=== PATIENT | male | born 1950 | race Caucasian/White ===

== ENCOUNTER 2018-04-23 19:46 | Inpatient (IN) | payer OTHER, MEDICARE ==
[2018-04-23] MEDS ORDERED: IPRATROPIUM/ALBUTEROL 0.5-2.5 MG/3 ML AMPUL NEB ONE (20:23)
[2018-04-23] MEDS ORDERED: METHYLPREDNISOLONE INJ 125 MG/2 ML SDV IV ONE (20:23)
--- NOTE | 2018-04-23 20:26 | ER Document Report ---
ED Medical Screen (RME) - General Chief Complaint: Breathing Difficulty Stated Complaint: DIFFICULTY BREATHING Time Seen by Provider: 04/23/18 20:20 Notes: Patient with difficulty breathing that has been going on for several weeks, but got worse in the past couple of days. He has a history of COPD and still smokes , although he says he stopped 2 days ago. Has had a cough productive of clear phlegm. Denies any chest pains. Has not had any fever. - Related Data Allergies/Adverse Reactions: No Known Drug Allergies Allergy (Verified 01/24/13 21:12) Past Medical History - Social History Frequency of alcohol use: 4-5 beers/day - Past Medical History Cardiac Medical History: Reports: Hx Hypertension Pulmonary Medical History: Reports: Hx COPD Renal/ Medical History: Denies: Hx Peritoneal Dialysis GI Medical History: Reports: Hx Gastroesophageal Reflux Disease Musculoskeltal Medical History: Reports Hx Arthritis Past Surgical History: Reports: Hx Orthopedic Surgery - R ankle - Immunizations Hx Diphtheria, Pertussis, Tetanus Vaccination: Yes Physical Exam - Vital signs Vitals: Temp Pulse Resp BP Pulse Ox 99.2 F 99 24 H 156/79 H 92 04/23/18 20:02 04/23/18 20:02 04/23/18 20:02 04/23/18 20:02 04/23/18 20:02 Course - Vital Signs Vital signs: Temp Pulse Resp BP Pulse Ox 99.2 F 99 24 H 156/79 H 92 04/23/18 20:02 04/23/18 20:02 04/23/18 20:02 04/23/18 20:02 04/23/18 20:02
[2018-04-23] MEDS ORDERED: NORMAL SALINE 1000 ML 1,000 ML IV ONE (20:35)
[2018-04-23 20:45] LABS: ABSOLUTE BASOPHILS # (AUTO) 0.1 10^3/uL (0.0-0.2); ABSOLUTE EOSINOPHILS # (AUTO) 1.4 10^3/uL (0.0-0.6); ABSOLUTE LYMPHOCYTES (AUTO) 0.8 10^3/uL (0.5-4.7); ABSOLUTE MONOCYTES (AUTO) 1.4 10^3/uL (0.1-1.4); ABSOLUTE NEUT (AUTO) 7.4 10^3/uL (1.7-8.2); BASOPHILS % (AUTO) 0.5 % (0-2); EOSINOPHILS % (AUTO) 12.4 % (0-6); HEMATOCRIT 39.9 % (37.9-51.0); MEAN CORPUSCULAR HEMOGLOBIN 35.1 pg (27.0-33.4); MEAN CORPUSCULAR HGB CONC 35.1 g/dL (32.0-36.0); MEAN CORPUSCULAR VOLUME 100 fl (80-97); MONOCYTES % (AUTO) 13.1 % (3-13); PLATELET COUNT 466 10^3/uL (150-450); RED BLOOD COUNT 3.99 10^6/uL (4.35-5.55); RED CELL DISTRIBUTION WIDTH 12.4 % (11.5-14.0); TOTAL CELLS COUNTED % (AUTO) 100 %
[2018-04-23] MEDS ORDERED: MAGNESIUM SULFATE/D5W 1 GM/100 ML RTUPB IV ONE (21:08)
[2018-04-23] MEDS ORDERED: ALBUTEROL SULFATE 0.083% NEB 2.5 MG/3 ML AMPUL NEB ONE (21:08)
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
[2018-04-23 21:14] LABS: ALANINE AMINOTRANSFERASE 22 U/L (21-72); ALBUMIN 3.7 g/dL (3.5-5.0); ALKALINE PHOSPHATASE 116 U/L (38-126); ANION GAP 8 (5-19); ASPARTATE AMINO TRANSFERASE 27 U/L (17-59); BILIRUBIN,DIRECT 0.5 mg/dL (0.0-0.4); BILIRUBIN,TOTAL 0.6 mg/dL (0.2-1.3); BLOOD UREA NITROGEN 8 mg/dL (7-20); CALCIUM 9.4 mg/dL (8.4-10.2); CARBON DIOXIDE 28 mmol/L (22-30); CHLORIDE 94 mmol/L (98-107); GLUCOSE 108 mg/dL (75-110); POTASSIUM 4.8 mmol/L (3.6-5.0); TOTAL PROTEIN 6.9 g/dL (6.3-8.2)
--- NOTE | 2018-04-23 21:16 | RADIOLOGY REPORT (SQ) ---
EXAM DESCRIPTION: CHEST SINGLE VIEW COMPLETED DATE/TIME: 04/23/2018 8:55 pm REASON FOR STUDY: COPD, wheezing, S OB COMPARISON: CT chest 01/24/2013 EXAM PARAMETERS: NUMBER OF VIEWS: One view. TECHNIQUE: Single frontal radiographic view of the chest acquired. RADIATION DOSE: NA LIMITATIONS: None. FINDINGS: LUNGS AND PLEURA: Mild biapical pleural-parenchymal scarring. No acute infiltrates. No p leural effusion. No pneumothorax. MEDIASTINUM AND HILAR STRUCTURES: No masses. Contour normal. HEART AND VASCULAR STRUCTURES: Heart normal in size. Normal vasculature. BONES: No acute findings. HARDWARE: None in the chest. OTHER: No other significant finding. IMPRESSION: NO ACUTE RADIOGRAPHIC FINDING IN THE CHEST. TECHNICAL DOCUMENTATION: JOB ID: [id number] [employer]- All Rights Reserved Reading location - IP/workstation name: [email or web address]
[2018-04-24] MEDS ORDERED: ACETAMINOPHEN 325 MG TABLET PO PRN (01:03)
[2018-04-24] MEDS ORDERED: MAG HYDROX/AL HYDROX/SIMETH SUSP 30 ML UDCUP PO PRN (01:03)
[2018-04-24] MEDS ORDERED: PROMETHAZINE HCL 25 MG TABLET PO PRN (01:03)
[2018-04-24] MEDS ORDERED: IPRATROPIUM/ALBUTEROL 0.5-2.5 MG/3 ML AMPUL NEB PRN ×2 (01:03→18:59)
[2018-04-24] MEDS ORDERED: PROMETHAZINE HCL INJ 25 MG/1 ML VIAL IV PRN (01:03)
[2018-04-24] MEDS ORDERED: HYDROCODONE/ACETAMINOPHEN 7.5-325 MG TABLET PO PRN (01:32)
[2018-04-24] MEDS ORDERED: METOCLOPRAMIDE HCL 10 MG TABLET PO PRN (01:32)
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
[2018-04-24] MEDS ORDERED: AZITHROMYCIN INJ 500 MG VIAL IV ONE (01:40)
[2018-04-24] MEDS: NORMAL SALINE 1000 ML 1,000 ML IV PRN ×2 (03:21→17:46)
[2018-04-24 04:26] LABS: APPEARANCE,URINE CLEAR; BILIRUBIN,URINE NEGATIVE (NEGATIVE); COLOR,URINE STRAW; GLUCOSE, URINE NEGATIVE (NEGATIVE); KETONES,URINE TRACE mg/dL (NEGATIVE); LEUKOCYTE ESTERASE,URINE NEGATIVE (NEGATIVE); NITRITE,URINE NEGATIVE (NEGATIVE); PROTEIN,URINE NEGATIVE (NEGATIVE); URINE SPECIFIC GRAVITY 1.005; UROBILINOGEN,URINE NEGATIVE mg/dL (<2.0)
[2018-04-24 06:39] LABS: HEMATOCRIT 38.6 % (37.9-51.0); HEMOGLOBIN 13.4 g/dL (13.5-17.0); MEAN CORPUSCULAR HEMOGLOBIN 35.3 pg (27.0-33.4); MEAN CORPUSCULAR HGB CONC 34.8 g/dL (32.0-36.0); MEAN CORPUSCULAR VOLUME 102 fl (80-97); PLATELET COUNT 393 10^3/uL (150-450); RED CELL DISTRIBUTION WIDTH 12.6 % (11.5-14.0); WHITE BLOOD COUNT 7.2 10^3/uL (4.0-10.5)
[2018-04-24 06:48] LABS: ARTERIAL BLOOD BASE EXCESS -1.9 mmol/L; ARTERIAL BLOOD H2CO3 1.13 mmol/L (1.05-1.35); ARTERIAL BLOOD HCO3 22.5 mmol/L (20-24); ARTERIAL BLOOD PCO2 37.5 mmHg (35-45); ARTERIAL BLOOD PO2 91.2 mmHg (80-100); ARTERIAL BLOOD TOTAL CO2 23.7 mmol/L (23-27)
[2018-04-24 06:51] LABS: ARTERIAL BLOOD FIO2 30%
[2018-04-24 06:52] LABS: ANION GAP 12 (5-19); BLOOD UREA NITROGEN 7 mg/dL (7-20); CALCIUM 8.9 mg/dL (8.4-10.2); CARBON DIOXIDE 23 mmol/L (22-30); CHLORIDE 99 mmol/L (98-107); GLUCOSE 154 mg/dL (75-110); PHOSPHORUS 4.1 mg/dL (2.5-4.5); POTASSIUM 5.4 mmol/L (3.6-5.0); SODIUM 134.4 mmol/L (137-145)
[2018-04-24] MEDS: METHYLPREDNISOLONE INJ 125 MG/2 ML SDV IV SCH ×3 (07:01→21:31)
[2018-04-24 07:06] LABS: ABSOLUTE LYMPHOCYTES# (MANUAL) 0.1 10^3/uL (0.5-4.7); ABSOLUTE MONOCYTES # (MANUAL) 0.1 10^3/uL (0.1-1.4); ABSOLUTE NEUTROPHILS# (MANUAL) 7.1 10^3/uL (1.7-8.2); BASOPHILS % (MANUAL) 0 % (0-2); EOSINOPHILS % (MANUAL) 0 % (0-6); LYMPHOCYTES % (MANUAL) 1 % (13-45); MONOCYTES % (MANUAL) 1 % (3-13); SEGMENTED NEUTROPHILS % (MAN) 98 % (42-78); TOTAL CELLS COUNTED 100
[2018-04-24 07:07] LABS: PLATELET COMMENT ADEQUATE; RBC MORPHOLOGY COMMENT NORMO-CYTIC/CHROMIC
[2018-04-24] MEDS ORDERED: AZITHROMYCIN 500 MG in DEXTROSE 5%-WATER 250 ML IV ONE (08:00)
--- NOTE | 2018-04-24 08:47 | EKG REPORT ---
SEVERITY:- NORMAL ECG - SINUS RHYTHM : Confirmed by: Winter Fuentes 24-Apr-2018 08:46:43
[2018-04-24] MEDS: ASPIRIN 81 MG TABLET, CHEWABLE PO SCH (10:38)
[2018-04-24] MEDS: LISINOPRIL 10 MG TABLET PO SCH (10:38)
[2018-04-24] MEDS: LORAZEPAM 0.5 MG TABLET PO SCH ×2 (10:38→17:46)
[2018-04-24] MEDS: ENOXAPARIN SODIUM INJ 40 MG/0.4 ML DISP.SYRIN SUBCUT SCH (10:38)
[2018-04-24] MEDS: TIOTROPIUM BROMIDE DPI 5 CAP/KIT (18 MCG/CAP) IH SCH (10:41)
[2018-04-24] MEDS: NICOTINE 21 MG/24 HR PATCH.TD24 TD SCH (13:15)
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
[2018-04-24] MEDS: IPRATROPIUM/ALBUTEROL 0.5-2.5 MG/3 ML AMPUL NEB SCH (20:09)
[2018-04-24] MEDS ORDERED: LEVOFLOXACIN 750 MG TABLET PO SCH (20:45)
[2018-04-24] MEDS: FAMOTIDINE 20 MG TABLET PO SCH (21:31)
[2018-04-25] MEDS: METHYLPREDNISOLONE INJ 125 MG/2 ML SDV IV SCH ×2 (06:16→13:44)
[2018-04-25 06:39] LABS: HEMATOCRIT 35.7 % (37.9-51.0); HEMOGLOBIN 12.5 g/dL (13.5-17.0); MEAN CORPUSCULAR HEMOGLOBIN 34.8 pg (27.0-33.4); MEAN CORPUSCULAR HGB CONC 35.1 g/dL (32.0-36.0); MEAN CORPUSCULAR VOLUME 99 fl (80-97); PLATELET COUNT 442 10^3/uL (150-450); RED CELL DISTRIBUTION WIDTH 12.4 % (11.5-14.0)
[2018-04-25 06:56] LABS: ANION GAP 7 (5-19); BLOOD UREA NITROGEN 12 mg/dL (7-20); CALCIUM 8.7 mg/dL (8.4-10.2); CARBON DIOXIDE 27 mmol/L (22-30); CHLORIDE 98 mmol/L (98-107); GLUCOSE 153 mg/dL (75-110); PHOSPHORUS 3.7 mg/dL (2.5-4.5); POTASSIUM 4.6 mmol/L (3.6-5.0); SODIUM 131.7 mmol/L (137-145)
[2018-04-25 07:43] LABS: ABSOLUTE LYMPHOCYTES# (MANUAL) 0.3 10^3/uL (0.5-4.7); ABSOLUTE MONOCYTES # (MANUAL) 0.4 10^3/uL (0.1-1.4); ABSOLUTE NEUTROPHILS# (MANUAL) 8.4 10^3/uL (1.7-8.2); BASOPHILS % (MANUAL) 0 % (0-2); EOSINOPHILS % (MANUAL) 0 % (0-6); LYMPHOCYTES % (MANUAL) 3 % (13-45); MONOCYTES % (MANUAL) 4 % (3-13); SEGMENTED NEUTROPHILS % (MAN) 93 % (42-78); TOTAL CELLS COUNTED 100
[2018-04-25 07:44] LABS: PLATELET COMMENT ADEQUATE; RBC MORPHOLOGY COMMENT NORMO-CYTIC/CHROMIC
[2018-04-25] MEDS: IPRATROPIUM/ALBUTEROL 0.5-2.5 MG/3 ML AMPUL NEB SCH ×2 (08:03→12:00)
[2018-04-25 08:22] VITALS: BP 149/77
[2018-04-25] MEDS: ENOXAPARIN SODIUM INJ 40 MG/0.4 ML DISP.SYRIN SUBCUT SCH (09:32)
[2018-04-25] MEDS: ASPIRIN 81 MG TABLET, CHEWABLE PO SCH (09:33)
[2018-04-25] MEDS: LORAZEPAM 0.5 MG TABLET PO SCH (09:33)
[2018-04-25] MEDS: FAMOTIDINE 20 MG TABLET PO SCH (09:33)
[2018-04-25] MEDS: LISINOPRIL 10 MG TABLET PO SCH (09:34)
[2018-04-25] MEDS: TIOTROPIUM BROMIDE DPI 5 CAP/KIT (18 MCG/CAP) IH SCH (09:44)
[2018-04-25 09:56] LABS: ARTERIAL BLOOD BASE EXCESS 0.5 mmol/L; ARTERIAL BLOOD H2CO3 1.06 mmol/L (1.05-1.35); ARTERIAL BLOOD O2 SATURATION 95.3 % (94-98); ARTERIAL BLOOD PCO2 35.3 mmHg (35-45); ARTERIAL BLOOD PH 7.45 (7.35-7.45); ARTERIAL BLOOD PO2 72.1 mmHg (80-100); ARTERIAL BLOOD TOTAL CO2 25.1 mmol/L (23-27)
[2018-04-25 10:00] LABS: ARTERIAL BLOOD FIO2 ROOM AIR
[2018-04-25] MEDS: NICOTINE 21 MG/24 HR PATCH.TD24 TD SCH (13:45)
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
== END 2018-04-25 16:16 | disposition home or self-care (01) | DRG 192 ==
LOC: ER 19:46 → EH 04-24 00:19 → 3S 04-24 02:25
PROVIDERS: ADMIT Internal Medicine; ATTEND Internal Medicine
DX: J44.1 Chronic obstructive pulmonary disease with (acute) exacerbation (principal); I10 Essential (primary) hypertension; K21.9 Gastro-esophageal reflux disease without esophagitis; F17.210 Nicotine dependence, cigarettes, uncomplicated; Z79.82 Long term (current) use of aspirin; Z79.51 Long term (current) use of inhaled steroids; Z79.52 Long term (current) use of systemic steroids; Z79.899 Other long term (current) drug therapy
CPT/HCPCS: 36415; 36600; 71045; 80048; 80053; 81001; 82803; 83880; 84100; 84484; 85025; 87040; 87070; 87077; 87205; 93005; 93010; 94640; 94660; 94799; 96361; 96365; 96366; 96375; 99285; J0456; J1650; J2930; J3475; J3490; J7060; J7620

== ENCOUNTER 2018-05-07 20:28 | Inpatient (IN) | payer OTHER, MEDICARE ==
[2018-05-07] MEDS ORDERED: PREDNISONE 20 MG TABLET PO ONE (20:33)
[2018-05-07] MEDS ORDERED: IPRATROPIUM/ALBUTEROL 0.5-2.5 MG/3 ML AMPUL NEB ONE ×3 (20:33→21:59)
--- NOTE | 2018-05-07 20:36 | ER Document Report ---
ED Medical Screen (RME) - General Stated Complaint: SHORTNESS OF BREATH Mode of Arrival: Ambulatory Information source: Patient, [facility] Records Notes: 67-year-old male with COPD presents with complaint of shortness of breath that started 1 day prior to arrival. Patient admits to associated chest congestion. He does not currently smoke. I have greeted and performed a rapid initial assessment of this patient. A comprehensive ED assessment and evaluation of the patient, analysis of test results and completion of medical decision making process we will be contacted by additional ED providers. General; mild distress Respiratory; accessory muscle use, diffuse wheezing Neuro; alert, awake TRAVEL OUTSIDE OF THE [place] IN LAST 30 DAYS: No - HPI Onset: Yesterday Onset/Duration: Gradual Associated Symptoms: Cough (productive), Shortness of breath Exacerbated by: Denies Relieved by: Denies Similar symptoms previously: Yes Recently seen / treated by doctor: No - Related Data Smoking: Quit greater than 1 year Frequency of alcohol use: None Drug Abuse: None Allergies/Adverse Reactions: No Known Drug Allergies Allergy (Verified 01/24/13 21:12) Past Medical History - Past Medical History Cardiac Medical History: Reports: Hx Hypertension Pulmonary Medical History: Reports: Hx COPD Renal/ Medical History: Denies: Hx Peritoneal Dialysis GI Medical History: Reports: Hx Gastroesophageal Reflux Disease Musculoskeltal Medical History: Reports Hx Arthritis Past Surgical History: Reports: Hx Orthopedic Surgery - R ankle - Immunizations Hx Diphtheria, Pertussis, Tetanus Vaccination: Yes
[2018-05-07] MEDS: ALBUTEROL SULFATE 0.083% NEB 2.5 MG/3 ML AMPUL NEB SCH ×2 (20:38→20:41)
[2018-05-07 21:05] LABS: ABSOLUTE BASOPHILS # (AUTO) 0.1 10^3/uL (0.0-0.2); ABSOLUTE EOSINOPHILS # (AUTO) 1.1 10^3/uL (0.0-0.6); ABSOLUTE LYMPHOCYTES (AUTO) 0.8 10^3/uL (0.5-4.7); ABSOLUTE MONOCYTES (AUTO) 1.5 10^3/uL (0.1-1.4); ABSOLUTE NEUT (AUTO) 9.8 10^3/uL (1.7-8.2); BASOPHILS % (AUTO) 0.7 % (0-2); EOSINOPHILS % (AUTO) 8.3 % (0-6); HEMATOCRIT 40.1 % (37.9-51.0); HEMOGLOBIN 14.1 g/dL (13.5-17.0); LYMPHOCYTES % (AUTO) 6.1 % (13-45); MEAN CORPUSCULAR HEMOGLOBIN 34.6 pg (27.0-33.4); MEAN CORPUSCULAR HGB CONC 35.2 g/dL (32.0-36.0); MEAN CORPUSCULAR VOLUME 98 fl (80-97); MONOCYTES % (AUTO) 11.3 % (3-13); PLATELET COUNT 323 10^3/uL (150-450); RED BLOOD COUNT 4.08 10^6/uL (4.35-5.55); RED CELL DISTRIBUTION WIDTH 12.7 % (11.5-14.0); SEGMENTED NEUTROPHILS % (AUTO) 73.6 % (42-78); TOTAL CELLS COUNTED % (AUTO) 100 %; WHITE BLOOD COUNT 13.3 10^3/uL (4.0-10.5)
[2018-05-07 21:19] LABS: VENOUS BLOOD BASE EXCESS 0.2 mmol/L; VENOUS BLOOD HCO3 26.3 mmol/L (20-32); VENOUS BLOOD PCO2 47.7 mmHg (35-63); VENOUS BLOOD PH 7.36 (7.30-7.42)
[2018-05-07 21:35] LABS: ALANINE AMINOTRANSFERASE 25 U/L (21-72); ALBUMIN 3.9 g/dL (3.5-5.0); ALKALINE PHOSPHATASE 84 U/L (38-126); ANION GAP 11 (5-19); ASPARTATE AMINO TRANSFERASE 34 U/L (17-59); BILIRUBIN,DIRECT 0.5 mg/dL (0.0-0.4); BILIRUBIN,TOTAL 0.6 mg/dL (0.2-1.3); BLOOD UREA NITROGEN 6 mg/dL (7-20); CALCIUM 9.1 mg/dL (8.4-10.2); CARBON DIOXIDE 27 mmol/L (22-30); CHLORIDE 90 mmol/L (98-107); GLUCOSE 100 mg/dL (75-110); POTASSIUM 4.6 mmol/L (3.6-5.0); SODIUM 128.2 mmol/L (137-145); TOTAL PROTEIN 6.9 g/dL (6.3-8.2)
[2018-05-07 21:46] LABS: NT PRO BNP 238 pg/mL (5-900); TROPONIN I < 0.012 ng/mL
[2018-05-07] MEDS ORDERED: ALBUTEROL SULFATE 0.083% NEB 2.5 MG/3 ML AMPUL NEB ONE (21:59)
--- NOTE | 2018-05-07 22:04 | RADIOLOGY REPORT (SQ) ---
Portable chest Compared to 04/23/2018. HISTORY: Shortness of breath. FINDINGS: The heart is not enlarged. Aorta is within normal limits. No consolidation or pleural effusion. No pulmonary edema or pneumothorax. IMPRESSION: No acute disease.
[2018-05-07] MEDS: MAGNESIUM SULFATE/D5W 1 GM/100 ML RTUPB IV SCH ×2 (22:13→22:43)
--- NOTE | 2018-05-07 22:40 | ER Document Report ---
ED General - General Chief Complaint: Shortness Of Breath Stated Complaint: SHORTNESS OF BREATH Time Seen by Provider: 05/07/18 20:36 Mode of Arrival: Ambulatory Notes: Patient is a 67-year-old male with a past medical history of COPD, does not typically use oxygen at baseline who presents with 2 days of progressively worsening shortness of breath and cough. The patient states this feels similar to when he required hospitalization at the end of last month. He states that his symptoms started shortly after running out of oral prednisone. He has not seen his primary care doctor regarding today's concerns. He denies sputum production, fever or constitutional symptoms. Nothing improves or worsens his symptoms. He is not currently smoking. TRAVEL OUTSIDE OF THE [place] IN LAST 30 DAYS: No - Related Data Allergies/Adverse Reactions: No Known Drug Allergies Allergy (Verified 01/24/13 21:12) Past Medical History - General Information source: Patient, [facility] Records - Social History Smoking Status: Former Smoker Chew tobacco use (# tins/day): No Frequency of alcohol use: Occasional Drug Abuse: None Lives with: Spouse/Significant other Family History: Reviewed & Not Pertinent Patient has suicidal ideation: No Patient has homicidal ideation: No - Past Medical History Cardiac Medical History: Reports: Hx Hypertension Pulmonary Medical History: Reports: Hx COPD Renal/ Medical History: Denies: Hx Peritoneal Dialysis GI Medical History: Reports: Hx Gastroesophageal Reflux Disease Musculoskeletal Medical History: Reports Hx Arthritis Past Surgical History: Reports: Hx Orthopedic Surgery - R ankle - Immunizations Hx Diphtheria, Pertussis, Tetanus Vaccination: Yes Hx Pneumococcal Vaccination: 01/26/13 Review of Systems - Review of Systems Notes: Constitutional: Negative for fever. HENT: Negative for sore throat. Eyes: Negative for visual changes. Cardiovascular: Negative for chest pain. Respiratory: Positive for shortness of breath. Gastrointestinal: Negative for abdominal pain, vomiting or diarrhea. Genitourinary: Negative for dysuria. Musculoskeletal: Negative for back pain. Skin: Negative for rash. Neurological: Negative for headaches, weakness or numbness. 10 point ROS negative except as marked above and in HPI. Physical Exam - Vital signs Vitals: Temp Pulse Resp BP Pulse Ox 97.7 F 110 H 25 H 130/71 H 94 05/07/18 20:35 05/07/18 20:35 05/07/18 20:35 05/07/18 20:35 05/07/18 20:35 Interpretation: Tachycardic, Tachypneic Notes: PHYSICAL EXAMINATION: GENERAL: Appears moderately unwell but in no acute distress HEAD: Atraumatic, normocephalic. EYES: Pupils equal round and reactive to light, extraocular movements intact, sclera anicteric, conjunctiva are normal. ENT: nares patent, oropharynx clear without exudates. Moderately dry mucous membranes. NECK: Normal range of motion, supple without lymphadenopathy LUNGS: Mild tachypnea, diffuse wheezing and diminished air movement in all lung huggins HEART: Regular tachycardia without murmurs ABDOMEN: Soft, nontender, normoactive bowel sounds. No guarding, no rebound. No masses appreciated. EXTREMITIES: Normal range of motion, no pitting or edema. No cyanosis. NEUROLOGICAL: No focal neurological deficits. Moves all extremities spontaneously and on command. PSYCH: Normal mood, normal affect. SKIN: Warm, Dry, normal turgor, no rashes or lesions noted. Course - Re-evaluation Re-evalutation: 05/07/18 22:40 Patient presents in mild respiratory distress, tachypnea, tight, diffuse wheezing in all lung huggins. Chest x-ray without any acute infiltrate. Labs overall unremarkable. Despite giving 3 back to back to nebulizer, continuous albuterol nebulizers, IV magnesium, oral prednisone the patient did not have substantial improvement in his symptoms. Patient on multiple reassessments was at no point in anything beyond mild respiratory distress, I do not believe he needs BiPAP at this point. However I do believe he will require hospitalization given his failure to improve with initial interventions. I discussed with Dr. Heard the hospitalist on-call who has accepted the patient for admission. - Vital Signs Vital signs: Temp Pulse Resp BP Pulse Ox 98.4 F 110 H 24 H 145/74 H 97 05/07/18 23:09 05/07/18 20:35 05/07/18 23:01 05/07/18 23:01 05/07/18 23:11 - Laboratory Result Diagrams: 05/07/18 20:54 05/07/18 20:54 Laboratory results interpreted by me: 05/07/18 05/07/18 20:54 20:54 WBC 13.3 H RBC 4.08 L MCV 98 H MCH 34.6 H Lymphocytes % 6.1 L Eosinophils % 8.3 H Absolute Neutrophils 9.8 H Absolute Monocytes 1.5 H Absolute Eosinophils 1.1 H Sodium 128.2 L Chloride 90 L BUN 6 L Direct Bilirubin 0.5 H - Diagnostic Test Radiology reviewed: Image reviewed, Reports reviewed Radiology results interpreted by me: 05/08/18 00:19 Chest x-ray: No acute infiltrate or pneumothorax Discharge - Discharge Clinical Impression: COPD with acute exacerbation, Shortness of breath Condition: Fair Disposition: ADMITTED INPATIENT Admitting Provider: Hospitalist Unit Admitted: Telemetry
[2018-05-07] MEDS ORDERED: ACETAMINOPHEN 325 MG TABLET PO PRN (23:32)
[2018-05-07] MEDS ORDERED: PROMETHAZINE HCL INJ 25 MG/1 ML VIAL IV PRN (23:32)
[2018-05-07] MEDS ORDERED: PROMETHAZINE HCL 25 MG TABLET PO PRN (23:32)
[2018-05-07] MEDS ORDERED: MAG HYDROX/AL HYDROX/SIMETH SUSP 30 ML UDCUP PO PRN (23:32)
[2018-05-07] MEDS ORDERED: TEMAZEPAM 7.5 MG CAPSULE PO PRN (23:32)
--- NOTE | 2018-05-07 23:33 | EKG REPORT ---
SEVERITY:- BORDERLINE ECG - SINUS TACHYCARDIA BORDERLINE IVCD WITH LAD : Confirmed by: Winter Fuentes 07-May-2018 23:32:08
[2018-05-07] MEDS ORDERED: AZITHROMYCIN INJ 500 MG VIAL IV PRN (23:44)
[2018-05-08] MEDS ORDERED: AZITHROMYCIN 500 MG in DEXTROSE 5%-WATER 250 ML IV ONE ×2
[2018-05-08] MEDS: NORMAL SALINE 1000 ML 1,000 ML IV PRN ×2 (00:12→17:18)
[2018-05-08] MEDS ORDERED: AZITHROMYCIN INJ 500 MG VIAL IV ONE (00:54)
--- NOTE | 2018-05-08 02:25 | PDOC H&P ---
History of Present Illness Admission Date/PCP: 05/07/18 22:48 Ravinder Mendoza Patient complains of: Shortness of breath History of Present Illness: JOSE LUIS JIM is a 67 year old male who comes to the emergency department complaining of shortness of breath. Patient has been discharged from our facility on 04/25 for COPD exacerbation, tells me that he was good and until 3 days ago that his symptoms returned with progressive shortness of breath, cough , denies phlegm, wheezing, fever, chills, nausea, vomiting, chest pain. Patient is a smoker but her last seizure was 2 days ago as gives him severe shortness of breath. Symptoms are similar to his last hospitalization and states that symptoms started after he ran out of prednisone. In the emergency department saturating 94% on room air. In the ED noted on mild respiratory distress, tachypneic, diffuse wheezing in both lungs with chest tightness. Given IV magnesium, nebulizer treatments, p.o. prednisone with no substantial improvement, felt patient needs to be hospitalized. Past Medical History Cardiac Medical History: Reports: Hypertension Pulmonary Medical History: Reports: Chronic Obstructive Pulmonary Disease (COPD) GI Medical History: Reports: Gastroesophageal Reflux Disease Musculoskeltal Medical History: Reports: Arthritis Past Surgical History Past Surgical History: Reports: Orthopedic Surgery - R ankle Social History Lives with: Spouse/Significant other Smoking Status: Former Smoker Frequency of Alcohol Use: Heavy Hx Recreational Drug Use: No Hx Prescription Drug Abuse: No - Advance Directive Resuscitation Status: Full Code Family History Family History: Reviewed & Not Pertinent Parental Family History Reviewed: No Children Family History Reviewed: NA Sibling(s) Family History Reviewed.: NA Medication/Allergy Home Medications: Albuterol Sulfate [Proair HFA Inhalation Aerosol 8.5 gm MDI] 2 puff IH Q6HP PRN 04/24/18 Budesonide/Formoterol Fumarate [Symbicort HFA 160-4.5 mcg Inhaler 6 gm] 2 puff IH BID 04/24/18 Cholecalciferol (Vitamin D3) [Vitamin D3] 1,000 unit PO DAILY 04/24/18 Guaifenesin 400 mg PO TID 04/24/18 Lisinopril [Prinivil 10 mg Tablet] 10 mg PO DAILY 04/24/18 Loratadine [Claritin 10 mg Tablet] 10 mg PO DAILY 04/24/18 Multivitamin [Multiple Vitamins] 1 tab PO DAILY 04/24/18 Rabeprazole Sodium [Aciphex] 20 mg PO QAM 04/24/18 Aspirin [Aspirin 81 mg Chewable Tablet] 81 mg PO DAILY tab.chew 04/25/18 Levofloxacin [Levaquin 750 mg Tablet] 750 mg PO QHS #5 tablet 04/25/18 Prednisone 20 mg PO BID #10 tablet 04/25/18 Tiotropium [place] [Spiriva Handihaler 5 Cap/Kit (18 Mcg/Cap)] 1 cap IH DAILY # 5 kit 04/25/18 Allergies/Adverse Reactions: No Known Drug Allergies Allergy (Verified 01/24/13 21:12) Review of Systems Review of Systems: As outlined in the HPI, others negative Physical Exam Vital Signs: Temp Pulse Resp BP Pulse Ox 98.3 F 122 H 20 133/67 H 98 05/08/18 00:22 05/08/18 00:22 05/08/18 00:22 05/08/18 00:22 05/08/18 00:22 Intake & Output 05/06/18 05/07/18 05/08/18 06:59 06:59 06:59 Intake Total 100 Balance 100 Weight 72.4 kg Additional comments: General appearance: Disheveled, alert and cooperative, and appears to be in no acute distress Head: Normocephalic Eyes: PEERL, EOMI, vision is grossly intact. Ears: External auditory canal and tympanic membranes clear, hearing grossly intact. Nose: No nasal discharge. Throat: Oral cavity and pharynx normal. No inflammation, swelling, exudate or lesions. Neck: Neck supple, nontender without lymphadenopathy, masses or thyromegaly. Cardiac: Normal S1 and S2. No S3, S4 or murmurs. Rhythm is regular. There is no peripheral edema, cyanosis or pallor. Extremities are warm and well perfused. Capillary refill is less than 2 seconds. No carotid bruits. Lungs: Moderate to severe bilateral decreased breath sounds with moderate bilateral expiratory wheezing, diffuse rhonchi, diffuse crackles. Not using accessory muscles. Abdomen: Positive bowel sounds. Soft. Nondistended, nontender. No guarding or rebound. No masses. No hepatosplenomegaly Extremities: No significant deformity or joint abnormality. No edema. Peripheral pulses intact. No varicosities. Neurological: Cranial nerves II through XII grossly intact. Strength and sensation symmetric and intact throughout. Reflexes 2+ throughout. Skin: Skin normal color, texture and turgor with no lesions or eruptions, warm and dry. Psychiatric: The mental examination revealed the patient was oriented to person , place, and time. The patient was able to demonstrate good judgment on recent , without hallucinations, abnormal affect or abnormal behaviors. Results Laboratory Results: 05/07/18 05/07/18 05/07/18 20:54 20:54 20:54 WBC 13.3 H RBC 4.08 L Hgb 14.1 Hct 40.1 MCV 98 H MCH 34.6 H MCHC 35.2 RDW 12.7 Plt Count 323 Seg Neutrophils % 73.6 Lymphocytes % 6.1 L Eosinophils % 8.3 H Basophils % 0.7 Absolute Neutrophils 9.8 H Absolute Lymphocytes 0.8 Absolute Monocytes 1.5 H Absolute Eosinophils 1.1 H Absolute Basophils 0.1 VBG pH VBG pCO2 VBG HCO3 VBG Base Excess Sodium 128.2 L Potassium 4.6 Chloride 90 L Carbon Dioxide 27 Anion Gap 11 BUN 6 L Creatinine 0.69 Est GFR ( Amer) > 60 Est GFR (Non-Af Amer) > 60 Glucose 100 Calcium 9.1 Total Bilirubin 0.6 Direct Bilirubin 0.5 H Neonat Total Bilirubin Not Reportable Neonat Direct Bilirubin Not Reportable AST 34 ALT 25 Troponin I < 0.012 NT-Pro-B Natriuret Pep 238 Total Protein 6.9 Albumin 3.9 05/07/18 20:54 WBC RBC Hgb Hct MCV MCH MCHC RDW Plt Count Seg Neutrophils % Lymphocytes % Eosinophils % Basophils % Absolute Neutrophils Absolute Lymphocytes Absolute Monocytes Absolute Eosinophils Absolute Basophils VBG pH 7.36 VBG pCO2 47.7 VBG HCO3 26.3 VBG Base Excess 0.2 Sodium Potassium Chloride Carbon Dioxide Anion Gap BUN Creatinine Est GFR ( Amer) Est GFR (Non-Af Amer) Glucose Calcium Total Bilirubin Direct Bilirubin Neonat Total Bilirubin Neonat Direct Bilirubin AST ALT Troponin I NT-Pro-B Natriuret Pep Total Protein Albumin Impressions: Chest X-Ray 05/07/18 20:33 IMPRESSION: No acute disease. Assessment & Plan - Diagnosis (1) COPD with acute exacerbation Is this a current diagnosis for this admission?: Yes Plan: Patient comes with progressive shortness of breath for 2 days, unfortunately he was a still smoker umtil 3 days ago. In the ED initially tachycardic up to 110 with a respiratory rate of 24x'. Will start IV azithromycin. Do not feel patient needs to be on BiPAP. Incentive spirometry. Chest x-ray negative for acute infiltrates. Upon my evaluation patient was tachycardic up to 120x' likely secondary to frequent nebulizer treatments containing albuterol. We will keep the patient on telemetry monitoring and reassess. (2) Hypertension Qualifiers: Hypertension type: essential hypertension Qualified Code(s): I10 - Essential (primary) hypertension Is this a current diagnosis for this admission?: Yes Plan: Resume home antihypertensive medications. (3) Tobacco dependence Is this a current diagnosis for this admission?: Yes Plan: Last cigarette 3 days ago. Declined to have nicotine patch. (4) Hyponatremia Is this a current diagnosis for this admission?: Yes Plan: Apparently patient has mild chronic hyponatremia, this admission sodium is 128, will give some normal saline IV infusion and reassess sodium value in the morning. - Time Time Spent: 30 to 50 Minutes - Inpatient Certification Based on my medical assessment, after consideration of the patient's comorbidities, presenting symptoms, or acuity I expect that the services needed warrant INPATIENT care.: Yes I certify that my determination is in accordance with my understanding of Medicare's requirements for reasonable and necessary INPATIENT services [42 CFR 412.3e].: Yes Medical Necessity: Risk of Complication if Not Cared For in Hospital
[2018-05-08] MEDS: METHYLPREDNISOLONE INJ 125 MG/2 ML SDV IV SCH ×3 (05:17→21:29)
[2018-05-08 06:05] LABS: HEMATOCRIT 37.9 % (37.9-51.0); HEMOGLOBIN 13.4 g/dL (13.5-17.0); MEAN CORPUSCULAR HGB CONC 35.4 g/dL (32.0-36.0); MEAN CORPUSCULAR VOLUME 99 fl (80-97); PLATELET COUNT 308 10^3/uL (150-450); RED BLOOD COUNT 3.83 10^6/uL (4.35-5.55); RED CELL DISTRIBUTION WIDTH 12.8 % (11.5-14.0); WHITE BLOOD COUNT 7.6 10^3/uL (4.0-10.5)
[2018-05-08 06:46] LABS: ANION GAP 13 (5-19); BLOOD UREA NITROGEN 7 mg/dL (7-20); CALCIUM 8.8 mg/dL (8.4-10.2); CARBON DIOXIDE 25 mmol/L (22-30); CHLORIDE 91 mmol/L (98-107); GLUCOSE 201 mg/dL (75-110); SODIUM 128.8 mmol/L (137-145)
[2018-05-08 06:59] LABS: ABSOLUTE LYMPHOCYTES# (MANUAL) 0.2 10^3/uL (0.5-4.7); ABSOLUTE MONOCYTES # (MANUAL) 0.1 10^3/uL (0.1-1.4); ABSOLUTE NEUTROPHILS# (MANUAL) 7.2 10^3/uL (1.7-8.2); BASOPHILS % (MANUAL) 1 % (0-2); EOSINOPHILS % (MANUAL) 0 % (0-6); LYMPHOCYTES % (MANUAL) 3 % (13-45); MONOCYTES % (MANUAL) 1 % (3-13); SEGMENTED NEUTROPHILS % (MAN) 95 % (42-78); TOTAL CELLS COUNTED 100
[2018-05-08 07:02] LABS: PLATELET COMMENT ADEQUATE; RBC MORPHOLOGY COMMENT NORMO-CYTIC/CHROMIC; TOXIC GRANULATION 1+
[2018-05-08] MEDS: IPRATROPIUM/ALBUTEROL 0.5-2.5 MG/3 ML AMPUL NEB PRN (08:37)
[2018-05-08] MEDS: GUAIFENESIN SYRP 200 MG/10 ML UDC PO SCH ×3 (09:55→17:18)
[2018-05-08] MEDS: BUDESONIDE/FORMOTEROL 160-4.5 MCG 60 PUFF/6 GM MDI IH SCH ×2 (09:56→17:15)
[2018-05-08] MEDS: TIOTROPIUM BROMIDE DPI 5 CAP/KIT (18 MCG/CAP) IH SCH (09:57)
[2018-05-08] MEDS: LORATADINE 10 MG TABLET PO SCH (09:58)
[2018-05-08] MEDS: ASPIRIN 81 MG TABLET, CHEWABLE PO SCH (09:58)
[2018-05-08] MEDS: MULTIVITAMIN TABLET PO SCH (09:58)
[2018-05-08] MEDS: LANSOPRAZOLE 30 MG TAB.RAP.DR PO SCH (09:58)
[2018-05-08] MEDS: LISINOPRIL 10 MG TABLET PO SCH (09:58)
[2018-05-08] MEDS: ENOXAPARIN SODIUM INJ 40 MG/0.4 ML DISP.SYRIN SUBCUT SCH (09:59)
[2018-05-08] MEDS: CHOLECALCIFEROL (D3) 1,000 UNIT TABLET PO SCH (09:59)
[2018-05-08] MEDS ORDERED: AZITHROMYCIN 500 MG in DEXTROSE 5%-WATER 250 ML IV SCH (22:00)
[2018-05-09] MEDS: IPRATROPIUM/ALBUTEROL 0.5-2.5 MG/3 ML AMPUL NEB PRN ×2 (01:07→08:33)
[2018-05-09] MEDS: METHYLPREDNISOLONE INJ 125 MG/2 ML SDV IV SCH (05:34)
[2018-05-09] MEDS: NORMAL SALINE 1000 ML 1,000 ML IV PRN (06:53)
[2018-05-09] MEDS: GUAIFENESIN SYRP 200 MG/10 ML UDC PO SCH (10:06)
[2018-05-09] MEDS: LISINOPRIL 10 MG TABLET PO SCH (10:06)
[2018-05-09] MEDS: LORATADINE 10 MG TABLET PO SCH (10:07)
[2018-05-09] MEDS: CHOLECALCIFEROL (D3) 1,000 UNIT TABLET PO SCH (10:07)
[2018-05-09] MEDS: ASPIRIN 81 MG TABLET, CHEWABLE PO SCH (10:07)
[2018-05-09] MEDS: LANSOPRAZOLE 30 MG TAB.RAP.DR PO SCH (10:07)
[2018-05-09] MEDS: MULTIVITAMIN TABLET PO SCH (10:07)
[2018-05-09] MEDS: TIOTROPIUM BROMIDE DPI 5 CAP/KIT (18 MCG/CAP) IH SCH (10:08)
[2018-05-09] MEDS: BUDESONIDE/FORMOTEROL 160-4.5 MCG 60 PUFF/6 GM MDI IH SCH (10:23)
[2018-05-09] MEDS: ENOXAPARIN SODIUM INJ 40 MG/0.4 ML DISP.SYRIN SUBCUT SCH (10:25)
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
[2018-05-09 12:59] VITALS: BP 140/67
[2018-05-09] MEDS ORDERED: AZITHROMYCIN 250 MG TABLET PO SCH (22:00)
== END 2018-05-09 13:42 | disposition home or self-care (01) | DRG 191 ==
LOC: ER 20:28 → EH 22:48 → 4S 23:44
PROVIDERS: ADMIT Internal Medicine; ATTEND Internal Medicine
DX: J44.1 Chronic obstructive pulmonary disease with (acute) exacerbation (principal); E87.1 Hypo-osmolality and hyponatremia; I10 Essential (primary) hypertension; K21.9 Gastro-esophageal reflux disease without esophagitis; M19.90 Unspecified osteoarthritis, unspecified site; F17.210 Nicotine dependence, cigarettes, uncomplicated; Z79.2 Long term (current) use of antibiotics; Z79.82 Long term (current) use of aspirin; Z79.51 Long term (current) use of inhaled steroids; Z79.899 Other long term (current) drug therapy
CPT/HCPCS: 36415; 71045; 80048; 80053; 82803; 83880; 84484; 85025; 87040; 87070; 87205; 93005; 93010; 94640; 94799; 96365; 99285; J0456; J1650; J2930; J3475; J3490; J7030; J7060; J7512; J7620

== ENCOUNTER 2018-10-13 13:11 | Inpatient (IN) | payer OTHER, MEDICARE ==
[2018-10-13 13:58] LABS: ABSOLUTE BASOPHILS # (AUTO) 0.1 10^3/uL (0.0-0.2); ABSOLUTE EOSINOPHILS # (AUTO) 0.4 10^3/uL (0.0-0.6); ABSOLUTE LYMPHOCYTES (AUTO) 0.7 10^3/uL (0.5-4.7); ABSOLUTE MONOCYTES (AUTO) 1.7 10^3/uL (0.1-1.4); ABSOLUTE NEUT (AUTO) 7.8 10^3/uL (1.7-8.2); BASOPHILS % (AUTO) 0.7 % (0-2); EOSINOPHILS % (AUTO) 3.8 % (0-6); HEMATOCRIT 38.8 % (37.9-51.0); HEMOGLOBIN 13.7 g/dL (13.5-17.0); LYMPHOCYTES % (AUTO) 6.6 % (13-45); MEAN CORPUSCULAR HEMOGLOBIN 34.6 pg (27.0-33.4); MEAN CORPUSCULAR HGB CONC 35.4 g/dL (32.0-36.0); MEAN CORPUSCULAR VOLUME 98 fl (80-97); MONOCYTES % (AUTO) 15.7 % (3-13); PLATELET COUNT 374 10^3/uL (150-450); RED BLOOD COUNT 3.97 10^6/uL (4.35-5.55); RED CELL DISTRIBUTION WIDTH 12.6 % (11.5-14.0); SEGMENTED NEUTROPHILS % (AUTO) 73.2 % (42-78); TOTAL CELLS COUNTED % (AUTO) 100 %; WHITE BLOOD COUNT 10.6 10^3/uL (4.0-10.5)
[2018-10-13 14:04] LABS: ALANINE AMINOTRANSFERASE 36 U/L (21-72); ALBUMIN 3.7 g/dL (3.5-5.0); ALKALINE PHOSPHATASE 134 U/L (38-126); ANION GAP 10 (5-19); ASPARTATE AMINO TRANSFERASE 39 U/L (17-59); BILIRUBIN,DIRECT 0.3 mg/dL (0.0-0.4); BILIRUBIN,TOTAL 0.7 mg/dL (0.2-1.3); BLOOD UREA NITROGEN 9 mg/dL (7-20); CARBON DIOXIDE 28 mmol/L (22-30); CHLORIDE 89 mmol/L (98-107); GLUCOSE 128 mg/dL (75-110); POTASSIUM 4.5 mmol/L (3.6-5.0); SODIUM 127.2 mmol/L (137-145); TOTAL PROTEIN 6.2 g/dL (6.3-8.2)
--- NOTE | 2018-10-13 14:05 | RADIOLOGY REPORT (SQ) ---
EXAM DESCRIPTION: CT HEAD WITHOUT COMPLETED DATE/TIME: 10/13/2018 1:49 pm REASON FOR STUDY: syncope COMPARISON: None. TECHNIQUE: Axial images acquired through the brain without intravenous contrast. Images reviewed wi th bone, brain and subdural windows. Additional sagittal and coronal reconstructions were generated. Images stored on PACS. All CT scanners at this facility use dose modulation, iterative reconstruction, and/or weight based d osing when appropriate to reduce radiation dose to as low as reasonably achievable (ALARA). [facility]: Dose Right [facility]: CareDose [facility]: Dose Right [facility]: Teradose 4D [facility]: MAR Systems RADIATION DOSE: CT Rad equipment meets quality standard of care and radiation dose reduction techniq ues were employed. CTDIvol: 53.2 mGy. DLP: 1044 mGy-cm. LIMITATIONS: None. FINDINGS: VENTRICLES: Mildly prominent commensurate with the sulci. The cisterns are patent. CEREBRUM: No masses. No hemorrhage. No midline shift. No evidence for acute infarction. Normal gra y/white matter differentiation. No areas of low density in the white matter. CEREBELLUM: No masses. No hemorrhage. No alteration of density. No evidence for acute infarction. EXTRAAXIAL SPACES: Mild age related involutional change. No fluid collections. No masses. ORBITS AND GLOBE: No intra- or extraconal masses. Normal contour of globe without masses. CALVARIUM: No fracture. PARANASAL SINUSES: Small mucosal retention cysts or polyps in the bilateral maxillary sinuses. SOFT TISSUES: No mass or hematoma. OTHER: No other significant finding. IMPRESSION: 1. No acute intracranial abnormality. 2. Small mucous retention cysts or polyps in the bilateral maxillary sinuses. EVIDENCE OF ACUTE STROKE: NO. COMMENT: Quality ID # [id number]: Final reports with documentation of one or more dose reduction techniques (e.g., Automated exposure control, adjustment of the mA and/or kV according to patient size, use of iterative reconstruction technique) TECHNICAL DOCUMENTATION: JOB ID: [id number] [employer]- All Rights Reserved Reading location - IP/workstation name: [email or web address]
--- NOTE | 2018-10-13 14:08 | ER Document Report ---
ED Respiratory Problem - General Chief Complaint: Breathing Difficulty Stated Complaint: DIFFICULTY BREATHING Time Seen by Provider: 10/13/18 13:31 Mode of Arrival: Medic Information source: Patient Notes: Pt is a 68 year old male with a history of syncopal episodes in the past and multiple falls who had another syncopal episode last night and fell off a chair onto the floor on his left shoulder. Pt has no recollection of this event. He states he's been given a logistics lead but hasn't followed up yet, his pcp is [facility]. Pt has COPD and is complaining of wheezing and shortness of breath but no more than usual per pt. He was given a breathing treatment on the ambulance and feels better. His states she's unsure if he hit his head or not. He came to in just a few seconds per . He denies chest pain, admits to left shoulder pain, bruising and left side pain. He is not on blood thinners. TRAVEL OUTSIDE OF THE [place] IN LAST 30 DAYS: No - Related Data Allergies/Adverse Reactions: budesonide [From Symbicort] Adverse Reaction (Severe, Verified 05/09/18 10:24) formoterol [From Symbicort] Adverse Reaction (Severe, Verified 05/09/18 10:24) Past Medical History - General Information source: Patient, Relative - Social History Smoking Status: Current Every Day Smoker Family History: Reviewed & Not Pertinent - Past Medical History Cardiac Medical History: Reports: Hx Hypertension Pulmonary Medical History: Reports: Hx COPD Renal/ Medical History: Denies: Hx Peritoneal Dialysis GI Medical History: Reports: Hx Gastroesophageal Reflux Disease Musculoskeletal Medical History: Reports Hx Arthritis Past Surgical History: Reports: Hx Orthopedic Surgery - R ankle - Immunizations Hx Diphtheria, Pertussis, Tetanus Vaccination: Yes Hx Pneumococcal Vaccination: 01/26/13 Review of Systems - Review of Systems Constitutional: No symptoms reported EENT: No symptoms reported Cardiovascular: No symptoms reported Respiratory: See HPI Gastrointestinal: No symptoms reported Genitourinary: No symptoms reported Male Genitourinary: No symptoms reported Musculoskeletal: See HPI Skin: No symptoms reported Hematologic/Lymphatic: No symptoms reported Neurological/Psychological: No symptoms reported Physical Exam - Vital signs Vitals: Resp Pulse Ox 17 93 10/13/18 13:25 10/13/18 13:25 - Notes Notes: PHYSICAL EXAMINATION: GENERAL: uncomfortable-appearing and in no acute distress. HEAD: Atraumatic, normocephalic. EYES: Pupils equal round and reactive to light, extraocular movements intact, sclera anicteric, conjunctiva are normal. NECK: Normal range of motion, supple without lymphadenopathy LUNGS: left lateral cp over ribs, mild wheezing, no rales or rhonchi. HEART: Regular rate and rhythm without murmurs ABDOMEN: Soft, no tenderness. No guarding, no rebound BACK: no vertebral tenderness, normal ROM GI/: no CVA tenderness EXTREMITIES: moderate ecchymoses to left anterior shoulder into chest, tender to palpation, no deformity noted, limited ROM of the shoulder due to pain, no pitting edema. No cyanosis. NEUROLOGICAL: Cranial nerves grossly intact. Normal sensory/motor exams. PSYCH: Normal mood, normal affect. SKIN: Warm, Dry, normal turgor, see extremities above Course - Re-evaluation Re-evalutation: 10/13/18 19:10 pt has multiple rib fractures, some displaced to total 5 rib fractures, mostly acute in appearance with one healing and a fractured coracoid process. Pt placed in sling, CT chest and chest x ray report no pneumothorax, CT head with no acute pathology, pt admitted to Dr. Mcnamara at this time due to increased morbity with multiple rib fractures. - Vital Signs Vital signs: Temp Pulse Resp BP Pulse Ox 98.0 F 106 H 19 164/87 H 95 10/13/18 21:30 10/13/18 21:30 10/13/18 21:30 10/13/18 21:30 10/13/18 21:30 - Laboratory Result Diagrams: 10/13/18 12:36 10/13/18 12:36 Laboratory results interpreted by me: 10/13/18 10/13/18 10/13/18 12:36 12:36 15:03 WBC 10.6 H RBC 3.97 L MCV 98 H MCH 34.6 H Lymphocytes % 6.6 L Monocytes % 15.7 H Absolute Monocytes 1.7 H Sodium 127.2 L Chloride 89 L Glucose 128 H Alkaline Phosphatase 134 H Total Protein 6.2 L Urine Ascorbic Acid 20 H Discharge - Discharge Clinical Impression: Multiple rib fractures involving first rib Closed coracoid process fracture Qualifiers: Encounter type: initial encounter Fracture alignment: displaced Laterality: left Qualified Code(s): S42.132A - Displaced fracture of coracoid process, left shoulder, initial encounter for closed fracture Condition: Stable Disposition: ADMITTED INPATIENT Admitting Provider: Hospitalist - [facility] Unit Admitted: Medical Floor
--- NOTE | 2018-10-13 14:17 | RADIOLOGY REPORT (SQ) ---
EXAM DESCRIPTION: CHEST SINGLE VIEW COMPLETED DATE/TIME: 10/13/2018 2:09 pm REASON FOR STUDY: sob, syncope COMPARISON: 04/23/2018 EXAM PARAMETERS: NUMBER OF VIEWS: One view. TECHNIQUE: Single frontal radiographic view of the chest acquired. RADIATION DOSE: NA LIMITATIONS: None. FINDINGS: LUNGS AND PLEURA: No opacities, masses or pneumothorax. No pleural effusion. MEDIASTINUM AND HILAR STRUCTURES: No masses. Contour normal. HEART AND VASCULAR STRUCTURES: Heart normal in size. Normal vasculature. BONES: No acute findings. HARDWARE: None in the chest. OTHER: No other significant finding. IMPRESSION: NO ACUTE RADIOGRAPHIC FINDING IN THE CHEST. TECHNICAL DOCUMENTATION: JOB ID: [id number] [employer]- All Rights Reserved Reading location - IP/workstation name: [email or web address]
--- NOTE | 2018-10-13 15:15 | RADIOLOGY REPORT (SQ) ---
EXAM DESCRIPTION: SHOULDER LEFT 2 OR MORE VIEWS COMPLETED DATE/TIME: 10/13/2018 2:49 pm REASON FOR STUDY: fall, bruising, pain COMPARISON: None. NUMBER OF VIEWS: Three views. TECHNIQUE: Internal rotation, external rotation, and Y view images acquired of the left shoulder. LIMITATIONS: None. FINDINGS: MINERALIZATION: Normal. BONES: No acute fracture or dislocation of the left shoulder. No worrisome bone lesions. JOINTS: No dislocation. VISUALIZED LUNGS AND RIBS: No pneumothorax. Multiple displaced fractures of the left ribs. Small le ft pleural effusion. SOFT TISSUES: No radiopaque foreign body. OTHER: No other significant finding. IMPRESSION: 1. No fracture or dislocation of the left shoulder. 2. Multiple displaced fractures of the included left ribs. Consider CT to further evaluate. TECHNICAL DOCUMENTATION: JOB ID: [id number] [employer]- All Rights Reserved Reading location - IP/workstation name: [email or web address]
[2018-10-13 15:19] LABS: APPEARANCE,URINE CLEAR; BILIRUBIN,URINE NEGATIVE (NEGATIVE); COLOR,URINE YELLOW; GLUCOSE, URINE NEGATIVE (NEGATIVE); KETONES,URINE NEGATIVE (NEGATIVE); LEUKOCYTE ESTERASE,URINE NEGATIVE (NEGATIVE); NITRITE,URINE NEGATIVE (NEGATIVE); PROTEIN,URINE NEGATIVE (NEGATIVE); URINE SPECIFIC GRAVITY 1.017; UROBILINOGEN,URINE NEGATIVE mg/dL (<2.0)
[2018-10-13] MEDS ORDERED: HYDROCODONE/ACETAMINOPHEN 5-325 MG TABLET PO ONE (15:39)
[2018-10-13] MEDS ORDERED: CYCLOBENZAPRINE HCL 10 MG TABLET PO ONE (15:39)
[2018-10-13] MEDS ORDERED: NORMAL SALINE 1000 ML 1,000 ML IV ONE (16:28)
--- NOTE | 2018-10-13 17:24 | RADIOLOGY REPORT (SQ) ---
EXAM DESCRIPTION: CT CHEST WITHOUT COMPLETED DATE/TIME: 10/13/2018 4:49 pm REASON FOR STUDY: fall, rib fx on x ray shoulder COMPARISON: None. TECHNIQUE: CT scan performed of the chest without intravenous contrast. Images reviewed with lung, soft tissue and bone windows. Reconstructed coronal and sagittal MPR images reviewed. All images st ored on PACS. All CT scanners at this facility use dose modulation, iterative reconstruction, and/or weight based d osing when appropriate to reduce radiation dose to as low as reasonably achievable (ALARA). [facility]: Dose Right [facility]: CareDose [facility]: Dose Right [facility]: Teradose 4D [facility]: [employer] RADIATION DOSE: CT Rad equipment meets quality standard of care and radiation dose reduction techniq ues were employed. CTDIvol: 16.6 mGy. DLP: 728 mGy-cm. mGy. LIMITATIONS: No technical limitations. FINDINGS: LUNGS AND PLEURA: Biapical pleural/parenchymal scarring and bilateral dependent atelectasi s. No masses, infiltrates, or pneumothorax. No pleural effusions or pleural calcifications. HILAR AND MEDIASTINAL STRUCTURES: No identified masses or abnormal nodes. No obvious aneurysm. HEART AND VASCULAR STRUCTURES: No aneurysm. No pericardial effusion. UPPER ABDOMEN: No significant findings. Limited exam. THYROID AND OTHER SOFT TISSUES: The right thyroid lobe expanded by a heterogeneous mass demonstrating coarse calcifications; this lesion is retrospectively present on CT imaging performed in 2013. BONES: There is a nondisplaced acute fracture of the left 1st rib. There is a healed fracture deform ity of the left 2nd rib there are acute displaced fractures of left ribs 3, 4, 6, and 7 with healing versus chronic fractures of left ribs 5 and 8. Chronic fractures are seen of right ribs 6 and 7. An acute, nondisplaced fracture is seen of the left coracoid process. HARDWARE: None in the chest. OTHER: No other significant findings. IMPRESSION: Multiple acute, subacute, and chronic fractures of the ribs bilaterally, specifically no ting acute, displaced fractures of left ribs 1, 3, 4, 6, and 7. Additionally, there is a nondisplace d fracture of the left coracoid process. TECHNICAL DOCUMENTATION: JOB ID: [id number] Quality ID # [id number]: Final reports with documentation of one or more dose reduction techniques (e.g., Au tomated exposure control, adjustment of the mA and/or kV according to patient size, use of iterative reconstruction technique) 2010 [employer]- All Rights Reserved Reading location - IP/workstation name: [email or web address]
[2018-10-13] MEDS ORDERED: ALBUTEROL SULFATE HFA (90 MCG/PUFF) 200 PUFF/8.5 GM MDI IH PRN (17:57)
[2018-10-13] MEDS ORDERED: ACETAMINOPHEN 325 MG TABLET PO PRN (17:57)
[2018-10-13] MEDS ORDERED: ACETAMINOPHEN 650 MG SUPP.RECT PR PRN (17:58)
[2018-10-13] MEDS ORDERED: ONDANSETRON HCL INJ/PF 4 MG/2 ML SDV IV PRN (17:58)
[2018-10-13] MEDS ORDERED: PREDNISONE 20 MG TABLET PO SCH (18:00)
--- NOTE | 2018-10-13 18:20 | PDOC H&P ---
History of Present Illness Admission Date/PCP: 10/13/18 17:57 Patient complains of: Patient came in with history of falls and left-sided chest pain. History of Present Illness: JOSE LUIS JIM is a 68 year old male with history of COPD hypertension, gastric further reflux disease, BPH came to the emergency room after history of fall. According to the patient and his he was at breakfast bar at home eating tangerine all of a sudden he fell and passed out. According to his this is happened 3 times. Of several months. pt is unable to remember exactly what happened. Denies any other complaints like shortness of breath cough fever rashes nausea vomiting or diarrhea. No headaches or dizzy spells. In the emergency room CT head was done which was negative CT chest was done shows left- sided rib fractures without any pneumothorax. Medical consult was called for pain management. Past Medical History Cardiac Medical History: Reports: Hypertension Pulmonary Medical History: Reports: Chronic Obstructive Pulmonary Disease (COPD) GI Medical History: Reports: Gastroesophageal Reflux Disease Musculoskeltal Medical History: Reports: Arthritis Past Surgical History Past Surgical History: Reports: Orthopedic Surgery - R ankle, Tonsillectomy, Other - Abdominal hernia repair Social History Smoking Status: Current Every Day Smoker Frequency of Alcohol Use: Heavy Hx Recreational Drug Use: No Drugs: None Hx Prescription Drug Abuse: No - Advance Directive Resuscitation Status: Full Code Family History Family History: Reviewed & Not Pertinent Parental Family History Reviewed: Yes - Father and mother with heart attack Children Family History Reviewed: Yes Sibling(s) Family History Reviewed.: Yes Medication/Allergy Home Medications: Albuterol Sulfate [Proair HFA Inhalation Aerosol 8.5 gm MDI] 1 puff IH Q4HP PRN 05/08/18 Cholecalciferol (Vitamin D3) [Vitamin D3 1000 Unit Tablet] 1,000 unit PO DAILY 05/08/18 Lisinopril [Prinivil 10 mg Tablet] 10 mg PO DAILY 05/08/18 Loratadine [Claritin] 10 mg PO DAILY 05/08/18 Multivitamin [Multiple Vitamins] 1 each PO DAILY 05/08/18 Rabeprazole Sodium [Aciphex] 20 mg PO QAM 05/08/18 Tiotropium [place] [Spiriva Handihaler 5 Cap/Kit (18 Mcg/Cap)] 1 cap IH DAILY 05/08/18 Acetaminophen [Tylenol 325 mg Tablet] 650 mg PO Q4HP PRN tablet 05/09/18 Aspirin [Aspirin 81 mg Chewable Tablet] 81 mg PO DAILY tab.chew 05/09/18 Prednisone 20 mg PO BID #10 tablet 05/09/18 Allergies/Adverse Reactions: budesonide [From Symbicort] Adverse Reaction (Severe, Verified 05/09/18 10:24) formoterol [From Symbicort] Adverse Reaction (Severe, Verified 05/09/18 10:24) Review of Systems Constitutional: ABSENT: fever(s), headache(s), night sweats, weakness Eyes: ABSENT: visual disturbances Ears: ABSENT: hearing changes Cardiovascular: ABSENT: chest pain, dyspnea on exertion, edema, orthropnea, palpitations Respiratory: PRESENT: dyspnea Gastrointestinal: ABSENT: abdominal pain, constipation, diarrhea, hematemesis, hematochezia, nausea, vomiting Genitourinary: ABSENT: dysuria, hematuria Musculoskeletal: ABSENT: joint swelling Integumentary: ABSENT: rash, wounds Neurological: ABSENT: abnormal gait, abnormal speech, confusion, dizziness, focal weakness, syncope Psychiatric: ABSENT: anxiety, depression, homidical ideation, suicidal ideation Endocrine: ABSENT: cold intolerance, heat intolerance, polydipsia, polyuria Hematologic/Lymphatic: ABSENT: easy bleeding, easy bruising Physical Exam Vital Signs: Temp Pulse Resp BP Pulse Ox 25 H 168/92 H 95 10/13/18 16:01 10/13/18 16:01 10/13/18 16:01 General appearance: PRESENT: mild distress Head exam: PRESENT: atraumatic Eye exam: PRESENT: PERRLA Mouth exam: PRESENT: dry mucosa Neck exam: ABSENT: carotid bruit, JVD, lymphadenopathy, thyromegaly Respiratory exam: PRESENT: decreased breath sounds, tachypnea, other - Bruises present on the left side of the chest. Pulses: PRESENT: normal dorsalis pedis pul GI/Abdominal exam: PRESENT: normal bowel sounds, soft. ABSENT: distended, guarding, mass, organolmegaly, rebound, tenderness Neurological exam: PRESENT: alert, awake, oriented to person, oriented to place, oriented to time, oriented to situation, CN II-XII grossly intact. ABSENT: mo tor sensory deficit Psychiatric exam: PRESENT: appropriate affect, normal mood. ABSENT: homicidal ideation, suicidal ideation Results Laboratory Results: 10/13/18 12:36 10/13/18 12:36 10/13/18 10/13/18 10/13/18 12:36 12:36 14:39 WBC 10.6 H RBC 3.97 L Hgb 13.7 Hct 38.8 MCV 98 H MCH 34.6 H MCHC 35.4 RDW 12.6 Plt Count 374 Seg Neutrophils % 73.2 Lymphocytes % 6.6 L Monocytes % 15.7 H Eosinophils % 3.8 Basophils % 0.7 Absolute Neutrophils 7.8 Absolute Lymphocytes 0.7 Absolute Monocytes 1.7 H Absolute Eosinophils 0.4 Absolute Basophils 0.1 Sodium 127.2 L Potassium 4.5 Chloride 89 L Carbon Dioxide 28 Anion Gap 10 BUN 9 Creatinine 0.72 Est GFR ( Amer) > 60 Est GFR (Non-Af Amer) > 60 Glucose 128 H Lactic Acid 2.0 Calcium 9.0 Total Bilirubin 0.7 AST 39 ALT 36 Alkaline Phosphatase 134 H Total Protein 6.2 L Albumin 3.7 Urine Color Urine Appearance Urine pH Ur Specific [place] Urine Protein Urine Glucose (UA) Urine Ketones Urine Blood Urine Nitrite Ur Leukocyte Esterase Urine WBC (Auto) Urine RBC (Auto) 10/13/18 15:03 WBC RBC Hgb Hct MCV MCH MCHC RDW Plt Count Seg Neutrophils % Lymphocytes % Monocytes % Eosinophils % Basophils % Absolute Neutrophils Absolute Lymphocytes Absolute Monocytes Absolute Eosinophils Absolute Basophils Sodium Potassium Chloride Carbon Dioxide Anion Gap BUN Creatinine Est GFR ( Amer) Est GFR (Non-Af Amer) Glucose Lactic Acid Calcium Total Bilirubin AST ALT Alkaline Phosphatase Total Protein Albumin Urine Color YELLOW Urine Appearance CLEAR Urine pH 6.0 Ur Specific [place] 1.017 Urine Protein NEGATIVE Urine Glucose (UA) NEGATIVE Urine Ketones NEGATIVE Urine Blood NEGATIVE Urine Nitrite NEGATIVE Ur Leukocyte Esterase NEGATIVE Urine WBC (Auto) 1 Urine RBC (Auto) 1 10/13/18 12:36 Troponin I < 0.012 Impressions: Chest X-Ray 10/13/18 13:32 IMPRESSION: NO ACUTE RADIOGRAPHIC FINDING IN THE CHEST. Head CT 10/13/18 13:33 IMPRESSION: 1. No acute intracranial abnormality. 2. Small mucous retention cysts or polyps in the bilateral maxillary sinuses. EVIDENCE OF ACUTE STROKE: NO. Shoulder X-Ray 10/13/18 14:07 IMPRESSION: 1. No fracture or dislocation of the left shoulder. 2. Multiple displaced fractures of the included left ribs. Consider CT to further evaluate. Chest CT 10/13/18 15:30 IMPRESSION: Multiple acute, subacute, and chronic fractures of the ribs bilaterally, specifically noting acute, displaced fractures of left ribs 1, 3, 4, 6, and 7. Additionally, there is a nondisplaced fracture of the left coracoid process. Assessment & Plan - Diagnosis (1) Multiple rib fractures involving first rib Is this a current diagnosis for this admission?: Yes Plan: 10/13/2018 patient was admitted with history of fall fractures of the multiple ribs on the left side of the chest plan to put him in telemetry to start him on hydrocodone and IV morphine as needed for pain management DVT prophylaxis GI prophylaxis was requested. Physical therapy consult was requested web content & social media manager consult was requested aspiration fall seizure precautions are requested. (2) COPD with acute exacerbation Is this a current diagnosis for this admission?: Yes Plan: 10/13/2018-patient has history of COPD not on home oxygen he pulse ox in the emergency room was 89% requiring 2 L of oxygen via nasal cannula COPD exacerbation most likely secondary to fall with fractured ribs. (3) Hypertension Qualifiers: Hypertension type: essential hypertension Qualified Code(s): I10 - Essjohn tial (primary) hypertension Is this a current diagnosis for this admission?: No Plan: 10/13/2018-patient latest blood pressure is 168/92 on lisinopril at home plan is to resume home medications. (4) Tobacco dependence Is this a current diagnosis for this admission?: No Plan: 10/13/2018-patient has chronic history of smoking smoking for more than 40 years smokes close to 1 pack/day started him on nicotine patch 21 mg daily. (5) Alcohol abuse Is this a current diagnosis for this admission?: No Plan: 10/13/2018-patient is given the history of alcohol use almost on daily basis for the last several years. He drinks at least 4 beers per day. To watch for the DTs. I am going to put him on Ativan 1 mg IV every 6 as needed for agitation. - Time Time Spent: 50 to 70 Minutes Smoking Cessation Education: over 10 minutes Medications reviewed and adjusted accordingly: Yes Anticipated discharge: Home
[2018-10-13] MEDS ORDERED: LORAZEPAM INJ 2 MG/1 ML VIAL IV PRN (18:21)
[2018-10-13 20:22] LABS: CREATINE KINASE MB 2.63 ng/mL (<4.55)
[2018-10-13 20:30] LABS: TROPONIN I < 0.012 ng/mL
[2018-10-13] MEDS: MORPHINE SULFATE 10 MG/ML INJ IV PRN (21:58)
[2018-10-13] MEDS: FAMOTIDINE 20 MG TABLET PO SCH (21:59)
[2018-10-13] MEDS: OXYCODONE-ACETAMINOPHEN 5-325 MG TABLET PO PRN (22:44)
[2018-10-13] MEDS ORDERED: NICOTINE 21 MG/24 HR PATCH.TD24 TD ONE (22:45)
[2018-10-13 23:59] LABS: URINE AMPHETAMINES SCREEN NEGATIVE; URINE BARBITURATES SCREEN NEGATIVE; URINE BENZODIAZEPINES SCREEN NEGATIVE; URINE COCAINE SCREEN NEGATIVE; URINE MARIJUANA (THC) SCREEN NEGATIVE; URINE METHADONE SCREEN NEGATIVE; URINE PHENCYCLIDINE SCREEN NEGATIVE
[2018-10-14] MEDS: OXYCODONE-ACETAMINOPHEN 5-325 MG TABLET PO PRN ×3 (03:34→20:29)
[2018-10-14 03:49] LABS: CREATINE KINASE MB 2.47 ng/mL (<4.55)
[2018-10-14 03:50] LABS: TROPONIN I < 0.012 ng/mL
[2018-10-14] MEDS ORDERED: ALBUTEROL SULFATE HFA (90 MCG/PUFF) 200 PUFF/8.5 GM MDI IH ONE (04:23)
[2018-10-14] MEDS: ALBUTEROL SULFATE HFA (90 MCG/PUFF) 200 PUFF/8.5 GM MDI IH PRN ×2 (04:35→21:09)
--- NOTE | 2018-10-14 07:40 | EKG REPORT ---
SEVERITY:- ABNORMAL ECG - SINUS TACHYCARDIA EARLY PRECORDIAL TRANSITION, CONSIDER [employer] [place] : Confirmed by: Dani Gomes MD 14-Oct-2018 07:40:01
[2018-10-14 08:13] LABS: HEMATOCRIT 34.8 % (37.9-51.0); HEMOGLOBIN 12.4 g/dL (13.5-17.0); MEAN CORPUSCULAR HEMOGLOBIN 34.7 pg (27.0-33.4); MEAN CORPUSCULAR HGB CONC 35.6 g/dL (32.0-36.0); MEAN CORPUSCULAR VOLUME 97 fl (80-97); PLATELET COUNT 352 10^3/uL (150-450); RED BLOOD COUNT 3.58 10^6/uL (4.35-5.55); RED CELL DISTRIBUTION WIDTH 12.6 % (11.5-14.0); WHITE BLOOD COUNT 12.6 10^3/uL (4.0-10.5)
[2018-10-14 08:27] LABS: ALANINE AMINOTRANSFERASE 27 U/L (21-72); ALKALINE PHOSPHATASE 114 U/L (38-126); ANION GAP 7 (5-19); ASPARTATE AMINO TRANSFERASE 26 U/L (17-59); BILIRUBIN,DIRECT 0.2 mg/dL (0.0-0.4); BILIRUBIN,TOTAL 0.4 mg/dL (0.2-1.3); BLOOD UREA NITROGEN 11 mg/dL (7-20); CALCIUM 8.7 mg/dL (8.4-10.2); CARBON DIOXIDE 28 mmol/L (22-30); CHLORIDE 94 mmol/L (98-107); CREATINE KINASE 98 U/L (55-170); GLUCOSE 152 mg/dL (75-110); POTASSIUM 4.5 mmol/L (3.6-5.0); SODIUM 128.6 mmol/L (137-145); TOTAL PROTEIN 5.6 g/dL (6.3-8.2)
[2018-10-14 08:36] LABS: CREATINE KINASE MB 2.84 ng/mL (<4.55)
[2018-10-14 08:47] LABS: NT PRO BNP 1220 pg/mL (5-900)
[2018-10-14 08:48] LABS: ABSOLUTE LYMPHOCYTES# (MANUAL) 0.3 10^3/uL (0.5-4.7); ABSOLUTE MONOCYTES # (MANUAL) 1.1 10^3/uL (0.1-1.4); ABSOLUTE NEUTROPHILS# (MANUAL) 11.2 10^3/uL (1.7-8.2); BASOPHILS % (MANUAL) 0 % (0-2); EOSINOPHILS % (MANUAL) 0 % (0-6); LYMPHOCYTES % (MANUAL) 2 % (13-45); MONOCYTES % (MANUAL) 9 % (3-13); SEGMENTED NEUTROPHILS % (MAN) 89 % (42-78); TOTAL CELLS COUNTED 100; TROPONIN I < 0.012 ng/mL
[2018-10-14 08:49] LABS: PLATELET COMMENT ADEQUATE
[2018-10-14] MEDS: LORATADINE 10 MG TABLET PO SCH (09:11)
[2018-10-14] MEDS: ENOXAPARIN SODIUM INJ 40 MG/0.4 ML DISP.SYRIN SUBCUT SCH (09:12)
[2018-10-14] MEDS: NICOTINE 21 MG/24 HR PATCH.TD24 TD SCH (09:12)
[2018-10-14] MEDS: FAMOTIDINE 20 MG TABLET PO SCH ×2 (09:12→21:09)
[2018-10-14] MEDS: CHOLECALCIFEROL (D3) 1,000 UNIT TABLET PO SCH (09:13)
[2018-10-14] MEDS: MULTIVITAMIN TABLET PO SCH (09:13)
[2018-10-14] MEDS ORDERED: (PENDING PHARMACY ID) (Loratadine [Claritin] 10 MG) PO SCH (10:00)
[2018-10-14] MEDS ORDERED: ASPIRIN 81 MG TABLET, CHEWABLE PO SCH (10:00)
[2018-10-14] MEDS ORDERED: LISINOPRIL 10 MG TABLET PO SCH (10:00)
--- NOTE | 2018-10-14 13:48 | PDOC PROGRESS REPORT ---
Subjective Progress Note for:: 10/14/18 Subjective:: This is a 68 yr old male with a PMH of COPD, HTN, GERD and BPH who presented with fall and was found to have rib fractures and was in intractable pain. Trauma work up was only remarkable for multiple rib fractures. He was also admitted for COPD exacerbation. No acute event overnight. On further questioning today, it appears patient had a syncope resulting to fall. He says this has happened before where he would just pass out even while sitting down. He does admit to drinking 3 cans of beer at night but says that he would pass out in during both day and night times. He denies dimming of vision, dizziness, palpitations or chest pain prior to these episodes. His chest remain bruised but pain has improved. No issues on tele monitoring overnight. Reason For Visit: INTRACTABLE PAIN Physical Exam Vital Signs: Temp Pulse Resp BP Pulse Ox 98.5 F 101 H 20 149/72 H 96 10/14/18 12:00 10/14/18 12:00 10/14/18 12:00 10/14/18 12:00 10/14/18 12:00 Intake & Output 10/13/18 10/14/18 10/15/18 06:59 06:59 06:59 Intake Total 1090 Output Total 700 Balance 390 Weight 194 lb 0.108 oz General appearance: PRESENT: no acute distress, well-developed, well-nourished Head exam: PRESENT: atraumatic, normocephalic Eye exam: PRESENT: conjunctiva pink, EOMI, PERRLA. ABSENT: scleral icterus Ear exam: PRESENT: normal external ear exam Mouth exam: PRESENT: moist, tongue midline Neck exam: ABSENT: carotid bruit, JVD, lymphadenopathy, thyromegaly Respiratory exam: PRESENT: clear to auscultation latisha. ABSENT: rales, rhonchi, wheezes Cardiovascular exam: PRESENT: RRR. ABSENT: diastolic murmur, rubs, systolic murmur Pulses: PRESENT: normal dorsalis pedis pul GI/Abdominal exam: PRESENT: normal bowel sounds, soft. ABSENT: distended, guarding, mass, organolmegaly, rebound, tenderness Rectal exam: PRESENT: deferred Extremities exam: PRESENT: full ROM. ABSENT: calf tenderness, clubbing, pedal edema Neurological exam: PRESENT: alert, awake, oriented to person, oriented to place, oriented to time, oriented to situation, CN II-XII grossly intact. ABSENT: motor sensory deficit Skin exam: PRESENT: other - ecchymoses on the chest Results Laboratory Results: 10/14/18 07:49 10/14/18 07:49 10/13/18 10/13/18 10/13/18 12:36 12:36 14:39 WBC 10.6 H RBC 3.97 L Hgb 13.7 Hct 38.8 MCV 98 H MCH 34.6 H MCHC 35.4 RDW 12.6 Plt Count 374 Seg Neutrophils % 73.2 Lymphocytes % 6.6 L Monocytes % 15.7 H Eosinophils % 3.8 Basophils % 0.7 Absolute Neutrophils 7.8 Absolute Lymphocytes 0.7 Absolute Monocytes 1.7 H Absolute Eosinophils 0.4 Absolute Basophils 0.1 Sodium 127.2 L Potassium 4.5 Chloride 89 L Carbon Dioxide 28 Anion Gap 10 BUN 9 Creatinine 0.72 Est GFR ( Amer) > 60 Est GFR (Non-Af Amer) > 60 Glucose 128 H Lactic Acid 2.0 Calcium 9.0 Magnesium Total Bilirubin 0.7 AST 39 ALT 36 Alkaline Phosphatase 134 H Total Protein 6.2 L Albumin 3.7 TSH Urine Color Urine Appearance Urine pH Ur Specific [place] Urine Protein Urine Glucose (UA) Urine Ketones Urine Blood Urine Nitrite Ur Leukocyte Esterase Urine WBC (Auto) Urine RBC (Auto) 10/13/18 10/14/18 10/14/18 15:03 07:49 07:49 WBC 12.6 H RBC 3.58 L Hgb 12.4 L Hct 34.8 L MCV 97 MCH 34.7 H MCHC 35.6 RDW 12.6 Plt Count 352 Seg Neutrophils % Not Reportable Lymphocytes % Not Reportable Monocytes % Not Reportable Eosinophils % Not Reportable Basophils % Not Reportable Absolute Neutrophils Not Reportable Absolute Lymphocytes Not Reportable Absolute Monocytes Not Reportable Absolute Eosinophils Not Reportable Absolute Basophils Not Reportable Sodium 128.6 L Potassium 4.5 Chloride 94 L Carbon Dioxide 28 Anion Gap 7 BUN 11 Creatinine 0.69 Est GFR ( Amer) > 60 Est GFR (Non-Af Amer) > 60 Glucose 152 H Lactic Acid Calcium 8.7 Magnesium 2.1 Total Bilirubin 0.4 AST 26 ALT 27 Alkaline Phosphatase 114 Total Protein 5.6 L Albumin 3.0 L TSH Urine Color YELLOW Urine Appearance CLEAR Urine pH 6.0 Ur Specific [place] 1.017 Urine Protein NEGATIVE Urine Glucose (UA) NEGATIVE Urine Ketones NEGATIVE Urine Blood NEGATIVE Urine Nitrite NEGATIVE Ur Leukocyte Esterase NEGATIVE Urine WBC (Auto) 1 Urine RBC (Auto) 1 10/14/18 08:22 WBC RBC Hgb Hct MCV MCH MCHC RDW Plt Count Seg Neutrophils % Lymphocytes % Monocytes % Eosinophils % Basophils % Absolute Neutrophils Absolute Lymphocytes Absolute Monocytes Absolute Eosinophils Absolute Basophils Sodium Potassium Chloride Carbon Dioxide Anion Gap BUN Creatinine Est GFR ( Amer) Est GFR (Non-Af Amer) Glucose Lactic Acid Calcium Magnesium Total Bilirubin AST ALT Alkaline Phosphatase Total Protein Albumin TSH 2.26 Urine Color Urine Appearance Urine pH Ur Specific [place] Urine Protein Urine Glucose (UA) Urine Ketones Urine Blood Urine Nitrite Ur Leukocyte Esterase Urine WBC (Auto) Urine RBC (Auto) 10/13/18 10/13/18 10/13/18 12:36 19:15 19:15 Creatine Kinase 126 CK-MB (CK-2) 2.63 Troponin I < 0.012 < 0.012 NT-Pro-B Natriuret Pep 10/14/18 10/14/18 10/14/18 01:23 01:23 07:49 Creatine Kinase 108 98 CK-MB (CK-2) 2.47 Troponin I < 0.012 NT-Pro-B Natriuret Pep 10/14/18 07:49 Creatine Kinase CK-MB (CK-2) 2.84 Troponin I < 0.012 NT-Pro-B Natriuret Pep 1220 H Impressions: Chest X-Ray 10/13/18 13:32 IMPRESSION: NO ACUTE RADIOGRAPHIC FINDING IN THE CHEST. Head CT 10/13/18 13:33 IMPRESSION: 1. No acute intracranial abnormality. 2. Small mucous retention cysts or polyps in the bilateral maxillary sinuses. EVIDENCE OF ACUTE STROKE: NO. Shoulder X-Ray 10/13/18 14:07 IMPRESSION: 1. No fracture or dislocation of the left shoulder. 2. Multiple displaced fractures of the included left ribs. Consider CT to further evaluate. Chest CT 10/13/18 15:30 IMPRESSION: Multiple acute, subacute, and chronic fractures of the ribs bilat erally, specifically noting acute, displaced fractures of left ribs 1, 3, 4, 6, and 7. Additionally, there is a nondisplaced fracture of the left coracoid process. Assessment & Plan - Diagnosis (1) Intractable pain Is this a current diagnosis for this admission?: Yes Plan: Secondary to rib fractures from fall. Continue [place] prn. Will add a lidocaine patch. (2) Syncope Is this a current diagnosis for this admission?: Yes Plan: Will check orthostatic vital signs. Last carotid doppler in 2012 had some mild stenosis, will reassess carotids. He does have elevated BNP on labs done on admission, will order an echo. (3) COPD with acute exacerbation Is this a current diagnosis for this admission?: Yes Plan: He was in mild COPD exacerbation on admission. Continue steroids and breathing treatments. (4) Hyponatremia Is this a current diagnosis for this admission?: Yes Plan: His hyponatremia could be contributing to his falls. Appears he has prior low sodium in previous BMP. Sodium this time is low in the 128. Possible ?beer potomania. Will check serum and urine osm and urine Na. (5) Hypertension Qualifiers: Hypertension type: essential hypertension Qualified Code(s): I10 - Essential (primary) hypertension Is this a current diagnosis for this admission?: Yes Plan: Continue lisinopril. - Time Time Spent with patient: 25-34 minutes
[2018-10-14] MEDS: TIOTROPIUM BROMIDE DPI 5 CAP/KIT (18 MCG/CAP) IH SCH (15:10)
[2018-10-14] MEDS: LIDOCAINE 5% (700 MG) TRANSDERMAL ADH..PATCH TP SCH (15:10)
--- NOTE | 2018-10-14 15:29 | RADIOLOGY REPORT (SQ) ---
EXAM DESCRIPTION: CAROTID DOPPLER COMPLETED DATE/TIME: 10/14/2018 3:12 pm REASON FOR STUDY: recurrent syncope COMPARISON: 01/11/2013 TECHNIQUE: Grayscale ultrasound, Doppler velocity and spectra, and color Doppler images acquired of the extra-cranial carotid and vertebral arteries. Images stored on PACS. LIMITATIONS: Patient scanned and upright positioning due to comorbid injuries. FINDINGS: RIGHT CAROTID CCA Velocities: Within normal limits. ICA Velocities Peak systolic 59.6 cm/s. End diastolic 16 cm/s. Proximal ICA/CCA peak systolic ratio 0.82. Spectra normal. Soft plaque without significant stenosis. LEFT CAROTID CCA Velocities: Within normal limits. ICA Velocities Peak systolic 69.2 cm/s. End diastolic 20.1 cm/s. Proximal ICA/CCA peak systolic ratio 0.93. Spectra normal. Soft plaque without significant stenosis. VERTEBRAL ARTERIES: Antegrade flow. Normal waveforms. SUBCLAVIAN ARTERIES: No finding. OTHER: No other significant finding. IMPRESSION: NO HEMODYNAMICALLY SIGNIFICANT STENOSIS. COMMENT: Quality ID #[id number]: Velocity criteria are extrapolated from the diameter data as defined by t he Society of Radiologists in Ultrasound Consensus Conference. Radiology 2003: 229; 340-346. TECHNICAL DOCUMENTATION: JOB ID: [id number] [employer]- All Rights Reserved Reading location - IP/workstation name: [email or web address]
[2018-10-14] MEDS: ALBUTEROL SULFATE 0.083% NEB 2.5 MG/3 ML AMPUL NEB PRN ×2 (17:17→23:28)
--- NOTE | 2018-10-14 17:17 | XCELERA REPORT ---
[address] [address] Transthoracic Echocardiogram Report Name: JOSE LUIS JIM Age: 68 yrs Gender: Male : 1950 Patient Status: Inpatient Patient Location: [address] [place], [place] [address] Study Date: 10/14/2018 02:24 PM Height: 70 in Weight: 194 lb BSA: 2.1 m2 Reason For Study: recurrent syncope, elevated BNP Ordering Physician: CECILIO BALL Performed By: Mal Rosario Interpretation Summary Poor quality study with very limited cardiac evaluaation possible. lack of contrast opacification limits evaluation of chambers, wall motion, EF and to rule out intracardiac thrombus/ mass. LV not well visualizzed but LVEF visually appears likely around 55-60%. More accurate estimation will require better quality images/ MUGA scan. RV not well visualized but RV systolic function appears normal. The transmitral spectral Doppler flow pattern is abnormal for age Aortic valve not well visualized but leaflets appear focally calcified and doppler data provided not sugegstive of any significant stenosis. RVSP could not be calculated. The aortic root is normal size. MMode/2D Measurements & Calculations RVDd: 2.2 cm LVIDd: 4.1 cm FS: 58.7 % Ao root diam: 3.8 cm IVSd: 0.94 cm LVIDs: 1.7 cm EDV(Teich): 75.5 ml LVPWd: 1.2 cm ESV(Teich): 8.5 ml Ao root area: 11.1 cm2 LA dimension: 3.5 cm EF(Teich): 88.8 % LVOT diam: 1.6 cm LVOT area: 2.1 cm2 Doppler Measurements & Calculations MV E max miguelangel: MV P1/2t max miguelangel: Ao V2 max: LV V1 max P.2 cm/sec 102.5 cm/sec 99.5 cm/sec 3.0 mmHg MV A max miguelangel: MV P1/2t: 49.8 msec Ao max PG: LV V1 max: 71.6 cm/sec MVA(P1/2t): 4.4 cm2 4.0 mmHg 85.6 cm/sec MV E/A: 1.4 MV dec slope: GAURI(V,D): 1.8 cm2 602.3 cm/sec2 MV dec time: 0.23 sec PA V2 max: MV P1/2t-pr_phl: 99.1 cm/sec 49.8 msec PA max P.9 mmHg Left Ventricle The left ventricle is not well visualized. The transmitral spectral Doppler flow pattern is abnormal for age. Right Ventricle The right ventricle is not well visualized secondary to technical limitations. The right ventricular systolic function is normal. Atria Right atrium not well visualized secondary to technical limitations. The left atrium is not well visualized secondary to technical limitations. Mitral Valve The mitral valve is not well visualized. Aortic Valve The aortic valve is not well visualized secondary to technical limitations. AV leaflets focally calcified. There is a peak gradient of 4 mm of Hg. AV Vmax 105 cm/sec. Tricuspid Valve The tricuspid valve is not well visualized secondary to technical limitations. RVSP could not be calculated. Pulmonic Valve The pulmonic valve is not well visualized. Great Vessels The aortic root is normal size. The inferior vena cava was not well visualized. Effusions Pericardium not well visualized to rule out pericardial effusion. : CECILIO BALL > Abhay Ledesma
[2018-10-14 18:08] LABS: URINE SODIUM 22 mmol/L (30-90)
[2018-10-14 18:10] LABS: OSMOLALITY,URINE 589 mOsm/kg (300-900)
[2018-10-15] MEDS: OXYCODONE-ACETAMINOPHEN 5-325 MG TABLET PO PRN ×4 (04:06→22:30)
[2018-10-15] MEDS: MORPHINE SULFATE 10 MG/ML INJ IV PRN (06:33)
[2018-10-15] MEDS: ALBUTEROL SULFATE 0.083% NEB 2.5 MG/3 ML AMPUL NEB PRN ×2 (07:53→20:39)
[2018-10-15] MEDS: LIDOCAINE 5% (700 MG) TRANSDERMAL ADH..PATCH TP SCH (09:26)
[2018-10-15] MEDS: LORATADINE 10 MG TABLET PO SCH (09:26)
[2018-10-15] MEDS: ASPIRIN 81 MG TABLET, ENT COATED PO SCH (09:26)
[2018-10-15] MEDS: FUROSEMIDE 20 MG TABLET PO SCH (09:26)
[2018-10-15] MEDS: MULTIVITAMIN TABLET PO SCH (09:27)
[2018-10-15] MEDS: NICOTINE 21 MG/24 HR PATCH.TD24 TD SCH (09:27)
[2018-10-15] MEDS: TIOTROPIUM BROMIDE DPI 5 CAP/KIT (18 MCG/CAP) IH SCH (09:27)
[2018-10-15] MEDS: CHOLECALCIFEROL (D3) 1,000 UNIT TABLET PO SCH (09:27)
[2018-10-15] MEDS: FAMOTIDINE 20 MG TABLET PO SCH ×2 (09:27→21:00)
[2018-10-15] MEDS: LISINOPRIL 10 MG TABLET PO SCH (09:27)
[2018-10-15] MEDS: ENOXAPARIN SODIUM INJ 40 MG/0.4 ML DISP.SYRIN SUBCUT SCH (09:27)
[2018-10-15] MEDS: ALBUTEROL SULFATE HFA (90 MCG/PUFF) 200 PUFF/8.5 GM MDI IH PRN (09:29)
[2018-10-15] MEDS ORDERED: (PENDING PHARMACY ID) (Lisinopril [Prinivil] 10 MG) PO SCH (10:00)
[2018-10-15 11:51] LABS: ABSOLUTE BASOPHILS # (AUTO) 0.1 10^3/uL (0.0-0.2); ABSOLUTE EOSINOPHILS # (AUTO) 0.1 10^3/uL (0.0-0.6); ABSOLUTE LYMPHOCYTES (AUTO) 0.7 10^3/uL (0.5-4.7); ABSOLUTE MONOCYTES (AUTO) 1.4 10^3/uL (0.1-1.4); ABSOLUTE NEUT (AUTO) 9.3 10^3/uL (1.7-8.2); BASOPHILS % (AUTO) 0.6 % (0-2); HEMATOCRIT 37.2 % (37.9-51.0); HEMOGLOBIN 12.9 g/dL (13.5-17.0); MEAN CORPUSCULAR HEMOGLOBIN 34.1 pg (27.0-33.4); MEAN CORPUSCULAR HGB CONC 34.6 g/dL (32.0-36.0); MEAN CORPUSCULAR VOLUME 99 fl (80-97); MONOCYTES % (AUTO) 11.9 % (3-13); PLATELET COUNT 374 10^3/uL (150-450); RED BLOOD COUNT 3.78 10^6/uL (4.35-5.55); RED CELL DISTRIBUTION WIDTH 12.8 % (11.5-14.0); SEGMENTED NEUTROPHILS % (AUTO) 80.5 % (42-78); TOTAL CELLS COUNTED % (AUTO) 100 %; WHITE BLOOD COUNT 11.5 10^3/uL (4.0-10.5)
[2018-10-15 12:10] LABS: ANION GAP 7 (5-19); BLOOD UREA NITROGEN 14 mg/dL (7-20); CALCIUM 9.1 mg/dL (8.4-10.2); CARBON DIOXIDE 32 mmol/L (22-30); CHLORIDE 89 mmol/L (98-107); GLUCOSE 96 mg/dL (75-110); POTASSIUM 4.1 mmol/L (3.6-5.0); SODIUM 127.6 mmol/L (137-145)
[2018-10-15] MEDS ORDERED: LORAZEPAM INJ 2 MG/1 ML VIAL IV PRN (12:36)
[2018-10-15] MEDS ORDERED: TIZANIDINE HCL 4 MG TABLET PO ONE (13:30)
--- NOTE | 2018-10-15 13:54 | PDOC PROGRESS REPORT ---
Subjective Progress Note for:: 10/15/18 Subjective:: This is a 68 yr old male with a PMH of COPD, HTN, GERD and BPH who presented with fall and was found to have rib fractures and was in intractable pain. Trauma work up was only remarkable for multiple rib fractures. He was also admitted for COPD exacerbation. On further questioning today, it appears patient had a syncope resulting to fall. He says this has happened before where he would just pass out even while sitting down. He does admit to drinking 3 cans of beer at night but says that he would pass out in during both day and night times. He denies dimming of vision, dizziness, palpitations or chest pain prior to these episodes. His chest remain bruised but pain has improved. No issues on tele monitoring overnight. 10/15: No acute event overnight. He says his breathing has significantly improved. Sodium trended down to 127 today. He appears to be more on the hypervolemic side with some pedal edema and slightly distended abdomen. He continues to complain of significant back pain and tenderness. Reason For Visit: INTRACTABLE PAIN Physical Exam Vital Signs: Temp Pulse Resp BP Pulse Ox 98.0 F 119 H 18 121/72 91 L 10/15/18 11:10 10/15/18 11:10 10/15/18 11:10 10/15/18 11:10 10/15/18 11:10 Intake & Output 10/14/18 10/15/18 10/16/18 06:59 06:59 06:59 Intake Total 1090 1197 Output Total 700 750 Balance 390 447 Weight 194 lb 0.108 oz 188 lb 4.396 oz General appearance: PRESENT: no acute distress, well-developed, well-nourished Head exam: PRESENT: atraumatic, normocephalic Eye exam: PRESENT: conjunctiva pink, EOMI, PERRLA. ABSENT: scleral icterus Ear exam: PRESENT: normal external ear exam Mouth exam: PRESENT: moist, tongue midline Neck exam: ABSENT: carotid bruit, JVD, lymphadenopathy, thyromegaly Respiratory exam: PRESENT: clear to auscultation latisha, wheezes - minimal wheezes. ABSENT: rales, rhonchi Cardiovascular exam: PRESENT: RRR. ABSENT: diastolic murmur, rubs, systolic murmur Pulses: PRESENT: normal dorsalis pedis pul GI/Abdominal exam: PRESENT: normal bowel sounds, soft. ABSENT: distended, guarding, mass, organolmegaly, rebound, tenderness Rectal exam: PRESENT: deferred Neurological exam: PRESENT: alert, awake, oriented to person, oriented to place, oriented to time, oriented to situation, CN II-XII grossly intact. ABSENT: motor sensory deficit Skin exam: PRESENT: other - ecchymoses on the left chest area Results Laboratory Results: 10/15/18 11:20 10/15/18 11:20 10/14/18 10/14/18 10/15/18 08:22 17:35 11:20 WBC RBC Hgb Hct MCV MCH MCHC RDW Plt Count Seg Neutrophils % Lymphocytes % Monocytes % Eosinophils % Basophils % Absolute Neutrophils Absolute Lymphocytes Absolute Monocytes Absolute Eosinophils Absolute Basophils Sodium 127.6 L Potassium 4.1 Chloride 89 L Carbon Dioxide 32 H Anion Gap 7 BUN 14 Creatinine 0.92 Est GFR ( Amer) > 60 Est GFR (Non-Af Amer) > 60 Glucose 96 Serum Osmolality 271 L Calcium 9.1 Urine Osmolality 589 10/15/18 11:20 WBC 11.5 H RBC 3.78 L Hgb 12.9 L Hct 37.2 L MCV 99 H MCH 34.1 H MCHC 34.6 RDW 12.8 Plt Count 374 Seg Neutrophils % 80.5 H Lymphocytes % 6.0 L Monocytes % 11.9 Eosinophils % 1.0 Basophils % 0.6 Absolute Neutrophils 9.3 H Absolute Lymphocytes 0.7 Absolute Monocytes 1.4 Absolute Eosinophils 0.1 Absolute Basophils 0.1 Sodium Potassium Chloride Carbon Dioxide Anion Gap BUN Creatinine Est GFR ( Amer) Est GFR (Non-Af Amer) Glucose Serum Osmolality Calcium Urine Osmolality 10/13/18 10/13/18 10/13/18 12:36 19:15 19:15 Creatine Kinase 126 CK-MB (CK-2) 2.63 Troponin I < 0.012 < 0.012 NT-Pro-B Natriuret Pep 10/14/18 10/14/18 10/14/18 01:23 01:23 07:49 Creatine Kinase 108 98 CK-MB (CK-2) 2.47 Troponin I < 0.012 NT-Pro-B Natriuret Pep 10/14/18 07:49 Creatine Kinase CK-MB (CK-2) 2.84 Troponin I < 0.012 NT-Pro-B Natriuret Pep 1220 H Impressions: Chest X-Ray 10/13/18 13:32 IMPRESSION: NO ACUTE RADIOGRAPHIC FINDING IN THE CHEST. Head CT 10/13/18 13:33 IMPRESSION: 1. No acute intracranial abnormality. 2. Small mucous retention cysts or polyps in the bilateral maxillary sinuses. EVIDENCE OF ACUTE STROKE: NO. Shoulder X-Ray 10/13/18 14:07 IMPRESSION: 1. No fracture or dislocation of the left shoulder. 2. Multiple displaced fractures of the included left ribs. Consider CT to further evaluate. Chest CT 10/13/18 15:30 IMPRESSION: Multiple acute, subacute, and chronic fractures of the ribs bilaterally, specifically noting acute, displaced fractures of left ribs 1, 3, 4, 6, and 7. Additionally, there is a nondisplaced fracture of the left coracoid process. Carotid Doppler Study 10/14/18 13:36 IMPRESSION: NO HEMODYNAMICALLY SIGNIFICANT STENOSIS. Assessment & Plan - Diagnosis (1) Hyponatremia Is this a current diagnosis for this admission?: Yes Plan: His hyponatremia could be contributing to his falls. Appears he has prior low sodium in previous BMP. Sodium this time is low in the 128. Possible ?beer potomania. Will check serum and urine osm and urine Na. 10/15: He has hypotonic hyponatremia. He appears to be more on the hypervolemic side. Urine sodium 22, urine osm 522. Possible SIADH vs fluid retention from possible chronic liver disease. Will restrict fluids today and continue to monitor sodium. (2) Intractable pain Is this a current diagnosis for this admission?: Yes Plan: Secondary to rib fractures from fall. Continue [place] prn. Will add a lidocaine patch. 10/15: Add tizanidine for back spasms. (3) Syncope Is this a current diagnosis for this admission?: Yes Plan: Will check orthostatic vital signs. Last carotid doppler in 2012 had some mild stenosis, will reassess carotids. He does have elevated BNP on labs done on admission, will order an echo. 10/15: No significant stenosis on carotid doppler. Limited echo study but normal EF with no gross abnormalities. Orthostatic vital signs are negative for orthostasis. (4) COPD with acute exacerbation Is this a current diagnosis for this admission?: Yes Plan: He was in mild COPD exacerbation on admission. Continue steroids and breathing treatments. 10/15: Improving. (5) Hypertension Qualifiers: Hypertension type: essential hypertension Qualified Code(s): I10 - Essential (primary) hypertension Is this a current diagnosis for this admission?: Yes Plan: Blood pressures at goal. Continue lisinopril. - Time Time Spent with patient: 25-34 minutes
--- NOTE | 2018-10-15 14:58 | RADIOLOGY REPORT (SQ) ---
EXAM DESCRIPTION: U/S ABDOMEN COMPLETE W/O DOP COMPLETED DATE/TIME: 10/15/2018 2:35 pm REASON FOR STUDY: eval for ascites, cirrhois?, elev alk phos COMPARISON: None. TECHNIQUE: Dynamic and static grayscale images acquired of the abdomen and recorded on PACS. Additio nal selected color Doppler and spectral images recorded. Note: Study does not meet criteria for complete doppler/duplex scan LIMITATIONS: None. FINDINGS: PANCREAS: Obscured by overlying bowel gas. LIVER: No masses. Nodular hepatic contour. Increased echogenicity. LIVER VASCULATURE: Normal directional flow of the main portal vein and hepatic veins. GALLBLADDER: No stones. Normal wall thickness. No pericholecystic fluid. ULTRASOUND-DETECTED STRICKLAND'S SIGN: Negative. INTRAHEPATIC DUCTS AND COMMON DUCT: CBD and intrahepatic ducts normal caliber. No filling defects. INFERIOR VENA CAVA: Normal flow. AORTA: Obscured by overlying bowel gas. RIGHT KIDNEY: Normal size. Normal echogenicity. No solid or suspicious masses. No hydronephros is. No calcifications. LEFT KIDNEY: Normal size. Normal echogenicity. No solid or suspicious masses. No hydronephrosi s. No calcifications. SPLEEN: Normal size. Maximum span 12.2 cm. No solid masses. PERITONEAL AND PLEURAL SPACES: No ascites or effusions. OTHER: No other significant finding. IMPRESSION: 1. Hepatic steatosis and nodular hepatic contour without overt stigmata of cirrhosis. Consider additional imaging including CT or MRI and tissue sampling to evaluate for parenchymal liver disease. 2. No evidence of ascites. TECHNICAL DOCUMENTATION: JOB ID: [id number] [employer]- All Rights Reserved Reading location - IP/workstation name: [email or web address]
[2018-10-15] MEDS: PREDNISONE 20 MG TABLET PO SCH (18:22)
[2018-10-16] MEDS: OXYCODONE-ACETAMINOPHEN 5-325 MG TABLET PO PRN (05:11)
[2018-10-16] MEDS: ALBUTEROL SULFATE 0.083% NEB 2.5 MG/3 ML AMPUL NEB PRN (05:19)
[2018-10-16] MEDS: FUROSEMIDE 20 MG TABLET PO SCH (09:03)
[2018-10-16] MEDS: TIOTROPIUM BROMIDE DPI 5 CAP/KIT (18 MCG/CAP) IH SCH (09:03)
[2018-10-16] MEDS: ASPIRIN 81 MG TABLET, ENT COATED PO SCH (09:04)
[2018-10-16] MEDS: LORATADINE 10 MG TABLET PO SCH (09:04)
[2018-10-16] MEDS: LIDOCAINE 5% (700 MG) TRANSDERMAL ADH..PATCH TP SCH (09:04)
[2018-10-16] MEDS: ENOXAPARIN SODIUM INJ 40 MG/0.4 ML DISP.SYRIN SUBCUT SCH (09:04)
[2018-10-16] MEDS: MULTIVITAMIN TABLET PO SCH (09:04)
[2018-10-16] MEDS: NICOTINE 21 MG/24 HR PATCH.TD24 TD SCH (09:04)
[2018-10-16] MEDS: LISINOPRIL 10 MG TABLET PO SCH (09:04)
[2018-10-16] MEDS: PREDNISONE 20 MG TABLET PO SCH (09:04)
[2018-10-16] MEDS: FAMOTIDINE 20 MG TABLET PO SCH (09:04)
[2018-10-16] MEDS: CHOLECALCIFEROL (D3) 1,000 UNIT TABLET PO SCH (09:05)
[2018-10-16 10:18] LABS: ANION GAP 10 (5-19); BLOOD UREA NITROGEN 15 mg/dL (7-20); CALCIUM 9.1 mg/dL (8.4-10.2); CARBON DIOXIDE 29 mmol/L (22-30); CHLORIDE 90 mmol/L (98-107); GLUCOSE 95 mg/dL (75-110); POTASSIUM 4.5 mmol/L (3.6-5.0); SODIUM 128.5 mmol/L (137-145)
[2018-10-16 11:34] VITALS: BP 149/76
--- NOTE | 2018-10-18 10:13 | PDOC DISCHARGE SUMMARY ---
General - Admit/Disc Date/PCP Admission Date/Primary Care Provider: 10/13/18 17:57 Discharge Date: 10/16/18 - Discharge Diagnosis (1) Hyponatremia Is this a current diagnosis for this admission?: Yes (2) Intractable pain Is this a current diagnosis for this admission?: Yes (3) Syncope Is this a current diagnosis for this admission?: Yes (4) COPD with acute exacerbation Is this a current diagnosis for this admission?: Yes (5) Hypertension Is this a current diagnosis for this admission?: Yes - Additional Information Resuscitation Status: Full Code Discharge Diet: Cardiac Discharge Activity: Activity As Tolerated Prescriptions: Albuterol Sulfate [Proair HFA Inhalation Aerosol 8.5 gm MDI] 2 puff IH QIDP PRN #1 hfa.aer.ad PRN Reason: Aspirin [Ecotrin] 81 mg PO DAILY #30 tablet. Fluticasone/Salmeterol [Advair 250-50 Diskus 14 Dose/Diskus] 1 inh IH Q12H #1 inhaler Furosemide [Lasix 20 mg Tablet] 20 mg PO QAM #30 tablet Lidocaine [Lidoderm 5% (700 mg) Transdermal Patch] 1 patch TP DAILY #6 adh..patch Lisinopril [Prinivil] 10 mg PO DAILY #30 tablet Prednisone [Deltasone 20 mg Tablet] 20 mg PO BID 5 Days #10 tablet Tiotropium Elton [Spiriva Handihaler 5 Cap/Kit (18 Mcg/Cap)] 1 cap IH DAILY #30 kit Tizanidine HCl [Zanaflex] 4 mg PO Q12HP PRN #12 capsule PRN Reason: Home Medications: Albuterol Sulfate [Proair HFA Inhalation Aerosol 8.5 gm MDI] 2 puff IH QIDP PRN 10/13/18 Cholecalciferol (Vitamin D3) [Vitamin D3 1000 Unit Tablet] 1,000 unit PO DAILY 10/13/18 Guaifenesin 400 mg PO TID 10/13/18 Loratadine [Claritin 10 mg Tablet] 10 mg PO DAILY 10/13/18 Multivitamin [Tab-A-Torie (Multiple Vitamin) Tablet] 1 tab PO DAILY 10/13/18 Rabeprazole Sodium [Aciphex] 20 mg PO Q6AM 10/13/18 Tamsulosin HCl [Flomax 0.4 mg Cap.sr] 0.4 mg PO QAM 10/13/18 Acetaminophen [Tylenol 325 mg Tablet] 650 mg PO Q4HP PRN tablet 10/16/18 Albuterol Sulfate [Proair HFA Inhalation Aerosol 8.5 gm MDI] 2 puff IH QIDP PRN #1 hfa.aer.ad 10/16/18 Aspirin [Ecotrin] 81 mg PO DAILY #30 tablet. 10/16/18 Cholecalciferol (Vitamin D3) [Vitamin D3 1000 Unit Tablet] 1,000 unit PO DAILY tablet 10/16/18 Fluticasone/Salmeterol [Advair 250-50 Diskus 14 Dose/Diskus] 1 inh IH Q12H #1 inhaler 10/16/18 Furosemide [Lasix 20 mg Tablet] 20 mg PO QAM #30 tablet 10/16/18 Lidocaine [Lidoderm 5% (700 mg) Transdermal Patch] 1 patch TP DAILY #6 adh..patch 10/16/18 Lisinopril [Prinivil] 10 mg PO DAILY #30 tablet 10/16/18 Prednisone [Deltasone 20 mg Tablet] 20 mg PO BID 5 Days #10 tablet 10/16/18 Tiotropium Elton [Spiriva Handihaler 5 Cap/Kit (18 Mcg/Cap)] 1 cap IH DAILY #30 kit 10/16/18 Tizanidine HCl [Zanaflex] 4 mg PO Q12HP PRN #12 capsule 10/16/18 History of Present Illness History of Present Illness: Admitting hospitalist's H&P: JOSE LUIS JIM is a 68 year old male with history of COPD hypertension, gastric further reflux disease, BPH came to the emergency room after history of fall. According to the patient and his he was at breakfast bar at home eating tangerine all of a sudden he fell and passed out. According to his this is happened 3 times. Of several months. pt is unable to remember exactly what h appened. Denies any other complaints like shortness of breath cough fever rashes nausea vomiting or diarrhea. No headaches or dizzy spells. In the emergency room CT head was done which was negative CT chest was done shows left- sided rib fractures without any pneumothorax. Medical consult was called for pain management. Hospital Course Hospital Course: This is a 68 yr old male with a PMH of COPD, HTN, GERD and BPH who presented with fall and was found to have rib fractures and was in intractable pain. Trauma work up was only remarkable for multiple rib fractures. He was also admitted for COPD exacerbation. On further questioning, it appears patient had a syncope resulting to fall. He says this has happened before where he would just pass out even while sitting down. He does admit to drinking 3-4 cans of beer at night but says that he would pass out in during both day and night times. He denies dimming of vision, dizziness, palpitations or chest pain prior to these episodes. His chest remain bruised but pain has improved. No issues on tele monitoring overnight. 10/15: No acute event overnight. He says his breathing has significantly impr jagdish. Sodium trended down to 127 today. He appears to be more on the hypervolemic side with some pedal edema and slightly distended abdomen. He continues to complain of significant back pain and tenderness. Syncope was unremarkable including carotid dopplers and echo. He has hypotonic hyponatremia. He appears to be more on the hypervolemic side. Urine sodium 22, urine osm 522. His hyponatremia work up was equivocal and could be multifactorial from possible beer potomania and questionable early cirrhosis and possible SIADH. Fluid restriction was initiated but he was only resctricted for less than 12 hrs as patient insisted on leaving as he has "other important appointments and things to attend to". He was recommended instead to follow up closely with PCP with a repeat BMP and possible outpatient nephrology referral. He was also recommended against alcohol cessation. He was sent home on 5 more days of prednisone for his COPD and was prescribed appropriate home inhalers. Physical Exam Vital Signs: Temp Pulse Resp BP Pulse Ox 98.1 F 102 H 22 H 149/76 H 98 10/16/18 11:51 10/16/18 11:51 10/16/18 11:51 10/16/18 11:51 10/16/18 11:51 General appearance: PRESENT: no acute distress, well-developed, well-nourished Head exam: PRESENT: atraumatic, normocephalic Eye exam: PRESENT: conjunctiva pink, EOMI, PERRLA. ABSENT: scleral icterus Ear exam: PRESENT: normal external ear exam Mouth exam: PRESENT: moist, tongue midline Neck exam: ABSENT: carotid bruit, JVD, lymphadenopathy, thyromegaly Respiratory exam: PRESENT: clear to auscultation latisha. ABSENT: rales, rhonchi, wheezes Cardiovascular exam: PRESENT: RRR. ABSENT: diastolic murmur, rubs, systolic murmur Pulses: PRESENT: normal dorsalis pedis pul GI/Abdominal exam: PRESENT: normal bowel sounds, soft. ABSENT: distended, guarding, mass, organolmegaly, rebound, tenderness Rectal exam: PRESENT: deferred Neurological exam: PRESENT: alert, awake, oriented to person, oriented to place, oriented to time, oriented to situation, CN II-XII grossly intact. ABSENT: motor sensory deficit Skin exam: PRESENT: other - resolving ecchymoses on the left chest area Results Laboratory Results: 10/15/18 11:20 10/16/18 09:10 10/13/18 10/13/18 10/13/18 12:36 19:15 19:15 Creatine Kinase 126 CK-MB (CK-2) 2.63 Troponin I < 0.012 < 0.012 NT-Pro-B Natriuret Pep 10/14/18 10/14/18 10/14/18 01:23 01:23 07:49 Creatine Kinase 108 98 CK-MB (CK-2) 2.47 Troponin I < 0.012 NT-Pro-B Natriuret Pep 10/14/18 07:49 Creatine Kinase CK-MB (CK-2) 2.84 Troponin I < 0.012 NT-Pro-B Natriuret Pep 1220 H Impressions: Chest X-Ray 10/13/18 13:32 IMPRESSION: NO ACUTE RADIOGRAPHIC FINDING IN THE CHEST. Head CT 10/13/18 13:33 IMPRESSION: 1. No acute intracranial abnormality. 2. Small mucous retention cysts or polyps in the bilateral maxillary sinuses. EVIDENCE OF ACUTE STROKE: NO. Shoulder X-Ray 10/13/18 14:07 IMPRESSION: 1. No fracture or dislocation of the left shoulder. 2. Multiple displaced fractures of the included left ribs. Consider CT to further evaluate. Chest CT 10/13/18 15:30 IMPRESSION: Multiple acute, subacute, and chronic fractures of the ribs bilaterally, specifically noting acute, displaced fractures of left ribs 1, 3, 4, 6, and 7. Additionally, there is a nondisplaced fracture of the left coracoid process. Carotid Doppler Study 10/14/18 13:36 IMPRESSION: NO HEMODYNAMICALLY SIGNIFICANT STENOSIS. Abdomen Ultrasound 10/15/18 12:34 IMPRESSION: 1. Hepatic steatosis and nodular hepatic contour without overt stigmata of cirrhosis. Consider additional imaging including CT or MRI and tissue sampling to evaluate for parenchymal liver disease. 2. No evidence of ascites. Qualifiers - * PATIENT BEING DISCHARGED WITH ANY OF THE FOLLOWING DIAGNOSIS: No
== END 2018-10-16 13:10 | disposition home or self-care (01) | DRG 184 ==
LOC: ER 13:11 → EH 17:57 → 4W 21:10
PROVIDERS: ADMIT Internal Medicine; ATTEND Internal Medicine
DX: S22.43XA Multiple fractures of ribs, bilateral, initial encounter for closed fracture (principal); E87.1 Hypo-osmolality and hyponatremia; J44.1 Chronic obstructive pulmonary disease with (acute) exacerbation; S42.132A Displaced fracture of coracoid process, left shoulder, initial encounter for closed fracture; I10 Essential (primary) hypertension; K21.9 Gastro-esophageal reflux disease without esophagitis; N40.0 Benign prostatic hyperplasia without lower urinary tract symptoms; W07.XXXA Fall from chair, initial encounter; Y92.010 Kitchen of single-family (private) house as the place of occurrence of the external cause; F17.210 Nicotine dependence, cigarettes, uncomplicated; F10.10 Alcohol abuse, uncomplicated; M19.90 Unspecified osteoarthritis, unspecified site; R55 Syncope and collapse; Z79.899 Other long term (current) drug therapy; Z79.82 Long term (current) use of aspirin; Z79.1 Long term (current) use of non-steroidal anti-inflammatories (NSAID); Z88.8 Allergy status to other drugs, medicaments and biological substances; Z82.49 Family history of ischemic heart disease and other diseases of the circulatory system
CPT/HCPCS: 36415; 70450; 71045; 71250; 76700; 80048; 80053; 80307; 81001; 82550; 82553; 83036; 83605; 83735; 83880; 83930; 83935; 84295; 84300; 84443; 84484; 85025; 87040; 93005; 93010; 93306; 93880; 99285; J1650; J2270; J3490; J7030; J7512

== ENCOUNTER 2018-10-18 12:02 | Inpatient (IN) | payer OTHER, MEDICARE ==
--- NOTE | 2018-10-18 12:31 | ER Document Report ---
ED Medical Screen (RME) - General Chief Complaint: Shortness Of Breath Stated Complaint: SHORTNESS OF BREATH Time Seen by Provider: 10/18/18 12:18 Notes: 68-year-old alcoholic with COPD was admitted on 10/13/2018 for intractable pain related to rib fractures after a syncopal episode. He did leave on 10/16/2018 before the hospitalist wanted him to because he had things he needed to do. [facility] from the IV site on his left dorsal hand. They did note that he has some rales. He gets dyspneic on exertion. And he has gained 9 pounds since Tuesday. I have greeted and performed a rapid initial assessment of this patient. A comprehensive ED assessment and evaluation of the patient, analysis of test results and completion of the medical decision making process will be conducted by additional ED providers. TRAVEL OUTSIDE OF THE [place] IN LAST 30 DAYS: No - Related Data Allergies/Adverse Reactions: budesonide [From Symbicort] Adverse Reaction (Severe, Verified 05/09/18 10:24) formoterol [From Symbicort] Adverse Reaction (Severe, Verified 05/09/18 10:24) Past Medical History - Past Medical History Cardiac Medical History: Reports: Hx Hypertension Pulmonary Medical History: Reports: Hx COPD Renal/ Medical History: Denies: Hx Peritoneal Dialysis GI Medical History: Reports: Hx Gastroesophageal Reflux Disease Musculoskeltal Medical History: Reports Hx Arthritis Past Surgical History: Reports: Hx Orthopedic Surgery - R ankle, Hx Tonsillectomy, Other - Abdominal hernia repair - Immunizations Hx Diphtheria, Pertussis, Tetanus Vaccination: Yes Physical Exam - Vital signs Vitals: Temp Pulse Resp BP Pulse Ox 98.0 F 110 H 24 H 165/78 H 98 10/18/18 12:07 10/18/18 12:07 10/18/18 12:07 10/18/18 12:07 10/18/18 12:07 Course - Vital Signs Vital signs: Temp Pulse Resp BP Pulse Ox 98.0 F 110 H 24 H 165/78 H 98 10/18/18 12:07 10/18/18 12:07 10/18/18 12:07 10/18/18 12:07 10/18/18 12:07
[2018-10-18 13:31] LABS: APPEARANCE,URINE CLEAR; BILIRUBIN,URINE NEGATIVE (NEGATIVE); COLOR,URINE YELLOW; GLUCOSE, URINE NEGATIVE (NEGATIVE); KETONES,URINE NEGATIVE (NEGATIVE); LEUKOCYTE ESTERASE,URINE NEGATIVE (NEGATIVE); NITRITE,URINE NEGATIVE (NEGATIVE); PROTEIN,URINE NEGATIVE (NEGATIVE); URINE SPECIFIC GRAVITY 1.006; UROBILINOGEN,URINE NEGATIVE mg/dL (<2.0)
[2018-10-18 13:34] LABS: HEMATOCRIT 36.9 % (37.9-51.0); HEMOGLOBIN 12.9 g/dL (13.5-17.0); MEAN CORPUSCULAR HGB CONC 34.9 g/dL (32.0-36.0); MEAN CORPUSCULAR VOLUME 98 fl (80-97); RED BLOOD COUNT 3.78 10^6/uL (4.35-5.55); RED CELL DISTRIBUTION WIDTH 12.8 % (11.5-14.0); WHITE BLOOD COUNT 14.2 10^3/uL (4.0-10.5)
[2018-10-18 13:48] LABS: ALANINE AMINOTRANSFERASE 39 U/L (21-72); ALBUMIN 3.5 g/dL (3.5-5.0); ALKALINE PHOSPHATASE 97 U/L (38-126); ANION GAP 8 (5-19); ASPARTATE AMINO TRANSFERASE 41 U/L (17-59); BILIRUBIN,DIRECT 0.3 mg/dL (0.0-0.4); BILIRUBIN,TOTAL 0.5 mg/dL (0.2-1.3); BLOOD UREA NITROGEN 8 mg/dL (7-20); CARBON DIOXIDE 31 mmol/L (22-30); CHLORIDE 91 mmol/L (98-107); CREATINE KINASE 131 U/L (55-170); GLUCOSE 95 mg/dL (75-110); POTASSIUM 4.4 mmol/L (3.6-5.0); SODIUM 130.1 mmol/L (137-145); TOTAL PROTEIN 5.9 g/dL (6.3-8.2)
[2018-10-18 13:51] LABS: ABSOLUTE LYMPHOCYTES# (MANUAL) 0.6 10^3/uL (0.5-4.7); ABSOLUTE MONOCYTES # (MANUAL) 0.6 10^3/uL (0.1-1.4); ABSOLUTE NEUTROPHILS# (MANUAL) 13.1 10^3/uL (1.7-8.2); BASOPHILS % (MANUAL) 0 % (0-2); EOSINOPHILS % (MANUAL) 0 % (0-6); LYMPHOCYTES % (MANUAL) 3 % (13-45); MONOCYTES % (MANUAL) 4 % (3-13); SEGMENTED NEUTROPHILS % (MAN) 92 % (42-78); TOTAL CELLS COUNTED 100
[2018-10-18 13:52] LABS: PLATELET CLUMPS PRESENT; PLATELET COMMENT ADEQUATE; PLATELET COUNT 433 10^3/uL (150-450); POLYCHROMASIA SLIGHT
--- NOTE | 2018-10-18 13:59 | RADIOLOGY REPORT (SQ) ---
EXAM DESCRIPTION: CHEST 2 VIEWS COMPLETED DATE/TIME: 10/18/2018 1:52 pm REASON FOR STUDY: Fluid retention, dyspnea on exertion COMPARISON: 10/13/2018. TECHNIQUE: Frontal and lateral radiographic views of the chest acquired. NUMBER OF VIEWS: Two view. LIMITATIONS: None. FINDINGS: LUNGS AND PLEURA: Subsegmental volume loss and consolidation in the lingula, new. Other l ruben changes look relatively chronic including apical pleural thickening. No significant pleural effu mena. No pneumothorax. MEDIASTINUM AND HILAR STRUCTURES: Stable contours. HEART AND VASCULAR STRUCTURES: Heart normal size. No evidence for failure. BONES: Osteopenia. Multiple rib fractures, particularly on the left in the posterior ribs. HARDWARE: None in the chest. OTHER: No other significant finding. IMPRESSION: 1. Lingular volume loss/consolidation. Suspicious for pneumonia. 2. Known rib fractures. TECHNICAL DOCUMENTATION: JOB ID: [id number] [employer]- All Rights Reserved Reading location - IP/workstation name: [email or web address]
[2018-10-18 14:03] LABS: CREATINE KINASE MB 5.53 ng/mL (<4.55); NT PRO BNP 440 pg/mL (5-900)
[2018-10-18 14:04] LABS: TROPONIN I < 0.012 ng/mL
[2018-10-18] MEDS ORDERED: CEFEPIME 2 GM/D5W RTU 2 GM/50 ML RTUPB IV ONE ×2 (15:21→18:00)
[2018-10-18] MEDS ORDERED: VANCOMYCIN HCL INJ 1000 MG VIAL IV ONE (15:22)
[2018-10-18 16:06] LABS: APPEARANCE,URINE CLEAR; BILIRUBIN,URINE NEGATIVE (NEGATIVE); COLOR,URINE YELLOW; GLUCOSE, URINE NEGATIVE (NEGATIVE); KETONES,URINE NEGATIVE (NEGATIVE); LEUKOCYTE ESTERASE,URINE NEGATIVE (NEGATIVE); NITRITE,URINE NEGATIVE (NEGATIVE); PROTEIN,URINE NEGATIVE (NEGATIVE); URINE SPECIFIC GRAVITY 1.006
[2018-10-18] MEDS ORDERED: PHARMACY COMMUNICATION ORDER MC NR (16:45)
[2018-10-18] MEDS ORDERED: VANCOMYCIN HCL 0 MG in DEXTROSE 5%-WATER 250 ML IV NR (16:45)
[2018-10-18] MEDS ORDERED: ACETAMINOPHEN 325 MG TABLET PO PRN (16:45)
[2018-10-18] MEDS ORDERED: LEVALBUTEROL HCL NEB 0.63 MG/3 ML AMPUL NEB PRN (16:45)
[2018-10-18] MEDS ORDERED: GUAIFENESIN/D-METHORPHAN (200-20 MG) SYRUP 10 ML PO PRN (16:45)
[2018-10-18] MEDS ORDERED: ALBUTEROL SULFATE 0.083% NEB 2.5 MG/3 ML AMPUL NEB ONE (16:46)
--- NOTE | 2018-10-18 16:47 | ER Document Report ---
Entered by SANDRA TODD SCRIBE 10/18/18 0702 Acting as scribe for:ADAM ROOT DO ED General - General Chief Complaint: Shortness Of Breath Stated Complaint: SHORTNESS OF BREATH Time Seen by Provider: 10/18/18 12:18 Primary Care Provider: ESTEFANY OREILLY MD [Primary Care Provider] - Follow up as needed Mode of Arrival: Ambulatory Information source: Patient Notes: Patient is a 68 year old male with COPD presents to the emergency department complaining of shortness of breath. Patient states [facility] due to bloody discharge leaking from his IV site on his left dorsal hand. While at the [facility] they noted some rales and sent the patient to the emergency department. Patient states he has had an increase in a productive cough with some white sputum and also complains of dypnea on exertion. He denies any recent antibiotic use. Of significance, patient was recently admitted on 10/13/18 for intractable pain related to rib fractures secondary a syncopal episode and discharged on 10/16/18. TRAVEL OUTSIDE OF THE [place] IN LAST 30 DAYS: No - Related Data Allergies/Adverse Reactions: budesonide [From Symbicort] Adverse Reaction (Severe, Verified 05/09/18 10:24) formoterol [From Symbicort] Adverse Reaction (Severe, Verified 05/09/18 10:24) Past Medical History - General Information source: Patient - Social History Smoking Status: Current Every Day Smoker Chew tobacco use (# tins/day): No Frequency of alcohol use: Heavy Drug Abuse: None Family History: Reviewed & Not Pertinent Patient has suicidal ideation: No Patient has homicidal ideation: No - Past Medical History Cardiac Medical History: Reports: Hx Hypertension Pulmonary Medical History: Reports: Hx COPD GI Medical History: Reports: Hx Gastroesophageal Reflux Disease Musculoskeletal Medical History: Reports Hx Arthritis Past Surgical History: Reports: Hx Abdominal Surgery - hernia repair, Hx Orthopedic Surgery - R ankle, Hx Tonsillectomy, Other - Abdominal hernia repair - Immunizations Hx Diphtheria, Pertussis, Tetanus Vaccination: Yes Hx Pneumococcal Vaccination: 01/26/13 Review of Systems - Review of Systems Constitutional: No symptoms reported EENT: No symptoms reported Cardiovascular: No symptoms reported Respiratory: See HPI Gastrointestinal: No symptoms reported Genitourinary: No symptoms reported Male Genitourinary: No symptoms reported Musculoskeletal: No symptoms reported Skin: No symptoms reported Hematologic/Lymphatic: No symptoms reported Neurological/Psychological: No symptoms reported -: Yes All other systems reviewed and negative Physical Exam - Vital signs Vitals: Temp Pulse Resp BP Pulse Ox 98.0 F 110 H 24 H 165/78 H 98 10/18/18 12:07 10/18/18 12:07 10/18/18 12:07 10/18/18 12:07 10/18/18 12:07 - Notes Notes: GENERAL: Alert, interacts well. Mild respiratory distress. HEAD: Normocephalic, atraumatic. EYES: Pupils equal, round, and reactive to light. Extraocular movements intact. ENT: Oral mucosa moist, tongue midline. NECK: Full range of motion. Supple. Trachea midline. LUNGS: Hypoxic, tachypneic. Rales in left bases, wheezing in apices. Mild respiratory distress. HEART: Tachycardic. No murmurs, gallops, or rubs. ABDOMEN: Soft, non-tender. Non-distended. Bowel sounds present in all 4 qu adrants. No guarding, rigidity, or rebound. EXTREMITIES: Moves all 4 extremities spontaneously. Banadage to LUE, no erythema or fluctuance. weeping from R hand, no erythema. NEUROLOGICAL: Alert and oriented x3. Normal speech. PSYCH: Normal affect, normal mood. SKIN: Warm, dry, normal turgor. No rashes or lesions noted. Course - Re-evaluation Re-evalutation: 10/18/18 15:20 Dr. Tolliver accepts patient for admission. 10/18/18 16:44 Patient is a 68-year-old male who comes in with difficulty breathing and product geovanny cough. Patient went was admitted to the hospital recently but wanted to leave because he had something to take care of. He is not on oxygen at home and is requiring oxygen today. He is also tachycardic. Patient had rib fractures recently and appears to have developed pneumonia. Discussed with the hospitalist service and will be admitted for further evaluation. Of note, lactic is 0.9. Patient is agreeable to this plan and stable at the time of admission. Have attempted to order albuterol nebulizer treatment for patient but he is apparently allergic to formoterol. he is on it at home, so I believe he can tolerate it. - Vital Signs Vital signs: Temp Pulse Resp BP Pulse Ox 98.2 F 110 H 20 158/81 H 94 10/18/18 15:46 10/18/18 12:07 10/18/18 16:01 10/18/18 16:01 10/18/18 16:01 - Laboratory Result Diagrams: 10/18/18 12:54 10/18/18 12:54 Laboratory results interpreted by me: 10/18/18 10/18/18 10/18/18 12:54 12:54 12:54 WBC 14.2 H RBC 3.78 L Hgb 12.9 L Hct 36.9 L MCV 98 H MCH 34.0 H Seg Neuts % (Manual) 92 H Lymphocytes % (Manual) 3 L Abs Neuts (Manual) 13.1 H Sodium 130.1 L Chloride 91 L Carbon Dioxide 31 H CK-MB (CK-2) 5.53 H Total Protein 5.9 L Urine Urobilinogen 10/18/18 15:45 WBC RBC Hgb Hct MCV MCH Seg Neuts % (Manual) Lymphocytes % (Manual) Abs Neuts (Manual) Sodium Chloride Carbon Dioxide CK-MB (CK-2) Total Protein Urine Urobilinogen 4.0 H - Diagnostic Test Radiology reviewed: Reports reviewed - EKG Interpretation by Me EKG shows normal: Sinus rhythm Rate: Tachycardia Discharge - Discharge Clinical Impression: COPD with acute exacerbation, Respiratory distress Pneumonia Qualifiers: Pneumonia type: due to unspecified organism Laterality: left Lung location: lower lobe of lung Qualified Code(s): J18.1 - Lobar pneumonia, unspecified organism Condition: Stable Disposition: ADMITTED INPATIENT Admitting Provider: Hospitalist - [facility] Admitted: Telemetry - Tello Referrals: ESTEFANY OREILLY MD [Primary Care Provider] - Follow up as needed I personally performed the services described in the documentation, reviewed and edited the documentation which was dictated to the scribe in my presence, and it accurately records my words and actions.
[2018-10-18] MEDS ORDERED: HYDROCODONE/ACETAMINOPHEN 5-325 MG TABLET PO PRN (17:05)
--- NOTE | 2018-10-18 17:44 | PDOC H&P ---
History of Present Illness Admission Date/PCP: 10/18/18 16:49 ESTEFANY OREILLY MD Patient complains of: Increased shortness of breath with productive cough History of Present Illness: JOSE LUIS JIM is a 68 year old male who was just discharged from the hospital on October 16. At that time he had been hospitalized for a fall from a barstool with fractured left ribs and left shoulder. There is long history of COPD and continues to smoke 1 1/2 packs of cigarettes a day. He did try a nebulizer treatment this morning but it was ineffective. Because of a "allergy" to Symbicort he is not on a dual medication inhaler. He presented to the [facility] clinic because his IV site on the left hand was leaking fluid. Based on his presentation in the clinic physician told him to go straight to the emergency department. Upon evaluation he was noted to be tachycardic and hypertensive but oxygen saturation was greater than 90% on room air. He was referred to the hospitalist service for admission. As he was just hospitalized, and he does have an elevated white blood cell count with positive chest x-ray he will be treated for a hospital-acquired pneumonia. Past Medical History Cardiac Medical History: Reports: Hypertension Pulmonary Medical History: Reports: Chronic Obstructive Pulmonary Disease (COPD) EENT Medical History: Reports: Nose - Allergic rhinitis Neurological Medical History: Reports: None Endocrine Medical History: Reports: None Renal/ Medical History: Reports: None Malignancy Medical History: Reports: None GI Medical History: Reports: Gastroesophageal Reflux Disease Musculoskeltal Medical History: Reports: Arthritis Musculoskeletal History Note: Recent fractures left ribs and left shoulder Skin Medical History: Denies: Eczema, Psoriasis Psychiatric Medical History: Reports: Alcohol Dependency, Tobacco Dependency Traumatic Medical History: Reports: None Hematology: Denies: Anemia, Sickle Cell Disease Infectious Medical History: Reports: None Past Surgical History Past Surgical History: Reports: Orthopedic Surgery - R ankle, Tonsillectomy, Other - Abdominal hernia repair Social History Information Source: Patient - And spouse Lives with: Family Smoking Status: Current Every Day Smoker Cigarettes Packs Per Day: 1.5 Frequency of Alcohol Use: Heavy Amount of Alcoholic Beverages Per Day: Reports 3-4 beers daily. Hx Recreational Drug Use: No Drugs: None Hx Prescription Drug Abuse: No Family History Family History: CAD, Malignancy Parental Family History Reviewed: Yes Children Family History Reviewed: Yes Sibling(s) Family History Reviewed.: Yes Medication/Allergy Home Medications: Albuterol Sulfate [Proair Hfa Inhalation Aerosol 8.5 gm Mdi] 2 puff IH QIDP PRN 10/18/18 Albuterol Sulfate [Ventolin 0.083% Neb 2.5 mg/3 ml Ampul] 1 vial NEB QIDP PRN 10/18/18 Aspirin [Ecotrin 81 mg EC Tablet] 81 mg PO DAILY 10/18/18 Cholecalciferol (Vitamin D3) [Vitamin D3 1000 Unit Tablet] 1,000 unit PO DAILY 10/18/18 Furosemide [Lasix 20 mg Tablet] 20 mg PO QAM 10/18/18 Guaifenesin 400 mg PO TID 10/18/18 Lisinopril [Prinivil 10 mg Tablet] 10 mg PO DAILY 10/18/18 Loratadine [Claritin] 10 mg PO DAILY 10/18/18 Multivitamin [Tab-A-Torie (Multiple Vitamin) Tablet] 1 tab PO DAILY 10/18/18 Rabeprazole Sodium [Aciphex] 20 mg PO Q6AM 10/18/18 Tamsulosin HCl [Flomax 0.4 mg Cap.sr] 0.4 mg PO QAM 10/18/18 Tiotropium [place] [Spiriva [place] 5 Cap/Kit (18 Mcg/Cap)] 1 cap IH DAILY 10/18/18 Allergies/Adverse Reactions: budesonide [From Symbicort] Adverse Reaction (Severe, Verified 05/09/18 10:24) formoterol [From Symbicort] Adverse Reaction (Severe, Verified 05/09/18 10:24) Review of Systems Constitutional: PRESENT: as per HPI. ABSENT: chills, fever(s), night sweats Eyes: ABSENT: visual disturbances Ears: PRESENT: hearing changes - reports that he is somewhat hard of hearing Nose, Mouth, and Throat: ABSENT: headache(s), mouth pain, sore throat Cardiovascular: PRESENT: dyspnea on exertion, edema. ABSENT: chest pain, palpitations Respiratory: PRESENT: cough, dyspnea, sputum. ABSENT: hemoptysis Gastrointestinal: ABSENT: abdominal pain, constipation, diarrhea, nausea, vomiting Genitourinary: ABSENT: difficulty urinating, dysuria, hematuria Musculoskeletal: PRESENT: back pain, other - Recent fractured left ribs and left shoulder. Occasional muscle spasm left shoulder trapezius area Integumentary: PRESENT: wounds - Skin tear left arm. ABSENT: diaphoresis, rash Neurological: ABSENT: abnormal speech, confusion, tremor(s) Psychiatric: PRESENT: depression Endocrine: ABSENT: cold intolerance, heat intolerance, polyuria Hematologic/Lymphatic: PRESENT: easy bruising Allergic/Immunologic: PRESENT: seasonal rhinorrhea Physical Exam Vital Signs: Temp Pulse Resp BP Pulse Ox 98.2 F 110 H 20 158/81 H 94 10/18/18 15:46 10/18/18 12:07 10/18/18 16:01 10/18/18 16:01 10/18/18 16:01 Intake & Output 10/17/18 10/18/18 10/19/18 06:59 06:59 06:59 Weight 84 kg General appearance: PRESENT: no acute distress, cooperative, well-developed Head exam: PRESENT: atraumatic, normocephalic Eye exam: PRESENT: conjunctiva pink, EOMI. ABSENT: scleral icterus Ear exam: PRESENT: normal external ear exam Mouth exam: PRESENT: moist, neck supple, tongue midline Neck exam: PRESENT: full ROM. ABSENT: carotid bruit, JVD, lymphadenopathy Respiratory exam: PRESENT: rhonchi, symmetrical, unlabored, wheezes. ABSENT: accessory muscle use, rales Cardiovascular exam: PRESENT: +S1, +S2, tachycardia Vascular exam: ABSENT: pallor GI/Abdominal exam: PRESENT: distended, normal bowel sounds, soft. ABSENT: tenderness Rectal exam: PRESENT: deferred Gentrourinary exam: ABSENT: indwelling catheter Extremities exam: PRESENT: +1 edema Musculoskeletal exam: PRESENT: normal inspection Neurological exam: PRESENT: alert, awake, oriented to person, oriented to place, oriented to time, oriented to situation Psychiatric exam: PRESENT: appropriate affect, normal mood. ABSENT: agitated, anxious Focused psych exam: ABSENT: delusional, restlessness Skin exam: PRESENT: dry, warm Results Laboratory Results: 10/18/18 12:54 10/18/18 12:54 10/18/18 10/18/18 10/18/18 12:54 12:54 12:57 WBC 14.2 H RBC 3.78 L Hgb 12.9 L Hct 36.9 L MCV 98 H MCH 34.0 H MCHC 34.9 RDW 12.8 Plt Count 433 Seg Neutrophils % Not Reportable Lymphocytes % Not Reportable Monocytes % Not Reportable Eosinophils % Not Reportable Basophils % Not Reportable Absolute Neutrophils Not Reportable Absolute Lymphocytes Not Reportable Absolute Monocytes Not Reportable Absolute Eosinophils Not Reportable Absolute Basophils Not Reportable Sodium 130.1 L Potassium 4.4 Chloride 91 L Carbon Dioxide 31 H Anion Gap 8 BUN 8 Creatinine 0.79 Est GFR ( Amer) > 60 Est GFR (Non-Af Amer) > 60 Glucose 95 Lactic Acid Calcium 9.0 Magnesium 1.9 Total Bilirubin 0.5 AST 41 ALT 39 Alkaline Phosphatase 97 Total Protein 5.9 L Albumin 3.5 Urine Color YELLOW Urine Appearance CLEAR Urine pH 7.0 Ur Specific [place] 1.006 Urine Protein NEGATIVE Urine Glucose (UA) NEGATIVE Urine Ketones NEGATIVE Urine Blood NEGATIVE Urine Nitrite NEGATIVE Ur Leukocyte Esterase NEGATIVE Urine WBC (Auto) 1 10/18/18 10/18/18 14:50 15:45 WBC RBC Hgb Hct MCV MCH MCHC RDW Plt Count Seg Neutrophils % Lymphocytes % Monocytes % Eosinophils % Basophils % Absolute Neutrophils Absolute Lymphocytes Absolute Monocytes Absolute Eosinophils Absolute Basophils Sodium Potassium Chloride Carbon Dioxide Anion Gap BUN Creatinine Est GFR ( Amer) Est GFR (Non-Af Amer) Glucose Lactic Acid 0.9 Calcium Magnesium Total Bilirubin AST ALT Alkaline Phosphatase Total Protein Albumin Urine Color YELLOW Urine Appearance CLEAR Urine pH 8.0 Ur Specific [place] 1.006 Urine Protein NEGATIVE Urine Glucose (UA) NEGATIVE Urine Ketones NEGATIVE Urine Blood NEGATIVE Urine Nitrite NEGATIVE Ur Leukocyte Esterase NEGATIVE Urine WBC (Auto) 0 10/18/18 10/18/18 12:54 12:54 Creatine Kinase 131 CK-MB (CK-2) 5.53 H Troponin I < 0.012 NT-Pro-B Natriuret Pep 440 Impressions: Chest X-Ray 10/18/18 12:33 IMPRESSION: 1. Lingular volume loss/consolidation. Suspicious for pneumonia. 2. Known rib fractures. Assessment and Plan - Diagnosis (1) Pneumonia Qualifiers: Pneumonia type: due to unspecified organism Laterality: left Lung location: lower lobe of lung Qualified Code(s): J18.1 - Lobar pneumonia, unspecified organism Is this a current diagnosis for this admission?: Yes Plan: The patient was just discharged from the hospital on Tuesday. This could be a pneumonia that started there however with his broken ribs he likely is splinting and he certainly could have developed a community acquired pneumonia. It is most likely bacterial (would suspect gram-positive cocci) and have asked that a sputum specimen be sent for culture when available. It is unlikely that aspiration is involved. I will start coverage with antibiotics for community- acquired pneumonia. (2) COPD with acute exacerbation Is this a current diagnosis for this admission?: Yes Plan: The patient continues to smoke 1-1/2 packs of cigarettes a day. He is not on a combination inhaler because of an adverse reaction to Symbicort. He is on Spiriva. I may try him on Brio Ellipta. He did discharge from the hospital with a prednisone taper but I will place him back on IV Solu-Medrol. He is not hypoxic and does not require oxygen at this time. (3) Hypertension Qualifiers: Hypertension type: essential hypertension Qualified Code(s): I10 - Essential (primary) hypertension Is this a current diagnosis for this admission?: Yes Plan: Continue lisinopril and furosemide. Monitor blood pressure. (4) Hyponatremia Is this a current diagnosis for this admission?: Yes Plan: [place] 1.2 L fluid restriction and monitor serum sodium. (5) Localized edema Is this a current diagnosis for this admission?: Yes Plan: Continue on furosemide 20 mg daily. He will be on a fluid restriction for low sodium. Monitor intake and output. (6) Alcohol abuse Is this a current diagnosis for this admission?: Yes Plan: Patient reports 3-4 beers per day. This may be an underestimate as his intimated during the encounter. We will monitor for withdrawal. (8) Closed coracoid process fracture Qualifiers: Encounter type: subsequent encounter Fracture alignment: displaced Later ality: left Qualified Code(s): S42.132A - Displaced fracture of coracoid process, left shoulder, initial encounter for closed fracture Is this a current diagnosis for this admission?: Yes Plan: Sustained prior to the most recent hospitalization. Pain management at this time. (9) Multiple rib fractures involving first rib Is this a current diagnosis for this admission?: Yes Plan: Sustained prior to the recent admission to the hospital. Pain management. - Time Time Spent with patient: 60 minutes Smoking Cessation Education: 3 to 10 minutes Medications reviewed and adjusted accordingly: Yes Anticipated discharge: Home - Inpatient Certification Based on my medical assessment, after consideration of the patient's comorbidities, presenting symptoms, or acuity I expect that the services needed warrant INPATIENT care.: Yes I certify that my determination is in accordance with my understanding of Medicare's requirements for reasonable and necessary INPATIENT services [42 CFR 412.3e].: Yes Medical Necessity: Need for Nebulizer Therapy and Monitoring of Response, Need for IV Antibiotics, Risk of Complication if Not Cared For in Hospital Post Hospital Care: D/C Business Services Sales Representative Documentation
[2018-10-18] MEDS ORDERED: CEFEPIME 2 GM/D5W RTU 2 GM/50 ML RTUPB IV SCH (18:00)
[2018-10-18] MEDS: IPRATROPIUM/ALBUTEROL 0.5-2.5 MG/3 ML AMPUL NEB SCH (20:54)
[2018-10-18] MEDS: NICOTINE 21 MG/24 HR PATCH.TD24 TD SCH (21:48)
[2018-10-18] MEDS: ENOXAPARIN SODIUM INJ 40 MG/0.4 ML DISP.SYRIN SUBCUT SCH (22:04)
[2018-10-18] MEDS: GUAIFENESIN 600 MG TABLET.SA PO SCH (22:19)
[2018-10-18] MEDS: METHYLPREDNISOLONE INJ 40 MG/1 ML SDV IV SCH (22:19)
[2018-10-18] MEDS: AZITHROMYCIN 500 MG in DEXTROSE 5%-WATER 250 ML IV SCH (22:20)
--- NOTE | 2018-10-18 23:26 | EKG REPORT ---
SEVERITY:- ABNORMAL ECG - SINUS RHYTHM INCOMPLETE RIGHT BUNDLE BRANCH BLOCK : Confirmed by: Winter Fuentes 18-Oct-2018 23:25:37
[2018-10-19] MEDS: IPRATROPIUM/ALBUTEROL 0.5-2.5 MG/3 ML AMPUL NEB SCH ×4 (01:30→21:20)
[2018-10-19] MEDS ORDERED: ATENOLOL 50 MG TABLET PO ONE (02:28)
[2018-10-19] MEDS: DIAZEPAM INJ 10 MG/2 ML DISP.SYRIN IV PRN ×3 (03:06→14:00)
[2018-10-19] MEDS ORDERED: ATENOLOL 50 MG TABLET ONE (03:06)
[2018-10-19] MEDS: METHYLPREDNISOLONE INJ 40 MG/1 ML SDV IV SCH ×3 (05:21→22:15)
[2018-10-19] MEDS ORDERED: PANTOPRAZOLE SODIUM 40 MG TABLET.DR PO SCH (06:00)
[2018-10-19 07:03] LABS: HEMATOCRIT 34.4 % (37.9-51.0); HEMOGLOBIN 12.1 g/dL (13.5-17.0); MEAN CORPUSCULAR HEMOGLOBIN 34.6 pg (27.0-33.4); MEAN CORPUSCULAR HGB CONC 35.1 g/dL (32.0-36.0); MEAN CORPUSCULAR VOLUME 99 fl (80-97); RED BLOOD COUNT 3.49 10^6/uL (4.35-5.55); RED CELL DISTRIBUTION WIDTH 12.9 % (11.5-14.0); WHITE BLOOD COUNT 10.5 10^3/uL (4.0-10.5)
[2018-10-19 07:25] LABS: ABSOLUTE LYMPHOCYTES# (MANUAL) 0.5 10^3/uL (0.5-4.7); ABSOLUTE MONOCYTES # (MANUAL) 0.2 10^3/uL (0.1-1.4); ABSOLUTE NEUTROPHILS# (MANUAL) 9.8 10^3/uL (1.7-8.2); BASOPHILS % (MANUAL) 0 % (0-2); EOSINOPHILS % (MANUAL) 0 % (0-6); LYMPHOCYTES % (MANUAL) 5 % (13-45); MONOCYTES % (MANUAL) 2 % (3-13); SEGMENTED NEUTROPHILS % (MAN) 93 % (42-78); TOTAL CELLS COUNTED 100
[2018-10-19 07:26] LABS: PLATELET CLUMPS PRESENT; PLATELET COMMENT ADEQUATE; PLATELET COUNT 413 10^3/uL (150-450); POLYCHROMASIA SLIGHT
[2018-10-19 07:27] LABS: ANION GAP 7 (5-19); BLOOD UREA NITROGEN 10 mg/dL (7-20); CALCIUM 8.9 mg/dL (8.4-10.2); CARBON DIOXIDE 28 mmol/L (22-30); CHLORIDE 95 mmol/L (98-107); GLUCOSE 122 mg/dL (75-110); POTASSIUM 4.8 mmol/L (3.6-5.0); SODIUM 129.5 mmol/L (137-145)
[2018-10-19] MEDS: FUROSEMIDE 20 MG TABLET PO SCH (09:36)
[2018-10-19] MEDS: LORATADINE 10 MG TABLET PO SCH (09:36)
[2018-10-19] MEDS: GUAIFENESIN 600 MG TABLET.SA PO SCH ×2 (09:36→22:16)
[2018-10-19] MEDS: ENOXAPARIN SODIUM INJ 40 MG/0.4 ML DISP.SYRIN SUBCUT SCH (09:37)
[2018-10-19] MEDS: ATENOLOL 50 MG TABLET PO SCH (09:37)
[2018-10-19] MEDS: CEFTRIAXONE 1 GM/D5W RTU 1 GM/50 ML RTUPB IV SCH (09:38)
[2018-10-19] MEDS: PANTOPRAZOLE SODIUM 40 MG VIAL IV SCH ×2 (09:38→22:16)
[2018-10-19] MEDS: NICOTINE 21 MG/24 HR PATCH.TD24 TD SCH (09:42)
[2018-10-19] MEDS ORDERED: ASPIRIN 81 MG TABLET, ENT COATED PO SCH (10:00)
[2018-10-19] MEDS ORDERED: LISINOPRIL 10 MG TABLET PO SCH (10:00)
[2018-10-19] MEDS: MORPHINE SULFATE 10 MG/ML INJ IV PRN ×3 (10:03→22:14)
[2018-10-19] MEDS: TAMSULOSIN HCL 0.4 MG CAP.SR.24H PO SCH (11:03)
--- NOTE | 2018-10-19 17:00 | PDOC PROGRESS REPORT ---
Subjective Progress Note for:: 10/19/18 Subjective:: JOSE LUIS JIM is a 68 year old male who was just discharged from the hospital on October 16. At that time he had been hospitalized for a fall from a barstool with fractured left ribs and left shoulder. There is long history of COPD and continues to smoke 1 1/2 packs of cigarettes a day. The patient was admitted to the hospitalist service for PNA. Patient was seen this morning on rounds, he is resting comfortably in bed on room air. He is breathing comfortably, complains of intermittent left lateral chest pain associated with deep inhalation. This is likely related to his recent left rib fractures and LLL PNA. He endorses dyspnea on exertion, but states he "feels much better compared to yesterday." SPO2 92% on room air. Lungs clear to auscultation, slightly diminished in the bases. Reason For Visit: PNEUMONIA Physical Exam Vital Signs: Temp Pulse Resp BP Pulse Ox 98.2 F 93 18 140/72 H 96 10/19/18 15:14 10/19/18 15:14 10/19/18 15:14 10/19/18 15:14 10/19/18 16:17 Pulse Oximeter Continuous Start: 10/18/18 16:46 Freq: RTQ4 Status: Active Protocol: Document 10/19/18 16:17 JDR (Rec: 10/19/18 16:17 J [id number]) Pulse Oximetry Assessment Oxygen Saturation (92-100) 96 Oxygen Delivery Method Room Air Fraction of Inspired Oxygen (FIO2) 21 Equipment Usage Equipment in Use Continuous SpO2 Machine # 6 Intake & Output 10/18/18 10/19/18 10/20/18 06:59 06:59 06:59 Intake Total 250 Balance 250 Weight 82.5 kg General appearance: PRESENT: no acute distress Eye exam: PRESENT: conjunctiva pink, PERRLA Mouth exam: PRESENT: moist, tongue midline Teeth exam: PRESENT: poor dentation Neck exam: PRESENT: full ROM Respiratory exam: PRESENT: clear to auscultation latisha, symmetrical, unlabored Cardiovascular exam: PRESENT: RRR Pulses: PRESENT: normal radial pulses Vascular exam: PRESENT: normal capillary refill GI/Abdominal exam: PRESENT: soft, other - Rotund. ABSENT: tenderness Rectal exam: PRESENT: deferred Extremities exam: PRESENT: full ROM Musculoskeletal exam: PRESENT: ambulatory, full ROM Neurological exam: PRESENT: alert, awake, oriented to person, oriented to place, oriented to time, oriented to situation Psychiatric exam: PRESENT: appropriate affect Skin exam: PRESENT: dry, intact, normal color Results Laboratory Results: 10/19/18 06:37 10/19/18 06:37 10/18/18 10/19/18 10/19/18 18:26 06:37 06:37 WBC 10.5 RBC 3.49 L Hgb 12.1 L Hct 34.4 L MCV 99 H MCH 34.6 H MCHC 35.1 RDW 12.9 Plt Count 413 Seg Neutrophils % Not Reportable Lymphocytes % Not Reportable Monocytes % Not Reportable Eosinophils % Not Reportable Basophils % Not Reportable Absolute Neutrophils Not Reportable Absolute Lymphocytes Not Reportable Absolute Monocytes Not Reportable Absolute Eosinophils Not Reportable Absolute Basophils Not Reportable Sodium 129.5 L Potassium 4.8 Chloride 95 L Carbon Dioxide 28 Anion Gap 7 BUN 10 Creatinine 0.73 Est GFR ( Amer) > 60 Est GFR (Non-Af Amer) > 60 Glucose 122 H Calcium 8.9 Phosphorus 4.0 Magnesium 2.0 2.2 10/18/18 10/18/18 12:54 12:54 Creatine Kinase 131 CK-MB (CK-2) 5.53 H Troponin I < 0.012 NT-Pro-B Natriuret Pep 440 Impressions: Chest X-Ray 10/18/18 12:33 IMPRESSION: 1. Lingular volume loss/consolidation. Suspicious for pneumonia. 2. Known rib fractures. Status: Imported from PACS Assessment and Plan - Diagnosis (1) Pneumonia Qualifiers: Pneumonia type: due to unspecified organism Laterality: left Lung location: lower lobe of lung Qualified Code(s): J18.1 - Lobar pneumonia, unspecified organism Is this a current diagnosis for this admission?: Yes Plan: The patient was just discharged from the hospital on 3 days ago With his broken ribs he likely is splinting and likely developed a community acquired pneumonia. Sputum culture pending Leukocytosis improved from 14-->9 Afebrile. Nontoxic appearing Continue Rocephin and azithromycin IV Likely d/c tomorrow (2) COPD with acute exacerbation Is this a current diagnosis for this admission?: Yes Plan: Smokes 1-1/2 packs of cigarettes a day. Continue Spiriva. Does not tolerate symbicort Initiate serevent Continue Solu-Medrol. He is not hypoxic and does not require oxygen at this time. (3) Hypertension Qualifiers: Hypertension type: essential hypertension Qualified Code(s): I10 - Essential (primary) hypertension Is this a current diagnosis for this admission?: Yes Plan: PMH HTN Continue lisinopril, atenolol and furosemide. (4) Hyponatremia Is this a current diagnosis for this admission?: Yes Plan: HYPOnatremia worse 130-->129 [place] free water restriction and monitor serum sodium. - Time Time Spent with patient: 15-24 minutes Medications reviewed and adjusted accordingly: Yes Anticipated discharge: Home Within: within 24 hours - Inpatient Certification Based on my medical assessment, after consideration of the patient's comorbidities, presenting symptoms, or acuity I expect that the services needed warrant INPATIENT care.: Yes I certify that my determination is in accordance with my understanding of Medicare's requirements for reasonable and necessary INPATIENT services [42 CFR 412.3e].: Yes Medical Necessity: Need for IV Antibiotics, Risk of Complication if Not Cared For in Hospital
--- NOTE | 2018-10-19 21:24 | ADVANCED CARE ---
- Diagnosis (2) COPD with acute exacerbation Diagnosis Current: Yes (3) Hypertension Diagnosis Current: Yes (4) Hyponatremia Diagnosis Current: Yes (5) Localized edema Diagnosis Current: Yes (6) Alcohol abuse Diagnosis Current: Yes (7) Tobacco dependence Diagnosis Current: Yes (8) Closed coracoid process fracture Diagnosis Current: Yes (9) Multiple rib fractures involving first rib Diagnosis Current: Yes Attendance: The patient and his Resuscitation Status: Full Code Discussion: On the day of admission, I proceeded to discuss the patient's CODE STATUS. When we discussed the patient's CODE STATUS I specifically questioned him about remaining a full code his inability to stop smoking despite multiple hospitalizations. He states that he has tried. He has used nicotine replacement therapy. He has tried vape. He has been unsuccessful. Unfortunately drinking and smoking go quite well together. Care Planning Goals: Despite the knowledge that the patient's ongoing smoking and drinking have a significant impact in his ongoing health issues, and the fact that patients with bad COPD have difficulty getting off of the ventilator, he still wishes to remain a full code. When asked about long-term issues he seemed to have limited insight. Document(s) Completed: Desp talking about healthcare proxy's and DNR certificates the patient wished to remain as is. Time Spent: 20
[2018-10-19] MEDS: AZITHROMYCIN 500 MG in DEXTROSE 5%-WATER 250 ML IV SCH (22:08)
[2018-10-19] MEDS: TIOTROPIUM BROMIDE DPI 5 CAP/KIT (18 MCG/CAP) IH SCH (22:14)
[2018-10-19] MEDS: SALMETEROL XINAFOATE DISKUS 50 MCG/1 DOSE 28 DOSE IH SCH (23:59)
[2018-10-20] MEDS: IPRATROPIUM/ALBUTEROL 0.5-2.5 MG/3 ML AMPUL NEB SCH ×3 (03:53→14:19)
[2018-10-20] MEDS: METHYLPREDNISOLONE INJ 40 MG/1 ML SDV IV SCH ×2 (06:31→14:47)
[2018-10-20] MEDS: MORPHINE SULFATE 10 MG/ML INJ IV PRN (06:52)
[2018-10-20] MEDS: FUROSEMIDE 20 MG TABLET PO SCH (08:56)
[2018-10-20] MEDS: TAMSULOSIN HCL 0.4 MG CAP.SR.24H PO SCH (08:56)
[2018-10-20] MEDS: NICOTINE 21 MG/24 HR PATCH.TD24 TD SCH (09:40)
[2018-10-20] MEDS: LORATADINE 10 MG TABLET PO SCH (09:40)
[2018-10-20] MEDS: GUAIFENESIN 600 MG TABLET.SA PO SCH (09:41)
[2018-10-20] MEDS: ATENOLOL 50 MG TABLET PO SCH (09:44)
[2018-10-20] MEDS: ENOXAPARIN SODIUM INJ 40 MG/0.4 ML DISP.SYRIN SUBCUT SCH (09:45)
[2018-10-20] MEDS: TIOTROPIUM BROMIDE DPI 5 CAP/KIT (18 MCG/CAP) IH SCH (09:47)
[2018-10-20] MEDS: PANTOPRAZOLE SODIUM 40 MG VIAL IV SCH (09:47)
[2018-10-20] MEDS: CEFTRIAXONE 1 GM/D5W RTU 1 GM/50 ML RTUPB IV SCH (09:48)
[2018-10-20] MEDS ORDERED: LISINOPRIL 10 MG TABLET PO SCH (10:00)
[2018-10-20] MEDS: SALMETEROL XINAFOATE DISKUS 50 MCG/1 DOSE 28 DOSE IH SCH (11:34)
[2018-10-20 15:23] VITALS: BP 129/80
--- NOTE | 2018-10-22 05:28 | PDOC DISCHARGE SUMMARY ---
General - Admit/Disc Date/PCP Admission Date/Primary Care Provider: 10/18/18 16:49 ESTEFANY OREILLY MD Discharge Date: 10/20/18 - Discharge Diagnosis (1) Pneumonia Is this a current diagnosis for this admission?: Yes (2) COPD with acute exacerbation Is this a current diagnosis for this admission?: Yes (3) Hypertension Is this a current diagnosis for this admission?: Yes (4) Hyponatremia Is this a current diagnosis for this admission?: Yes - Additional Information Resuscitation Status: Full Code Discharge Diet: As Tolerated Discharge Activity: Activity As Tolerated Prescriptions: Levofloxacin [Levaquin 750 mg Tablet] 750 mg PO DAILY #5 tablet Salmeterol Xinafoate [Serevent Diskus 50 Mcg/Dose 28 Dose/Diskus] 50 mcg IH Q12 #1 disk Home Medications: Albuterol Sulfate [Proair HFA Inhalation Aerosol 8.5 gm MDI] 2 puff IH QIDP PRN 10/18/18 Albuterol Sulfate [Ventolin 0.083% Neb 2.5 mg/3 mL Ampul] 1 vial NEB QIDP PRN 10/18/18 Aspirin [Ecotrin 81 mg EC Tablet] 81 mg PO DAILY 10/18/18 Cholecalciferol (Vitamin D3) [Vitamin D3 1000 Unit Tablet] 1,000 unit PO DAILY 10/18/18 Furosemide [Lasix 20 mg Tablet] 20 mg PO QAM 10/18/18 Guaifenesin 400 mg PO TID 10/18/18 Lisinopril [Prinivil 10 mg Tablet] 10 mg PO DAILY 10/18/18 Loratadine [Claritin] 10 mg PO DAILY 10/18/18 Multivitamin [Tab-A-Torie (Multiple Vitamin) Tablet] 1 tab PO DAILY 10/18/18 Rabeprazole Sodium [Aciphex] 20 mg PO Q6AM 10/18/18 Tamsulosin HCl [Flomax 0.4 mg Cap.sr] 0.4 mg PO QAM 10/18/18 Tiotropium [place] [Spiriva Handihaler 5 Cap/Kit (18 Mcg/Cap)] 1 cap IH DAILY 10/18/18 Levofloxacin [Levaquin 750 mg Tablet] 750 mg PO DAILY #5 tablet 10/20/18 Salmeterol Xinafoate [Serevent Diskus 50 Mcg/Dose 28 Dose/Diskus] 50 mcg IH Q12 #1 disk 10/20/18 History of Present Illness History of Present Illness: JOSE LUIS JIM is a 68 year old male who was just discharged from the hospital on October 16. At that time he had been hospitalized for a fall from a barstool with fractured left ribs and left shoulder. There is long history of COPD and continues to smoke 1 1/2 packs of cigarettes a day. He did try a nebulizer rosmery atment this morning but it was ineffective. Because of a "allergy" to Symbicort he is not on a dual medication inhaler. He presented to the CT clinic because his IV site on the left hand was leaking fluid. Based on his presentation in the clinic physician told him to go straight to the emergency department. Upon evaluation he was noted to be tachycardic and hypertensive but oxygen saturation was greater than 90% on room air. He was referred to the hospitalist service for admission. As he was just hospitalized, and he does have an elevated white blood cell count with positive chest x-ray he will be treated for a hospital- acquired pneumonia. Hospital Course Hospital Course: JOSE LUIS JIM is a 68 year old male who was just discharged from the hospital on October 16, three days later he is back for dyspnea and tachycardia. At that time he had been hospitalized for a fall from a barstool with fractured left ribs and left shoulder. There is long history of COPD and continues to smoke 1 1/2 packs of cigarettes a day. The patient was admitted to the hospitalist service for PNA. With his broken ribs he likely is splinting and likely developed a community acquired pneumonia. The patient was initially treated with Rocephin and azithromycin IV. He required supplemental O2 via nasal cannula to maintain SPO2>90%. The patient was placed on Spiriva and Serevent, he stated he was non- compliant with his Symbicort because is "made his COPD symptoms worse." Within 48 hours, the patient was weaned to room air. His vital signs remained stable and he was deemed safe for discharge. He was sent home with a prescription for Levaquin and Serevent. Physical Exam Vital Signs: Temp Pulse Resp BP Pulse Ox 97.7 F 88 16 129/80 H 93 10/20/18 15:21 10/20/18 15:21 10/20/18 15:21 10/20/18 15:21 10/20/18 15:21 Pulse Oximeter Continuous Start: 10/18/18 16:46 Freq: RTQ4 Status: Discharge Protocol: Document 10/20/18 14:19 [facility] [place]Rec[place] 10/20/18 14:29 [facility] [id number]) Pulse Oximetry Assessment Oxygen Saturation (92-100) 93 Oxygen Delivery Method Room Air Fraction of Inspired Oxygen (FIO2) 21 Equipment Usage Equipment in Use Continuous SpO2 Machine # N [id number] Intake & Output 10/20/18 10/21/18 10/22/18 06:59 06:59 06:59 Intake Total 1150 1320 Balance 1150 1320 Results Laboratory Results: 10/19/18 06:37 10/19/18 06:37 10/18/18 10/18/18 12:54 12:54 Creatine Kinase 131 CK-MB (CK-2) 5.53 H Troponin I < 0.012 NT-Pro-B Natriuret Pep 440 Impressions: Chest X-Ray 10/18/18 12:33 IMPRESSION: 1. Lingular volume loss/consolidation. Suspicious for pneumonia. 2. Known rib fractures. Status: Imported from PACS Qualifiers - * PATIENT BEING DISCHARGED WITH ANY OF THE FOLLOWING DIAGNOSIS: No
== END 2018-10-20 16:00 | disposition home or self-care (01) | DRG 194 ==
LOC: ER 12:02 → EH 16:49 → 2N 18:50
PROVIDERS: ADMIT Hospitalist; ATTEND Internal Medicine
DX: J18.9 Pneumonia, unspecified organism (principal); S22.43XA Multiple fractures of ribs, bilateral, initial encounter for closed fracture; J44.0 Chronic obstructive pulmonary disease with (acute) lower respiratory infection; E87.1 Hypo-osmolality and hyponatremia; J44.1 Chronic obstructive pulmonary disease with (acute) exacerbation; J44.9 Chronic obstructive pulmonary disease, unspecified; S42.132A Displaced fracture of coracoid process, left shoulder, initial encounter for closed fracture; W07.XXXA Fall from chair, initial encounter; F10.10 Alcohol abuse, uncomplicated; F17.210 Nicotine dependence, cigarettes, uncomplicated; I10 Essential (primary) hypertension; M19.90 Unspecified osteoarthritis, unspecified site; K21.9 Gastro-esophageal reflux disease without esophagitis; Z79.82 Long term (current) use of aspirin; Z79.899 Other long term (current) drug therapy; Z82.49 Family history of ischemic heart disease and other diseases of the circulatory system; Z88.8 Allergy status to other drugs, medicaments and biological substances
CPT/HCPCS: 36415; 71046; 80048; 80053; 81001; 82550; 82553; 83605; 83735; 83880; 84100; 84484; 85025; 87040; 87070; 87077; 87086; 87205; 93005; 93010; 94762; 96374; 99284; J0456; J0692; J0696; J1650; J2270; J2920; J3360; J3370; J3490; J7060; J7620; S0164

== ENCOUNTER 2018-10-22 02:04 | Inpatient (IN) | payer OTHER, MEDICARE ==
[2018-10-22] MEDS ORDERED: METHYLPREDNISOLONE INJ 125 MG/2 ML SDV IV ONE (02:07)
[2018-10-22] MEDS ORDERED: IPRATROPIUM/ALBUTEROL 0.5-2.5 MG/3 ML AMPUL NEB ONE ×2 (02:07→10:04)
[2018-10-22] MEDS ORDERED: ALBUTEROL SULFATE 0.083% NEB 2.5 MG/3 ML AMPUL NEB ONE (02:08)
--- NOTE | 2018-10-22 02:13 | ER Document Report ---
ED General - General Stated Complaint: TROUBLE BREATHING Time Seen by Provider: 10/22/18 02:07 Primary Care Provider: ESTEFANY OREILLY MD [Primary Care Provider] - Follow up as needed Cannot obtain history due to: Unstable vital signs, Other - Patient unable to speak secondary to respiratory distress Notes: Patient is a 68-year-old male with a past medical history of COPD, recent fall with rib fractures on the left side as well as a fracture to the left humerus who presents from the front door of the emergency department in severe respiratory distress. The patient was brought back via wheelchair, I was walking in the hallway and noticed that the patient appeared to be in severe respiratory distress and was visibly cyanotic. The patient was apparently discharged in the hospital on the for pneumonia and COPD exacerbation in the context of rib fractures. Patient is unable to provide any history secondar y to his degree of distress. TRAVEL OUTSIDE OF THE [place] IN LAST 30 DAYS: No - Related Data Allergies/Adverse Reactions: budesonide [From Symbicort] Adverse Reaction (Severe, Verified 05/09/18 10:24) formoterol [From Symbicort] Adverse Reaction (Severe, Verified 05/09/18 10:24) Past Medical History - General Information source: [facility] Records Cannot obtain history due to: Unstable vital signs, Other - Respiratory distress - Social History Smoking Status: Current Every Day Smoker Frequency of alcohol use: Heavy Drug Abuse: None Lives with: Family Family History: CAD, Malignancy - Past Medical History Cardiac Medical History: Reports: Hx Hypertension Pulmonary Medical History: Reports: Hx COPD Renal/ Medical History: Denies: Hx Peritoneal Dialysis GI Medical History: Reports: Hx Gastroesophageal Reflux Disease Musculoskeletal Medical History: Reports Hx Arthritis Skin Medical History: Denies Hx Eczema, Denies Hx Psoriasis Past Surgical History: Reports: Hx Abdominal Surgery - hernia repair, Hx Or thopedic Surgery - R ankle, Hx Tonsillectomy, Other - Abdominal hernia repair - Immunizations Hx Diphtheria, Pertussis, Tetanus Vaccination: Yes Hx Pneumococcal Vaccination: 01/26/13 Review of Systems - Review of Systems -: Yes ROS unobtainable due to patient's medical condition Physical Exam - Vital signs Vitals: Pulse Ox 94 10/22/18 02:01 Interpretation: Hypertensive, Tachycardic, Hypoxic, Tachypneic Notes: PHYSICAL EXAMINATION: GENERAL: Appears very uncomfortable, in obvious severe respiratory distress HEAD: Atraumatic, normocephalic. EYES: Pupils equal round and reactive to light, extraocular movements intact, sclera anicteric, conjunctiva are normal. ENT: nares patent, oropharynx clear without exudates. Dry mucous membranes. NECK: Normal range of motion, supple without lymphadenopathy LUNGS: Severe respiratory distress, intercostal and supraclavicular retractions are present. Poor air movement throughout with associated extra Tory wheezing throughout. HEART: Regular tachycardia without murmurs ABDOMEN: Soft, nontender, normoactive bowel sounds. No guarding, no rebound. No masses appreciated. EXTREMITIES: Normal range of motion, trace edema in the bilateral lower extremities that is equal and symmetric. No cyanosis. NEUROLOGICAL: No focal neurological deficits. Moves all extremities spontaneously and on command. PSYCH: Anxious but appropriate to situation SKIN: Warm, Dry, normal turgor, bruising over the left chest and shoulder Course - Re-evaluation Re-evalutation: 10/22/18 02:08 Patient presents in severe respiratory distress. Initial documentation is delayed due to needing register the patient although I did follow this patient his room. He presents cyanotic, unable to speak even single word sentences. Coarse expiratory wheezing in all lung huggins. Diminished air movement throughout. The patient was just discharged from the last several days for COPD exacerbation with associated left-sided pneumonia. Patient was immediately placed on a continuous nonrebreather 15 L of oxygen given his marked hypoxemia. He was then transitioned to continuous nebulizers with 10 L of oxygen awaiting BiPAP. We establish to points of IV access. Solu-Medrol 125 mg administered, 2 g of magnesium will be rapidly. Patient will be given IV levofloxacin given his previous diagnosis of pneumonia with apparent worsening. Patient was then placed on BiPAP, and will continue to be monitored at regular intervals. Chest x-ray, labs all pending. The patient is extraordinarily high risk to require intubation given his initial work of breathing will be continuously reassessed. 10/22/18 02:14 Patient remains highly anxious remains with extraordinarily increased work of breathing. Saturations are improving on BiPAP. Will give low-dose ketamine 10 mg to assist with bronchodilation and anxiolysis. 10/22/18 02:21 Chest x-ray without evidence of pneumothorax. She is more calm, breathing at a more even pain started 25 breaths/min with after 10 mg of ketamine. Continues with coarse expiratory wheezing all lung huggins although air movement is gradually improving on BiPAP. 10/22/18 02:56 Patient's work of breathing continues to improve although patient states subjectively he does not like he is breathing better. However objectively his respiratory rate has decreased to 21, saturating 100% on 40% FiO2. Chest x-ray without any new acute findings. Labs pending. Will continue to monitor very closely. 10/22/18 03:30 Patient continues to improve, now much more relaxed. Work of breathing continues to improve. Patient remains with coarse wheezing in all lung huggins. 10/22/18 03:37 I have discussed this patient with the on-call hospitalist Dr. Olivas who has accepted the patient for admission. - Vital Signs Vital signs: Temp Pulse Resp BP Pulse Ox 98.5 F 23 H 118/77 100 10/22/18 03:01 10/22/18 03:01 10/22/18 03:01 10/22/18 03:01 - Laboratory Result Diagrams: 10/22/18 02:07 10/22/18 02:07 Laboratory results interpreted by me: 10/22/18 10/22/18 10/22/18 02:07 02:07 02:07 WBC 17.3 H RBC 3.69 L Hgb 12.8 L Hct 36.9 L MCV 100 H MCH 34.6 H Plt Count 553 H Band Neutrophils % 1 L Lymphocytes % (Manual) 9 L Abs Neuts (Manual) 13.5 H Abs Monocytes (Manual) 2.1 H VBG pH VBG pCO2 Sodium 131.5 L Chloride 92 L Glucose 144 H Lactic Acid 2.6 H 10/22/18 02:45 WBC RBC Hgb Hct MCV MCH Plt Count Band Neutrophils % Lymphocytes % (Manual) Abs Neuts (Manual) Abs Monocytes (Manual) VBG pH 7.28 L VBG pCO2 64.4 H Sodium Chloride Glucose Lactic Acid - Diagnostic Test Radiology reviewed: Image reviewed, Reports reviewed Radiology results interpreted by me: 10/22/18 03:37 Chest x-ray: No acute infiltrate - EKG Interpretation by Me Additional EKG results interpreted by me: 10/22/18 03:38 EKG obtained but is uninterpretable secondary to movement artifact. Appears to show underlying sinus rhythm, rate 119. No obvious ST changes. Critical Care Note - Critical Care Note Total time excluding time spent on procedures (mins): 45 Comments: Critical care time spent obtaining history from patient or surrogate, discussions with consultants, development of treatment plan with patient or surrogate, evaluation of patient's response to treatment, examination of patient, ordering and performing treatments and interventions, ordering and review of laboratory studies, re-evaluation of patient's condition, ordering and review of radiographic studies and review of old charts Discharge - Discharge Clinical Impression: COPD with acute exacerbation, Respiratory distress, Tobacco dependence Condition: Fair Disposition: ADMITTED INPATIENT Admitting Provider: Hospitalist Unit Admitted: IMCU Referrals: ESTEFANY OREILLY MD [Primary Care Provider] - Follow up as needed
[2018-10-22] MEDS ORDERED: KETAMINE HCL INJ 500 MG/10 ML VIAL IV ONE (02:14)
[2018-10-22] MEDS ORDERED: KETAMINE HCL INJ 500 MG/10 ML VIAL ONE (02:15)
[2018-10-22] MEDS ORDERED: LEVOFLOXACIN 750 MG/D5W RTU 750 MG/150 ML RTUPB IV ONE (02:30)
[2018-10-22 02:37] LABS: HEMATOCRIT 36.9 % (37.9-51.0); HEMOGLOBIN 12.8 g/dL (13.5-17.0); MEAN CORPUSCULAR HEMOGLOBIN 34.6 pg (27.0-33.4); MEAN CORPUSCULAR HGB CONC 34.7 g/dL (32.0-36.0); MEAN CORPUSCULAR VOLUME 100 fl (80-97); PLATELET COUNT 553 10^3/uL (150-450); RED BLOOD COUNT 3.69 10^6/uL (4.35-5.55); RED CELL DISTRIBUTION WIDTH 13.3 % (11.5-14.0); WHITE BLOOD COUNT 17.3 10^3/uL (4.0-10.5)
[2018-10-22 02:55] LABS: ABSOLUTE LYMPHOCYTES# (MANUAL) 1.6 10^3/uL (0.5-4.7); ABSOLUTE MONOCYTES # (MANUAL) 2.1 10^3/uL (0.1-1.4); ABSOLUTE NEUTROPHILS# (MANUAL) 13.5 10^3/uL (1.7-8.2); BAND NEUTROPHILS % (MANUAL) 1 % (3-5); BASOPHILS % (MANUAL) 0 % (0-2); EOSINOPHILS % (MANUAL) 1 % (0-6); LYMPHOCYTES % (MANUAL) 9 % (13-45); MONOCYTES % (MANUAL) 12 % (3-13); SEGMENTED NEUTROPHILS % (MAN) 77 % (42-78); TOTAL CELLS COUNTED 100
--- NOTE | 2018-10-22 02:55 | RADIOLOGY REPORT (SQ) ---
EXAM DESCRIPTION: XR CHEST 1 VIEW COMPLETED DATE/TME: 10/22/2018 02:08 CLINICAL HISTORY: 68 years, Male, sob Comparison: None FINDINGS: Left basilar subsegmental atelectasis. Mild diffuse prominence of the pulmonary interstitium. No pleural effusion. No pneumothorax. Cardiac and mediastinal silhouette is unremarkable. No acute osseous abnormality. Soft tissues are unremarkable. IMPRESSION: No acute findings. No focal lung consolidation.
[2018-10-22] MEDS ORDERED: MIDAZOLAM 2 MG/2 ML INJ IV ONE (02:56)
[2018-10-22] MEDS: MAGNESIUM SULFATE/D5W 1 GM/100 ML RTUPB IV SCH ×2 (02:56→03:41)
[2018-10-22 02:57] LABS: PLATELET COMMENT INCREASED; POIKILOCYTOSIS SLIGHT; STOMATOCYTES 1+
[2018-10-22 03:01] LABS: VENOUS BLOOD BASE EXCESS 1.5 mmol/L; VENOUS BLOOD HCO3 29.8 mmol/L (20-32); VENOUS BLOOD PCO2 64.4 mmHg (35-63); VENOUS BLOOD PH 7.28 (7.30-7.42)
[2018-10-22] MEDS: MORPHINE SULFATE 10 MG/ML INJ IV PRN ×5 (03:01→22:55)
[2018-10-22 03:05] LABS: ANION GAP 10 (5-19); BLOOD UREA NITROGEN 18 mg/dL (7-20); CALCIUM 9.1 mg/dL (8.4-10.2); CARBON DIOXIDE 30 mmol/L (22-30); CHLORIDE 92 mmol/L (98-107); GLUCOSE 144 mg/dL (75-110); POTASSIUM 3.7 mmol/L (3.6-5.0); SODIUM 131.5 mmol/L (137-145)
[2018-10-22] MEDS ORDERED: NORMAL SALINE 1000 ML 1,000 ML IV PRN (03:41)
[2018-10-22] MEDS ORDERED: NORMAL SALINE 1000 ML 1,000 ML IV ONE (03:48)
--- NOTE | 2018-10-22 04:42 | PDOC H&P ---
History of Present Illness Admission Date/PCP: 10/22/2018 ESTEFANY OREILLY MD Patient complains of: Shortness of breath History of Present Illness: JOSE LUIS JIM is a 68 year old male with history of multiple medical problems that will be mentioned below who was recently admitted here for COPD exacerbation secondary to pneumonia and discharged on Tuesday. He is expected to order picker his medications from the [facility] clinic however it was closed. He felt the right on Tuesday however on Tuesday morning started having worsening dyspnea with associated mildly productive cough of clear sputum as well as wheezing. The symptoms have been significantly worsening throughout the day until he presented to the emergency room this evening with severe respiratory distress. He denies any fever or chills. No nausea or vomiting or abdominal pain. No chest pain or palpitations. He denies any dysuria, oliguria or hematuria or flank pain. Upon presentation to the emergency room, blood pressure was 173/96, pulse 148, respiratory to 32 and pulse oximetry 100% on 40% FiO2 on BiPAP that was initially required for respiratory distress. She was afebrile with a temperature of 98.5. Her labs revealed sodium of 131.5 up from 129.5 on 10/19/18, chloride 92 compared to 95, CO2 of 30, lactic acid 2.6 and blood glucose 144, CBC with WBC of 17.3, with neutrophilia and hemoglobin of 12.8 and hematocrit of 36.9 with platelets of 553. Venous ABG showed pH 7.28 with PCO2 of 64.4 and bicarbonate of 29.8. The patient was given IV Solu-Medrol, IV magnesium sulfate, IV Versed, IV ketamine,, DuoNeb's and albuterol and IV Levaquin. He will be admitted to an [facility] bed for further evaluation and management. Past Medical History Cardiac Medical History: Reports: Hypertension Pulmonary Medical History: Reports: Chronic Obstructive Pulmonary Disease (COPD) GI Medical History: Reports: Gastroesophageal Reflux Disease Musculoskeltal Medical History: Reports: Arthritis Skin Medical History: Denies: Eczema, Psoriasis Hematology: Denies: Anemia, Sickle Cell Disease Past Surgical History Past Surgical History: Reports: Orthopedic Surgery - R ankle, Tonsillectomy, Other - Abdominal hernia repair Social History Lives with: Family Smoking Status: Current Every Day Smoker Frequency of Alcohol Use: Heavy Hx Recreational Drug Use: No Drugs: None Hx Prescription Drug Abuse: No Family History Family History: CAD, Malignancy Parental Family History Reviewed: Yes Children Family History Reviewed: Yes Sibling(s) Family History Reviewed.: Yes Medication/Allergy Home Medications: Albuterol Sulfate [Proair HFA Inhalation Aerosol 8.5 gm MDI] 2 puff IH QIDP PRN 10/18/18 Albuterol Sulfate [Ventolin 0.083% Neb 2.5 mg/3 mL Ampul] 1 vial NEB QIDP PRN 10/18/18 Aspirin [Ecotrin 81 mg EC Tablet] 81 mg PO DAILY 10/18/18 Cholecalciferol (Vitamin D3) [Vitamin D3 1000 Unit Tablet] 1,000 unit PO DAILY 10/18/18 Furosemide [Lasix 20 mg Tablet] 20 mg PO QAM 10/18/18 Guaifenesin 400 mg PO TID 10/18/18 Lisinopril [Prinivil 10 mg Tablet] 10 mg PO DAILY 10/18/18 Loratadine [Claritin] 10 mg PO DAILY 10/18/18 Multivitamin [Tab-A-Torie (Multiple Vitamin) Tablet] 1 tab PO DAILY 10/18/18 Rabeprazole Sodium [Aciphex] 20 mg PO Q6AM 10/18/18 Tamsulosin HCl [Flomax 0.4 mg Cap.sr] 0.4 mg PO QAM 10/18/18 Tiotropium [place] [Spiriva Handihaler 5 Cap/Kit (18 Mcg/Cap)] 1 cap IH DAILY 10/18/18 Levofloxacin [Levaquin 750 mg Tablet] 750 mg PO DAILY #5 tablet 10/20/18 Salmeterol Xinafoate [Serevent Diskus 50 Mcg/Dose 28 Dose/Diskus] 50 mcg IH Q12 #1 disk 10/20/18 Allergies/Adverse Reactions: budesonide [From Symbicort] Adverse Reaction (Severe, Verified 05/09/18 10:24) formoterol [From Symbicort] Adverse Reaction (Severe, Verified 05/09/18 10:24) Review of Systems Review of Systems: As per history of present illness. All pertinent systems were reviewed above. Constitutional, HEENT, cardiovascular, respiratory, GI, , musculoskeletal, neuro, psychiatric, endocrine, integumentary and hematologic systems were reviewed and are otherwise negative/unremarkable except for positive findings mentioned above in the HPI. Physical Exam Vital Signs: Temp Pulse Resp BP Pulse Ox 98.5 F 23 H 118/77 100 10/22/18 03:01 10/22/18 03:01 10/22/18 03:01 10/22/18 03:01 Intake & Output 10/20/18 10/21/18 10/22/18 06:59 06:59 06:59 Intake Total 75 Balance 75 Weight 84.822 kg Exam: Generally: Pleasant elderly male in mild to moderate respiratory distress on BiPAP Vital signs-as listed Head - atraumatic, normocephalic. Pupils - equal, round and reactive to light and accommodation. Extraocular movements are intact. No scleral icterus. Oropharynx - moist mucous membranes and tongue. No pharyngeal erythema or exudate. Neck - supple. No JVD. Carotid pulses 2+ bilaterally. No carotid bruits. No palpable thyromegaly or lymphadenopathy. Cardiovascular - regular rate and rhythm. Normal S1 and S2. No murmurs, gallops or rubs. Lungs -diffuse expiratory wheezes with tight expiratory airflow and heart vesicular breathing. Abdomen - soft and nontender. Positive bowel sounds. No palpable organomegaly or masses. Extremities -1+ bilateral lower extremity pitting edema, with no clubbing or cyanosis. Neuro - grossly non-focal. Skin -he has left-sided chest wall contusion at the site of rib fractures as well as shoulder contusion at the site of a coracoid fracture. and rectal exam - deferred. Results Laboratory Results: 10/22/18 02:07 10/22/18 02:07 10/22/18 10/22/18 10/22/18 02:07 02:07 02:07 WBC 17.3 H RBC 3.69 L Hgb 12.8 L Hct 36.9 L MCV 100 H MCH 34.6 H MCHC 34.7 RDW 13.3 Plt Count 553 H Seg Neutrophils % Not Reportable Lymphocytes % Not Reportable Monocytes % Not Reportable Eosinophils % Not Reportable Basophils % Not Reportable Absolute Neutrophils Not Reportable Absolute Lymphocytes Not Reportable Absolute Monocytes Not Reportable Absolute Eosinophils Not Reportable Absolute Basophils Not Reportable VBG pH Cancelled VBG pCO2 Cancelled VBG HCO3 Cancelled VBG Base Excess Cancelled Sodium 131.5 L Potassium 3.7 Chloride 92 L Carbon Dioxide 30 Anion Gap 10 BUN 18 Creatinine 0.91 Est GFR ( Amer) > 60 Est GFR (Non-Af Amer) > 60 Glucose 144 H Lactic Acid Calcium 9.1 10/22/18 10/22/18 02:07 02:45 WBC RBC Hgb Hct MCV MCH MCHC RDW Plt Count Seg Neutrophils % Lymphocytes % Monocytes % Eosinophils % Basophils % Absolute Neutrophils Absolute Lymphocytes Absolute Monocytes Absolute Eosinophils Absolute Basophils VBG pH 7.28 L VBG pCO2 64.4 H VBG HCO3 29.8 VBG Base Excess 1.5 Sodium Potassium Chloride Carbon Dioxide Anion Gap BUN Creatinine Est GFR ( Amer) Est GFR (Non-Af Amer) Glucose Lactic Acid 2.6 H Calcium Impressions: Chest X-Ray 10/22/18 02:08 IMPRESSION: No acute findings. No focal lung consolidation. Assessment and Plan - Diagnosis (1) Acute respiratory failure Qualifiers: Respiratory failure complication: hypoxia Qualified Code(s): J96.01 - Acute respiratory failure with hypoxia Is this a current diagnosis for this admission?: Yes Plan: The patient will be admitted to an [facility] bed. We will continue her on BiPAP and she will be placed on IV steroid therapy with IV Solu-Medrol as well as nebulized bronchodilator therapy with duonebs q.i.d. and q.4 hours p.r.n., mucolytic therapy with Mucinex and antibiotic therapy with IV Rocephin and Zithromax. Sputum Gram stain culture and sensitivity will be obtained. O2 protocol will be followed. (2) COPD with acute exacerbation Is this a current diagnosis for this admission?: Yes Plan: Management as above. She will be on O2 protocol. Sputum Gram stain culture and sensitive to be obtained. (3) GERD (gastroesophageal reflux disease) Is this a current diagnosis for this admission?: Yes Plan: We will continue PPI (4) BPH (benign prostatic hyperplasia) Is this a current diagnosis for this admission?: Yes Plan: We will continue Flomax (5) Tobacco dependence Is this a current diagnosis for this admission?: Yes Plan: He will need counseling for smoking cessation (6) Hypertension Qualifiers: Hypertension type: essential hypertension Qualified Code(s): I10 - Essential (primary) hypertension Is this a current diagnosis for this admission?: Yes Plan: We will continue his antihypertensives (7) DVT prophylaxis Is this a current diagnosis for this admission?: Yes Plan: Subcutaneous Lovenox - Time Medications reviewed and adjusted accordingly: Yes Anticipated discharge: Home Within: within 72 hours - Inpatient Certification Medical Necessity: Need Close Monitoring Due to Risk of Patient Decompensation, Need For Continuous Telemetry Monitoring, Need for Nebulizer Therapy and Monitoring of Response, Need for IV Antibiotics, Risk of Complication if Not Cared For in Hospital - Plan Summary Plan Summary: The plan of care was discussed in details with the patient. I answered all questions. The patient agreed to proceed with the above-mentioned plan. The patient is presumably full code. This note was created by [employer] dictating software and may contain typo errors that may have not been proofread.
[2018-10-22] MEDS: PANTOPRAZOLE SODIUM 40 MG TABLET.DR PO SCH (05:27)
[2018-10-22] MEDS ORDERED: FUROSEMIDE 20 MG TABLET PO SCH (08:00)
[2018-10-22] MEDS ORDERED: FUROSEMIDE INJ/PF 40 MG/4 ML SDV ONE (09:36)
[2018-10-22] MEDS ORDERED: LEVALBUTEROL HCL NEB 1.25 MG/3 ML AMPUL NEB PRN (09:43)
[2018-10-22] MEDS: METHYLPREDNISOLONE INJ 125 MG/2 ML SDV IV SCH ×2 (09:43→17:22)
[2018-10-22] MEDS ORDERED: GUAIFENESIN 600 MG TABLET.SA PO SCH (10:00)
[2018-10-22] MEDS: FUROSEMIDE INJ/PF 40 MG/4 ML SDV IV SCH (10:26)
--- NOTE | 2018-10-22 10:41 | EKG REPORT ---
SEVERITY:- ABNORMAL ECG - SINUS RHYTHM NONSPECIFIC INTRAVENTRICULAR CONDUCTION DELAY : Confirmed by: Winter Fuentes 22-Oct-2018 10:41:05
[2018-10-22] MEDS: TIOTROPIUM BROMIDE DPI 5 CAP/KIT (18 MCG/CAP) IH SCH (11:02)
[2018-10-22] MEDS: GUAIFENESIN SYRP 200 MG/10 ML UDC PO SCH ×3 (11:02→17:19)
[2018-10-22] MEDS: ASPIRIN 81 MG TABLET, ENT COATED PO SCH (11:03)
[2018-10-22] MEDS: CHOLECALCIFEROL (D3) 1,000 UNIT TABLET PO SCH (11:03)
[2018-10-22] MEDS: LORATADINE 10 MG TABLET PO SCH (11:03)
[2018-10-22] MEDS: ENOXAPARIN SODIUM INJ 40 MG/0.4 ML DISP.SYRIN SUBCUT SCH (11:03)
[2018-10-22] MEDS: MULTIVITAMIN TABLET PO SCH (11:04)
[2018-10-22] MEDS: LISINOPRIL 10 MG TABLET PO SCH (11:04)
[2018-10-22] MEDS: FAMOTIDINE 20 MG TABLET PO SCH ×2 (11:04→21:17)
[2018-10-22] MEDS: IPRATROPIUM/ALBUTEROL 0.5-2.5 MG/3 ML AMPUL NEB SCH ×3 (12:07→20:13)
[2018-10-22] MEDS: SALMETEROL XINAFOATE DISKUS 50 MCG/1 DOSE 28 DOSE IH SCH ×2 (14:11→21:17)
[2018-10-22 17:20] LABS: ARTERIAL BLOOD BASE EXCESS 2.7 mmol/L; ARTERIAL BLOOD H2CO3 1.78 mmol/L (1.05-1.35); ARTERIAL BLOOD O2 SATURATION 99.2 % (94-98); ARTERIAL BLOOD PCO2 59.3 mmHg (35-45); ARTERIAL BLOOD PH 7.32 (7.35-7.45); ARTERIAL BLOOD PO2 195.3 mmHg (80-100); ARTERIAL BLOOD TOTAL CO2 31.8 mmol/L (23-27)
[2018-10-22 17:22] LABS: ARTERIAL BLOOD FIO2 50%
--- NOTE | 2018-10-22 17:51 | Progress Note ---
Provider Note Provider Note: 68 y.o. M admitted to [facility] for COPD exacerbation. Of note, the patient has been admitted to [facility] approximately 3 times within the last month, initially for a fall and broken ribs, subsequently for community-acquired pneumonia and now COPD exacerbation requiring BiPAP. The patient was discharged from [facility] on October 20, diagnosed with community- acquired pneumonia. He was sent home with a prescription for oral Levaquin, which he never filled. According to the patient, his pharmacy was closed. He presented to [facility] ED October 21 in respiratory distress. Treated with nebulizers, steroids and placed on BiPAP. Admit to IMCU. 1. COPD EXACERBATION: On BiPAP. Scheduled and as needed nebulizer treatments. Scheduled IV Solu-Medrol. IV Levaquin for empiric antibiotic treatment. ABG reveals mixed acidosis. CXR and ABG in a.m. continue Spiriva and Serevent inhalers 2. ANXIETY: Patient continually states he feels like he cannot breathe while on the BiPAP. PRN analgesia. PRN Ativan for agitation. 3. HTN: PMH of HTN. Continue home dose lisinopril. Blood pressure appears to be well controlled.
[2018-10-22] MEDS: LEVOFLOXACIN 750 MG/D5W RTU 750 MG/150 ML RTUPB IV SCH (21:17)
[2018-10-23] MEDS: IPRATROPIUM/ALBUTEROL 0.5-2.5 MG/3 ML AMPUL NEB SCH ×6 (00:33→20:21)
[2018-10-23] MEDS: METHYLPREDNISOLONE INJ 125 MG/2 ML SDV IV SCH ×3 (01:04→18:14)
[2018-10-23] MEDS: LORAZEPAM INJ 2 MG/1 ML VIAL IV PRN ×2 (03:12→22:10)
[2018-10-23] MEDS: PANTOPRAZOLE SODIUM 40 MG TABLET.DR PO SCH (05:32)
[2018-10-23 06:26] LABS: HEMATOCRIT 32.7 % (37.9-51.0); HEMOGLOBIN 11.5 g/dL (13.5-17.0); MEAN CORPUSCULAR HEMOGLOBIN 34.8 pg (27.0-33.4); MEAN CORPUSCULAR HGB CONC 35.1 g/dL (32.0-36.0); MEAN CORPUSCULAR VOLUME 99 fl (80-97); PLATELET COUNT 366 10^3/uL (150-450); WHITE BLOOD COUNT 7.5 10^3/uL (4.0-10.5)
[2018-10-23 06:44] LABS: ANION GAP 9 (5-19); BLOOD UREA NITROGEN 22 mg/dL (7-20); CALCIUM 8.7 mg/dL (8.4-10.2); CARBON DIOXIDE 28 mmol/L (22-30); CHLORIDE 92 mmol/L (98-107); GLUCOSE 126 mg/dL (75-110); POTASSIUM 4.7 mmol/L (3.6-5.0); SODIUM 128.6 mmol/L (137-145)
[2018-10-23] MEDS ORDERED: POLYETHYLENE GLYCOL 3350 POWDER 17 GM/1 PACKET PO PRN (09:16)
[2018-10-23] MEDS: LORATADINE 10 MG TABLET PO SCH (09:22)
[2018-10-23] MEDS: LISINOPRIL 10 MG TABLET PO SCH (09:22)
[2018-10-23] MEDS: MULTIVITAMIN TABLET PO SCH (09:22)
[2018-10-23] MEDS: TIOTROPIUM BROMIDE DPI 5 CAP/KIT (18 MCG/CAP) IH SCH (09:23)
[2018-10-23] MEDS: FAMOTIDINE 20 MG TABLET PO SCH ×2 (09:23→21:37)
[2018-10-23] MEDS: ASPIRIN 81 MG TABLET, ENT COATED PO SCH ×2 (09:23→10:09)
[2018-10-23] MEDS: SALMETEROL XINAFOATE DISKUS 50 MCG/1 DOSE 28 DOSE IH SCH ×2 (09:24→21:38)
[2018-10-23] MEDS: ENOXAPARIN SODIUM INJ 40 MG/0.4 ML DISP.SYRIN SUBCUT SCH (09:24)
[2018-10-23] MEDS: FUROSEMIDE INJ/PF 40 MG/4 ML SDV IV SCH (09:24)
[2018-10-23] MEDS: CHOLECALCIFEROL (D3) 1,000 UNIT TABLET PO SCH (09:25)
[2018-10-23] MEDS: GUAIFENESIN SYRP 200 MG/10 ML UDC PO SCH ×3 (09:25→18:13)
[2018-10-23] MEDS: SENNOSIDES/DOCUSATE 8.6-50 MG 1 EACH TABLET PO SCH ×2 (10:09→18:14)
[2018-10-23] MEDS: MAGNESIUM HYDROXIDE SUSP 30 ML UDCUP PO SCH (10:09)
--- NOTE | 2018-10-23 16:14 | RADIOLOGY REPORT (SQ) ---
EXAM DESCRIPTION: CHEST SINGLE VIEW COMPLETED DATE/TIME: 10/23/2018 4:03 pm REASON FOR STUDY: dyspnea COMPARISON: 10/22/2018 and 10/18/2018. EXAM PARAMETERS: NUMBER OF VIEWS: One view. TECHNIQUE: Single frontal radiographic view of the chest acquired. RADIATION DOSE: NA LIMITATIONS: None. FINDINGS: LUNGS AND PLEURA: Improved aeration in the left lung base. No focal infiltrates, masses o r pneumothorax. No pleural effusion. MEDIASTINUM AND HILAR STRUCTURES: No masses. Contour normal. HEART AND VASCULAR STRUCTURES: Heart normal in size. Normal vasculature. BONES: No acute findings. HARDWARE: None in the chest. OTHER: No other significant finding. IMPRESSION: IMPROVED AERATION IN THE LEFT LUNG BASE. NO ACUTE RADIOGRAPHIC FINDING IN THE CHEST. TECHNICAL DOCUMENTATION: JOB ID: [id number] [employer]- All Rights Reserved Reading location - IP/workstation name: [email or web address]
[2018-10-23] MEDS: MORPHINE SULFATE 10 MG/ML INJ IV PRN (18:21)
[2018-10-23] MEDS: LEVOFLOXACIN 750 MG/D5W RTU 750 MG/150 ML RTUPB IV SCH (21:37)
[2018-10-24] MEDS: IPRATROPIUM/ALBUTEROL 0.5-2.5 MG/3 ML AMPUL NEB SCH ×6 (00:31→23:24)
[2018-10-24] MEDS: METHYLPREDNISOLONE INJ 125 MG/2 ML SDV IV SCH ×4 (01:30→23:01)
[2018-10-24] MEDS: PANTOPRAZOLE SODIUM 40 MG TABLET.DR PO SCH (05:33)
[2018-10-24] MEDS: MORPHINE SULFATE 10 MG/ML INJ IV PRN (06:18)
[2018-10-24 06:23] LABS: HEMOGLOBIN 12.1 g/dL (13.5-17.0); MEAN CORPUSCULAR HGB CONC 34.6 g/dL (32.0-36.0); MEAN CORPUSCULAR VOLUME 98 fl (80-97); PLATELET COUNT 444 10^3/uL (150-450); RED BLOOD COUNT 3.56 10^6/uL (4.35-5.55); RED CELL DISTRIBUTION WIDTH 13.1 % (11.5-14.0); WHITE BLOOD COUNT 11.7 10^3/uL (4.0-10.5)
[2018-10-24 06:56] LABS: ALANINE AMINOTRANSFERASE 35 U/L (21-72); ALBUMIN 3.2 g/dL (3.5-5.0); ALKALINE PHOSPHATASE 73 U/L (38-126); ANION GAP 8 (5-19); ASPARTATE AMINO TRANSFERASE 36 U/L (17-59); BILIRUBIN,DIRECT 0.4 mg/dL (0.0-0.4); BILIRUBIN,TOTAL 0.4 mg/dL (0.2-1.3); BLOOD UREA NITROGEN 23 mg/dL (7-20); CARBON DIOXIDE 33 mmol/L (22-30); CHLORIDE 89 mmol/L (98-107); GLUCOSE 159 mg/dL (75-110); POTASSIUM 4.5 mmol/L (3.6-5.0); SODIUM 130.3 mmol/L (137-145); TOTAL PROTEIN 5.7 g/dL (6.3-8.2)
--- NOTE | 2018-10-24 07:40 | PDOC PROGRESS REPORT ---
Subjective Progress Note for:: 10/23/18 Subjective:: 68 y.o. M admitted to [facility] for COPD exacerbation. Of note, the patient has been admitted to [facility] approximately 3 times within the last month, initially for a fall and broken ribs, subsequently for community-acquired pneumonia and now COPD exacerbation requiring BiPAP. The patient was discharged from [facility] on October 20, diagnosed with community- acquired pneumonia. He was sent home with a prescription for oral Levaquin, which he never filled. According to the patient, his pharmacy was closed. He presented to [facility] ED October 21 in respiratory distress. Treated with nebulizers, steroids and placed on BiPAP. Admit to IMCU. The patient was seen this morning on rounds, he is resting comfortably in bed on BIPAP. He appears much more comfortable when compared to yesterday. Lung sounds remain coarse. + wheezing L>R. CXR this AM relatvely unchanged. Reason For Visit: COPD EXACERBATION, ACUTE RESPIRATORY FAILURE Physical Exam Vital Signs: Temp Pulse Resp BP Pulse Ox 97.7 F 105 H 24 H 135/76 H 97 10/24/18 03:52 10/24/18 03:56 10/24/18 03:56 10/24/18 03:52 10/24/18 03:56 Pulse Oximeter Continuous Start: 10/22/18 03:41 Freq: RTQ4 Status: Active Protocol: Document 10/24/18 03:56 KAYLEN (Rec: 10/24/18 04:00 LDA [id number]) Pulse Oximetry Assessment Oxygen Saturation (92-100) 96 Oxygen Delivery Method Bi-pap Fraction of Inspired Oxygen (FIO2) 45 Equipment Usage Equipment in Use Continuous Pulse Oximeter 24 Hour Charge Charge Now Continuous SpO2 Machine # 13 Intake & Output 10/23/18 10/24/18 10/25/18 06:59 06:59 06:59 Intake Total 150 1010 Output Total 1550 1775 Balance -1400 -765 Weight 87.2 kg 85.4 kg General appearance: PRESENT: mild distress - ON BIPAP Eye exam: PRESENT: conjunctiva pink, PERRLA Mouth exam: PRESENT: moist, tongue midline Teeth exam: PRESENT: poor dentation Respiratory exam: PRESENT: rhonchi, symmetrical, unlabored, wheezes Cardiovascular exam: PRESENT: RRR Pulses: PRESENT: normal radial pulses, normal dorsalis pedis pul GI/Abdominal exam: PRESENT: soft. ABSENT: distended Rectal exam: PRESENT: deferred Extremities exam: PRESENT: full ROM, pedal edema - MILD Musculoskeletal exam: PRESENT: full ROM, normal inspection Neurological exam: PRESENT: awake, oriented to person, oriented to place, oriented to time, oriented to situation. ABSENT: alert - DROWSY Psychiatric exam: PRESENT: appropriate affect Skin exam: PRESENT: dry, intact, other - BRUISING TO ANTERIOR L CHEST, SHOULDER AND SCAPULAR AREA -APPEARS OLD - LIKELY FROM WHEN PATIENT FELL OFF BARSTOOL AND WAS ADMITTED THE 1ST TIME Results Laboratory Results: 10/24/18 05:45 10/24/18 05:45 10/24/18 10/24/18 10/24/18 05:45 05:45 05:45 WBC 11.7 H RBC 3.56 L Hgb 12.1 L Hct 35.0 L MCV 98 H MCH 34.0 H MCHC 34.6 RDW 13.1 Plt Count 444 Sodium 130.3 L Potassium 4.5 Chloride 89 L Carbon Dioxide 33 H Anion Gap 8 BUN 23 H Creatinine 0.78 Est GFR ( Amer) > 60 Est GFR (Non-Af Amer) > 60 Glucose 159 H Calcium 9.0 Magnesium 2.2 Total Bilirubin 0.4 AST 36 ALT 35 Alkaline Phosphatase 73 Total Protein 5.7 L Albumin 3.2 L 10/22/18 10/24/18 02:07 05:45 NT-Pro-B Natriuret Pep 1310 H 595 Impressions: Chest X-Ray 10/23/18 08:05 IMPRESSION: IMPROVED AERATION IN THE LEFT LUNG BASE. NO ACUTE RADIOGRAPHIC FINDING IN THE CHEST. Status: Imported from PACS Assessment and Plan - Diagnosis (1) Acute respiratory failure Qualifiers: Respiratory failure complication: hypoxia Qualified Code(s): J96.01 - Acute respiratory failure with hypoxia Is this a current diagnosis for this admission?: Yes Plan: Secondary to COPD exacerbation stemming from PNA Patient was discharged from [facility] recently with prescription for Levaquin but never filled the rx Remains on BIPAP, unable to wean CXR this AM shows improved airation in LLL, chronic pulmonary changes related to COPD Scheduled and as needed nebulizer treatments. Scheduled IV Solu-Medrol. IV Levaquin for empiric antibiotic treatment. ABG reveals mixed acidosis. Spiriva and Serevent inhalers, patient has self-reported that he "does not tolerate Symbicort" (2) COPD with acute exacerbation Is this a current diagnosis for this admission?: Yes Plan: plan as above (3) Tobacco dependence Is this a current diagnosis for this admission?: Yes Plan: Current smoker Offer Nicotine patch (4) Hypertension Qualifiers: Hypertension type: essential hypertension Qualified Code(s): I10 - Essential (primary) hypertension Is this a current diagnosis for this admission?: Yes Plan: PMH of HTN. Continue home dose lisinopril. Blood pressure appears to be well controlled. - Time Time Spent with patient: 15-24 minutes Medications reviewed and adjusted accordingly: Yes Anticipated discharge: Home - Inpatient Certification Based on my medical assessment, after consideration of the patient's comorbidities, presenting symptoms, or acuity I expect that the services needed warrant INPATIENT care.: Yes I certify that my determination is in accordance with my understanding of [facility]'s requirements for reasonable and necessary INPATIENT services [42 CFR 412.3e].: Yes Medical Necessity: Need for IV Antibiotics
[2018-10-24] MEDS: MULTIVITAMIN TABLET PO SCH (09:19)
[2018-10-24] MEDS: LISINOPRIL 10 MG TABLET PO SCH (09:20)
[2018-10-24] MEDS: SENNOSIDES/DOCUSATE 8.6-50 MG 1 EACH TABLET PO SCH ×2 (09:20→17:23)
[2018-10-24] MEDS: ASPIRIN 81 MG TABLET, ENT COATED PO SCH (09:20)
[2018-10-24] MEDS: FAMOTIDINE 20 MG TABLET PO SCH (09:20)
[2018-10-24] MEDS: TIOTROPIUM BROMIDE DPI 5 CAP/KIT (18 MCG/CAP) IH SCH (09:21)
[2018-10-24] MEDS: CHOLECALCIFEROL (D3) 1,000 UNIT TABLET PO SCH (09:21)
[2018-10-24] MEDS: LORATADINE 10 MG TABLET PO SCH (09:21)
[2018-10-24] MEDS: SALMETEROL XINAFOATE DISKUS 50 MCG/1 DOSE 28 DOSE IH SCH ×2 (09:22→23:03)
[2018-10-24] MEDS: FUROSEMIDE INJ/PF 40 MG/4 ML SDV IV SCH (09:22)
[2018-10-24] MEDS: ENOXAPARIN SODIUM INJ 40 MG/0.4 ML DISP.SYRIN SUBCUT SCH (09:22)
[2018-10-24] MEDS: GUAIFENESIN SYRP 200 MG/10 ML UDC PO SCH ×3 (09:22→17:22)
[2018-10-24] MEDS: MAGNESIUM HYDROXIDE SUSP 30 ML UDCUP PO SCH (09:23)
[2018-10-24] MEDS: LEVOFLOXACIN 750 MG TABLET PO SCH (13:46)
[2018-10-24] MEDS: NICOTINE 21 MG/24 HR PATCH.TD24 TD SCH (17:22)
--- NOTE | 2018-10-24 18:16 | PDOC PROGRESS REPORT ---
Subjective Progress Note for:: 10/24/18 Subjective:: 68 y.o. M admitted to [facility] for COPD exacerbation. Of note, the patient has been admitted to [facility] approximately 3 times within the last month, initially for a fall and broken ribs, subsequently for community-acquired pneumonia and now COPD exacerbation requiring BiPAP. The patient was seen on morning rounds. He is found resting in bed comfortably on supplemental oxygen by nasal cannula at 4 L/min. He is on continuous pulse oximetry and was noted to have an SPO2 of 99%. The oxygen was progressively turned down while I was in the room and he continued to maintain oxygen saturations in the mid 90s. On room air, he continued to be fully conversational, without increased work of breathing, with oxygen saturation of 93%. Nursing was notified and requested to continue monitoring oxygen and weaning as able to maintain saturations of 88% to 92%. Patient reports that he continues to have shortness of breath with minimal activity; though does note that this is likely due to increased chest wall pain related to his recent rib fractures on the left side as much is true dyspnea. He is encouraged to utilize the incentive spirometer and flutter valve. He also reports a mildly productive cough, also reportedly improved. He has no other questions or concerns at this time. No concerns per nursing. Reason For Visit: COPD EXACERBATION, ACUTE RESPIRATORY FAILURE Physical Exam Vital Signs: Temp Pulse Resp BP Pulse Ox 97.4 F 105 H 18 143/82 H 93 10/24/18 15:18 10/24/18 17:33 10/24/18 17:33 10/24/18 15:18 10/24/18 17:33 Pulse Oximeter Continuous Start: 10/22/18 03:41 Freq: RTQ4 Status: Active Protocol: Document 10/24/18 17:33 [facility] (Rec: 10/24/18 17:41 [facility] [id number]) Pulse Oximetry Assessment Oxygen Saturation (92-100) 93 Oxygen Flow Rate (L/min) 4.5 Oxygen Delivery Method Nasal Cannula Equipment Usage Equipment in Use Continuous SpO2 Machine # 13 Intake & Output 10/23/18 10/24/18 10/25/18 06:59 06:59 06:59 Intake Total 150 1010 Output Total 1550 9580 1425 Balance -6383 -220 -6044 Weight 87.2 kg 85.4 kg General appearance: PRESENT: no acute distress, well-developed, well-nourished Head exam: PRESENT: atraumatic, normocephalic Eye exam: PRESENT: conjunctiva pink, EOMI, PERRLA. ABSENT: scleral icterus Mouth exam: PRESENT: moist, tongue midline Teeth exam: PRESENT: poor dentation Respiratory exam: PRESENT: decreased breath sounds - Left middle and lower huggins, rhonchi, symmetrical, unlabored. ABSENT: rales, wheezes Cardiovascular exam: PRESENT: RRR. ABSENT: diastolic murmur, rubs, systolic murmur Vascular exam: PRESENT: normal capillary refill GI/Abdominal exam: PRESENT: normal bowel sounds, soft. ABSENT: distended, guarding, mass, organolmegaly, rebound, tenderness Rectal exam: PRESENT: deferred Extremities exam: PRESENT: full ROM. ABSENT: calf tenderness, clubbing, pedal edema Neurological exam: PRESENT: alert, awake, oriented to person, oriented to place, oriented to time, oriented to situation, CN II-XII grossly intact. ABSENT: motor sensory deficit Psychiatric exam: PRESENT: appropriate affect, normal mood. ABSENT: homicidal ideation, suicidal ideation Skin exam: PRESENT: dry, intact, warm, other - Large ecchymosis noted to the left shoulder, left scapula, left anterior chest wall. ABSENT: cyanosis, rash Results Laboratory Results: 10/24/18 05:45 10/24/18 05:45 10/24/18 10/24/18 10/24/18 05:45 05:45 05:45 WBC 11.7 H RBC 3.56 L Hgb 12.1 L Hct 35.0 L MCV 98 H MCH 34.0 H MCHC 34.6 RDW 13.1 Plt Count 444 Sodium 130.3 L Potassium 4.5 Chloride 89 L Carbon Dioxide 33 H Anion Gap 8 BUN 23 H Creatinine 0.78 Est GFR ( Amer) > 60 Est GFR (Non-Af Amer) > 60 Glucose 159 H Calcium 9.0 Magnesium 2.2 Total Bilirubin 0.4 AST 36 ALT 35 Alkaline Phosphatase 73 Total Protein 5.7 L Albumin 3.2 L 10/22/18 10/24/18 02:07 05:45 NT-Pro-B Natriuret Pep 1310 H 595 Impressions: Chest X-Ray 10/23/18 08:05 IMPRESSION: IMPROVED AERATION IN THE LEFT LUNG BASE. NO ACUTE RADIOGRAPHIC FINDING IN THE CHEST. Assessment and Plan - Diagnosis (1) Acute respiratory failure Qualifiers: Respiratory failure complication: hypoxia and hypercapnia Qualified Code(s): J96.01 - Acute respiratory failure with hypoxia; J96.02 - Acute respiratory failure with hypercapnia Is this a current diagnosis for this admission?: Yes Plan: Improved; patient now maintaining oxygen saturations while at rest on room air. Secondary to COPD exacerbation secondary to CAP and recent multiple rib fractures Patient was discharged from [facility] recently with prescription for Levaquin but never filled the rx CXR (10/23/2018) shows improved airation in LLL, chronic pulmonary changes related to COPD The patient is admitted to [facility] on continuous cardiac telemetry and pulse oximetry. He is provided supplemental oxygen and BiPAP as needed to maintain saturations of 88-92% Nursing is asked to begin weaning supplemental oxygen and to obtain daily oxygen qualification testing. He is provided scheduled and as needed nebulizer treatments; have decreased frequency of scheduled nebs today. Scheduled IV Solu-Medrol; have begun weaning. Transition to p.o. Levaquin for empiric treatment of CAP. Spiriva and Serevent inhalers, patient has self-reported that he "does not tolerate Symbicort" Guaifenesin 3 times daily. Incentive spirometer and flutter valve to bedside. Increase ambulation. (2) COPD with acute exacerbation Is this a current diagnosis for this admission?: Yes Plan: Evaluation management as above. (3) GERD (gastroesophageal reflux disease) Qualifiers: Esophagitis presence: without esophagitis Qualified Code(s): K21.9 - Gastro-esophageal reflux disease without esophagitis Is this a current diagnosis for this admission?: Yes Plan: We will continue PPI (4) Tobacco dependence Is this a current diagnosis for this admission?: Yes Plan: Current smoker Smoking cessation is encouraged; nicotine replacement therapy is provided. (5) Hypertension Qualifiers: Hypertension type: essential hypertension Qualified Code(s): I10 - Essential (primary) hypertension Is this a current diagnosis for this admission?: Yes Plan: PMH of HTN. Acceptable blood pressures on patient's home regiment of Lisinopril and furosemide. Cardiac diet. (6) BPH (benign prostatic hyperplasia) Is this a current diagnosis for this admission?: Yes Plan: We will continue Flomax - Time Time Spent with patient: 15-24 minutes Smoking Cessation Education: 3 to 10 minutes Medications reviewed and adjusted accordingly: Yes Anticipated discharge: Home Within: within 48 hours
[2018-10-24] MEDS: LORAZEPAM INJ 2 MG/1 ML VIAL IV PRN (23:00)
[2018-10-25] MEDS: LORAZEPAM INJ 2 MG/1 ML VIAL IV PRN (05:57)
[2018-10-25] MEDS: PANTOPRAZOLE SODIUM 40 MG TABLET.DR PO SCH (05:57)
[2018-10-25 06:17] LABS: HEMATOCRIT 36.3 % (37.9-51.0); HEMOGLOBIN 12.6 g/dL (13.5-17.0); MEAN CORPUSCULAR HEMOGLOBIN 33.7 pg (27.0-33.4); MEAN CORPUSCULAR HGB CONC 34.8 g/dL (32.0-36.0); MEAN CORPUSCULAR VOLUME 97 fl (80-97); PLATELET COUNT 446 10^3/uL (150-450); RED BLOOD COUNT 3.75 10^6/uL (4.35-5.55); RED CELL DISTRIBUTION WIDTH 13.1 % (11.5-14.0); WHITE BLOOD COUNT 13.5 10^3/uL (4.0-10.5)
[2018-10-25 06:41] LABS: ANION GAP 6 (5-19); BLOOD UREA NITROGEN 21 mg/dL (7-20); CALCIUM 9.2 mg/dL (8.4-10.2); CARBON DIOXIDE 37 mmol/L (22-30); CHLORIDE 87 mmol/L (98-107); GLUCOSE 139 mg/dL (75-110); POTASSIUM 4.5 mmol/L (3.6-5.0); SODIUM 129.9 mmol/L (137-145)
[2018-10-25] MEDS ORDERED: TAMSULOSIN HCL 0.4 MG CAP.SR.24H PO SCH (08:00)
[2018-10-25] MEDS: IPRATROPIUM/ALBUTEROL 0.5-2.5 MG/3 ML AMPUL NEB SCH ×2 (08:36→16:01)
[2018-10-25] MEDS ORDERED: ACETAMINOPHEN 325 MG TABLET PO PRN (09:05)
[2018-10-25] MEDS ORDERED: IBUPROFEN 800 MG TABLET PO PRN (09:05)
[2018-10-25] MEDS ORDERED: TRAMADOL HCL 50 MG TABLET PO PRN (09:06)
[2018-10-25] MEDS: NICOTINE 21 MG/24 HR PATCH.TD24 TD SCH (09:45)
[2018-10-25] MEDS: MAGNESIUM HYDROXIDE SUSP 30 ML UDCUP PO SCH (09:45)
[2018-10-25] MEDS: METHYLPREDNISOLONE INJ 125 MG/2 ML SDV IV SCH (09:45)
[2018-10-25] MEDS: SENNOSIDES/DOCUSATE 8.6-50 MG 1 EACH TABLET PO SCH (09:45)
[2018-10-25] MEDS: GUAIFENESIN SYRP 200 MG/10 ML UDC PO SCH ×2 (09:45→13:06)
[2018-10-25] MEDS: LISINOPRIL 10 MG TABLET PO SCH (09:46)
[2018-10-25] MEDS: MULTIVITAMIN TABLET PO SCH (09:46)
[2018-10-25] MEDS: CHOLECALCIFEROL (D3) 1,000 UNIT TABLET PO SCH (09:46)
[2018-10-25] MEDS: LEVOFLOXACIN 750 MG TABLET PO SCH (09:46)
[2018-10-25] MEDS: ENOXAPARIN SODIUM INJ 40 MG/0.4 ML DISP.SYRIN SUBCUT SCH (09:47)
[2018-10-25] MEDS: ASPIRIN 81 MG TABLET, ENT COATED PO SCH (09:47)
[2018-10-25] MEDS: LORATADINE 10 MG TABLET PO SCH (09:47)
[2018-10-25] MEDS: TIOTROPIUM BROMIDE DPI 5 CAP/KIT (18 MCG/CAP) IH SCH (09:47)
[2018-10-25] MEDS: SALMETEROL XINAFOATE DISKUS 50 MCG/1 DOSE 28 DOSE IH SCH (09:48)
[2018-10-25] MEDS ORDERED: LIDOCAINE 5% (700 MG) TRANSDERMAL ADH..PATCH TP SCH (10:00)
[2018-10-25] MEDS ORDERED: FUROSEMIDE 20 MG TABLET PO SCH (10:00)
[2018-10-25] MEDS ORDERED: CARVEDILOL 3.125 MG TABLET PO SCH (10:00)
[2018-10-25 14:55] VITALS: BP 152/83
--- NOTE | 2018-10-26 21:41 | PDOC DISCHARGE SUMMARY ---
General - Admit/Disc Date/PCP Admission Date/Primary Care Provider: 10/22/18 04:27 ESTEFANY OREILLY MD Discharge Date: 10/25/18 - Discharge Diagnosis (1) Acute respiratory failure Is this a current diagnosis for this admission?: Yes Summary: Resolved. Ptient now maintaining oxygen saturations while ambulatory on room air. Secondary to COPD exacerbation and CAP; likely wosened due to recent multiple rib fractures CXR (10/23/2018) shows improved airation in LLL, chronic pulmonary changes related to COPD The patient was admitted to [facility] on continuous cardiac telemetry and pulse oxi metry. He was supported with supplemental oxygen and BiPAP as needed to maintain saturations of 88-92%, scheduled and as needed nebulizer treatments, and IV Solu-medrol that has been transitioned to p.o. prednisone for continued therapy post discharge. He was placed on Levaquin for empiric treatment of CAP; he is provided a prescription to complete his antibiotic course of therapy at home. He was started on Spiriva and Serevent inhalers. He was educated on the importance of continuing pulmonary toilet with incentive spirometer and flutter valve to reduce risk of recurrent PNA related to his rib fractures. He is strongly advised to stop smoking. At time of discharge, the patient is in stable condition, maintaining saturations while ambulatory on room air without increased work of breathing or chest wall pain. He is encouraged to continue pulmonary toilet and advised to stop smoking. He is instructed to follow up with his PCP within 1 week and to return to the emergency department as needed for concerning symptoms. Arrangements have been made for the patient to receive home health nursing and physical therapy. (2) COPD with acute exacerbation Is this a current diagnosis for this admission?: Yes Summary: Evaluation and management as above. (3) GERD (gastroesophageal reflux disease) Is this a current diagnosis for this admission?: Yes Summary: Decrease tobacco, caffeine, high fatty foods that would increase GERD symptoms. Consider continued H2 korin or PPI for management of symptoms. Monitor for COPD exacerbations related to uncontrolled reflux. (4) Tobacco dependence Is this a current diagnosis for this admission?: Yes Summary: Smoking cessation strongly encouraged. Nicotine replacement therapies were provided. (5) Hypertension Is this a current diagnosis for this admission?: Yes Summary: PMH of HTN. Blood pressure control obtained through home regiment of Lisinopril and furosemide with addition of low dose carvedilol. (6) BPH (benign prostatic hyperplasia) Is this a current diagnosis for this admission?: Yes Summary: Continue home dose Flomax. - Additional Information Discharge Diet: Cardiac Discharge Activity: Activity As Tolerated, Balance Activity w/Rest Prescriptions: Carvedilol [Coreg 3.125 mg Tablet] 3.125 mg PO Q12 #60 tablet Levofloxacin [Levaquin 750 mg Tablet] 750 mg PO DAILY #5 tablet Lidocaine [Lidoderm 5% (700 mg) Transdermal Patch] 1 patch TP DAILY #30 adh..patch Nicotine [Nicoderm 21 mg/24 Hr Transderm Patch] 1 each TD DAILY #30 patch.td24 Prednisone [Deltasone] 60 mg PO DAILY #12 tablet Tramadol HCl [Ultram 50 mg Tablet] 50 mg PO Q6HP PRN #20 tablet PRN Reason: Home Medications: Albuterol Sulfate [Proair HFA Inhalation Aerosol 8.5 gm MDI] 2 puff IH QIDP PRN 10/18/18 Albuterol Sulfate [Ventolin 0.083% Neb 2.5 mg/3 mL Ampul] 1 vial NEB QIDP PRN 10/18/18 Aspirin [Ecotrin 81 mg EC Tablet] 81 mg PO DAILY 10/18/18 Cholecalciferol (Vitamin D3) [Vitamin D3 1000 Unit Tablet] 1,000 unit PO DAILY 10/18/18 Furosemide [Lasix 20 mg Tablet] 20 mg PO QAM 10/18/18 Guaifenesin 400 mg PO TID 10/18/18 Lisinopril [Prinivil 10 mg Tablet] 10 mg PO DAILY 10/18/18 Loratadine [Claritin] 10 mg PO DAILY 10/18/18 Multivitamin [Tab-A-Torie (Multiple Vitamin) Tablet] 1 tab PO DAILY 10/18/18 Rabeprazole Sodium [Aciphex] 20 mg PO Q6AM 10/18/18 Tamsulosin HCl [Flomax 0.4 mg Cap.sr] 0.4 mg PO QAM 10/18/18 Tiotropium [place] [Spiriva Handihaler 5 Cap/Kit (18 Mcg/Cap)] 1 cap IH DAILY 10/18/18 Salmeterol Xinafoate [Serevent Diskus 50 Mcg/Dose 28 Dose/Diskus] 50 mcg IH Q12 #1 disk 10/20/18 Acetaminophen [Tylenol 325 mg Tablet] 650 mg PO Q4HP PRN tablet 10/25/18 Carvedilol [Coreg 3.125 mg Tablet] 3.125 mg PO Q12 #60 tablet 10/25/18 Ibuprofen [Motrin 800 mg Tablet] 800 mg PO Q8HP PRN tablet 10/25/18 Levofloxacin [Levaquin 750 mg Tablet] 750 mg PO DAILY #5 tablet 10/25/18 Lidocaine [Lidoderm 5% (700 mg) Transdermal Patch] 1 patch TP DAILY #30 adh..patch 10/25/18 Nicotine [Nicoderm 21 mg/24 Hr Transderm Patch] 1 each TD DAILY #30 patch.td24 10/25/18 Polyethylene Glycol 3350 [Miralax Powder 17 gm/Packet] 17 gm PO DAILYP PRN powd.pack 10/25/18 Prednisone [Deltasone] 60 mg PO DAILY #12 tablet 10/25/18 Salmeterol Xinafoate [Serevent Diskus 50 Mcg/Dose 28 Dose/Diskus] 50 mcg IH Q12 disk 10/25/18 Sennosides/Docusate 8.6-50 mg [Senna Plus Tablet] 2 each PO BID tablet 10/25/18 Tramadol HCl [Ultram 50 mg Tablet] 50 mg PO Q6HP PRN #20 tablet 10/25/18 History of Present Illness History of Present Illness: Per H&P by Dr. Olivas: JOSE LUIS JIM is a 68 year old male with history of multiple medical problems that will be mentioned below who was recently admitted here for COPD exacerbation secondary to pneumonia and discharged on Tuesday. He is expected to sampler pickup his medications from the [facility] however it was closed. He felt the right on Tuesday however on Tuesday morning started having worsening dyspnea with associated mildly productive cough of clear sputum as well as wheezing. The symptoms have been significantly worsening throughout the day until he presented to the emergency room this evening with severe respiratory distress. He denies any fever or chills. No nausea or vomiting or abdominal pain. No chest pain or palpitations. He denies any dysuria, oliguria or hematuria or flank pain. Upon presentation to the emergency room, blood pressure was 173/96, pulse 148, respiratory to 32 and pulse oximetry 100% on 40% FiO2 on BiPAP that was initially required for respiratory distress. She was afebrile with a temperature of 98.5. Her labs revealed sodium of 131.5 up from 129.5 on 10/19/18, chloride 92 compared to 95, CO2 of 30, lactic acid 2.6 and blood glucose 144, CBC with WBC of 17.3, with neutrophilia and hemoglobin of 12.8 and hematocrit of 36.9 with platelets of 553. Venous ABG showed pH 7.28 with PCO2 of 64.4 and bicarbonate of 29.8. The patient was given IV Solu-Medrol, IV magnesium sulfate, IV Versed, IV ketamine,, DuoNeb's and albuterol and IV Levaquin. He will be admitted to an [facility] bed for further evaluation and management. Physical Exam Vital Signs: Temp Pulse Resp BP Pulse Ox 98.2 F 96 20 152/83 H 91 L 10/25/18 14:49 10/25/18 16:00 10/25/18 16:00 10/25/18 14:49 10/25/18 16:00 Pulse Oximeter Continuous Start: 10/22/18 03: 41 Freq: RTQ4 Status: Discharge Protocol: Document 10/25/18 16:00 LDA (Rec: 10/25/18 16:03 [facility] [id number]) Pulse Oximetry Assessment Oxygen Saturation (92-100) 91 Oxygen Delivery Method Room Air Fraction of Inspired Oxygen (FIO2) 21 Equipment Usage Equipment Standby Continuous SpO2 Machine # 13 Intake & Output 10/25/18 10/26/18 10/27/18 06:59 06:59 06:59 Intake Total 462 Output Total 4927 750 Balance -2213 -750 Weight 82.4 kg General appearance: PRESENT: no acute distress, well-developed, well-nourished Head exam: PRESENT: atraumatic, normocephalic Eye exam: PRESENT: conjunctiva pink, EOMI, PERRLA. ABSENT: scleral icterus Mouth exam: PRESENT: moist, tongue midline Neck exam: ABSENT: carotid bruit, JVD, lymphadenopathy, thyromegaly Respiratory exam: PRESENT: decreased breath sounds - LML, LLL, prolonged expiratory phas, rhonchi, symmetrical, unlabored. ABSENT: rales, wheezes Cardiovascular exam: PRESENT: RRR. ABSENT: diastolic murmur, rubs, systolic murmur Pulses: PRESENT: normal dorsalis pedis pul Vascular exam: PRESENT: normal capillary refill GI/Abdominal exam: PRESENT: normal bowel sounds, soft. ABSENT: distended, guarding, mass, organolmegaly, rebound, tenderness Rectal exam: PRESENT: deferred Extremities exam: PRESENT: full ROM. ABSENT: calf tenderness, clubbing, pedal edema Neurological exam: PRESENT: alert, awake, oriented to person, oriented to place, oriented to time, oriented to situation, CN II-XII grossly intact. ABSENT: motor sensory deficit Psychiatric exam: PRESENT: appropriate affect, normal mood. ABSENT: homicidal ideation, suicidal ideation Skin exam: PRESENT: dry, intact, warm, other - Large ecchymosis noted to the left shoulder, left scapula, left anterior chest wall. ABSENT: cyanosis, rash Results Laboratory Results: 10/25/18 05:42 10/25/18 05:42 10/24/18 08:46 Sputum Gram Stain - Final 10/24/18 08:46 Sputum Sputum Culture - Final NORMAL ALOK 10/22/18 10/24/18 02:07 05:45 NT-Pro-B Natriuret Pep 1310 H 595 Impressions: Chest X-Ray 10/23/18 08:05 IMPRESSION: IMPROVED AERATION IN THE LEFT LUNG BASE. NO ACUTE RADIOGRAPHIC FINDING IN THE CHEST. Qualifiers - * PATIENT BEING DISCHARGED WITH ANY OF THE FOLLOWING DIAGNOSIS: No Plan Discharge Plan: Discharged to home with home health nursing and physical therapy. Follow up with primary care provider within 1 week. Recommend that outpatient overnight sleep study for evaluation of DANISH. STOP smoking. Complete antibiotic (Azithromycin course) and prednisone taper. Continue using incentive spirometer and flutter valve hourly while awake. Return to the emergency department as needed for concerning symptoms. Time Spent: Greater than 30 Minutes
== END 2018-10-25 18:55 | disposition home or self-care (01) | DRG 189 ==
LOC: ER 02:04 → EH 04:27 → 3S 06:13
PROVIDERS: ADMIT Family Medicine; ATTEND Family Medicine
DX: J96.01 Acute respiratory failure with hypoxia (principal); J44.1 Chronic obstructive pulmonary disease with (acute) exacerbation; I10 Essential (primary) hypertension; K21.9 Gastro-esophageal reflux disease without esophagitis; N40.0 Benign prostatic hyperplasia without lower urinary tract symptoms; F17.210 Nicotine dependence, cigarettes, uncomplicated; F41.9 Anxiety disorder, unspecified; S22.42XD Multiple fractures of ribs, left side, subsequent encounter for fracture with routine healing; S27.9XXD Injury of unspecified intrathoracic organ, subsequent encounter; S42.302D Unspecified fracture of shaft of humerus, left arm, subsequent encounter for fracture with routine healing; X58.XXXD Exposure to other specified factors, subsequent encounter; Z79.2 Long term (current) use of antibiotics; Z79.82 Long term (current) use of aspirin; Z79.51 Long term (current) use of inhaled steroids; Z79.899 Other long term (current) drug therapy
CPT/HCPCS: 36415; 71045; 80048; 80053; 82803; 83605; 83735; 83880; 85025; 85027; 87070; 87205; 93005; 93010; 94640; 94660; 94762; 96365; 96366; 96368; 96375; 99291; J1650; J1940; J1956; J2060; J2270; J2930; J3475; J3490; J7030; J7620

== ENCOUNTER 2018-11-13 15:06 | Emergency (ER) | payer OTHER, MEDICARE ==
[2018-11-13] MEDS ORDERED: NORMAL SALINE 1000 ML 1,000 ML IV ONE (16:34)
--- NOTE | 2018-11-13 16:36 | ER Document Report ---
ED Medical Screen (RME) - General Chief Complaint: General Weakness Stated Complaint: GENERAL WEAKNESS Time Seen by Provider: 11/13/18 16:28 Primary Care Provider: ESTEFANY OREILLY MD [Primary Care Provider] - Follow up as needed TRAVEL OUTSIDE OF THE [place] IN LAST 30 DAYS: No - HPI Notes: 11/13/18 16:34 Patient is a 68-year-old male with a history of hypertension, COPD, and recent admission/discharge from the hospital for pneumonia 3 weeks ago who presents complaining of generalized weakness with decrease in his blood pressure over the past 24 hours. Patient states that at home his blood pressure was in the 50s systolic. He did not take his blood pressure medicine today because his blood pressure was low. He is otherwise able to eat and drink without difficulty. He is urinating normally and having normal bowel movements. No pain. Denies MAYO, fever, neck pain, URI, CP, SOB, Abd pain, or rash. I have treated and performed a rapid initial assessment of this patient. A comprehensive ED assessment and evaluation of the patient, analysis of test results and completion of medical decision making process will be conducted by additional ED providers. PHYSICAL EXAMINATION: GENERAL: Well-appearing, well-nourished and in no acute distress. A&Ox4. Answers questions appropriately. LUNGS: Breath sounds clear to auscultation bilaterally and equal. No wheezes rales or rhonchi. HEART: Regular rate and rhythm without murmurs, rubs, gallops. NEUROLOGICAL: Normal speech, normal gait. PSYCH: Normal mood, normal affect. - Related Data Allergies/Adverse Reactions: budesonide [From Symbicort] Adverse Reaction (Severe, Verified 11/13/18 15:08) formoterol [From Symbicort] Adverse Reaction (Severe, Verified 11/13/18 15:08) Past Medical History - Social History Frequency of alcohol use: Heavy Drug Abuse: None - Past Medical History Cardiac Medical History: Reports: Hx Hypertension Pulmonary Medical History: Reports: Hx COPD, Hx Pneumonia Renal/ Medical History: Denies: Hx Peritoneal Dialysis GI Medical History: Reports: Hx Gastroesophageal Reflux Disease Musculoskeltal Medical History: Reports Hx Arthritis Skin Medical History: Denies Hx Eczema, Denies Hx Psoriasis Psychiatric Medical History: Reports: Hx Depression Past Surgical History: Reports: Hx Abdominal Surgery - hernia repair, Hx Orthopedic Surgery - R ankle, Hx Tonsillectomy, Other - Abdominal hernia repair - Immunizations Hx Diphtheria, Pertussis, Tetanus Vaccination: Yes Physical Exam - Vital signs Vitals: Temp Pulse Resp BP Pulse Ox 98.4 F 109 H 20 127/63 H 99 11/13/18 15:18 11/13/18 15:18 11/13/18 15:18 11/13/18 15:18 11/13/18 15:18 Course - Vital Signs Vital signs: Temp Pulse Resp BP Pulse Ox 98.4 F 109 H 20 127/63 H 99 11/13/18 15:18 11/13/18 15:18 11/13/18 15:18 11/13/18 15:18 11/13/18 15:18 Doctor's Discharge - Discharge Referrals: ESTEFANY OREILLY MD [Primary Care Provider] - Follow up as needed
--- NOTE | 2018-11-13 17:05 | RADIOLOGY REPORT (SQ) ---
EXAM DESCRIPTION: CHEST 2 VIEWS COMPLETED DATE/TIME: 11/13/2018 4:55 pm REASON FOR STUDY: weakness, recent pneumonia COMPARISON: 10/23/2018 EXAM PARAMETERS: NUMBER OF VIEWS: two views TECHNIQUE: Digital Frontal and Lateral radiographic views of the chest acquired. RADIATION DOSE: NA LIMITATIONS: none FINDINGS: LUNGS AND PLEURA: Continued improved left basilar aeration. Unchanged right mid lung rola pheral opacities, likely scarring. No new consolidation. No pleural effusion or pneumothorax. Stab le chronic interstitial opacities. MEDIASTINUM AND HILAR STRUCTURES: No masses or contour abnormalities. HEART AND VASCULAR STRUCTURES: Heart normal size. No evidence for failure. BONES: No acute findings. HARDWARE: None in the chest. OTHER: No other significant finding. IMPRESSION: Continued improvement in the left basilar aeration. Stable additional chronic changes without evidence of acute cardiopulmonary process. TECHNICAL DOCUMENTATION: JOB ID: [id number] [employer]- All Rights Reserved Reading location - IP/workstation name: [email or web address]
[2018-11-13 17:40] LABS: ABSOLUTE BASOPHILS # (AUTO) 0.1 10^3/uL (0.0-0.2); ABSOLUTE EOSINOPHILS # (AUTO) 0.4 10^3/uL (0.0-0.6); ABSOLUTE LYMPHOCYTES (AUTO) 0.8 10^3/uL (0.5-4.7); ABSOLUTE MONOCYTES (AUTO) 1.1 10^3/uL (0.1-1.4); BASOPHILS % (AUTO) 1.5 % (0-2); HEMATOCRIT 36.7 % (37.9-51.0); LYMPHOCYTES % (AUTO) 10.5 % (13-45); MEAN CORPUSCULAR HEMOGLOBIN 34.8 pg (27.0-33.4); MEAN CORPUSCULAR HGB CONC 35.5 g/dL (32.0-36.0); MEAN CORPUSCULAR VOLUME 98 fl (80-97); MONOCYTES % (AUTO) 15.3 % (3-13); PLATELET COUNT 440 10^3/uL (150-450); RED BLOOD COUNT 3.75 10^6/uL (4.35-5.55); RED CELL DISTRIBUTION WIDTH 13.5 % (11.5-14.0); SEGMENTED NEUTROPHILS % (AUTO) 67.7 % (42-78); TOTAL CELLS COUNTED % (AUTO) 100 %; WHITE BLOOD COUNT 7.4 10^3/uL (4.0-10.5)
[2018-11-13 20:02] LABS: ALANINE AMINOTRANSFERASE 22 U/L (21-72); ALBUMIN 3.1 g/dL (3.5-5.0); ALKALINE PHOSPHATASE 110 U/L (38-126); ANION GAP 5 (5-19); ASPARTATE AMINO TRANSFERASE 18 U/L (17-59); BILIRUBIN,DIRECT 0.3 mg/dL (0.0-0.4); BILIRUBIN,TOTAL 0.5 mg/dL (0.2-1.3); BLOOD UREA NITROGEN 8 mg/dL (7-20); CALCIUM 8.9 mg/dL (8.4-10.2); CARBON DIOXIDE 27 mmol/L (22-30); CHLORIDE 99 mmol/L (98-107); GLUCOSE 97 mg/dL (75-110); PHOSPHORUS 3.9 mg/dL (2.5-4.5); POTASSIUM 4.5 mmol/L (3.6-5.0); TOTAL PROTEIN 5.8 g/dL (6.3-8.2)
--- NOTE | 2018-11-13 20:02 | EKG REPORT ---
SEVERITY:- ABNORMAL ECG - SINUS RHYTHM NONSPECIFIC T ABNORMALITIES, LATERAL LEADS : Confirmed by: Tiffany Bennett MD 13-Nov-2018 20:01:48
--- NOTE | 2018-11-13 21:02 | ER Document Report ---
ED General - General Chief Complaint: General Weakness Stated Complaint: GENERAL WEAKNESS Time Seen by Provider: 11/13/18 16:28 Primary Care Provider: ESTEFANY OREILLY MD [Primary Care Provider] - Follow up in 3-5 days Notes: Patient is a 68-year-old male that presents to the emergency department for chief complaint of lightheadedness. Patient reports over the past few months has been having episodes of syncope, and rest recently in September she had an episode and fell and broke a few ribs and was admitted to the hospital. He states his been keeping a close eye on his blood pressure, and noted that it was lower today, he did go to the [facility], they recommended he come to the emergency department to be evaluated. He does take medication for blood pressure but has not taken in the past 2 days. He believes he takes lisinopril. Today he denied having any lightheadedness episodes, but just noted his blood pressure was low on the home blood pressure cuff. He was not symptomatic at that time. He denies having any lightheadedness, chest pain, shortness of breath, nausea, vomiting. He denies any urinary frequency, or dysuria. Past Medical History: Hypertension, GERD, COPD Past Surgical History: Hernia repair, ankle surgery Social History: Former smoker, admits to drinking 3-4 beers daily. Family History: Reviewed and noncontributory for presenting illness Allergies: Reviewed, see documented allergy list. REVIEW OF SYSTEMS: Other than noted above, the 12 point review of systems was reviewed with the pat ient and were negative, all pertinent findings are included in the HPI. PHYSICAL EXAMINATION: Vital signs reviewed, nursing noted reviewed. GENERAL: Well-appearing, well-nourished and in no acute distress. HEAD: Atraumatic, normocephalic. EYES: Eyes appear normal, extraocular movements intact, sclera anicteric, conjunctiva are normal. ENT: nares patent, oropharynx clear without exudates. Moist mucous membranes. NECK: Normal range of motion, supple without lymphadenopathy LUNGS: Breath sounds clear to auscultation bilaterally and equal. No wheezes rales or rhonchi. HEART: Regular rate and rhythm without murmurs ABDOMEN: Soft, nontender, normoactive bowel sounds. No rebound, guarding, or rigidity. No masses appreciated. EXTREMITIES: Nontender, good range of motion, no pitting or edema. NEUROLOGICAL: No focal neurological deficits. Moves all extremities spontaneously Motor and sensory grossly intact on exam. PSYCH: Normal mood, normal affect. SKIN: Warm, Dry, normal turgor, no rashes or lesions noted on exposed skin TRAVEL OUTSIDE OF THE [place] IN LAST 30 DAYS: No - Related Data Allergies/Adverse Reactions: budesonide [From Symbicort] Adverse Reaction (Severe, Verified 11/13/18 15:08) formoterol [From Symbicort] Adverse Reaction (Severe, Verified 11/13/18 15:08) Past Medical History - Social History Smoking Status: Former Smoker Frequency of alcohol use: Heavy Drug Abuse: None Family History: CAD, Malignancy Patient has suicidal ideation: No Patient has homicidal ideation: No - Past Medical History Cardiac Medical History: Reports: Hx Hypertension Pulmonary Medical History: Reports: Hx COPD, Hx Pneumonia Renal/ Medical History: Denies: Hx Peritoneal Dialysis GI Medical History: Reports: Hx Gastroesophageal Reflux Disease Musculoskeletal Medical History: Reports Hx Arthritis Skin Medical History: Denies Hx Eczema, Denies Hx Psoriasis Psychiatric Medical History: Reports: Hx Depression Past Surgical History: Reports: Hx Abdominal Surgery - hernia repair, Hx Orthopedic Surgery - R ankle, Hx Tonsillectomy, Other - Abdominal hernia repair - Immunizations Hx Diphtheria, Pertussis, Tetanus Vaccination: Yes Hx Pneumococcal Vaccination: 01/26/13 Physical Exam - Vital signs Vitals: Temp Pulse Resp BP Pulse Ox 98.4 F 109 H 20 127/63 H 99 11/13/18 15:18 11/13/18 15:18 11/13/18 15:18 11/13/18 15:18 11/13/18 15:18 Course - Re-evaluation Re-evalutation: Patient seen and examined vital signs reviewed. Laboratory data and/or imaging were ordered as appropriate for the patient's presenting symptoms and complaint, with consideration of any critical or life threatening conditions that may be associated with their obtained history and exam as noted above. Results were reviewed when available and demonstrated mild hyponatremia which appears to be chronic for this patient, likely secondary to the patient's beer consumption, unlikely to be the cause of the patient's symptoms, his orthostatic vital signs were negative in the ED. The patient was re-evaluated and was stable, blood pressure is stable throughout his entire ED course. He did not have any cardiac dysrhythmias on the monitor. Evaluation was most consistent with lightheadedness, possible transient hypotension, recommended holding off on his lisinopril, and switching to low- dose Lopressor, he wanted to run this by his primary care physician, at the [facility]. Results were discussed with the patient at this point, after careful consideration I feel that that patient can be discharged from the emergency department, the patient was educated treatments and reasons to return to the e mergency department based on their presumed diagnosis as noted above, they were advised to followup with a primary care physician in 2-3 days. Patient was agreeable to plan of care. *Note is created using voice recognition software and may contain spelling, syntax or grammatical errors. Laboratory 11/13/18 11/13/18 11/13/18 16:45 16:45 16:45 WBC 7.4 RBC 3.75 L Hgb 13.0 L Hct 36.7 L MCV 98 H MCH 34.8 H MCHC 35.5 RDW 13.5 Plt Count 440 Seg Neutrophils % 67.7 Lymphocytes % 10.5 L Monocytes % 15.3 H Eosinophils % 5.0 Basophils % 1.5 Absolute Neutrophils 5.0 Absolute Lymphocytes 0.8 Absolute Monocytes 1.1 Absolute Eosinophils 0.4 Absolute Basophils 0.1 Sodium Cancelled Potassium Cancelled Chloride Cancelled Carbon Dioxide Cancelled Anion Gap Cancelled BUN Cancelled Creatinine Cancelled Est GFR ( Amer) Cancelled Est GFR (Non-Af Amer) Cancelled Glucose Cancelled Calcium Cancelled Phosphorus Cancelled Magnesium Cancelled Total Bilirubin Cancelled Direct Bilirubin Cancelled Neonat Total Bilirubin Cancelled Neonat Direct Bilirubin Cancelled Neonat Indirect Bili Cancelled AST Cancelled ALT Cancelled Alkaline Phosphatase Cancelled Total Protein Cancelled Albumin Cancelled Urine Color YELLOW Urine Appearance CLEAR Urine pH 6.0 Ur Specific [place] 1.021 Urine Protein NEGATIVE Urine Glucose (UA) NEGATIVE Urine Ketones NEGATIVE Urine Blood NEGATIVE Urine Nitrite NEGATIVE Urine Bilirubin NEGATIVE Urine Urobilinogen 2.0 H Ur Leukocyte Esterase NEGATIVE Urine WBC (Auto) 1 Urine RBC (Auto) 1 Squamous Epi Cells Auto <1 Urine Mucus (Auto) FEW Urine Ascorbic Acid NEGATIVE 11/13/18 19:30 WBC RBC Hgb Hct MCV MCH MCHC RDW Plt Count Seg Neutrophils % Lymphocytes % Monocytes % Eosinophils % Basophils % Absolute Neutrophils Absolute Lymphocytes Absolute Monocytes Absolute Eosinophils Absolute Basophils Sodium 131.0 L Potassium 4.5 Chloride 99 Carbon Dioxide 27 Anion Gap 5 BUN 8 Creatinine 0.76 Est GFR ( Amer) > 60 Est GFR (Non-Af Amer) > 60 Glucose 97 Calcium 8.9 Phosphorus 3.9 Magnesium 1.7 Total Bilirubin 0.5 Direct Bilirubin 0.3 Neonat Total Bilirubin Not Reportable Neonat Direct Bilirubin Not Reportable Neonat Indirect Bili Not Reportable AST 18 ALT 22 Alkaline Phosphatase 110 Total Protein 5.8 L Albumin 3.1 L Urine Color Urine Appearance Urine pH Ur Specific [place] Urine Protein Urine Glucose (UA) Urine Ketones Urine Blood Urine Nitrite Urine Bilirubin Urine Urobilinogen Ur Leukocyte Esterase Urine WBC (Auto) Urine RBC (Auto) Squamous Epi Cells Auto Urine Mucus (Auto) Urine Ascorbic Acid Chest X-Ray 11/13/18 16:33 IMPRESSION: Continued improvement in the left basilar aeration. Stable additional chronic changes without evidence of acute cardiopulmonary process. - Vital Signs Vital signs: Temp Pulse Resp BP Pulse Ox 98.4 F 100 21 H 164/87 H 98 11/13/18 15:18 11/13/18 19:57 11/13/18 21:01 11/13/18 21:01 11/13/18 21:01 - Laboratory Result Diagrams: 11/13/18 16:45 11/13/18 19:30 Laboratory results interpreted by me: 11/13/18 11/13/18 11/13/18 16:45 16:45 19:30 RBC 3.75 L Hgb 13.0 L Hct 36.7 L MCV 98 H MCH 34.8 H Lymphocytes % 10.5 L Monocytes % 15.3 H Sodium 131.0 L Total Protein 5.8 L Albumin 3.1 L Urine Urobilinogen 2.0 H - EKG Interpretation by Me Additional EKG results interpreted by me: EKG demonstrates sinus rhythm with a ventricular rate of 86 bpm, normal axis, normal intervals QTC was 421 ms, no evidence of acute ischemia, no ST elevation, compared to prior EKG, without significant change although prior EKG had significant baseline artifact. Discharge - Discharge Clinical Impression: Lightheadedness Condition: Stable Disposition: HOME, SELF-CARE Instructions: Hypotension ([facility]) Additional Instructions: Please hold off on taking your lisinopril, until further instructed by your primary care physician, please take the Lopressor prescribed, to help with your heart rate, this should not affect your blood pressure dramatically. If you wish to run this by your primary care physician first, you may do so. Prescriptions: Metoprolol Tartrate [Lopressor 25 mg Tablet] 12.5 mg PO Q12 #30 tab Referrals: ESTEFANY OREILLY MD [Primary Care Provider] - Follow up in 3-5 days
[2018-11-13 21:07] LABS: APPEARANCE,URINE CLEAR; BILIRUBIN,URINE NEGATIVE (NEGATIVE); GLUCOSE, URINE NEGATIVE (NEGATIVE); KETONES,URINE NEGATIVE (NEGATIVE); LEUKOCYTE ESTERASE,URINE NEGATIVE (NEGATIVE); NITRITE,URINE NEGATIVE (NEGATIVE); PROTEIN,URINE NEGATIVE (NEGATIVE); URINE SPECIFIC GRAVITY 1.021
[2018-11-13 21:16] LABS: COLOR,URINE YELLOW
[2018-11-13 21:26] VITALS: BP 164/87
== END 2018-11-13 21:33 | disposition home or self-care (01) ==
LOC: ER 15:06
DX: R42 Dizziness and giddiness (principal); R53.1 Weakness; Z79.899 Other long term (current) drug therapy; I10 Essential (primary) hypertension; J44.9 Chronic obstructive pulmonary disease, unspecified; Z87.891 Personal history of nicotine dependence
CPT/HCPCS: 93005; 99285; 96360; 36415; 83735; 84100; 85025; 80053; 81001; 71046; 93010; J7030

== ENCOUNTER 2019-01-17 17:43 | Emergency (ER) | payer OTHER, MEDICARE ==
--- NOTE | 2019-01-17 18:56 | ER Document Report ---
ED Medical Screen (RME) - General Chief Complaint: General Weakness Stated Complaint: WEAKNESS Time Seen by Provider: 01/17/19 18:52 Primary Care Provider: ESTEFANY OREILLY MD [Primary Care Provider] - Follow up as needed Mode of Arrival: Wheelchair Information source: Patient Notes: Patient presents complaining of generalized weakness for the past 2 weeks. Patient states that he has had left hip pain for several months that has gradually been worsening. Patient states he has difficulty putting weight to his left hip. Patient states he came in today because he was attempting to go the bathroom and was unable to remain standing and fell back landing on the toilet. Patient denies any chest pain cough or shortness of breath at this time. hx: CHF, COPD, GERD, osteoarthritis I have greeted and performed a rapid initial assessment of this patient. A comprehensive ED assessment and evaluation of the patient, analysis of test results and completion of the medical decision making process will be conducted by additional ED providers. TRAVEL OUTSIDE OF THE [place] IN LAST 30 DAYS: No - Related Data Allergies/Adverse Reactions: budesonide [From Symbicort] Adverse Reaction (Severe, Verified 01/17/19 17:45) formoterol [From Symbicort] Adverse Reaction (Severe, Verified 01/17/19 17:45) Past Medical History - Social History Frequency of alcohol use: Occasional Drug Abuse: None - Past Medical History Cardiac Medical History: Reports: Hx Congestive Heart Failure, Hx Hypertension Pulmonary Medical History: Reports: Hx COPD, Hx Pneumonia Renal/ Medical History: Denies: Hx Peritoneal Dialysis GI Medical History: Reports: Hx Gastroesophageal Reflux Disease Musculoskeltal Medical History: Reports Hx Arthritis Skin Medical History: Denies Hx Eczema, Denies Hx Psoriasis Psychiatric Medical History: Reports: Hx Depression Past Surgical History: Reports: Hx Abdominal Surgery - hernia repair, Hx Orthopedic Surgery - R ankle, Hx Tonsillectomy, Other - Abdominal hernia repair - Immunizations Hx Diphtheria, Pertussis, Tetanus Vaccination: Yes Physical Exam - Vital signs Vitals: Temp Pulse BP Pulse Ox 98.9 F 100 143/73 H 92 01/17/19 18:46 01/17/19 18:46 01/17/19 18:46 01/17/19 18:46 - General Notes: Left hip tenderness, respirations unlabored Course - Vital Signs Vital signs: Temp Pulse Resp BP Pulse Ox 98.9 F 100 143/73 H 92 01/17/19 18:46 01/17/19 18:46 01/17/19 18:46 01/17/19 18:46 Doctor's Discharge - Discharge Referrals: ESTEFANY OREILLY MD [Primary Care Provider] - Follow up as needed
--- NOTE | 2019-01-17 19:41 | RADIOLOGY REPORT (SQ) ---
EXAM DESCRIPTION: CHEST SINGLE VIEW COMPLETED DATE/TIME: 01/17/2019 7:32 pm REASON FOR STUDY: weakness COMPARISON: 11/13/2018 EXAM PARAMETERS: NUMBER OF VIEWS: One view. TECHNIQUE: Single frontal radiographic view of the chest acquired. RADIATION DOSE: NA LIMITATIONS: None. FINDINGS: LUNGS AND PLEURA: Chronic pleural plaquing. No acute opacities. No effusions. MEDIASTINUM AND HILAR STRUCTURES: No masses. Contour normal. HEART AND VASCULAR STRUCTURES: Heart normal in size. Normal vasculature. BONES: No acute findings. HARDWARE: None in the chest. OTHER: No other significant finding. IMPRESSION: Chronic pleural plaquing. No acute findings. TECHNICAL DOCUMENTATION: JOB ID: [id number] [employer]- All Rights Reserved Reading location - IP/workstation name: [email or web address]
--- NOTE | 2019-01-17 19:43 | RADIOLOGY REPORT (SQ) ---
EXAM DESCRIPTION: HIP LEFT AP/LATERAL COMPLETED DATE/TIME: 01/17/2019 7:32 pm REASON FOR STUDY: L hip pain COMPARISON: None. NUMBER OF VIEWS: Two views. TECHNIQUE: AP pelvis and additional frog-leg view of the left hip. LIMITATIONS: None. FINDINGS: MINERALIZATION: Normal. LEFT HIP: Ring osteophytes. Contour deformity of the head neck junction. Femoroacetabular impingeme nt. RIGHT HIP: Similar to left hip. PUBIS AND ISCHIUM: No fracture. PELVIS: No fracture. SACRUM: No fracture or dislocation. No worrisome bone lesions. LOWER LUMBAR SPINE: No fracture or dislocation. No worrisome bone lesions. No significant disc disea se. SOFT TISSUES: No findings. OTHER: No other significant finding. IMPRESSION: No acute fracture. Bilateral femoroacetabular impingement. TECHNICAL DOCUMENTATION: JOB ID: [id number] [employer]- All Rights Reserved Reading location - IP/workstation name: [email or web address]
[2019-01-17 22:08] LABS: ABSOLUTE BASOPHILS # (AUTO) 0.1 10^3/uL (0.0-0.2); ABSOLUTE EOSINOPHILS # (AUTO) 0.1 10^3/uL (0.0-0.6); ABSOLUTE LYMPHOCYTES (AUTO) 0.7 10^3/uL (0.5-4.7); ABSOLUTE MONOCYTES (AUTO) 1.3 10^3/uL (0.1-1.4); ABSOLUTE NEUT (AUTO) 7.5 10^3/uL (1.7-8.2); BASOPHILS % (AUTO) 0.8 % (0-2); EOSINOPHILS % (AUTO) 0.7 % (0-6); HEMATOCRIT 44.1 % (37.9-51.0); HEMOGLOBIN 15.3 g/dL (13.5-17.0); LYMPHOCYTES % (AUTO) 7.3 % (13-45); MEAN CORPUSCULAR HEMOGLOBIN 34.2 pg (27.0-33.4); MEAN CORPUSCULAR HGB CONC 34.7 g/dL (32.0-36.0); MEAN CORPUSCULAR VOLUME 99 fl (80-97); MONOCYTES % (AUTO) 13.7 % (3-13); PLATELET COUNT 323 10^3/uL (150-450); RED BLOOD COUNT 4.46 10^6/uL (4.35-5.55); RED CELL DISTRIBUTION WIDTH 14.3 % (11.5-14.0); SEGMENTED NEUTROPHILS % (AUTO) 77.5 % (42-78); TOTAL CELLS COUNTED % (AUTO) 100 %; WHITE BLOOD COUNT 9.7 10^3/uL (4.0-10.5)
[2019-01-17 22:26] LABS: ANION GAP 10 (5-19); BLOOD UREA NITROGEN 7 mg/dL (7-20); CALCIUM 9.6 mg/dL (8.4-10.2); CARBON DIOXIDE 32 mmol/L (22-30); CHLORIDE 90 mmol/L (98-107); GLUCOSE 93 mg/dL (75-110); POTASSIUM 3.7 mmol/L (3.6-5.0); SODIUM 131.7 mmol/L (137-145)
[2019-01-17 22:27] LABS: ALANINE AMINOTRANSFERASE 56 U/L (21-72); ALKALINE PHOSPHATASE 202 U/L (38-126); ASPARTATE AMINO TRANSFERASE 91 U/L (17-59); BILIRUBIN,DIRECT 0.3 mg/dL (0.0-0.4); BILIRUBIN,TOTAL 0.8 mg/dL (0.2-1.3); TOTAL PROTEIN 7.2 g/dL (6.3-8.2)
[2019-01-17 23:01] LABS: APPEARANCE,URINE SLIGHTLY-CLOUDY; BILIRUBIN,URINE NEGATIVE (NEGATIVE); CALCIUM OXALATE CRYSTALS,URINE MANY /HPF; COLOR,URINE YELLOW; GLUCOSE, URINE NEGATIVE (NEGATIVE); KETONES,URINE NEGATIVE (NEGATIVE); LEUKOCYTE ESTERASE,URINE NEGATIVE (NEGATIVE); NITRITE,URINE NEGATIVE (NEGATIVE); PROTEIN,URINE NEGATIVE (NEGATIVE); URINE SPECIFIC GRAVITY 1.009; UROBILINOGEN,URINE NEGATIVE mg/dL (<2.0)
[2019-01-18] MEDS ORDERED: KETOROLAC TROMETHAMINE INJ/PF 30 MG/1 ML SDV IV ONE (01:53)
[2019-01-18] MEDS ORDERED: LIDOCAINE 5% (700 MG) TRANSDERMAL ADH..PATCH TP ONE (01:53)
--- NOTE | 2019-01-18 02:01 | ER Document Report ---
ED General - General Chief Complaint: General Weakness Stated Complaint: WEAKNESS Time Seen by Provider: 01/17/19 18:52 Primary Care Provider: ESTEFANY OREILLY MD [Primary Care Provider] - Follow up as needed Mode of Arrival: Wheelchair Notes: 68-year-old male with multiple comorbidities presents to the emergency department for chief complaint of weakness x2 weeks. He had a fall on October 12 and broke several ribs and had hip pain. He was otherwise okay until about 2 weeks ago and started having severe left hip pain that is gotten progressively worse to the point where he cannot walk or bear weight on it at all. He is also developed acute weakness in his bilateral lower extremities. He denies fevers or chills, denies IV drug use, denies recent infection, denies acute urinary retention but states it is very difficult to urinate, denies bowel incontinence, denies saddle paresthesia at this time. Complains of periodic bilateral lower extremity paresthesias but not currently at this time. Denies acute shortness of breath or chest pain, denies nausea/vomiting/diarrhea/constipation. TRAVEL OUTSIDE OF THE [place] IN LAST 30 DAYS: No - Related Data Allergies/Adverse Reactions: budesonide [From Symbicort] Adverse Reaction (Severe, Verified 01/17/19 17:45) formoterol [From Symbicort] Adverse Reaction (Severe, Verified 01/17/19 17:45) Past Medical History - General Information source: Patient - Social History Smoking Status: Current Every Day Smoker Frequency of alcohol use: Occasional Drug Abuse: None Family History: CAD, Malignancy Patient has suicidal ideation: No Patient has homicidal ideation: No - Past Medical History Cardiac Medical History: Reports: Hx Congestive Heart Failure, Hx Hypertension Pulmonary Medical History: Reports: Hx COPD, Hx Pneumonia Renal/ Medical History: Denies: Hx Peritoneal Dialysis GI Medical History: Reports: Hx Gastroesophageal Reflux Disease Musculoskeletal Medical History: Reports Hx Arthritis Skin Medical History: Denies Hx Eczema, Denies Hx Psoriasis Psychiatric Medical History: Reports: Hx Depression Past Surgical History: Reports: Hx Abdominal Surgery - hernia repair, Hx Orthopedic Surgery - R ankle, Hx Tonsillectomy, Other - Abdominal hernia repair - Immunizations Hx Diphtheria, Pertussis, Tetanus Vaccination: Yes Hx Pneumococcal Vaccination: 01/26/13 Review of Systems - Review of Systems Constitutional: See HPI EENT: No symptoms reported Cardiovascular: No symptoms reported Respiratory: See HPI Gastrointestinal: See HPI Genitourinary: See HPI Male Genitourinary: No symptoms reported Musculoskeletal: No symptoms reported Skin: No symptoms reported Hematologic/Lymphatic: No symptoms reported Neurological/Psychological: See HPI Physical Exam - Vital signs Vitals: Temp Pulse BP Pulse Ox 98.9 F 100 143/73 H 92 01/17/19 18:46 01/17/19 18:46 01/17/19 18:46 01/17/19 18:46 - Notes Notes: PHYSICAL EXAMINATION: Reviewed vital signs and charting by RN GENERAL: Alert, interacts well. No acute distress. HEAD: Normocephalic, atraumatic. EYES: Pupils equal and round. Extraocular movements intact. ENT: Oral mucosa moist, tongue midline. NECK: Full range of motion. Trachea midline. LUNGS: Clear to auscultation bilaterally, no wheezes, rales, or rhonchi. No respiratory distress. HEART: Regular rate and rhythm. No murmur ABDOMEN: soft, non-tender. distention. Bowel sounds present EXTREMITIES: Moves all 4 extremities spontaneously. No edema, No cyanosis. Patient with acute pain in the left lower extremity even to light touch or jarring. NEURO: A &O X 3, normal speech,follows commands in all 4 extremities, snuff grinder strength 5/5 bilateral, 5/5 strength in both proximal and distal upper and lower extremities, normal patellar reflexes PSYCH: Normal affect, normal mood. SKIN: Warm, dry, normal turgor. No rashes or lesions noted. Course - Re-evaluation Re-evalutation: 01/18/19 02:01 Patient overall well-appearing in acute pain. Patient with no red flags concerning for spinal epidural abscess, cauda equina syndrome, Guillan Karnack. Plan is pain control at this time. 01/18/19 06:11 Patient received morphine 2 mg IV, lidocaine patch. Patient has been seen here for intractable pain in the past. X-ray showed a femoral acetabular impingement syndrome. Patient states that he "cannot walk", but is able to raise his legs in the bed and has good plantar and dorsiflexion strength 5/[address] Discuss[address] briefly with Dr. Olivera recommended we had a CK which was normal. At this time there is no neurosurgical emergency or medical concerns to keep him in the hospital. He is stable for discharge. - Vital Signs Vital signs: Temp Pulse Resp BP Pulse Ox 98.7 F 89 19 154/93 H 100 01/18/19 00:17 01/18/19 05:17 01/18/19 05:17 01/18/19 05:17 01/18/19 05:17 - Laboratory Result Diagrams: 01/17/19 21:00 01/17/19 21:00 Laboratory results interpreted by me: 01/17/19 01/17/19 21:00 21:00 MCV 99 H MCH 34.2 H RDW 14.3 H Lymphocytes % 7.3 L Monocytes % 13.7 H Sodium 131.7 L Chloride 90 L Carbon Dioxide 32 H AST 91 H Alkaline Phosphatase 202 H Discharge - Discharge Clinical Impression: Femoroacetabular impingement of left hip Condition: Stable Disposition: HOME, SELF-CARE Additional Instructions: You were seen in the emergency department this morning for femoroacetabular impingement of your left hip. You had no red flags concerning for emergent MRI emergent neurosurgery intervention. All we can do his pain control at this time. [facility]. I have given you a lidocaine patch, Toradol, and a muscle relaxer to help pain. I have also sent home with a short course of pain medication. If you develop acute urinary retention tore you cannot pee at all, bowel incontinence, numbness in your sit bones called saddle paresthesia, or worsening weakness or paralysis in her lower extremities please immediately return to the emergency department as these are concerns for an emergent surgical condition. Referrals: ESTEFANY OREILLY MD [Primary Care Provider] - Follow up as needed
[2019-01-18] MEDS ORDERED: MORPHINE SULFATE 10 MG/ML INJ IV ONE (02:02)
[2019-01-18] MEDS ORDERED: HYDROCODONE/ACETAMINOPHEN 5-325 MG (6 TAB/ER DISP) PO PRN ×2 (02:04→05:04)
[2019-01-18] MEDS ORDERED: NORMAL SALINE 1000 ML 500 ML IV ONE (02:06)
[2019-01-18 05:18] VITALS: BP 154/93
--- NOTE | 2019-01-18 10:19 | EKG REPORT ---
SEVERITY:- ABNORMAL ECG - SINUS RHYTHM PROBABLE LEFT ATRIAL ABNORMALITY PROBABLE POSTERIOR INFARCT : Confirmed by: Tiffany Bennett MD 18-Jan-2019 10:19:06
== END 2019-01-18 05:55 | disposition home or self-care (01) ==
LOC: ER 17:43
DX: M25.852 Other specified joint disorders, left hip (principal); R53.1 Weakness; M25.552 Pain in left hip; F17.200 Nicotine dependence, unspecified, uncomplicated; R20.2 Paresthesia of skin; I50.9 Heart failure, unspecified; I11.0 Hypertensive heart disease with heart failure; J44.9 Chronic obstructive pulmonary disease, unspecified
CPT/HCPCS: 93005; 99284; 96361; 96374; 96375; 36415; 82550; 83735; 85025; 80053; 81001; 84484; 71045; 73502; 93010; J1885; J2270; J7030

== ENCOUNTER → 2019-03-16 | Outpatient (CLI) | payer OTHER, MEDICARE ==
--- NOTE | 2019-03-16 15:08 | RADIOLOGY REPORT (SQ) ---
EXAM DESCRIPTION: CHEST PA/LATERAL COMPLETED DATE/TIME: 03/16/2019 2:44 pm REASON FOR STUDY: PRE-OP COMPARISON: 01/17/2019. EXAM PARAMETERS: NUMBER OF VIEWS: two views TECHNIQUE: Digital Frontal and Lateral radiographic views of the chest acquired. RADIATION DOSE: NA LIMITATIONS: none FINDINGS: LUNGS AND PLEURA: Stable chronic interstitial disease and mild pleural thickening in the a pices. No focal infiltrates, masses or pneumothorax. No pleural effusion. MEDIASTINUM AND HILAR STRUCTURES: No masses or contour abnormalities. HEART AND VASCULAR STRUCTURES: Heart normal size. No evidence for failure. BONES: No acute findings. Old rib fractures. HARDWARE: Cardiac recorder. OTHER: No other significant finding. IMPRESSION: NO ACUTE RADIOGRAPHIC FINDING IN THE CHEST. TECHNICAL DOCUMENTATION: JOB ID: [id number] [employer]- All Rights Reserved Reading location - IP/workstation name: [email or web address]
[2019-03-16 15:32] LABS: ABSOLUTE BASOPHILS # (AUTO) 0.1 10^3/uL (0.0-0.2); ABSOLUTE EOSINOPHILS # (AUTO) 0.8 10^3/uL (0.0-0.6); ABSOLUTE LYMPHOCYTES (AUTO) 0.6 10^3/uL (0.5-4.7); ABSOLUTE MONOCYTES (AUTO) 1.1 10^3/uL (0.1-1.4); ABSOLUTE NEUT (AUTO) 5.1 10^3/uL (1.7-8.2); BASOPHILS % (AUTO) 1.1 % (0-2); EOSINOPHILS % (AUTO) 10.4 % (0-6); HEMATOCRIT 41.3 % (37.9-51.0); HEMOGLOBIN 14.6 g/dL (13.5-17.0); LYMPHOCYTES % (AUTO) 8.2 % (13-45); MEAN CORPUSCULAR HEMOGLOBIN 34.6 pg (27.0-33.4); MEAN CORPUSCULAR HGB CONC 35.3 g/dL (32.0-36.0); MEAN CORPUSCULAR VOLUME 98 fl (80-97); PLATELET COUNT 359 10^3/uL (150-450); RED CELL DISTRIBUTION WIDTH 13.7 % (11.5-14.0); SEGMENTED NEUTROPHILS % (AUTO) 66.3 % (42-78); TOTAL CELLS COUNTED % (AUTO) 100 %; WHITE BLOOD COUNT 7.7 10^3/uL (4.0-10.5)
[2019-03-16 15:39] LABS: APPEARANCE,URINE CLEAR; BILIRUBIN,URINE NEGATIVE (NEGATIVE); COLOR,URINE YELLOW; GLUCOSE, URINE NEGATIVE (NEGATIVE); KETONES,URINE NEGATIVE (NEGATIVE); LEUKOCYTE ESTERASE,URINE NEGATIVE (NEGATIVE); NITRITE,URINE NEGATIVE (NEGATIVE); PROTEIN,URINE NEGATIVE (NEGATIVE); URINE SPECIFIC GRAVITY 1.008; UROBILINOGEN,URINE NEGATIVE mg/dL (<2.0)
[2019-03-16 15:55] LABS: ANION GAP 11 (5-19); BLOOD UREA NITROGEN 5 mg/dL (7-20); CALCIUM 9.2 mg/dL (8.4-10.2); CARBON DIOXIDE 27 mmol/L (22-30); CHLORIDE 95 mmol/L (98-107); GLUCOSE 103 mg/dL (75-110); POTASSIUM 4.8 mmol/L (3.6-5.0)
--- NOTE | 2019-03-17 10:20 | EKG REPORT ---
SEVERITY:- BORDERLINE ECG - SINUS RHYTHM BORDERLINE PROLONGED QT INTERVAL : Confirmed by: Winter Fuentes 17-Mar-2019 10:19:46
== END ==
LOC: OD 14:05
PROVIDERS: ATTEND Orthopaedic Surgery
DX: Z01.810 Encounter for preprocedural cardiovascular examination (principal); Z01.812 Encounter for preprocedural laboratory examination; Z01.818 Encounter for other preprocedural examination; M16.12 Unilateral primary osteoarthritis, left hip
CPT/HCPCS: 36415; 71046; 80048; 81001; 85025; 93005; 93010

== ENCOUNTER → 2019-03-28 | Outpatient (CLI) | payer OTHER, MEDICARE ==
[2019-03-28 16:12] LABS: ABSOLUTE BASOPHILS # (AUTO) 0.1 10^3/uL (0.0-0.2); ABSOLUTE EOSINOPHILS # (AUTO) 0.2 10^3/uL (0.0-0.6); ABSOLUTE LYMPHOCYTES (AUTO) 0.6 10^3/uL (0.5-4.7); ABSOLUTE MONOCYTES (AUTO) 1.7 10^3/uL (0.1-1.4); ABSOLUTE NEUT (AUTO) 6.8 10^3/uL (1.7-8.2); BASOPHILS % (AUTO) 1.1 % (0-2); EOSINOPHILS % (AUTO) 2.4 % (0-6); HEMATOCRIT 40.1 % (37.9-51.0); HEMOGLOBIN 14.1 g/dL (13.5-17.0); LYMPHOCYTES % (AUTO) 6.2 % (13-45); MEAN CORPUSCULAR HEMOGLOBIN 34.5 pg (27.0-33.4); MEAN CORPUSCULAR HGB CONC 35.3 g/dL (32.0-36.0); MEAN CORPUSCULAR VOLUME 98 fl (80-97); MONOCYTES % (AUTO) 17.8 % (3-13); PLATELET COUNT 323 10^3/uL (150-450); RED CELL DISTRIBUTION WIDTH 13.5 % (11.5-14.0); SEGMENTED NEUTROPHILS % (AUTO) 72.5 % (42-78); TOTAL CELLS COUNTED % (AUTO) 100 %; WHITE BLOOD COUNT 9.4 10^3/uL (4.0-10.5)
[2019-03-28 16:36] LABS: ANION GAP 10 (5-19); BLOOD UREA NITROGEN 9 mg/dL (7-20); CALCIUM 9.4 mg/dL (8.4-10.2); CARBON DIOXIDE 31 mmol/L (22-30); CHLORIDE 88 mmol/L (98-107); GLUCOSE 110 mg/dL (75-110); POTASSIUM 4.9 mmol/L (3.6-5.0)
== END ==
LOC: OD 14:14
PROVIDERS: ATTEND Orthopaedic Surgery
DX: Z01.812 Encounter for preprocedural laboratory examination (principal); R89.9 Unspecified abnormal finding in specimens from other organs, systems and tissues
CPT/HCPCS: 36415; 80048; 85025

== ENCOUNTER 2019-04-23 05:18 | Inpatient (IN) | payer OTHER, MEDICARE ==
[~2019-04-23 05:18] MED LIST: BUPIVACAINE INJ/PF LIPOSOME/PF 266 MG/20 ML SDV INJ PRN; CEFAZOLIN INJ 1 GM VIAL IV PRN; CEFAZOLIN INJ 1 GM VIAL ONE; IBUPROFEN 800 MG in NORMAL SALINE 250 ML IV PRN; LACTATED RINGERS 1000 ML IV PRN; LIDOCAINE 0.5% INJ-PF (5 MG/ML) 50 ML SDV SUBCUT PRN; OXYCODONE HCL SR 10 MG TABLET PO ONE; OXYCODONE HCL SR 10 MG TABLET PO PRN; PANTOPRAZOLE SODIUM 20 MG TABLET.DR PO ONE; PANTOPRAZOLE SODIUM 20 MG TABLET.DR PO PRN; VANCOMYCIN HCL 1,000 MG in DEXTROSE 5%-WATER 250 ML IV PRN
[2019-04-23] MEDS ORDERED: PHENYLEPHRINE HCL INJ/PF 10 MG/1 ML SDV ONE (06:00)
[2019-04-23] MEDS ORDERED: FENTANYL CITRATE INJ/PF 100 MCG/2 ML AMPUL ONE (06:14)
[2019-04-23] MEDS ORDERED: MIDAZOLAM 2 MG/2 ML INJ ONE (06:14)
[2019-04-23] MEDS ORDERED: DEXAMETHASONE SOD PHOSPHATE INJ 4 MG/1 ML VIAL ONE (06:15)
[2019-04-23] MEDS ORDERED: EPHEDRINE SULFATE INJ 50 MG/1 ML AMPULE ONE (06:15)
[2019-04-23] MEDS ORDERED: PROPOFOL INJ 200 MG/20 ML VIAL IV ONE (06:15)
[2019-04-23] MEDS ORDERED: ONDANSETRON HCL INJ/PF 4 MG/2 ML SDV ONE (06:15)
[2019-04-23] MEDS ORDERED: LIDOCAINE 0.5% INJ-PF (5 MG/ML) 50 ML SDV ONE (06:23)
[2019-04-23] MEDS ORDERED: BUPIVACAINE HCL 0.25% /EPINEPHRINE INJ/PF 30 ML SDV ONE (07:10)
[2019-04-23] MEDS ORDERED: TRANEXAMIC ACID INJ/PF 1,000 MG/10 ML SDV ONE (07:17)
[2019-04-23] MEDS ORDERED: FENTANYL CITRATE INJ/PF 100 MCG/2 ML AMPUL IV PRN ×3 (08:00)
[2019-04-23] MEDS ORDERED: MORPHINE SULFATE 10 MG/ML INJ IV PRN (08:00)
[2019-04-23] MEDS ORDERED: PROMETHAZINE HCL INJ 25 MG/1 ML VIAL IV PRN ×2 (08:00)
[2019-04-23] MEDS ORDERED: ONDANSETRON HCL INJ/PF 4 MG/2 ML SDV IV PRN (08:00)
[2019-04-23] MEDS ORDERED: DIPHENHYDRAMINE HCL 50 MG/ML VIAL IV PRN ×2 (08:00→08:24)
[2019-04-23] MEDS ORDERED: MEPERIDINE HCL/PF INJ 25 MG/1 ML DISP.SYRIN IV PRN (08:00)
--- NOTE | 2019-04-23 08:23 | Operative Report ---
Operative Report DATE OF SURGERY: 04/23/19 PREOPERATIVE DIAGNOSIS: Left hip arthritis OPERATION: Left hip arthroplasty SURGEON: INNA RUTHERFORD ANESTHESIA: Spinal TISSUE REMOVED OR ALTERED: Femoral head to pathology ESTIMATED BLOOD LOSS: 50 PROCEDURE: Implants used: Femur: Armani Accolade 2 stem size 8 Acetabular shell: 54 mm hemispherical shell Liner: 36 mm flat cross-link polyethylene liner Head: 36 mm chrome cobalt head -5 neck The patient is placed in a right lateral decubitus position on the operating table. The left lower extremity and hindquarter is prepped and draped in a sterile fashion. A curvilinear incision was made over the greater trochanter a posterior approach the hip was taken. In the process of the surgical approach the lights removed and a foreign body falls off the light into the operating field. This area the drapes is covered with an [place] dressing. The surgery continues. The femoral head is dislocated and the femoral neck transected using an oscillating saw. Attention was next turned to the acetabulum. Soft tissues cleared off the acetabulum using electrocautery. The acetabulum was then prepared using a series of hemispherical reamers until a 54 millimeters reamer is seated. Subsequently a 54 millimeters [place] titanium hemispherical shell is impacted into position and secured with one screw. A standard flat 36 millimeters cross- link liner is impacted into the shell. Attention was next turned to the femur. Access is gained to the femoral canal using a box osteotome to the piriformis fossa. The femur is then prepared using a series of broaches until a number 8 broach is seated. A trial reduction was now performed using a 36 millimeters head with and minus 5 neck. Preoperative leg length was recreated and is excellent anterior posterior stability. A decision was made to proceed with the above construct. All trial implants were removed. The wound is irrigated with pulsed lavage. A number 8 stem is impacted into the femoral canal. A trial reduction was again performed with a 36 mm head and a -5 neck. Findings as previously. The hip was dislocated one last time and the final chrome-cobalt head is impacted onto the trunnion. The hip was reduced. Wound is copiously irrigated with pulsed lavage. Sent closed in layers using interrupted Vicryl followed by george. A sterile dressing is applied and the patient's returned to recovery room in satisfactory patient.
[2019-04-23] MEDS ORDERED: MAG HYDROX/AL HYDROX/SIMETH SUSP 30 ML UDCUP PO PRN (08:24)
[2019-04-23] MEDS ORDERED: ONDANSETRON 4 MG TAB.RAPDIS PO PRN (08:24)
[2019-04-23] MEDS ORDERED: RINGERS SOLUTION,LACTATED 1,000 ML IV PRN (08:24)
[2019-04-23] MEDS ORDERED: ZOLPIDEM TARTRATE 5 MG TABLET PO PRN (08:24)
[2019-04-23] MEDS ORDERED: ACETAMINOPHEN 325 MG TABLET PO PRN (08:24)
--- NOTE | 2019-04-23 09:12 | RADIOLOGY REPORT (SQ) ---
EXAM DESCRIPTION: PELVIS AP COMPLETED DATE/TIME: 04/23/2019 9:04 am REASON FOR STUDY: Post Op Long Cassette in PACU M16.12 UNILATERAL PRIMARY OSTEOARTHRITIS, LEFT HIP COMPARISON: None. NUMBER OF VIEWS: One view TECHNIQUE: AP Pelvis LIMITATIONS: None. FINDINGS: Interval postoperative findings of left hip total arthroplasty with expected overlying pos toperative changes. No evidence of perihardware fracture or malpositioning. IMPRESSION: Interval postoperative findings of left hip total arthroplasty with expected overlying p ostoperative changes. No evidence of perihardware fracture or malpositioning. COMMENT: Pelvic fractures are often occult on plain radiographs. If strong clinical suspicion for f racture, recommend CT or MR. TECHNICAL DOCUMENTATION: JOB ID: [id number] [employer]- All Rights Reserved Reading location - IP/workstation name: [email or web address]
[2019-04-23] MEDS ORDERED: TRANEXAMIC ACID INJ/PF 1,000 MG/10 ML SDV IV ONE ×2 (10:00→17:00)
[2019-04-23] MEDS: ONDANSETRON HCL INJ/PF 4 MG/2 ML SDV IV PRN ×2 (11:49→18:57)
[2019-04-23] MEDS: OXYCODONE HCL IR 5 MG TABLET PO PRN ×2 (12:14→22:47)
[2019-04-23] MEDS ORDERED: IBUPROFEN INJ 800 MG/8 ML VIAL IV SCH (14:00)
[2019-04-23] MEDS: IBUPROFEN 800 MG in NORMAL SALINE 250 ML IV SCH ×2 (15:47→22:43)
[2019-04-23] MEDS: SENNOSIDES/DOCUSATE 8.6-50 MG 1 EACH TABLET PO SCH (17:49)
[2019-04-23] MEDS: OXYCODONE HCL SR 10 MG TABLET PO SCH (17:49)
[2019-04-23] MEDS ORDERED: VANCOMYCIN HCL 1,000 MG in DEXTROSE 5%-WATER 250 ML IV ONE (20:24)
[2019-04-23] MEDS: SALMETEROL XINAFOATE DISKUS 50 MCG/1 DOSE 28 DOSE IH SCH (22:44)
[2019-04-24] MEDS: IBUPROFEN 800 MG in NORMAL SALINE 250 ML IV SCH (05:38)
[2019-04-24] MEDS: OXYCODONE HCL SR 10 MG TABLET PO SCH (05:39)
[2019-04-24] MEDS ORDERED: PANTOPRAZOLE SODIUM 20 MG TABLET.DR PO SCH (06:00)
--- NOTE | 2019-04-24 06:55 | PDOC DISCHARGE SUMMARY ---
General - Admit/Disc Date/PCP Admission Date/Primary Care Provider: 04/23/19 05:18 [facility] Discharge Date: 04/24/19 - Additional Information Resuscitation Status: Full Code Discharge Diet: As Tolerated, Regular Discharge Activity: Balance Activity w/Rest, No Driving, No tub bath Home Medications: Albuterol Sulfate [Ventolin 0.083% Neb 2.5 mg/3 mL Ampul] 1 vial NEB QIDP PRN 10/18/18 Loratadine [Claritin] 10 mg PO DAILY 10/18/18 Tamsulosin HCl [Flomax 0.4 mg Cap.sr] 0.4 mg PO QAM 10/18/18 Tiotropium [place] [Spiriva Handihaler 5 Cap/Kit (18 Mcg/Cap)] 1 cap IH DAILY 10/18/18 Acetaminophen [Tylenol 325 mg Tablet] 650 mg PO Q4HP PRN tablet 10/25/18 Apixaban [Eliquis 5 mg Tablet] 5 mg PO BID 04/12/19 Albuterol Sulfate [Proair Hfa Inhalation Aerosol 8.5 gm Mdi] 2 puff IH QIDP PRN 04/23/19 Cholecalciferol (Vitamin D3) [Vitamin D3 1000 Unit Tablet] 1,000 unit PO DAILY 04/23/19 Dofetilide [Tikosyn 500 Mcg Capsule] 500 mcg PO Q12 04/23/19 Furosemide [Lasix 20 mg Tablet] 20 mg PO QAM 04/23/19 Guaifenesin 400 mg PO TID 04/23/19 Metoprolol Succinate [Toprol Xl 25 mg Tab.sr] 25 mg PO DAILY 04/23/19 Mometasone Furoate [Asmanex] 2 puff IH DAILY 04/23/19 Multivitamin [Tab-A-Torie (Multiple Vitamin) Tablet] 1 tab PO DAILY 04/23/19 Nicotine [Nicotine Patch] 1 each TD DAILY 04/23/19 Rabeprazole Sodium [Aciphex] 20 mg PO QAM 04/23/19 Tizanidine HCl [Zanaflex] 4 mg PO Q12HP PRN 04/23/19 Vardenafil HCl [Levitra] 20 mg PO ASDIR PRN 04/23/19 History of Present Illness History of Present Illness: JOSE LUIS JIM is a 68 year old male [id number] white male with progressive left hip pain and functional disability second osteoarthritis. Patient is admitted for elective left hip arthroplasty. Hospital Course Hospital Course: Patient is admitted through the operating room where he undergoes an uncomplicated left hip arthroplasty. Is returned to floor in satisfactory condition. Pain is well controlled. Patient makes excellent progress with physical therapy ablating 120 feet on the day of surgery. Physical Exam Vital Signs: Temp Pulse Resp BP Pulse Ox 37.1 C 84 18 111/68 96 04/23/19 23:24 04/23/19 23:24 04/23/19 23:24 04/23/19 23:24 04/23/19 23:24 Intake & Output 04/22/19 04/23/19 04/24/19 06:59 06:59 06:59 Intake Total 0 4140 Output Total 1375 Balance 0 2765 Weight 78.8 kg Physical Exam: Disheveled appearing middle-aged white male in minimal distress General appearance: PRESENT: no acute distress, mild distress Head exam: PRESENT: normocephalic Respiratory exam: PRESENT: unlabored Cardiovascular exam: PRESENT: RRR Pulses: PRESENT: +1 pedal pulses bilateral GI/Abdominal exam: PRESENT: soft Rectal exam: PRESENT: deferred Extremities exam: PRESENT: other - Left hip dressing change on the first postoperative day. Wound is well approximated george. There is no active drainage is no erythema there is minimal induration. There is no ecchymosis. Leg lengths are equal. Distal neurovascular examination is intact. Neurological exam: PRESENT: alert, awake, oriented to person, oriented to place, oriented to time, oriented to situation. ABSENT: motor sensory deficit Psychiatric exam: PRESENT: appropriate affect, normal mood. ABSENT: homicidal ideation, suicidal ideation Skin exam: PRESENT: dry, intact, warm. ABSENT: cyanosis, rash Results Laboratory Results: 04/23/19 06:15 04/23/19 04/23/19 06:15 06:15 Potassium 4.1 Blood Type O NEGATIVE Antibody Screen NEGATIVE Impressions: Pelvis X-Ray 04/23/19 08:26 IMPRESSION: Interval postoperative findings of left hip total arthroplasty with expected overlying postoperative changes. No evidence of perihardware fracture or malpositioning. Status: Imported from [facility] PATIENT BEING DISCHARGED WITH ANY OF THE FOLLOWING DIAGNOSIS: No VTE patient discharged on overlapping Therapy?: Yes Acute Heart Failure - Is this a Heart Failure Patient?: No Plan Discharge Plan: Patient be discharged home with home health services and DME. Follow-up with Dr. [facility] for surgery in 2 weeks for staple removal.
[2019-04-24 07:25] LABS: HEMATOCRIT 34.6 % (37.9-51.0); HEMOGLOBIN 11.9 g/dL (13.5-17.0); MEAN CORPUSCULAR HEMOGLOBIN 34.4 pg (27.0-33.4); MEAN CORPUSCULAR HGB CONC 34.4 g/dL (32.0-36.0); MEAN CORPUSCULAR VOLUME 100 fl (80-97); PLATELET COUNT 333 10^3/uL (150-450); RED BLOOD COUNT 3.46 10^6/uL (4.35-5.55); WHITE BLOOD COUNT 9.3 10^3/uL (4.0-10.5)
[2019-04-24 07:39] LABS: ANION GAP 8 (5-19); BLOOD UREA NITROGEN 9 mg/dL (7-20); CALCIUM 8.6 mg/dL (8.4-10.2); CARBON DIOXIDE 26 mmol/L (22-30); CHLORIDE 96 mmol/L (98-107); GLUCOSE 99 mg/dL (75-110); POTASSIUM 4.5 mmol/L (3.6-5.0)
[2019-04-24] MEDS: OXYCODONE HCL IR 5 MG TABLET PO PRN (08:32)
[2019-04-24 08:55] VITALS: BP 111/62
[2019-04-24] MEDS: SENNOSIDES/DOCUSATE 8.6-50 MG 1 EACH TABLET PO SCH (09:10)
[2019-04-24] MEDS: SALMETEROL XINAFOATE DISKUS 50 MCG/1 DOSE 28 DOSE IH SCH (09:12)
[2019-04-24] MEDS ORDERED: PRENATAL VITAMIN W DHA CAPSULE PO SCH (10:00)
[2019-04-24] MEDS ORDERED: DOFETILIDE 125 MCG CAPSULE PO SCH (10:00)
[2019-04-24] MEDS ORDERED: TAMSULOSIN HCL 0.4 MG CAP.SR.24H PO SCH (10:00)
[2019-04-24] MEDS ORDERED: APIXABAN 5 MG TABLET PO SCH (10:00)
[2019-04-24] MEDS ORDERED: TIOTROPIUM BROMIDE DPI 5 CAP/KIT (18 MCG/CAP) IH SCH (10:00)
[2019-04-24] MEDS ORDERED: LISINOPRIL 10 MG TABLET PO SCH (10:00)
== END 2019-04-24 11:45 | disposition home health service (06) | DRG 470 ==
LOC: INOR 05:18 → 4S 10:31
PROVIDERS: ADMIT Orthopaedic Surgery; ATTEND Orthopaedic Surgery
PROC: 0SRB02A Replacement of Left Hip Joint with Metal on Polyethylene Synthetic Substitute, Uncemented, Open Approach (ICD-10-PCS; principal; 2019-04-23 07:30)
DX: M16.12 Unilateral primary osteoarthritis, left hip (principal); I48.91 Unspecified atrial fibrillation; I10 Essential (primary) hypertension; J44.9 Chronic obstructive pulmonary disease, unspecified; F17.210 Nicotine dependence, cigarettes, uncomplicated; Z79.01 Long term (current) use of anticoagulants; Z79.899 Other long term (current) drug therapy; Z79.51 Long term (current) use of inhaled steroids
CPT/HCPCS: 01214; 36415; 72170; 80048; 84132; 85027; 86850; 86900; 86901; 88304; 88311; 94799; J0690; J1100; J1741; J2250; J2370; J2405; J2704; J3010; J3370; J3490; J7050; J7060; J7120

== ENCOUNTER → 2019-07-02 | Outpatient (CLI) | payer OTHER, MEDICARE ==
[2019-07-02 12:39] LABS: ABSOLUTE BASOPHILS # (AUTO) 0.1 10^3/uL (0.0-0.2); ABSOLUTE EOSINOPHILS # (AUTO) 0.3 10^3/uL (0.0-0.6); ABSOLUTE LYMPHOCYTES (AUTO) 0.7 10^3/uL (0.5-4.7); ABSOLUTE MONOCYTES (AUTO) 1.2 10^3/uL (0.1-1.4); ABSOLUTE NEUT (AUTO) 5.3 10^3/uL (1.7-8.2); EOSINOPHILS % (AUTO) 3.5 % (0-6); HEMATOCRIT 38.6 % (37.9-51.0); HEMOGLOBIN 13.5 g/dL (13.5-17.0); LYMPHOCYTES % (AUTO) 9.4 % (13-45); MEAN CORPUSCULAR HEMOGLOBIN 34.5 pg (27.0-33.4); MEAN CORPUSCULAR HGB CONC 35.1 g/dL (32.0-36.0); MEAN CORPUSCULAR VOLUME 98 fl (80-97); MONOCYTES % (AUTO) 15.3 % (3-13); PLATELET COUNT 352 10^3/uL (150-450); RED BLOOD COUNT 3.92 10^6/uL (4.35-5.55); RED CELL DISTRIBUTION WIDTH 13.7 % (11.5-14.0); SEGMENTED NEUTROPHILS % (AUTO) 70.8 % (42-78); TOTAL CELLS COUNTED % (AUTO) 100 %; WHITE BLOOD COUNT 7.5 10^3/uL (4.0-10.5)
[2019-07-02 12:45] LABS: APPEARANCE,URINE CLEAR; BILIRUBIN,URINE NEGATIVE (NEGATIVE); COLOR,URINE AMBER; GLUCOSE, URINE NEGATIVE (NEGATIVE); KETONES,URINE TRACE mg/dL (NEGATIVE); LEUKOCYTE ESTERASE,URINE NEGATIVE (NEGATIVE); NITRITE,URINE NEGATIVE (NEGATIVE); PROTEIN,URINE NEGATIVE (NEGATIVE); URINE SPECIFIC GRAVITY 1.024; UROBILINOGEN,URINE NEGATIVE mg/dL (<2.0)
--- NOTE | 2019-07-02 12:50 | RADIOLOGY REPORT (SQ) ---
EXAM DESCRIPTION: CHEST PA/LATERAL COMPLETED DATE/TIME: 07/02/2019 12:41 pm REASON FOR STUDY: PRE-OP COMPARISON: 03/16/2019 EXAM PARAMETERS: NUMBER OF VIEWS: two views TECHNIQUE: Digital Frontal and Lateral radiographic views of the chest acquired. RADIATION DOSE: NA LIMITATIONS: none FINDINGS: LUNGS AND PLEURA: Blunting of left costophrenic angle. MEDIASTINUM AND HILAR STRUCTURES: No masses or contour abnormalities. HEART AND VASCULAR STRUCTURES: Heart normal size. No evidence for failure. BONES: No acute findings. HARDWARE: Loop recorder. OTHER: No other significant finding. IMPRESSION: There is blunting of left costophrenic angle. Cannot exclude a minimal pleural effusion . Cannot exclude pleural thickening. No acute cardiopulmonary findings. TECHNICAL DOCUMENTATION: JOB ID: [id number] [employer]- All Rights Reserved Reading location - IP/workstation name: [email or web address]
[2019-07-02 13:08] LABS: ANION GAP 5 (5-19); BLOOD UREA NITROGEN 7 mg/dL (7-20); CALCIUM 9.2 mg/dL (8.4-10.2); CARBON DIOXIDE 29 mmol/L (22-30); CHLORIDE 94 mmol/L (98-107); GLUCOSE 103 mg/dL (75-110); POTASSIUM 4.6 mmol/L (3.6-5.0)
--- NOTE | 2019-07-02 15:07 | EKG REPORT ---
SEVERITY:- BORDERLINE ECG - SINUS RHYTHM BORDERLINE PROLONGED QT INTERVAL : Confirmed by: Tiffany Bennett MD 02-Jul-2019 15:06:28
== END ==
LOC: OD 11:40
PROVIDERS: ATTEND Orthopaedic Surgery
DX: Z01.810 Encounter for preprocedural cardiovascular examination (principal); Z01.812 Encounter for preprocedural laboratory examination; I10 Essential (primary) hypertension; M87.859 Other osteonecrosis, unspecified femur
CPT/HCPCS: 36415; 71046; 80048; 81001; 85025; 93005; 93010

== ENCOUNTER 2019-07-18 06:52 | Observation (INO) | payer OTHER, MEDICARE ==
[~2019-07-18 06:52] MED LIST changes: -CEFAZOLIN INJ 1 GM VIAL ONE; -LACTATED RINGERS 1000 ML IV PRN; -OXYCODONE HCL SR 10 MG TABLET PO ONE; -PANTOPRAZOLE SODIUM 20 MG TABLET.DR PO ONE; -VANCOMYCIN HCL 1,000 MG in DEXTROSE 5%-WATER 250 ML IV PRN
[2019-07-18] MEDS ORDERED: OXYCODONE HCL SR 10 MG TABLET PO ONE (07:56)
[2019-07-18] MEDS ORDERED: PANTOPRAZOLE SODIUM 20 MG TABLET.DR PO ONE (07:57)
[2019-07-18] MEDS: VANCOMYCIN HCL 1,000 MG in DEXTROSE 5%-WATER 250 ML IV PRN ×2 (08:00→10:20)
[2019-07-18] MEDS ORDERED: CEFAZOLIN INJ 1 GM VIAL ONE (08:10)
[2019-07-18] MEDS ORDERED: FENTANYL CITRATE INJ/PF 250 MCG/5 ML AMPULE ONE (10:03)
[2019-07-18] MEDS ORDERED: MIDAZOLAM 2 MG/2 ML INJ ONE (10:03)
[2019-07-18] MEDS ORDERED: PROPOFOL INJ 200 MG/20 ML VIAL IV ONE ×2 (10:04→10:05)
[2019-07-18] MEDS ORDERED: BUPIVACAINE INJ/PF LIPOSOME/PF 266 MG/20 ML SDV ONE (10:08)
[2019-07-18] MEDS ORDERED: TRANEXAMIC ACID INJ/PF 1,000 MG/10 ML SDV ONE ×2 (10:47→13:23)
[2019-07-18] MEDS ORDERED: BUPIVACAINE INJ/PF LIPOSOME/PF 266 MG/20 ML SDV INJ ONE (10:56)
[2019-07-18] MEDS ORDERED: FENTANYL CITRATE INJ/PF 100 MCG/2 ML AMPUL IV PRN ×3 (11:04)
[2019-07-18] MEDS ORDERED: DIPHENHYDRAMINE HCL 50 MG/ML VIAL IV PRN ×2 (11:04→11:19)
[2019-07-18] MEDS ORDERED: MEPERIDINE HCL/PF INJ 25 MG/1 ML DISP.SYRIN IV PRN (11:04)
--- NOTE | 2019-07-18 11:17 | Operative Report ---
Operative Report DATE OF SURGERY: 07/18/19 PREOPERATIVE DIAGNOSIS: Right hip avascular necrosis OPERATION: Right hip arthroplasty SURGEON: INNA RUTHERFORD ANESTHESIA: Spinal TISSUE REMOVED OR ALTERED: Femoral head to pathology ESTIMATED BLOOD LOSS: Many 5 PROCEDURE: Implants used: Femur: Armani Accolade 2 stem, size 8 Acetabular shell: 54 mm acetabular shell Liner: 36 mm cross-linked polyethylene liner Head: 36 mm chrome cobalt head -5 neck The patient is placed in a left lateral decubitus position on the operating table. The right lower extremity and hindquarter is prepped and draped in a sterile fashion. A curvilinear incision was made over the greater trochanter a posterior approach the hip was taken. The femoral head is dislocated and the femoral neck transected using an oscillating saw. Attention was next turned to the acetabulum. Soft tissues cleared off the acetabulum using electrocautery. The acetabulum was then prepared using a series of hemispherical reamers until a 54 millimeters reamer is seated. Subsequently a 54 millimeters Armani titanium hemispherical shell is impacted into position. A standard flat 36 millimeters cross-link liner is impacted into the shell. Attention was next turned to the femur. Access is gained to the femoral canal using a box osteotome to the piriformis fossa. The femur is then prepared using a series of broaches until a number 8 broach is seated. A trial reduction was now performed using a 36 millimeters head with -5 neck. Preoperative leg length was recreated and is excellent anterior posterior stability. A decision was made to proceed with the above construct. All trial implants were removed. The wound is irrigated with pulsed lavage. A number 8 stem is impacted into the femoral canal. A trial reduction was again performed with a 36 mm head and a -5 neck. Findings as previously. The hip was dislocated one last time and the final chrome-cobalt head is impacted onto the trunnion. The hip was reduced. Wound is copiously irrigated with pulsed lavage. Sent closed in layers using interrupted Vicryl followed by george. A sterile dressing is applied and the patient's returned to recovery room in satisfactory patient.
[2019-07-18] MEDS ORDERED: ACETAMINOPHEN 325 MG TABLET PO PRN (11:19)
[2019-07-18] MEDS ORDERED: ZOLPIDEM TARTRATE 5 MG TABLET PO PRN (11:19)
[2019-07-18] MEDS ORDERED: ONDANSETRON HCL INJ/PF 4 MG/2 ML SDV IV PRN (11:19)
[2019-07-18] MEDS ORDERED: ONDANSETRON 4 MG TAB.RAPDIS PO PRN (11:19)
[2019-07-18] MEDS ORDERED: MAG HYDROX/AL HYDROX/SIMETH SUSP 30 ML UDCUP PO PRN (11:19)
--- NOTE | 2019-07-18 12:50 | RADIOLOGY REPORT (SQ) ---
EXAM DESCRIPTION: PELVIS AP COMPLETED DATE/TIME: 07/18/2019 12:12 pm REASON FOR STUDY: Post Op Long Cassette in PACU M16.11 UNILATERAL PRIMARY OSTEOARTHRITIS, RIGHT HI P COMPARISON: 04/23/2019 NUMBER OF VIEWS: One view TECHNIQUE: Digital radiographic images of the pelvis post-procedure LIMITATIONS: None. FINDINGS: BONES: No worrisome or unexpected findings post-procedure. DEVICE: Right total hip arthroplasty. SOFT TISSUES: No worrisome findings. Expected postoperative soft tissue changes. IMPRESSION: SATISFACTORY POSTOPERATIVE PELVIS. TECHNICAL DOCUMENTATION: JOB ID: [id number] [employer]- All Rights Reserved Reading location - IP/workstation name: [email or web address]
[2019-07-18] MEDS ORDERED: TRANEXAMIC ACID INJ/PF 1,000 MG/10 ML SDV IV ONE (13:00)
[2019-07-18] MEDS ORDERED: PHENYLEPHRINE HCL INJ/PF 10 MG/1 ML SDV ONE (15:05)
[2019-07-18] MEDS: IBUPROFEN 800 MG in NORMAL SALINE 250 ML IV SCH ×2 (15:11→21:16)
[2019-07-18] MEDS: RINGERS SOLUTION,LACTATED 1,000 ML IV PRN (15:13)
[2019-07-18] MEDS: OXYCODONE HCL IR 5 MG TABLET PO PRN (15:13)
[2019-07-18] MEDS ORDERED: PROMETHAZINE HCL INJ 25 MG/1 ML VIAL IV PRN (17:39)
[2019-07-18] MEDS: APIXABAN 5 MG TABLET PO SCH (18:03)
[2019-07-18] MEDS: SENNOSIDES/DOCUSATE 8.6-50 MG 1 EACH TABLET PO SCH (18:27)
[2019-07-18] MEDS: OXYCODONE HCL SR 10 MG TABLET PO SCH (21:16)
[2019-07-18] MEDS: DOFETILIDE 500 MCG CAPSULE PO SCH (21:16)
[2019-07-18] MEDS ORDERED: VANCOMYCIN HCL 1,000 MG in DEXTROSE 5%-WATER 250 ML IV ONE (23:19)
[2019-07-19] MEDS: IBUPROFEN 800 MG in NORMAL SALINE 250 ML IV SCH ×2 (05:47→13:41)
[2019-07-19] MEDS: RINGERS SOLUTION,LACTATED 1,000 ML IV PRN (05:47)
[2019-07-19] MEDS ORDERED: PANTOPRAZOLE SODIUM 40 MG TABLET.DR PO SCH (06:00)
[2019-07-19 07:00] LABS: HEMOGLOBIN 12.5 g/dL (13.5-17.0); MEAN CORPUSCULAR HEMOGLOBIN 34.8 pg (27.0-33.4); MEAN CORPUSCULAR HGB CONC 34.7 g/dL (32.0-36.0); MEAN CORPUSCULAR VOLUME 100 fl (80-97); PLATELET COUNT 342 10^3/uL (150-450); RED CELL DISTRIBUTION WIDTH 13.5 % (11.5-14.0); WHITE BLOOD COUNT 9.7 10^3/uL (4.0-10.5)
--- NOTE | 2019-07-19 07:05 | PDOC DISCHARGE SUMMARY ---
Impression - Admit/DC Date/PCP Admission Date/Primary Care Provider: 07/18/19 06:52 [facility] Discharge Date: 07/19/19 - Discharge Diagnosis (1) Avascular necrosis of bone of right hip Is this a current diagnosis for this admission?: Yes - Additional Information Resuscitation Status: Full Code Discharge Diet: Regular Discharge Activity: Balance Activity w/Rest, No tub bath Referrals: INNA RUTHERFORD MD [ACTIVE STAFF] - 08/02/19 9:30 am Home Medications: Albuterol Sulfate [Ventolin 0.083% Neb 2.5 mg/3 mL Ampul] 1 vial NEB QIDP PRN 10/18/18 Loratadine [Claritin] 10 mg PO DAILY 10/18/18 Tamsulosin HCl [Flomax 0.4 mg Cap.sr] 0.4 mg PO QAM 10/18/18 Tiotropium [place] [Spiriva Handihaler 5 Cap/Kit (18 Mcg/Cap)] 1 cap IH DAILY 10/18/18 Acetaminophen [Tylenol 325 mg Tablet] 650 mg PO Q4HP PRN tablet 10/25/18 Apixaban [Eliquis 5 mg Tablet] 5 mg PO BID 04/12/19 Albuterol Sulfate [Proair Hfa Inhalation Aerosol 8.5 gm Mdi] 2 puff IH QIDP PRN 04/23/19 Cholecalciferol (Vitamin D3) [Vitamin D3 1000 Unit Tablet] 1,000 unit PO DAILY 04/23/19 Dofetilide [Tikosyn 500 Mcg Capsule] 500 mcg PO Q12 04/23/19 Furosemide [Lasix 20 mg Tablet] 20 mg PO QAM 04/23/19 Guaifenesin 400 mg PO TID 04/23/19 Metoprolol Succinate [Toprol Xl 25 mg Tab.sr] 25 mg PO DAILY 04/23/19 Mometasone Furoate [Asmanex] 2 puff IH DAILY 04/23/19 Multivitamin [Tab-A-Torie (Multiple Vitamin) Tablet] 1 tab PO DAILY 04/23/19 Rabeprazole Sodium [Aciphex] 20 mg PO QAM 04/23/19 History of Present Illiness History of Present Illness: JOSE LUIS JIM is a 69 year old male 69-year-old white male with progressive right hip pain and functional disability secondary to a feet Stage III avascular necrosis. Patient is admitted for elective right hip arthroplasty. Hospital Course Hospital Course: Patient is admitted through the operating room where he undergoes uncomplicated right hip arthroplasty. Is returned to floor in satisfactory condition. Initially progress with physical therapy is limited by nausea and vomiting. This is resolved overnight and the patient is requesting discharge home. Physical Exam Vital Signs: Temp Pulse Resp BP Pulse Ox 36.8 C 83 18 119/64 96 07/18/19 22:57 07/18/19 22:57 07/18/19 22:57 07/18/19 22:57 07/18/19 22:57 Intake & Output 07/17/19 07/18/19 07/19/19 06:59 06:59 06:59 Intake Total 4704 Output Total 2085 Balance 2619 Weight 88.2 kg General appearance: PRESENT: no acute distress Head exam: PRESENT: normocephalic Respiratory exam: PRESENT: unlabored Cardiovascular exam: PRESENT: RRR Pulses: PRESENT: +1 pedal pulses bilateral GI/Abdominal exam: PRESENT: soft Rectal exam: PRESENT: deferred Musculoskeletal exam: PRESENT: other Neurological exam: PRESENT: alert, awake, oriented to person, oriented to place, oriented to time, oriented to situation. ABSENT: motor sensory deficit Psychiatric exam: PRESENT: appropriate affect, normal mood. ABSENT: homicidal ideation, suicidal ideation Skin exam: PRESENT: dry, intact, warm. ABSENT: cyanosis, rash Results Laboratory Results: Potassium 4.0 mmol/L (3.6-5.0) 07/18/19 07:50 Blood Type O NEGATIVE 07/18/19 07:50 Antibody Screen NEGATIVE 07/18/19 07:50 Impressions: Pelvis X-Ray 07/18/19 11:21 IMPRESSION: SATISFACTORY POSTOPERATIVE PELVIS. Plan Plan of Treatment: Patient be discharged home with home health services and DME. Follow-up with Dr. Rutherford and [facility] for surgery in 2 weeks for inspection. Time Spent: Less than 30 Minutes Stroke Is this a Stroke Patient?: No Stroke Pt being discharged on Anti-thrombolytic therapy?: Yes Acute Heart Failure - Is this a Heart Failure Patient?: No
[2019-07-19 07:27] LABS: ANION GAP 8 (5-19); BLOOD UREA NITROGEN 11 mg/dL (7-20); CALCIUM 8.8 mg/dL (8.4-10.2); CARBON DIOXIDE 28 mmol/L (22-30); CHLORIDE 93 mmol/L (98-107); GLUCOSE 116 mg/dL (75-110); POTASSIUM 4.6 mmol/L (3.6-5.0)
[2019-07-19] MEDS ORDERED: TAMSULOSIN HCL 0.4 MG CAP.SR.24H PO SCH (08:00)
[2019-07-19] MEDS ORDERED: FUROSEMIDE 20 MG TABLET PO SCH (08:00)
[2019-07-19] MEDS ORDERED: (PENDING PHARMACY ID) (Rabeprazole Sodium [Aciphex] 20 MG) PO SCH (08:00)
[2019-07-19] MEDS: OXYCODONE HCL IR 5 MG TABLET PO PRN (08:28)
[2019-07-19] MEDS: APIXABAN 5 MG TABLET PO SCH (09:58)
[2019-07-19] MEDS ORDERED: UMECLIDINIUM BROMIDE 62.5 MCG/DOSE IH SCH (10:00)
[2019-07-19] MEDS ORDERED: METOPROLOL SUCCINATE 25 MG TAB.SR.24H PO SCH (10:00)
[2019-07-19] MEDS ORDERED: PRENATAL VITAMIN W DHA CAPSULE PO SCH (10:00)
[2019-07-19] MEDS ORDERED: (PENDING PHARMACY ID) (Tiotropium Bromide [Spiriva Handihaler 5 Cap/Kit (18 Mcg/Cap)] 1 CA IH SCH (10:00)
[2019-07-19] MEDS: DOFETILIDE 500 MCG CAPSULE PO SCH (10:05)
[2019-07-19] MEDS: SENNOSIDES/DOCUSATE 8.6-50 MG 1 EACH TABLET PO SCH (10:05)
[2019-07-19] MEDS: OXYCODONE HCL SR 10 MG TABLET PO SCH (10:05)
[2019-07-19 12:27] VITALS: BP 121/67
== END 2019-07-19 19:15 | disposition home health service (06) ==
LOC: INTOOBSV 06:52 → INOR 06:52 → 4S 14:45 → UNDODISOB 07-19 14:15
PROVIDERS: ADMIT Orthopaedic Surgery; ATTEND Orthopaedic Surgery
DX: M87.851 Other osteonecrosis, right femur (principal); M16.11 Unilateral primary osteoarthritis, right hip; R11.2 Nausea with vomiting, unspecified; I25.10 Atherosclerotic heart disease of native coronary artery without angina pectoris; I48.91 Unspecified atrial fibrillation; I10 Essential (primary) hypertension; Z96.642 Presence of left artificial hip joint; Z79.899 Other long term (current) drug therapy; Z79.02 Long term (current) use of antithrombotics/antiplatelets; F17.290 Nicotine dependence, other tobacco product, uncomplicated
CPT/HCPCS: 27130; 86900; 86901; 36415 ×2; 86850; 84132; 85027; 80048; 88304 ×2; 88311; 72170; 94799; 97530 ×2; 97116; 97162; 97535; 97166; 01214; C1776 ×3; J2250; J0690; J3010; J2370; J2550; J2405; J7060; J7050; J7120 ×2; J2704; J3370; C9290; J3490 ×5; J1741

== ENCOUNTER 2019-11-27 17:57 | Inpatient (IN) | payer OTHER, MEDICARE ==
[2019-11-27] MEDS ORDERED: FUROSEMIDE INJ/PF 20 MG/2 ML SDV IV ONE (18:47)
--- NOTE | 2019-11-27 18:57 | ER Document Report ---
ED General - General Chief Complaint: Urinary Retention Stated Complaint: URINARY ISSUE Time Seen by Provider: 11/27/19 18:18 Primary Care Provider: [facility] [Primary Care Provider] - Follow up as needed TRAVEL OUTSIDE OF THE [place] IN LAST 30 DAYS: No - HPI Notes: Chief complaint: Difficulty with urination, generalized swelling and shortness of breath HPI: 69-year-old male followed by the [facility] with history of BPH and oxygen dependent COPD presents with complaints as above progressively worsening over the last 2 weeks. He says he is not been able to void at all in the last 48 hours. We note that he is taking 80 mg of Lasix orally every morning. He is maintained on 2 L nasal O2 at home. He continues to vape but says he has not smoked cigarettes in about 1 year. Currently living with his . He denies any chest pain. He denies fever or chills. He denies known COVID exposure. He denies recent travel. No sputum production. Dyspnea is aggravated by any attempts at ambulation or by supine position. Patient was seen by a midlevel provider at [facility] today and they did an out bladder cath with a residual urine of 700 cc. He was instructed to c ome here for further evaluation. - Related Data Allergies/Adverse Reactions: budesonide [From Symbicort] Adverse Reaction (Severe, Verified 07/03/19 12:26) formoterol [From Symbicort] Adverse Reaction (Severe, Verified 07/03/19 12:26) Past Medical History - General Information source: Patient, [facility] Records - Social History Smoking Status: Former Smoker Frequency of alcohol use: Heavy Drug Abuse: None Family History: CAD, Malignancy Patient has suicidal ideation: No Patient has homicidal ideation: No - Past Medical History Cardiac Medical History: Reports: Hx Congestive Heart Failure, Hx Hypertension Denies: Hx Atrial Fibrillation, Hx Coronary Artery Disease, Hx Heart Attack, Hx Hypercholesterolemia, Hx Peripheral Vascular Disease, Hx Pulmonary Embolism, Hx Heart Murmur Pulmonary Medical History: Reports: Hx COPD, Hx Pneumonia Denies: Hx Asthma, Hx Bronchitis, Hx Respiratory Failure, Hx Sleep Apnea Neurological Medical History: Denies: Hx Cerebrovascular Accident, Hx Seizures Endocrine Medical History: Denies: Hx Hyperthyroidism, Hx Hypothyroidism Renal/ Medical History: Reports: Hx Benign Prostatic Hyperplasia. Denies: Hx End Stage Renal Disease, Hx Kidney Stones, Hx Peritoneal Dialysis Malignancy Medical History: Denies Hx Lung Cancer GI Medical History: Reports: Hx Gastroesophageal Reflux Disease. Denies: Hx Crohn's Disease, Hx Hiatal Hernia, Hx Irritable Bowel, Hx Liver Failure, Hx Pancreatitis, Hx Ulcer Musculoskeletal Medical History: Reports Hx Arthritis, Denies Hx Fibromyalgia, Denies Hx Muscular Dystrophy Skin Medical History: Denies Hx Eczema, Denies Hx Psoriasis Psychiatric Medical History: Reports: Hx Depression Denies: Hx Bipolar Disorder, Hx Post Traumatic Stress Disorder, Hx Schizophrenia Traumatic Medical History: Reports: Hx Fractures - right ankle Past Surgical History: Reports: Hx Abdominal Surgery - hernia repair, Hx Orthopedic Surgery - R ankle, Hx Tonsillectomy, Other - Abdominal hernia repair. Denies: Hx Appendectomy, Hx Bowel Surgery, Hx Cholecystectomy, Hx Colostomy, Hx Coronary Artery Bypass Graft, Hx Gastric Bypass Surgery, Hx Herniorrhaphy, Hx Pacemaker - Immunizations Hx Diphtheria, Pertussis, Tetanus Vaccination: Yes Hx Pneumococcal Vaccination: 01/26/13 Review of Systems - Review of Systems Notes: Constitutional: Negative for fever. HENT: Negative for sore throat. Eyes: Negative for visual changes. Cardiovascular: Negative for chest pain. Respiratory: As per HPI. Gastrointestinal: Negative for abdominal pain, vomiting or diarrhea. Genitourinary: As per HPI. Musculoskeletal: Negative for back pain. Skin: Negative for rash. Neurological: Negative for headaches, focal weakness or numbness. 10 point ROS negative except as marked above and in HPI. Physical Exam - Vital signs Vitals: Temp Pulse Resp BP Pulse Ox 98.3 F 109 H 18 142/73 H 100 11/27/19 18:02 11/27/19 18:02 11/27/19 18:02 11/27/19 18:02 11/27/19 18:02 - Notes Notes: GENERAL: Male patient appearing approximately stated age breathing comfortably with 2 L nasal O2. SKIN: Good turgor no rashes. HEAD: Normocephalic atraumatic. EYES: PERRLA. EOMI. Conjunctivae and sclerae clear. EARS: CANALS AND TMS CLEAR. NOSE: CLEAR. MOUTH: Moist mucosa. Poor dentition. No stridor or edema. No drooling. NECK: Supple. No masses or thyromegaly. No adenopathy. Carotids 2+ without bruits. 2+ JVD at 45 degrees elevation. BACK: Symmetrical without tenderness. CHEST: Respirations unlabored. Breath sounds diminished both bases. Scattered faint wheezes bilaterally. HEART: Regular rhythm. No murmur gallop or rub. ABDOMEN: Distended with ascites present. Bladder feels distended and there is mild tenderness suprapubic area. No rebound. Bowel sounds normally active. No bruits. GENITALIA: Deferred. EXTREMITIES: 3+ bilateral pretibial edema. No calf tenderness. Cap refill less than 1.5 seconds. Dorsalis pedis and posterior tibial pulses 3+ and symmetrical. NEUROLOGICAL: GCS 15. Alert and oriented x3. Fluent speech. Cranial nerves II through XII intact. Sensorimotor and cerebellar normal. Normal tone. PSYCHIATRIC: Appropriate affect. Course - Re-evaluation Re-evalutation: 11/27/19 22:11 This man has significant hypokalemia and hyponatremia. Creatinine is normal. He exhibits significant lower extremity edema. Clinically I thought he had ascites we got a CT scan of the abdomen/pelvis with contrast which showed only fatty infiltration of the liver. Roger catheter was placed because he continued to report being unable to void. I have given him some supplemental potassium and magnesium. Findings have been discussed with on-call hospitalist Dr. Bobby who will admit patient to telemetry at this time. - Vital Signs Vital signs: Temp Pulse Resp BP Pulse Ox 98.3 F 109 H 28 H 141/81 H 99 11/27/19 18:25 11/27/19 18:02 11/27/19 21:00 11/27/19 20:01 11/27/19 21:00 - Laboratory Result Diagrams: 11/27/19 19:09 11/27/19 19:09 Laboratory results interpreted by me: 11/27/19 11/27/19 11/27/19 19:09 19:09 19:09 RBC 3.37 L Hgb 11.9 L Hct 32.1 L MCH 35.2 H MCHC 36.9 H RDW 14.4 H Seg Neuts % (Manual) 91 H Lymphocytes % (Manual) 1 L Abs Neuts (Manual) 9.4 H Abs Lymphs (Manual) 0.1 L Sodium 107.8 L* Potassium 2.7 L* Chloride 58 L Carbon Dioxide 36 H Glucose 123 H Calcium 7.8 L Total Bilirubin 2.3 H Direct Bilirubin 1.0 H AST 203 H ALT 104 H Alkaline Phosphatase 276 H NT-Pro-B Natriuret Pep 1450 H Total Protein 6.1 L Albumin 3.3 L Urine Blood 11/27/19 19:09 RBC Hgb Hct MCH MCHC RDW Seg Neuts % (Manual) Lymphocytes % (Manual) Abs Neuts (Manual) Abs Lymphs (Manual) Sodium Potassium Chloride Carbon Dioxide Glucose Calcium Total Bilirubin Direct Bilirubin AST ALT Alkaline Phosphatase NT-Pro-B Natriuret Pep Total Protein Albumin Urine Blood MODERATE H - Diagnostic Test Radiology reviewed: Reports reviewed - Chest x-ray: No active disease per radiologist. CT abdomen/pelvis with contrast per radiologist: Fatty infiltration of liver. - EKG Interpretation by Me Additional EKG results interpreted by me: 11/27/19 22:13 Twelve-lead EKG shows normal sinus rhythm with no acute ST/T wave changes. Discharge - Discharge Clinical Impression: Hyponatremia, Hyponatremia, Hypokalemia, Acute urinary retention, Anasarca Condition: Fair Disposition: ADMITTED INPATIENT Admitting Provider: Diamante (Hospitalist) Unit Admitted: Telemetry Referrals: [facility] [Primary Care Provider] - Follow up as needed
--- NOTE | 2019-11-27 19:10 | RADIOLOGY REPORT (SQ) ---
EXAM DESCRIPTION: CHEST SINGLE VIEW IMAGES COMPLETED DATE/TIME: 11/27/2019 6:59 pm REASON FOR STUDY: dyspnea COMPARISON: Chest films 07/02/2019, 01/17/2019 EXAM PARAMETERS: NUMBER OF VIEWS: One view. TECHNIQUE: Single frontal radiographic view of the chest acquired. RADIATION DOSE: NA LIMITATIONS: None. FINDINGS: LUNGS AND PLEURA: No acute infiltrates. No pleural effusion or pneumothorax. Chronic left lateral pleural thickening to multiple old healed left rib fractures MEDIASTINUM AND HILAR STRUCTURES: No masses. Contour normal. HEART AND VASCULAR STRUCTURES: Heart normal in size. Normal vasculature. BONES: No acute findings. HARDWARE: Loop recorder anterior left chest. OTHER: No other significant finding. IMPRESSION: No acute finding TECHNICAL DOCUMENTATION: JOB ID: [id number] 2010 [employer]- All Rights Reserved Reading location - IP/workstation name: [email or web address]
[2019-11-27 19:32] LABS: APPEARANCE,URINE CLEAR; BILIRUBIN,URINE NEGATIVE (NEGATIVE); COLOR,URINE YELLOW; GLUCOSE, URINE NEGATIVE (NEGATIVE); KETONES,URINE NEGATIVE (NEGATIVE); PROTEIN,URINE NEGATIVE (NEGATIVE); URINE SPECIFIC GRAVITY 1.004; UROBILINOGEN,URINE NEGATIVE mg/dL (<2.0)
[2019-11-27 19:51] LABS: ALBUMIN 3.3 g/dL (3.5-5.0); ALKALINE PHOSPHATASE 276 U/L (38-126); ASPARTATE AMINO TRANSFERASE 203 U/L (17-59); BILIRUBIN,TOTAL 2.3 mg/dL (0.2-1.3); BLOOD UREA NITROGEN 12 mg/dL (7-20); CALCIUM 7.8 mg/dL (8.4-10.2); CARBON DIOXIDE 36 mmol/L (22-30); CHLORIDE 58 mmol/L (98-107); GLUCOSE 123 mg/dL (75-110); TOTAL PROTEIN 6.1 g/dL (6.3-8.2)
[2019-11-27 19:53] LABS: ANION GAP 14 (5-19)
[2019-11-27 20:03] LABS: NT PRO BNP 1450 pg/mL (<125); POTASSIUM 2.7 mmol/L (3.6-5.0)
[2019-11-27 20:05] LABS: TROPONIN I < 0.012 ng/mL
[2019-11-27 20:10] LABS: HEMATOCRIT 32.1 % (37.9-51.0); HEMOGLOBIN 11.9 g/dL (13.5-17.0); PLATELET COUNT 293 10^3/uL (150-450); RED CELL DISTRIBUTION WIDTH 14.4 % (11.5-14.0); WHITE BLOOD COUNT 10.3 10^3/uL (4.0-10.5)
[2019-11-27 20:13] LABS: MEAN CORPUSCULAR HEMOGLOBIN 35.2 pg (27.0-33.4); MEAN CORPUSCULAR VOLUME 95 fl (80-97); RED BLOOD COUNT 3.37 10^6/uL (4.35-5.55)
[2019-11-27 20:14] LABS: MEAN CORPUSCULAR HGB CONC 36.9 g/dL (32.0-36.0)
[2019-11-27 20:15] LABS: ABSOLUTE LYMPHOCYTES# (MANUAL) 0.1 10^3/uL (0.5-4.7); ABSOLUTE MONOCYTES # (MANUAL) 0.7 10^3/uL (0.1-1.4); ANISOCYTOSIS SLIGHT; BASOPHILS % (MANUAL) 0 % (0-2); EOSINOPHILS % (MANUAL) 1 % (0-6); LYMPHOCYTES % (MANUAL) 1 % (13-45); MONOCYTES % (MANUAL) 7 % (3-13); PLATELET COMMENT ADEQUATE; SEGMENTED NEUTROPHILS % (MAN) 91 % (42-78); STOMATOCYTES SLIGHT; TOTAL CELLS COUNTED 100; TOXIC GRANULATION SLIGHT
[2019-11-27] MEDS: POTASSI CL 20 MEQ/50 ML RIDER 20 MEQ/50 ML RTUPB IV SCH (20:50)
[2019-11-27] MEDS: MAGNESIUM SULFATE/D5W 1 GM/100 ML RTUPB IV SCH (21:42)
--- NOTE | 2019-11-27 21:42 | RADIOLOGY REPORT (SQ) ---
EXAM DESCRIPTION: CT scan of the abdomen and pelvis without contrast. CLINICAL HISTORY: 69 years Male; Abd. pain TECHNIQUE: CT of the abdomen and pelvis without intravenous contrast. All CT scans at this facility use dose modulation, iterative reconstruction, and/or weight based dosing when appropriate to reduce radiation dose to as low as reasonably achievable. This exam was performed according to our department optimization program which includes automated exposure control, adjustment of the mA and/or kv according to patient size and/or use of iterative reconstruction technique. COMPARISON: None. FINDINGS: Lower chest: Nodular infiltrate is present in the left lower lobe. Healed posterior inferior rib fractures are seen bilaterally. Heart size is small. Probable air-fluid level in the distal esophagus raising the possibility of gastroesophageal reflux. Abdomen: Liver and biliary tree: Diffuse fatty infiltration of the liver is seen. The gallbladder is unremarkable. Pancreas: Normal Spleen:Within normal limits Kidneys: Punctate calcification is present in the lower pole of the right kidney. There is nonspecific, mild soft tissue stranding seen adjacent to both kidneys bilaterally. No hydronephrosis. No hydroureter. The distal ureters are secured by artifact from bilateral hip arthroplasties. Adrenal glands:Within normal limits Vascular structures: Vascular calcifications are seen in the aorta and iliac vessels. Retroperitoneum: No mass or lymphadenopathy Abdominal wall: Thinning and attenuation of the linea alba is seen. No focal herniation. GI:Bowel is of normal caliber. No focal bowel wall thickening. No obstruction. Appendix: The appendix appears normal. The rectum is obscured by artifact from bilateral hip arthroplasties. General: No free air. No free fluid Pelvis: Lymph nodes: No mass or lymphadenopathy Bladder: Roger catheter is present in the bladder and the bladder is decompressed. Pelvis: Obscured by artifact Bones: Artifact from bilateral hip arthroplasties are seen. No destructive bone lesions. IMPRESSION: 1. Fatty infiltration of the liver. 2. Nodular infiltrate in the left lower lobe which may represent scar or pneumonia. 3. Nonspecific edema seen adjacent to both kidneys. Possible nonobstructing stone in the right mid kidney.
[2019-11-27] MEDS ORDERED: MAGNESIUM HYDROXIDE SUSP 30 ML UDCUP PO PRN (22:30)
[2019-11-27] MEDS ORDERED: LEVALBUTEROL HCL NEB 0.63 MG/3 ML AMPUL NEB PRN (22:30)
[2019-11-27] MEDS ORDERED: TEMAZEPAM 15 MG CAPSULE PO PRN (22:30)
[2019-11-27] MEDS ORDERED: MAG HYDROX/AL HYDROX/SIMETH SUSP 30 ML UDCUP PO PRN (22:30)
[2019-11-27] MEDS ORDERED: ONDANSETRON HCL INJ/PF 4 MG/2 ML SDV IV PRN (22:30)
[2019-11-27] MEDS ORDERED: MORPHINE SULFATE 10 MG/ML INJ IV PRN ×3 (22:37)
[2019-11-27] MEDS ORDERED: ACETAMINOPHEN 325 MG TABLET PO PRN (22:37)
[2019-11-27] MEDS ORDERED: GUAIFENESIN SYRP 200 MG/10 ML UDC PO PRN (22:37)
[2019-11-27] MEDS ORDERED: LORAZEPAM INJ 2 MG/1 ML VIAL IV PRN (22:37)
[2019-11-27] MEDS ORDERED: FAMOTIDINE 20 MG TABLET PO ONE (23:00)
--- NOTE | 2019-11-28 00:24 | PDOC H&P ---
History of Present Illness Admission Date/PCP: 11/27/2019 22:02 [facility] Patient complains of: Urinary retention History of Present Illness: JOSE LUIS JIM is a 69 year old male who presented from a primary care clinic to the emergency room with a 2-day history of urinary retention. He reports that he has not had any urination for the last 2 days until he was seen at a primary care clinic earlier today and a straight catheterization was performed removing 700 mL of urine from his bladder. His urinary retention has been accompanied by leg cramps with an increase in his lower extremity edema and associated with orthopnea and an increase in his usual dyspnea on exertion. He denies other associated or accompanying signs and symptoms. He admits prior similar episodes. He has not identified any aggravating or ameliorating factors for his urinary retention. In the emergency room he was found to have hyponatremia, hypokalemia and elevated liver function studies. He was further noted to have pitting edema of his bilateral lower extremities and a CT scan revealed extensive fatty infiltration of the liver. Past Medical History Cardiac Medical History: Reports: Atrial Fibrillation, Congestive Heart Failure, Hypertension Denies: Coronary Artery Disease, DVT, Myocardial Infarction, Hyperlipidema, Peripheral Vascular Disease, Pulmonary Embolism, Heart Murmur Pulmonary Medical History: Reports: Chronic Obstructive Pulmonary Disease (COPD) , Pneumonia Denies: Asthma, Bronchitis, Respiratory Failure, Sleep Apnea EENT Medical History: Denies: Cataracts, Ears - Hearing aids Neurological Medical History: Denies: Hemorrhagic CVA, Ischemic CVA, Seizures Endocrine Medical History: Denies: Diabetes Mellitus Type 1, Diabetes Mellitus Type 2, Hyperthyroidism, Hypothyroidism Renal/ Medical History: Denies: Chronic Kidney Disease, Nephrolithiasis Malignancy Medical History: Reports: None GI Medical History: Reports: Gastroesophageal Reflux Disease Denies: Cirrhosis, Crohn's Disease, Hepatitis, Hiatal Hernia, Ulcerative Colitis Musculoskeltal Medical History: Reports: Arthritis Denies: Fibromyalgia, Gout Skin Medical History: Denies: Eczema, Psoriasis Psychiatric Medical History: Reports: Alcohol Dependency, Depression, Tobacco Dependency Denies: Bipolar Disorder, Post Traumatic Stress Disorder, Substance Abuse Traumatic Medical History: Reports: Other - Traumatic chest injury with bilateral rib fractures Hematology: Denies: Anemia, Bleeding Tendencies Infectious Medical History: Reports: None Past Surgical History Past Surgical History: Reports: Herniorrhaphy - Abdominal wall hernia, Orthopedic Surgery - Righjt ankle surgery, Tonsillectomy Social History Information Source: Patient Lives with: Spouse/Significant other Smoking Status: Former Smoker Electronic Cigarette use?: No Frequency of Alcohol Use: Heavy - 4 beers per day Hx Recreational Drug Use: No Drugs: None Hx Prescription Drug Abuse: No - Advance Directive Resuscitation Status: Full Code Surrogate healthcare decision maker:: Stephany Jim Family History Family History: CAD, CVA, Hypertension, Malignancy. denies: DM Parental Family History Reviewed: Yes Children Family History Reviewed: No Sibling(s) Family History Reviewed.: Yes Medication/Allergy Home Medications: Albuterol Sulfate [Ventolin 0.083% Neb 2.5 mg/3 mL Ampul] 1 vial NEB QIDP PRN 10/18/18 Loratadine [Claritin] 10 mg PO DAILY 10/18/18 Tamsulosin HCl [Flomax 0.4 mg Cap.sr] 0.4 mg PO QAM 10/18/18 Tiotropium [place] [Spiriva Handihaler 5 Cap/Kit (18 Mcg/Cap)] 1 cap IH DAILY 10/18/18 Acetaminophen [Tylenol 325 mg Tablet] 650 mg PO Q4HP PRN tablet 10/25/18 Apixaban [Eliquis 5 mg Tablet] 5 mg PO BID 04/12/19 Albuterol Sulfate [Proair Hfa Inhalation Aerosol 8.5 gm Mdi] 2 puff IH QIDP PRN 04/23/19 Cholecalciferol (Vitamin D3) [Vitamin D3 1000 Unit Tablet] 1,000 unit PO DAILY 04/23/19 Dofetilide [Tikosyn 500 Mcg Capsule] 500 mcg PO Q12 04/23/19 Furosemide [Lasix 20 mg Tablet] 20 mg PO QAM 04/23/19 Guaifenesin 400 mg PO TID 04/23/19 Metoprolol Succinate [Toprol Xl 25 mg Tab.sr] 25 mg PO DAILY 04/23/19 Mometasone Furoate [Asmanex] 2 puff IH DAILY 04/23/19 Multivitamin [Tab-A-Torie (Multiple Vitamin) Tablet] 1 tab PO DAILY 04/23/19 Rabeprazole Sodium [Aciphex] 20 mg PO QAM 04/23/19 Allergies/Adverse Reactions: budesonide [From Symbicort] Adverse Reaction (Severe, Verified 07/03/19 12:26) formoterol [From Symbicort] Adverse Reaction (Severe, Verified 07/03/19 12:26) Review of Systems Constitutional: ABSENT: chills, fever(s) Eyes: ABSENT: visual disturbances, other - Eye pain Ears: ABSENT: hearing changes, other - Ear pain Nose, Mouth, and Throat: ABSENT: headache(s), sore throat Cardiovascular: PRESENT: as per HPI, dyspnea on exertion, edema, orthropnea. ABSENT: chest pain, palpitations Respiratory: ABSENT: cough, dyspnea Gastrointestinal: ABSENT: abdominal pain, constipation, diarrhea, nausea, vomiting Genitourinary: PRESENT: as per HPI, difficulty urinating. ABSENT: dysuria, hematuria Musculoskeletal: ABSENT: back pain, joint swelling Integumentary: ABSENT: pruritus, rash Neurological: ABSENT: confusion, convulsions, focal weakness, memory loss, syncope Psychiatric: ABSENT: anxiety, depression Endocrine: ABSENT: cold intolerance, heat intolerance, polydipsia, polyphagia, polyuria Hematologic/Lymphatic: ABSENT: easy bleeding, easy bruising Allergic/Immunologic: ABSENT: seasonal rhinorrhea Physical Exam Vital Signs: Temp Pulse Resp BP Pulse Ox 98.3 F 109 H 28 H 141/81 H 99 11/27/19 18:25 11/27/19 18:02 11/27/19 21:00 11/27/19 20:01 11/27/19 21:00 Intake & Output 11/25/19 11/26/19 11/27/19 23:59 23:59 23:59 Weight 86.183 kg General appearance: PRESENT: no acute distress, cooperative Head exam: PRESENT: atraumatic, normocephalic Eye exam: PRESENT: conjunctiva pink. ABSENT: conjunctival injection, scleral icterus Ear exam: PRESENT: normal external ear exam. ABSENT: bleeding, drainage Mouth exam: PRESENT: dry mucosa, neck supple Neck exam: ABSENT: JVD, thyromegaly, tracheal deviation Respiratory exam: PRESENT: prolonged expiratory phas - Mildly prolonged expiratory phase in all huggins, symmetrical, unlabored, wheezes - Minimal expiratory wheezes noted in all huggins Cardiovascular exam: PRESENT: RRR. ABSENT: clicks, gallop, rubs Pulses: PRESENT: normal carotid pulses, normal radial pulses Vascular exam: PRESENT: normal capillary refill. ABSENT: pallor GI/Abdominal exam: PRESENT: distended - Without ascitic fluid wave, normal bowel sounds, organolmegaly - Mild hepatomegaly Rectal exam: PRESENT: deferred Extremities exam: PRESENT: pedal edema - Bilateral, +2 edema - 2+ pitting p retibial edema bilaterally. ABSENT: joint swelling Musculoskeletal exam: ABSENT: deformity, dislocation Neurological exam: PRESENT: alert, oriented to person, oriented to place, oriented to time, oriented to situation, CN II-XII grossly intact. ABSENT: motor sensory deficit Psychiatric exam: PRESENT: appropriate affect, normal mood Skin exam: PRESENT: dry, intact, warm. ABSENT: jaundice, rash, urticaria Results Laboratory Results: 11/27/19 19:09 11/27/19 19:09 11/27/19 11/27/19 11/27/19 19:09 19:09 19:09 WBC 10.3 RBC 3.37 L Hgb 11.9 L Hct 32.1 L MCV 95 MCH 35.2 H MCHC 36.9 H RDW 14.4 H Plt Count 293 Seg Neutrophils % Not Reportable Sodium 107.8 L* Potassium 2.7 L* Chloride 58 L Carbon Dioxide 36 H Anion Gap 14 BUN 12 Creatinine 1.05 Est GFR ( Amer) > 60 Glucose 123 H Calcium 7.8 L Magnesium 1.7 Total Bilirubin 2.3 H AST 203 H Alkaline Phosphatase 276 H Total Protein 6.1 L Albumin 3.3 L Urine Color YELLOW Urine Appearance CLEAR Urine pH 6.0 Ur Specific [place] 1.004 Urine Protein NEGATIVE Urine Glucose (UA) NEGATIVE Urine Ketones NEGATIVE Urine Blood MODERATE H Urine RBC (Auto) 7 11/27/19 19:09 Troponin I < 0.012 NT-Pro-B Natriuret Pep 1450 H Impressions: Chest X-Ray 11/27/19 18:46 IMPRESSION: No acute finding Abdomen/Pelvis CT 11/27/19 20:29 IMPRESSION: 1. Fatty infiltration of the liver. 2. Nodular infiltrate in the left lower lobe which may represent scar or pneumonia. 3. Nonspecific edema seen adjacent to both kidneys. Possible nonobstructing stone in the right mid kidney. Assessment and Plan - Diagnosis (1) BPH (benign prostatic hyperplasia) Qualifiers: Lower urinary tract symptom presence: symptoms present Lower urinary tract symptom detail: urinary retention Qualified Code(s): N40.1 - Benign prostatic hyperplasia with lower urinary tract symptoms; R33.8 - Other retention of urine Is this a current diagnosis for this admission?: Yes (2) Hyponatremia Is this a current diagnosis for this admission?: Yes (3) Hypokalemia Is this a current diagnosis for this admission?: Yes (4) COPD (chronic obstructive pulmonary disease) Qualifiers: COPD type: unspecified COPD Qualified Code(s): J44.9 - Chronic obstructive pulmonary disease, unspecified Is this a current diagnosis for this admission?: Yes (5) Chronic respiratory failure with hypoxia, on home O2 therapy Is this a current diagnosis for this admission?: Yes (6) Hypertension Qualifiers: Hypertension type: essential hypertension Qualified Code(s): I10 - Essential (primary) hypertension Is this a current diagnosis for this admission?: Yes (7) GERD (gastroesophageal reflux disease) Qualifiers: Esophagitis presence: without esophagitis Qualified Code(s): K21.9 - Gastro-esophageal reflux disease without esophagitis Is this a current diagnosis for this admission?: Yes (8) Paroxysmal atrial fibrillation Is this a current diagnosis for this admission?: Yes (9) Elevated liver function tests Is this a current diagnosis for this admission?: Yes (10) Alcohol abuse Is this a current diagnosis for this admission?: Yes - Plan Summary Summary: Patient will be admitted to a telemetry unit where he will receive routine supportive and symptomatic cares. His serum sodium will be replaced with IV saline and oral sodium bicarbonate preparations. His potassium will be replaced with addition to his IV saline. CBCs, metabolic profiles, magnesium levels and liver function studies will be obtained on an as-needed basis. A Roger catheter will be continued and a urology consultation will be obtained when available. Elevation of the bilateral lower extremities will be used to help reduce his dependent edema. An echocardiogram will be obtained. He will use morphine sulfate 2 to 4 mg IV every 2 hours as needed for pain control and Ativan 1 mg IV every 4 hours as needed for anxiety or restlessness. His usual home medications will be resumed, as appropriate, when his medication list has been verified and reconciled. He will be treated with a cardiac diet. He will be continued on his home O2 with adjustments made per the oxygen protocol. - Time Time Spent with patient: 15-24 minutes Medications reviewed and adjusted accordingly: Yes Anticipated discharge: Home with Homehealth - Inpatient Certification Based on my medical assessment, after consideration of the patient's comorb idities, presenting symptoms, or acuity I expect that the services needed warrant INPATIENT care.: Yes I certify that my determination is in accordance with my understanding of Medicare's requirements for reasonable and necessary INPATIENT services [42 CFR 412.3e].: Yes Medical Necessity: Significant Comorbidiites Make Outpatient Treatment Too Risky, Need Close Monitoring Due to Risk of Patient Decompensation, Need For IV Fluids, Need For Continuous Telemetry Monitoring, Risk of Complication if Not Cared For in Hospital, Risk of Diagnosis Which Will Require Inpatient Eval/Care/Monitoring
[2019-11-28] MEDS ORDERED: PROMETHAZINE HCL INJ 25 MG/1 ML VIAL IV PRN ×2 (00:27→08:00)
[2019-11-28] MEDS ORDERED: DOFETILIDE 500 MCG CAPSULE PO ONE (00:45)
[2019-11-28] MEDS ORDERED: APIXABAN 5 MG TABLET PO ONE (00:45)
[2019-11-28] MEDS: MAGNESIUM SULFATE/D5W 1 GM/100 ML RTUPB IV SCH (00:50)
[2019-11-28] MEDS: POTASSI CL 20 MEQ/50 ML RIDER 20 MEQ/50 ML RTUPB IV SCH (02:00)
[2019-11-28] MEDS ORDERED: DOFETILIDE 500 MCG CAPSULE ONE (02:18)
[2019-11-28] MEDS ORDERED: FAMOTIDINE 20 MG TABLET PO ONE (02:45)
[2019-11-28] MEDS: ALBUMIN HUMAN 12.5 GM/50 ML RTUINJ IV SCH ×5 (04:04→07:33)
[2019-11-28] MEDS: POTASSI CL 20 MEQ/NS 1L 1,000 ML IV PRN ×3 (04:38→17:19)
[2019-11-28] MEDS ORDERED: HEPARIN SOD (PORCINE) 5,000 UNIT/ML 1 ML VIAL SUBCUT SCH (06:00)
[2019-11-28 06:31] LABS: HEMATOCRIT 26.5 % (37.9-51.0); HEMOGLOBIN 10.1 g/dL (13.5-17.0); MEAN CORPUSCULAR HEMOGLOBIN 36.8 pg (27.0-33.4); MEAN CORPUSCULAR VOLUME 96 fl (80-97); PLATELET COUNT 242 10^3/uL (150-450); RED BLOOD COUNT 2.75 10^6/uL (4.35-5.55); RED CELL DISTRIBUTION WIDTH 14.4 % (11.5-14.0); WHITE BLOOD COUNT 8.9 10^3/uL (4.0-10.5)
[2019-11-28 06:47] LABS: ALBUMIN 2.6 g/dL (3.5-5.0); ALKALINE PHOSPHATASE 206 U/L (38-126); ASPARTATE AMINO TRANSFERASE 123 U/L (17-59); BILIRUBIN,DIRECT 0.6 mg/dL (0.0-0.4); BILIRUBIN,TOTAL 1.6 mg/dL (0.2-1.3); BLOOD UREA NITROGEN 11 mg/dL (7-20); CALCIUM 7.1 mg/dL (8.4-10.2); CARBON DIOXIDE 39 mmol/L (22-30); CHLORIDE 63 mmol/L (98-107); CHOLESTEROL 105.42 mg/dL (0-200); GLUCOSE 112 mg/dL (75-110); TOTAL PROTEIN 5.1 g/dL (6.3-8.2); TRIGLYCERIDES 132 mg/dL (<150)
[2019-11-28 06:48] LABS: ANION GAP 9 (5-19)
[2019-11-28 06:54] LABS: VLDL CHOLESTEROL 26.4 mg/dL (10-31)
[2019-11-28 06:58] LABS: DIRECT LDL 57 mg/dL (<100)
[2019-11-28 07:01] LABS: POTASSIUM 2.6 mmol/L (3.6-5.0)
[2019-11-28 07:03] LABS: FREE T3 2.57 pg/mL (2.77-5.27)
[2019-11-28 07:17] LABS: THYROID STIMULATING HORMONE 3.17 uIU/mL (0.47-4.68)
[2019-11-28 07:40] LABS: MEAN CORPUSCULAR HGB CONC 38.1 g/dL (32.0-36.0)
[2019-11-28] MEDS ORDERED: POTASSI CL 20 MEQ/50 ML RIDER 20 MEQ/50 ML RTUPB IV SCH (07:45)
[2019-11-28] MEDS ORDERED: POTASSIUM CHLORIDE 10 MEQ TABLET.ER PO SCH ×2 (08:00)
--- NOTE | 2019-11-28 08:19 | EKG REPORT ---
SEVERITY:- ABNORMAL ECG - SINUS RHYTHM LEFT ANTERIOR FASCICULAR BLOCK MINIMAL ST DEPRESSION PROLONGED QT INTERVAL : Confirmed by: Tiffany Bennett MD 28-Nov-2019 08:18:08
[2019-11-28] MEDS: POTASSIUM CHLORIDE 20 MEQ/50 ML RTU IV SCH ×2 (09:01→11:15)
[2019-11-28] MEDS: SODIUM BICARBONATE 650 MG TABLET PO SCH ×3 (09:03→17:17)
[2019-11-28] MEDS ORDERED: DOFETILIDE 500 MCG CAPSULE PO SCH (10:00)
[2019-11-28] MEDS: FAMOTIDINE 20 MG TABLET PO SCH ×2 (10:04→22:11)
[2019-11-28] MEDS: APIXABAN 5 MG TABLET PO SCH ×2 (10:04→17:17)
[2019-11-28] MEDS: METOPROLOL SUCCINATE 50 MG TAB.SR.24H PO SCH (10:04)
[2019-11-28] MEDS: DOCUSATE SODIUM 100 MG CAPSULE PO SCH ×2 (10:04→17:17)
--- NOTE | 2019-11-28 12:33 | PDOC PROGRESS REPORT ---
Subjective Progress Note for:: 11/28/19 Reason For Visit: HYPONATREMIA,HYPOKALEMIA,ACUTE URINARY RETENSION 11/28/2019 Patient admitted for hyponatremia, hypokalemia, EtOH abuse, urinary retention Physical Exam Vital Signs: Temp Pulse Resp BP Pulse Ox 98.2 F 89 18 123/69 95 11/28/19 08:00 11/28/19 08:00 11/28/19 08:00 11/28/19 08:00 11/28/19 08:00 Intake & Output 11/27/19 11/28/19 11/29/19 06:59 06:59 06:59 Intake Total 250 1147 Output Total 600 Balance -350 1147 Weight 87 kg General appearance: PRESENT: no acute distress Respiratory exam: PRESENT: clear to auscultation latisha. ABSENT: rales, rhonchi, wheezes Cardiovascular exam: PRESENT: RRR. ABSENT: diastolic murmur, rubs, systolic murmur Neurological exam: PRESENT: alert, awake, oriented to person, oriented to place, oriented to time, oriented to situation, CN II-XII grossly intact. ABSENT: motor sensory deficit Psychiatric exam: PRESENT: appropriate affect, flat affect, normal mood. ABSENT: homicidal ideation, suicidal ideation Results Laboratory Results: 11/28/19 05:33 11/28/19 05:33 11/27/19 11/27/19 11/27/19 19:09 19:09 19:09 WBC 10.3 RBC 3.37 L Hgb 11.9 L Hct 32.1 L MCV 95 MCH 35.2 H MCHC 36.9 H RDW 14.4 H Plt Count 293 Seg Neutrophils % Not Reportable Sodium 107.8 L* Potassium 2.7 L* Chloride 58 L Carbon Dioxide 36 H Anion Gap 14 BUN 12 Creatinine 1.05 Est GFR ( Amer) > 60 Glucose 123 H Calcium 7.8 L Magnesium 1.7 Total Bilirubin 2.3 H AST 203 H Alkaline Phosphatase 276 H Total Protein 6.1 L Albumin 3.3 L Triglycerides Cholesterol LDL Cholesterol Direct VLDL Cholesterol HDL Cholesterol TSH Free T3 pg/mL Urine Color YELLOW Urine Appearance CLEAR Urine pH 6.0 Ur Specific [place] 1.004 Urine Protein NEGATIVE Urine Glucose (UA) NEGATIVE Urine Ketones NEGATIVE Urine Blood MODERATE H Urine RBC (Auto) 7 11/28/19 11/28/19 11/28/19 05:33 05:33 05:33 WBC 8.9 RBC 2.75 L Hgb 10.1 L Hct 26.5 L MCV 96 MCH 36.8 H MCHC 38.1 H RDW 14.4 H Plt Count 242 Seg Neutrophils % Sodium 111.2 L* Potassium 2.6 L* Chloride 63 L Carbon Dioxide 39 H Anion Gap 9 BUN 11 Creatinine 0.98 Est GFR ( Amer) > 60 Glucose 112 H Calcium 7.1 L Magnesium 2.2 Total Bilirubin 1.6 H AST 123 H Alkaline Phosphatase 206 H Total Protein 5.1 L Albumin 2.6 L Triglycerides 132 Cholesterol 105.42 LDL Cholesterol Direct 57 VLDL Cholesterol 26.4 HDL Cholesterol 50 TSH 3.17 Free T3 pg/mL 2.57 L Urine Color Urine Appearance Urine pH Ur Specific [place] Urine Protein Urine Glucose (UA) Urine Ketones Urine Blood Urine RBC (Auto) 11/27/19 19:09 Troponin I < 0.012 NT-Pro-B Natriuret Pep 1450 H Impressions: Chest X-Ray 11/27/19 18:46 IMPRESSION: No acute finding Abdomen/Pelvis CT 11/27/19 20:29 IMPRESSION: 1. Fatty infiltration of the liver. 2. Nodular infiltrate in the left lower lobe which may represent scar or pneumonia. 3. Nonspecific edema seen adjacent to both kidneys. Possible nonobstructing stone in the right mid kidney. Assessment and Plan - Diagnosis (1) Acute urinary retention Is this a current diagnosis for this admission?: Yes (2) COPD (chronic obstructive pulmonary disease) Qualifiers: COPD type: unspecified COPD Qualified Code(s): J44.9 - Chronic obstructive pulmonary disease, unspecified Is this a current diagnosis for this admission?: Yes (3) Hypokalemia Is this a current diagnosis for this admission?: Yes (4) Alcohol abuse Is this a current diagnosis for this admission?: Yes (5) Hyponatremia Is this a current diagnosis for this admission?: Yes (6) Tobacco dependence Is this a current diagnosis for this admission?: Yes - Plan Summary Summary: Patient will be admitted to a telemetry unit where he will receive routine supportive and symptomatic cares. His serum sodium will be replaced with IV saline and oral sodium bicarbonate preparations. His potassium will be replaced with addition to his IV saline. CBCs, metabolic profiles, magnesium levels and liver function studies will be obtained on an as-needed basis. A Roger catheter will be continued and a urology consultation will be obtained when available. Elevation of the bilateral lower extremities will be used to help reduce his dependent edema. An echocardiogram will be obtained. He will use morphine sulfate 2 to 4 mg IV every 2 hours as needed for pain control and Ativan 1 mg IV every 4 hours as needed for anxiety or restlessness. His usual home medications will be resumed, as appropriate, when his medication list has been verified and reconciled. He will be treated with a cardiac diet. He will be continued on his home O2 with adjustments made per the oxygen protocol. 11/28/2019 Vital signs are stable temperature 97.4 pulse 96 blood pressure 122/60 Oxygen saturation between 96 and 100% on 2.5 L Sodium on admission 107.8 today 111.2 Calcium still low on admission 2.7 now 2.6. Replacement has been ordered. Repeat chemistry panel has been ordered for this afternoon. Chest x-ray was negative CT scan of the abdomen and pelvis showed a possible left lower lobe nodule which will need to be followed up Patient is on a multitude of home medicines including complicated medicine such as Tikosyn and Eliquis Lasix and Toprol. Most of patient's home medicines have been reconciled. Patient tells me that he drank beer as recently as 2 days ago, and that he has had trouble with a low sodium in the past. - Time Time Spent with patient: 25-34 minutes
[2019-11-28 14:14] LABS: ANION GAP 8 (5-19); BLOOD UREA NITROGEN 10 mg/dL (7-20); CALCIUM 7.5 mg/dL (8.4-10.2); CARBON DIOXIDE 37 mmol/L (22-30); CHLORIDE 70 mmol/L (98-107); GLUCOSE 121 mg/dL (75-110); POTASSIUM 3.5 mmol/L (3.6-5.0)
[2019-11-28] MEDS: TAMSULOSIN HCL 0.4 MG CAP.SR.24H PO SCH (17:17)
[2019-11-28] MEDS: POTASSIUM CHLORIDE 10 MEQ TABLET.ER PO SCH (22:10)
[2019-11-28] MEDS: DOFETILIDE 500 MCG CAPSULE PO SCH (22:10)
[2019-11-29] MEDS: POTASSI CL 20 MEQ/NS 1L 1,000 ML IV PRN ×3 (00:47→17:07)
[2019-11-29 05:39] LABS: HEMOGLOBIN 9.6 g/dL (13.5-17.0); MEAN CORPUSCULAR HEMOGLOBIN 36.1 pg (27.0-33.4); MEAN CORPUSCULAR HGB CONC 36.9 g/dL (32.0-36.0); MEAN CORPUSCULAR VOLUME 98 fl (80-97); PLATELET COUNT 228 10^3/uL (150-450); RED BLOOD COUNT 2.66 10^6/uL (4.35-5.55); RED CELL DISTRIBUTION WIDTH 14.5 % (11.5-14.0)
[2019-11-29 05:58] LABS: ALBUMIN 2.8 g/dL (3.5-5.0); ALKALINE PHOSPHATASE 188 U/L (38-126); ASPARTATE AMINO TRANSFERASE 119 U/L (17-59); BILIRUBIN,DIRECT 0.8 mg/dL (0.0-0.4); BILIRUBIN,TOTAL 1.8 mg/dL (0.2-1.3); TOTAL PROTEIN 4.5 g/dL (6.3-8.2)
[2019-11-29 08:53] LABS: ANION GAP 6 (5-19); BLOOD UREA NITROGEN 8 mg/dL (7-20); CALCIUM 7.6 mg/dL (8.4-10.2); CARBON DIOXIDE 35 mmol/L (22-30); CHLORIDE 77 mmol/L (98-107); GLUCOSE 99 mg/dL (75-110); POTASSIUM 3.9 mmol/L (3.6-5.0)
[2019-11-29] MEDS: DOCUSATE SODIUM 100 MG CAPSULE PO SCH ×2 (10:08→17:07)
[2019-11-29] MEDS: FAMOTIDINE 20 MG TABLET PO SCH ×2 (10:08→21:20)
[2019-11-29] MEDS: APIXABAN 5 MG TABLET PO SCH ×2 (10:08→17:07)
[2019-11-29] MEDS: SODIUM BICARBONATE 650 MG TABLET PO SCH ×3 (10:09→17:07)
[2019-11-29] MEDS: POTASSIUM CHLORIDE 10 MEQ TABLET.ER PO SCH ×2 (10:09→21:20)
[2019-11-29] MEDS: METOPROLOL SUCCINATE 50 MG TAB.SR.24H PO SCH (10:09)
[2019-11-29] MEDS: DOFETILIDE 500 MCG CAPSULE PO SCH ×2 (10:10→21:20)
--- NOTE | 2019-11-29 11:35 | PDOC PROGRESS REPORT ---
Subjective Progress Note for:: 11/29/19 Reason For Visit: HYPONATREMIA,HYPOKALEMIA,ACUTE URINARY RETENSION 11/29/2019 Hyponatremia, hypokalemia, alcohol abuse, urinary retention Physical Exam Vital Signs: Temp Pulse Resp BP Pulse Ox 98.6 F 80 16 128/91 H 98 11/29/19 06:46 11/29/19 08:00 11/29/19 08:00 11/29/19 06:46 11/29/19 08:00 Intake & Output 11/28/19 11/29/19 11/30/19 06:59 06:59 06:59 Intake Total 250 4617 Output Total 600 2600 Balance -350 2016 Weight 87 kg 87 kg General appearance: PRESENT: no acute distress Respiratory exam: PRESENT: clear to auscultation latisha, decreased breath sounds. ABSENT: rales, rhonchi, wheezes Cardiovascular exam: PRESENT: RRR. ABSENT: diastolic murmur, rubs, systolic murmur Neurological exam: PRESENT: alert, awake, oriented to person, oriented to place, oriented to time, oriented to situation, CN II-XII grossly intact. ABSENT: motor sensory deficit Psychiatric exam: PRESENT: appropriate affect, normal mood, other - Patient is pleasant, states he is ready to go home whenever we discharge him. ABSENT: homicidal ideation, suicidal ideation Results Laboratory Results: 11/29/19 05:04 11/29/19 05:04 11/28/19 11/29/19 11/29/19 13:50 05:04 05:04 WBC 8.0 RBC 2.66 L Hgb 9.6 L Hct 26.0 L MCV 98 H MCH 36.1 H MCHC 36.9 H RDW 14.5 H Plt Count 228 Sodium 115.3 L* Potassium 3.5 L Chloride 70 L Carbon Dioxide 37 H Anion Gap 8 BUN 10 Creatinine 0.86 Est GFR ( Amer) > 60 Glucose 121 H Calcium 7.5 L Magnesium 2.1 Total Bilirubin 1.8 H AST 119 H Alkaline Phosphatase 188 H Total Protein 4.5 L Albumin 2.8 L 11/29/19 05:04 WBC RBC Hgb Hct MCV MCH MCHC RDW Plt Count Sodium 117.9 L* Potassium 3.9 Chloride 77 L Carbon Dioxide 35 H Anion Gap 6 BUN 8 Creatinine 0.81 Est GFR ( Amer) > 60 Glucose 99 Calcium 7.6 L Magnesium Total Bilirubin AST Alkaline Phosphatase Total Protein Albumin 11/27/19 19:09 Troponin I < 0.012 NT-Pro-B Natriuret Pep 1450 H Impressions: Chest X-Ray 11/27/19 18:46 IMPRESSION: No acute finding Abdomen/Pelvis CT 11/27/19 20:29 IMPRESSION: 1. Fatty infiltration of the liver. 2. Nodular infiltrate in the left lower lobe which may represent scar or pneumonia. 3. Nonspecific edema seen adjacent to both kidneys. Possible nonobstructing stone in the right mid kidney. Assessment and Plan - Diagnosis (1) Acute urinary retention Is this a current diagnosis for this admission?: Yes (2) COPD (chronic obstructive pulmonary disease) Qualifiers: COPD type: unspecified COPD Qualified Code(s): J44.9 - Chronic obstructive pulmonary disease, unspecified Is this a current diagnosis for this admission?: Yes (3) Hypokalemia Is this a current diagnosis for this admission?: Yes (4) Alcohol abuse Is this a current diagnosis for this admission?: Yes (5) Hyponatremia Is this a current diagnosis for this admission?: Yes (6) Tobacco dependence Is this a current diagnosis for this admission?: Yes - Plan Summary Summary: Patient will be admitted to a telemetry unit where he will receive routine supportive and symptomatic cares. His serum sodium will be replaced with IV saline and oral sodium bicarbonate preparations. His potassium will be replaced with addition to his IV saline. CBCs, metabolic profiles, magnesium levels and liver function studies will be obtained on an as-needed basis. A Roger catheter will be continued and a urology consultation will be obtained when available. Elevation of the bilateral lower extremities will be used to help reduce his dependent edema. An echocardiogram will be obtained. He will use morphine sulfate 2 to 4 mg IV every 2 hours as needed for pain control and Ativan 1 mg IV every 4 hours as needed for anxiety or restlessness. His usual home medications will be resumed, as appropriate, when his medication list has been verified and reconciled. He will be treated with a cardiac diet. He will be continued on his home O2 with adjustments made per the oxygen protocol. 11/28/2019 Vital signs are stable temperature 97.4 pulse 96 blood pressure 122/60 Oxygen saturation between 96 and 100% on 2.5 L Sodium on admission 107.8 today 111.2 Potassium still low on admission 2.7 now 2.6. Replacement has been ordered. Repeat chemistry panel has been ordered for this afternoon. Chest x-ray was negative CT scan of the abdomen and pelvis showed a possible left lower lobe nodule which will need to be followed up Patient is on a multitude of home medicines including complicated medicine such as Tikosyn and Eliquis Lasix and Toprol. Most of patient's home medicines have been reconciled. Patient tells me that he drank beer as recently as 2 days ago, and that he has had trouble with a low sodium in the past. 11/29/2019 CBC is normal Sodium continues to slowly increase today it is 117.9. On admission it was 107.8. Looks as though his baseline is around 128 Potassium appears stable now at 3.9, renal functions are normal, liver functions are slightly improved At the current rate we are going I suspect he will be here through the weekend, possibly discharge in 3 or 4 days back to home Patient is awake and alert and oriented - Time Time Spent with patient: 25-34 minutes
[2019-11-29] MEDS ORDERED: BUTALB/ACETAMINOPHEN/CAFFEINE 1 TAB EACH PO PRN (11:37)
[2019-11-29] MEDS: TAMSULOSIN HCL 0.4 MG CAP.SR.24H PO SCH (17:07)
[2019-11-29] MEDS: LORATADINE 10 MG TABLET PO SCH (20:55)
[2019-11-30 06:12] LABS: HEMATOCRIT 25.8 % (37.9-51.0); HEMOGLOBIN 9.4 g/dL (13.5-17.0); MEAN CORPUSCULAR HEMOGLOBIN 36.4 pg (27.0-33.4); MEAN CORPUSCULAR HGB CONC 36.3 g/dL (32.0-36.0); MEAN CORPUSCULAR VOLUME 100 fl (80-97); PLATELET COUNT 275 10^3/uL (150-450); RED BLOOD COUNT 2.58 10^6/uL (4.35-5.55); RED CELL DISTRIBUTION WIDTH 15.2 % (11.5-14.0); WHITE BLOOD COUNT 9.6 10^3/uL (4.0-10.5)
[2019-11-30 06:44] LABS: ALBUMIN 2.5 g/dL (3.5-5.0); ALKALINE PHOSPHATASE 184 U/L (38-126); ASPARTATE AMINO TRANSFERASE 92 U/L (17-59); BILIRUBIN,DIRECT 0.7 mg/dL (0.0-0.4); BILIRUBIN,TOTAL 1.5 mg/dL (0.2-1.3); TOTAL PROTEIN 4.2 g/dL (6.3-8.2)
[2019-11-30] MEDS: POTASSI CL 20 MEQ/NS 1L 1,000 ML IV PRN (07:42)
[2019-11-30 08:50] LABS: BLOOD UREA NITROGEN 7 mg/dL (7-20); CALCIUM 7.5 mg/dL (8.4-10.2); CHLORIDE 84 mmol/L (98-107); GLUCOSE 85 mg/dL (75-110); POTASSIUM 4.6 mmol/L (3.6-5.0)
[2019-11-30 08:55] LABS: CARBON DIOXIDE 33 mmol/L (22-30)
[2019-11-30 08:58] LABS: ANION GAP 3 (5-19)
[2019-11-30] MEDS: LORATADINE 10 MG TABLET PO SCH (09:23)
[2019-11-30] MEDS: SODIUM BICARBONATE 650 MG TABLET PO SCH (09:23)
[2019-11-30] MEDS: METOPROLOL SUCCINATE 50 MG TAB.SR.24H PO SCH (09:23)
[2019-11-30] MEDS: DOCUSATE SODIUM 100 MG CAPSULE PO SCH (09:23)
[2019-11-30] MEDS: APIXABAN 5 MG TABLET PO SCH (09:23)
[2019-11-30] MEDS: POTASSIUM CHLORIDE 10 MEQ TABLET.ER PO SCH (09:23)
[2019-11-30] MEDS: FAMOTIDINE 20 MG TABLET PO SCH (09:23)
[2019-11-30] MEDS: DOFETILIDE 500 MCG CAPSULE PO SCH (09:24)
[2019-11-30 11:48] VITALS: BP 123/69
--- NOTE | 2019-11-30 15:08 | PDOC DISCHARGE SUMMARY ---
Impression - Admit/DC Date/PCP Admission Date/Primary Care Provider: 11/27/19 22:[facility] Discharge Date: 11/30/19 - Discharge Diagnosis (1) Acute urinary retention Is this a current diagnosis for this admission?: Yes (2) COPD (chronic obstructive pulmonary disease) Is this a current diagnosis for this admission?: Yes (3) Hypokalemia Is this a current diagnosis for this admission?: Yes (4) Alcohol abuse Is this a current diagnosis for this admission?: Yes (5) Hyponatremia Is this a current diagnosis for this admission?: Yes (6) Tobacco dependence Is this a current diagnosis for this admission?: Yes - Assessment Summary: Patient will be admitted to a telemetry unit where he will receive routine supportive and symptomatic cares. His serum sodium will be replaced with IV saline and oral sodium bicarbonate preparations. His potassium will be replaced with addition to his IV saline. CBCs, metabolic profiles, magnesium levels and liver function studies will be obtained on an as-needed basis. A Roger catheter will be continued and a urology consultation will be obtained when available. Elevation of the bilateral lower extremities will be used to help reduce his dependent edema. An echocardiogram will be obtained. He will use morphine sulfate 2 to 4 mg IV every 2 hours as needed for pain control and Ativan 1 mg IV every 4 hours as needed for anxiety or restlessness. His usual home medications will be resumed, as appropriate, when his medication list has been verified and reconciled. He will be treated with a cardiac diet. He will be continued on his home O2 with adjustments made per the oxygen protocol. 11/28/2019 Vital signs are stable temperature 97.4 pulse 96 blood pressure 122/60 Oxygen saturation between 96 and 100% on 2.5 L Sodium on admission 107.8 today 111.2 Potassium still low on admission 2.7 now 2.6. Replacement has been ordered. Repeat chemistry panel has been ordered for this afternoon. Chest x-ray was negative CT scan of the abdomen and pelvis showed a possible left lower lobe nodule which will need to be followed up Patient is on a multitude of home medicines including complicated medicine such as Tikosyn and Eliquis Lasix and Toprol. Most of patient's home medicines have been reconciled. Patient tells me that he drank beer as recently as 2 days ago, and that he has had trouble with a low sodium in the past. 11/29/2019 CBC is normal Sodium continues to slowly increase today it is 117.9. On admission it was 107.8. Looks as though his baseline is around 128 Potassium appears stable now at 3.9, renal functions are normal, liver functions are slightly improved At the current rate we are going I suspect he will be here through the weekend, possibly discharge in 3 or 4 days back to home Patient is awake and alert and oriented 11/30/2019 Patient is medically stable and asking to be discharged Patient's sodium is coming up quite well. It is 120. She is going to drink Gatorade and use salt liberally, continue the upward trend Patient's potassium is 4.6 patient is going to refrain from drinking alcohol Patient was admitted for hyponatremia acute on chronic Patient was told he had an abnormal CT chest scan that needs to be followed approximately 3 months Final diagnosis hyponatremia, hypokalemia, acute urinary retention, alcohol abuse - Additional Information Resuscitation Status: Full Code Discharge Diet: As Tolerated, Other (Comments) Discharge Activity: Balance Activity w/Rest Referrals: [facility] [[facility]] - Follow up as needed (THE AUTOMATED SCHEDULING SYSTEM IS UNAVAILABLE DUE TO A SYSTEM UPGRADE. PATIENT TO SCHEDULE OWN APPT.) Home Medications: Albuterol Sulfate [Ventolin 0.083% Neb 2.5 mg/3 mL Ampul] 1 vial NEB QIDP PRN 10/18/18 Loratadine [Claritin] 10 mg PO DAILY 10/18/18 Tamsulosin HCl [Flomax 0.4 mg Cap.sr] 0.4 mg PO QAM 10/18/18 Tiotropium [place] [Spiriva Handihaler 5 Cap/Kit (18 Mcg/Cap)] 1 cap IH DAILY 10/18/18 Apixaban [Eliquis 5 mg Tablet] 5 mg PO Q12 04/12/19 Albuterol Sulfate [Proair HFA Inhalation Aerosol 8.5 gm MDI] 2 puff IH QIDP PRN 04/23/19 Cholecalciferol (Vitamin D3) [Vitamin D3 1000 Unit Tablet] 1,000 unit PO QAM 04/23/19 Dofetilide [Tikosyn 500 Mcg Capsule] 250 mcg PO Q12 04/23/19 Furosemide [Lasix 20 mg Tablet] 50 mg PO DAILY 04/23/19 Guaifenesin 400 mg PO TID 04/23/19 Metoprolol Succinate [Toprol Xl 25 mg Tab.sr] 25 mg PO DAILY 04/23/19 Mometasone Furoate [Asmanex] 2 puff IH DAILY 04/23/19 Rabeprazole Sodium [Aciphex] 20 mg PO QAM 04/23/19 Multivitamin with Minerals [One Daily Plus Minerals] 1 tab PO DAILY 11/28/19 Potassium Chloride 7.5 ml PO DAILY 11/28/19 Promethazine HCl [Phenergan 25 mg Tablet] 25 mg PO Q6 11/28/19 Tadalafil 20 mg PO ASDIR PRN 11/28/19 Acetaminophen [Tylenol 325 mg Tablet] 650 mg PO Q4HP PRN tablet 11/30/19 Apixaban [Eliquis 5 mg Tablet] 5 mg PO BID tablet 11/30/19 Docusate Sodium [Colace 100 mg Capsule] 100 mg PO BID capsule 11/30/19 Dofetilide [Tikosyn 500 Mcg Capsule] 500 mcg PO Q12 capsule 11/30/19 Famotidine [Pepcid 20 mg Tablet] 20 mg PO Q12 tablet 11/30/19 Guaifenesin [Robitussin Syrup 200 mg/10 ml Ud Cup] 200 mg PO Q4HP PRN udc 11/30/19 Loratadine [Claritin 10 mg Tablet] 10 mg PO DAILY tablet 11/30/19 Mag Hydrox/Al Hydrox/Simeth [Maalox Plus Susp 30 Udcup] 30 ml PO Q6HP PRN udc 11/30/19 Magnesium Hydroxide [Milk of Magnesia 30 ml Udcup] 30 ml PO HSP PRN udc 11/30/19 Metoprolol Succinate [Toprol Xl 50 mg Tab.sr] 50 mg PO DAILY tab.sr.24h 11/30/19 Tamsulosin HCl [Flomax 0.4 mg Cap.sr] 0.4 mg PO PCSUPPER cap.sr.24h 11/30/19 History of Present Illiness History of Present Illness: JOSE LUIS JIM is a 69 year old male Physical Exam Vital Signs: Temp Pulse Resp BP Pulse Ox 98.0 F 90 19 123/69 96 11/30/19 11:45 11/30/19 11:45 11/30/19 11:45 11/30/19 11:45 11/30/19 11:45 Intake & Output 11/29/19 11/30/19 12/01/19 06:59 06:59 06:59 Intake Total 4627 3660 Output Total 2600 1600 Balance 2016 2059 Weight 87 kg 90 kg Results Laboratory Results: WBC 9.6 10^3/uL (4.0-10.5) 11/30/19 05:54 RBC 2.58 10^6/uL (4.35-5.55) L 11/30/19 05:54 Hgb 9.4 g/dL (13.5-17.0) L 11/30/19 05:54 Hct 25.8 % (37.9-51.0) L 11/30/19 05:54 MCV 100 fl (80-97) H 11/30/19 05:54 MCH 36.4 pg (27.0-33.4) H 11/30/19 05:54 MCHC 36.3 g/dL (32.0-36.0) H 11/30/19 05:54 RDW 15.2 % (11.5-14.0) H 11/30/19 05:54 Plt Count 275 10^3/uL (150-450) 11/30/19 05:54 Lymph % (Auto) Not Reportable 11/27/19 19:09 [place] % (Auto) Not Reportable 11/27/19 19:09 Eos % (Auto) Not Reportable 11/27/19 19:09 Baso % (Auto) Not Reportable 11/27/19 19:09 Absolute Neuts (auto) Not Reportable 11/27/19 19:09 Absolute Lymphs (auto) Not Reportable 11/27/19 19:09 Absolute Monos (auto) Not Reportable 11/27/19 19:09 Absolute Eos (auto) Not Reportable 11/27/19 19:09 Absolute Basos (auto) Not Reportable 11/27/19 19:09 Total Counted 100 11/27/19 19:09 Seg Neutrophils % Not Reportable 11/27/19 19:09 Seg Neuts % (Manual) 91 % (42-78) H 11/27/19 19:09 Lymphocytes % (Manual) 1 % (13-45) L 11/27/19 19:09 Monocytes % (Manual) 7 % (3-13) 11/27/19 19:09 Eosinophils % (Manual) 1 % (0-6) 11/27/19 19:09 Basophils % (Manual) 0 % (0-2) 11/27/19 19:09 Abs Neuts (Manual) 9.4 10^3/uL (1.7-8.2) H 11/27/19 19:09 Abs Lymphs (Manual) 0.1 10^3/uL (0.5-4.7) L 11/27/19 19:09 Abs Monocytes (Manual) 0.7 10^3/uL (0.1-1.4) 11/27/19 19:09 Absolute Eos (Manual) 0.1 10^3/uL (0.0-0.6) 11/27/19 19:09 Abs Basophils (Manual) 0.0 10^3/uL (0.0-0.2) 11/27/19 19:09 Toxic Granulation SLIGHT 11/27/19 19:09 Platelet Comment ADEQUATE 11/27/19 19:09 Anisocytosis SLIGHT 11/27/19 19:09 Stomatocytes SLIGHT 11/27/19 19:09 Sodium 120.2 mmol/L (137-145) L* 11/30/19 05:44 Potassium 4.6 mmol/L (3.6-5.0) 11/30/19 05:44 Chloride 84 mmol/L (98-107) L 11/30/19 05:44 Carbon Dioxide 33 mmol/L (22-30) H 11/30/19 05:44 Anion Gap 3 (5-19) L 11/30/19 05:44 BUN 7 mg/dL (7-20) 11/30/19 05:44 Creatinine 0.76 mg/dL (0.52-1.25) 11/30/19 05:44 Est GFR ( Amer) > 60 (>60) 11/30/19 05:44 Est GFR (MDRD) Non-Af > 60 (>60) 11/30/19 05:44 Glucose 85 mg/dL (75-110) 11/30/19 05:44 Calcium 7.5 mg/dL (8.4-10.2) L 11/30/19 05:44 Magnesium 1.8 mg/dL (1.6-2.3) 11/30/19 05:44 Total Bilirubin 1.5 mg/dL (0.2-1.3) H 11/30/19 05:44 Direct Bilirubin 0.7 mg/dL (0.0-0.4) H 11/30/19 05:44 Neonat Total Bilirubin Not Reportable 11/30/19 05:44 Neonat Direct Bilirubin Not Reportable 11/30/19 05:44 Neonat Indirect Bili Not Reportable 11/30/19 05:44 AST 92 U/L (17-59) H 11/30/19 05:44 ALT 62 U/L (<50) H 11/30/19 05:44 Alkaline Phosphatase 184 U/L (38-126) H 11/30/19 05:44 Troponin I < 0.012 ng/mL 11/27/19 19:09 NT-Pro-B Natriuret Pep 1450 pg/mL (<125) H 11/27/19 19:09 Total Protein 4.2 g/dL (6.3-8.2) L 11/30/19 05:44 Albumin 2.5 g/dL (3.5-5.0) L 11/30/19 05:44 Triglycerides 132 mg/dL (<150) 11/28/19 05:33 Cholesterol 105.42 mg/dL (0-200) 11/28/19 05:33 LDL Cholesterol Direct 57 mg/dL (<100) 11/28/19 05:33 VLDL Cholesterol 26.4 mg/dL (10-31) 11/28/19 05:33 HDL Cholesterol 50 mg/dL (>40) 11/28/19 05:33 TSH 3.17 uIU/mL (0.47-4.68) 11/28/19 05:33 Free T3 pg/mL 2.57 pg/mL (2.77-5.27) L 11/28/19 05:33 Urine Color YELLOW 11/27/19 19:09 Urine Appearance CLEAR 11/27/19 19:09 Urine pH 6.0 (5.0-9.0) 11/27/19 19:09 Ur Specific [place] 1.004 11/27/19 19:09 Urine Protein NEGATIVE mg/dL (NEGATIVE) 11/27/19 19:09 Urine Glucose (UA) NEGATIVE mg/dL (NEGATIVE) 11/27/19 19:09 Urine Ketones NEGATIVE mg/dL (NEGATIVE) 11/27/19 19:09 Urine Blood MODERATE (NEGATIVE) H 11/27/19 19:09 Urine Nitrite (Reflex) NEGATIVE (NEGATIVE) 11/27/19 19:09 Urine Bilirubin NEGATIVE (NEGATIVE) 11/27/19 19:09 Urine Urobilinogen NEGATIVE mg/dL (<2.0) 11/27/19 19:09 Leukocyte Esterase Rfl NEGATIVE (NEGATIVE) 11/27/19 19:09 Urine RBC (Auto) 7 /HPF 11/27/19 19:09 Urine WBC (Reflex) 1 /HPF 11/27/19 19:09 Squamous Epi Cells Auto <1 /HPF 11/27/19 19:09 Urine Mucus (Auto) RARE /LPF 11/27/19 19:09 Urine Ascorbic Acid NEGATIVE (NEGATIVE) 11/27/19 19:09 11/27/19 19:09 Troponin I < 0.012 NT-Pro-B Natriuret Pep 1450 H Impressions: Chest X-Ray 11/27/19 18:46 IMPRESSION: No acute finding Abdomen/Pelvis CT 11/27/19 20:29 IMPRESSION: 1. Fatty infiltration of the liver. 2. Nodular infiltrate in the left lower lobe which may represent scar or pneumonia. 3. Nonspecific edema seen adjacent to both kidneys. Possible nonobstructing stone in the right mid kidney. Stroke Is this a Stroke Patient?: No Acute Heart Failure - Is this a Heart Failure Patient?: No
== END 2019-11-30 14:07 | disposition home or self-care (01) | DRG 641 ==
LOC: ER 17:57 → EH 22:18 → 4W 11-28 00:15
PROVIDERS: ADMIT Emergency Medicine; ATTEND Physician Assistant
DX: E87.1 Hypo-osmolality and hyponatremia (principal); J96.11 Chronic respiratory failure with hypoxia; Z99.81 Dependence on supplemental oxygen; K76.0 Fatty (change of) liver, not elsewhere classified; I50.9 Heart failure, unspecified; I11.0 Hypertensive heart disease with heart failure; J44.9 Chronic obstructive pulmonary disease, unspecified; E87.6 Hypokalemia; F10.10 Alcohol abuse, uncomplicated; R60.9 Edema, unspecified; R91.1 Solitary pulmonary nodule; K21.9 Gastro-esophageal reflux disease without esophagitis; M19.90 Unspecified osteoarthritis, unspecified site; F32.9 Major depressive disorder, single episode, unspecified; N40.1 Benign prostatic hyperplasia with lower urinary tract symptoms; R33.8 Other retention of urine; I48.0 Paroxysmal atrial fibrillation; F17.290 Nicotine dependence, other tobacco product, uncomplicated; Z79.01 Long term (current) use of anticoagulants; Z79.899 Other long term (current) drug therapy; Z82.49 Family history of ischemic heart disease and other diseases of the circulatory system; Z88.8 Allergy status to other drugs, medicaments and biological substances
CPT/HCPCS: 36415; 71045; 74177; 80048; 80053; 80061; 80076; 81001; 83735; 83880; 84443; 84481; 84484; 85025; 85027; 93005; 93010; 96365; 96368; 96375; 99285; J1940; J2060; J2270; J3475; J3480; J3490; P9047

== ENCOUNTER 2019-12-02 21:22 | Inpatient (IN) | payer OTHER, MEDICARE ==
[2019-12-02] MEDS ORDERED: METHYLPREDNISOLONE INJ 125 MG/2 ML SDV IV ONE (21:57)
[2019-12-02] MEDS ORDERED: IPRATROPIUM/ALBUTEROL 0.5-2.5 MG/3 ML AMPUL NEB ONE ×2 (21:57→23:37)
--- NOTE | 2019-12-02 21:59 | ER Document Report ---
ED Respiratory Problem - General Chief Complaint: Shortness Of Breath Stated Complaint: DIFFICULTY BREATHING Time Seen by Provider: 12/02/19 21:43 Notes: Patient is a 69-year-old male that comes emergency department for chief complaint of difficulty breathing. He states that he was discharged within the past week from this hospital, he states that initially he felt fine but for the past 3 days or so he has had increasing shortness of breath. He states today he can barely speak without gasping and he has noticed his legs are starting to s well. He states he feels like he has pneumonia and has started developing a cough. He denies fever. He has a past medical history of COPD on 2 L nasal cannula at all times, alcohol abuse, CHF on 20 mg Lasix, GERD. Denies medical history otherwise. TRAVEL OUTSIDE OF THE [place] IN LAST 30 DAYS: No - Related Data Allergies/Adverse Reactions: budesonide [From Symbicort] Adverse Reaction (Severe, Verified 07/03/19 12:26) formoterol [From Symbicort] Adverse Reaction (Severe, Verified 07/03/19 12:26) Past Medical History - General Information source: Patient - Social History Smoking Status: Former Smoker - Currently vapes Frequency of alcohol use: Heavy Lives with: Family Family History: CAD, CVA, Hypertension, Malignancy. denies: DM Patient has homicidal ideation: No - Past Medical History Cardiac Medical History: Reports: Hx Atrial Fibrillation, Hx Congestive Heart Failure, Hx Hypertension Denies: Hx Coronary Artery Disease, Hx DVT, Hx Heart Attack, Hx Hypercholesterolemia, Hx Peripheral Vascular Disease, Hx Pulmonary Embolism, Hx Heart Murmur Pulmonary Medical History: Reports: Hx COPD, Hx Pneumonia Denies: Hx Asthma, Hx Bronchitis, Hx Respiratory Failure, Hx Sleep Apnea Neurological Medical History: Denies: Hx Cerebrovascular Accident, Hx Seizures Endocrine Medical History: Denies: Hx Diabetes Mellitus Type 1, Hx Diabetes Mellitus Type 2, Hx Hyperthyroidism, Hx Hypothyroidism Renal/ Medical History: Reports: Hx Benign Prostatic Hyperplasia. Denies: Hx End Stage Renal Disease, Hx Kidney Stones, Hx Peritoneal Dialysis Malignancy Medical History: Denies Hx Lung Cancer GI Medical History: Reports: Hx Gastroesophageal Reflux Disease. Denies: Hx Cirrhosis, Hx Crohn's Disease, Hx Hepatitis, Hx Hiatal Hernia, Hx Irritable Bowel, Hx Liver Failure, Hx Pancreatitis, Hx Ulcer, Hx Ulcerative Colitis Musculoskeletal Medical History: Reports Hx Arthritis, Denies Hx Fibromyalgia, Denies Hx Gout, Denies Hx Muscular Dystrophy Skin Medical History: Denies Hx Eczema, Denies Hx Psoriasis Psychiatric Medical History: Denies: Hx Bipolar Disorder, Hx Depression, Hx Post Traumatic Stress Disorder, Hx Schizophrenia Traumatic Medical History: Reports: Hx Fractures - right ankle Infectious Medical History: Denies: Hx Hepatitis Past Surgical History: Reports: Hx Abdominal Surgery - hernia repair, Hx Herniorrhaphy - Abdominal wall hernia, Hx Orthopedic Surgery - Righjt ankle surgery, Hx Tonsillectomy, Other - Abdominal hernia repair. Denies: Hx Appendectomy, Hx Bowel Surgery, Hx Cholecystectomy, Hx Colostomy, Hx Coronary Artery Bypass Graft, Hx Gastric Bypass Surgery, Hx Pacemaker - Immunizations Hx Diphtheria, Pertussis, Tetanus Vaccination: Yes Hx Pneumococcal Vaccination: 01/26/13 Review of Systems - Review of Systems Constitutional: No symptoms reported EENT: No symptoms reported Cardiovascular: See HPI Respiratory: See HPI Gastrointestinal: No symptoms reported Genitourinary: No symptoms reported Male Genitourinary: No symptoms reported Musculoskeletal: No symptoms reported Skin: No symptoms reported Hematologic/Lymphatic: No symptoms reported Neurological/Psychological: No symptoms reported Physical Exam - Vital signs Vitals: Temp Pulse Resp BP Pulse Ox 98.1 F 108 H 22 H 128/65 H 95 12/02/19 21:33 12/02/19 21:33 12/02/19 21:33 12/02/19 21:33 12/02/19 21:33 - Notes Notes: GENERAL: Alert, responsive, appropriate HEAD: Normocephalic, atraumatic. EYES: Pupils equal, round, and reactive to light. Extraocular movements intact. ENT: Oral mucosa moist, tongue midline. Oropharynx unremarkable. Airway patent. NECK: Full range of motion. Supple. Trachea midline. No lymphadenopathy. LUNGS: Tachypnea with slightly labored breathing. Expiratory wheezes noted throughout, bilateral lower lung field rales noted. HEART: Regular rate and rhythm. No murmur ABDOMEN: Soft, non-tender. Non-distended. EXTREMITIES: Moves all 4 extremities spontaneously. 2+ pitting edema bilaterally. Distal pulses and sensation intact. BACK: no cervical, thoracic, lumbar midline tenderness. No saddle anesthesia, normal distal neurovascular exam. Moves all extremities in full range of motion. NEUROLOGICAL: Alert and oriented x3. Normal speech. Cranial nerves II through XII grossly intact. Strength 5/5 in all extremities. PSYCH: Normal affect, normal mood. SKIN: Warm, dry, normal turgor. No rashes or lesions noted. Course - Re-evaluation Re-evalutation: On initial exam patient was noted tachypnea, has expiratory wheezes and rales in the bilateral lower lung huggins. He also has 2+ pitting edema bilaterally. Patient has trouble speaking in full sentences. On reevaluation after DuoNeb's, Solu-Medrol, patient is improved, tachypnea has resolved if patient is at complete rest, however he still has trouble completing sentences. He still has some expiratory wheezes and still has rales on auscultation. Patient has been given Lasix. Presentation is most suggestive of COPD exacerbation with CHF exacerbation component. Chest x-ray with no acute change but clinically patient still has fluid overload with rales and lower extremity edema. In addition to this BNP is almost 3000 which is more than double his previous levels. Troponin is not elevated significantly, sodium is significantly improved compared to prior, CBC is nonspecific. On reevaluation I discussed with patient. Because of his continued shortness of breath and his very limited activity because of his current state I will discuss with hospitalist for admission. Patient cannot even get off of the bed, he states normally he is able to ambulate. Discussed patient with Dr. Bobby, hospitalist, patient accepted to medical floor full admission for COPD and CHF exacerbation. - Vital Signs Vital signs: Temp Pulse Resp BP Pulse Ox 98.3 F 103 H 35 H 157/79 H 97 12/03/19 01:11 12/03/19 01:11 12/03/19 01:51 12/03/19 01:11 12/03/19 03:36 - Laboratory Result Diagrams: 12/02/19 22:20 12/02/19 22:20 Laboratory results interpreted by me: 12/02/19 12/02/19 12/02/19 22:20 22:20 22:20 RBC 2.92 L Hgb 10.6 L Hct 29.9 L MCV 102 H MCH 36.4 H RDW 15.8 H Seg Neuts % (Manual) 79 H Lymphocytes % (Manual) 0 L Monocytes % (Manual) 15 H Abs Lymphs (Manual) 0.1 L Sodium 123.6 L Chloride 83 L Carbon Dioxide 34 H Total Bilirubin 1.7 H Direct Bilirubin 0.7 H AST 75 H ALT 58 H Alkaline Phosphatase 206 H NT-Pro-B Natriuret Pep 2780 H Total Protein 5.8 L Albumin 3.1 L Urine Blood Urine Urobilinogen Ur Leukocyte Esterase 12/02/19 23:09 RBC Hgb Hct MCV MCH RDW Seg Neuts % (Manual) Lymphocytes % (Manual) Monocytes % (Manual) Abs Lymphs (Manual) Sodium Chloride Carbon Dioxide Total Bilirubin Direct Bilirubin AST ALT Alkaline Phosphatase NT-Pro-B Natriuret Pep Total Protein Albumin Urine Blood MODERATE H Urine Urobilinogen 4.0 H Ur Leukocyte Esterase SMALL H Discharge - Discharge Clinical Impression: COPD exacerbation, Swelling of lower extremity, Wheezing, Shortness of breath CHF exacerbation Qualifiers: Heart failure type: unspecified Qualified Code(s): I50.9 - Heart failure, unspecified Urinary tract infection Qualifiers: Urinary tract infection type: site unspecified Hematuria presence: without hematuria Qualified Code(s): N39.0 - Urinary tract infection, site not specified Condition: Stable Disposition: ADMITTED INPATIENT Admitting Provider: Diamante (Hospitalist) Unit Admitted: Medical Floor
[2019-12-02 22:41] LABS: VENOUS BLOOD BASE EXCESS 4.2 mmol/L; VENOUS BLOOD HCO3 29.8 mmol/L (20-32); VENOUS BLOOD PCO2 49.7 mmHg (35-63); VENOUS BLOOD PH 7.4 (7.30-7.42)
[2019-12-02 22:45] LABS: HEMATOCRIT 29.9 % (37.9-51.0); HEMOGLOBIN 10.6 g/dL (13.5-17.0); MEAN CORPUSCULAR HEMOGLOBIN 36.4 pg (27.0-33.4); MEAN CORPUSCULAR HGB CONC 35.6 g/dL (32.0-36.0); MEAN CORPUSCULAR VOLUME 102 fl (80-97); PLATELET COUNT 329 10^3/uL (150-450); RED BLOOD COUNT 2.92 10^6/uL (4.35-5.55); RED CELL DISTRIBUTION WIDTH 15.8 % (11.5-14.0); WHITE BLOOD COUNT 6.1 10^3/uL (4.0-10.5)
--- NOTE | 2019-12-02 22:45 | RADIOLOGY REPORT (SQ) ---
CHEST 1 VIEW on 12/02/2019 at 10:10 PM CLINICAL INDICATION: Shortness of breath COMPARISON: 11/27/2019 FINDINGS: Implantable cardiac recording device projects over the left chest. There is linear atelectasis or scarring in the left lower lung. There is adjacent likely chronic pleural thickening in the left lower lateral chest. The lungs are otherwise clear. Cardiac, hilar and mediastinal contours are within normal limits. Pulmonary vascularity is within normal limits. IMPRESSION: No acute disease.
[2019-12-02 22:59] LABS: ALBUMIN 3.1 g/dL (3.5-5.0); ALKALINE PHOSPHATASE 206 U/L (38-126); ANION GAP 7 (5-19); ASPARTATE AMINO TRANSFERASE 75 U/L (17-59); BILIRUBIN,DIRECT 0.7 mg/dL (0.0-0.4); BILIRUBIN,TOTAL 1.7 mg/dL (0.2-1.3); BLOOD UREA NITROGEN 7 mg/dL (7-20); CALCIUM 8.4 mg/dL (8.4-10.2); CARBON DIOXIDE 34 mmol/L (22-30); CHLORIDE 83 mmol/L (98-107); CREATINE KINASE 75 U/L (55-170); GLUCOSE 98 mg/dL (75-110); POTASSIUM 3.6 mmol/L (3.6-5.0); TOTAL PROTEIN 5.8 g/dL (6.3-8.2)
[2019-12-02 23:11] LABS: CREATINE KINASE MB 2.28 ng/mL (<4.55); NT PRO BNP 2780 pg/mL (<125)
[2019-12-02 23:14] LABS: TROPONIN I < 0.012 ng/mL
[2019-12-02 23:18] LABS: ABSOLUTE LYMPHOCYTES# (MANUAL) 0.1 10^3/uL (0.5-4.7); ABSOLUTE MONOCYTES # (MANUAL) 0.9 10^3/uL (0.1-1.4); BASOPHILS % (MANUAL) 1 % (0-2); EOSINOPHILS % (MANUAL) 4 % (0-6); LYMPHOCYTES % (MANUAL) 0 % (13-45); MONOCYTES % (MANUAL) 15 % (3-13); SEGMENTED NEUTROPHILS % (MAN) 79 % (42-78); TOTAL CELLS COUNTED 100
[2019-12-02 23:19] LABS: TOXIC GRANULATION SLIGHT; TOXIC VACUOLATION PRESENT
[2019-12-02 23:20] LABS: ANISOCYTOSIS 1+; PLATELET COMMENT ADEQUATE; POIKILOCYTOSIS 1+; STOMATOCYTES 1+
[2019-12-02 23:36] LABS: APPEARANCE,URINE SLIGHTLY-CLOUDY; BILIRUBIN,URINE NEGATIVE (NEGATIVE); COLOR,URINE AMBER; GLUCOSE, URINE NEGATIVE (NEGATIVE); KETONES,URINE NEGATIVE (NEGATIVE); LEUKOCYTE ESTERASE,URINE SMALL (NEGATIVE); NITRITE,URINE NEGATIVE (NEGATIVE); PROTEIN,URINE NEGATIVE (NEGATIVE)
[2019-12-02] MEDS ORDERED: FUROSEMIDE INJ/PF 20 MG/2 ML SDV IV ONE (23:37)
[2019-12-02] MEDS ORDERED: CEFTRIAXONE 1 GM/D5W RTU 1 GM/50 ML RTUPB IV ONE (23:43)
[2019-12-03] MEDS ORDERED: PROMETHAZINE HCL INJ 25 MG/1 ML VIAL IV PRN ×2 (00:58→14:30)
[2019-12-03] MEDS ORDERED: LEVALBUTEROL HCL NEB 0.63 MG/3 ML AMPUL NEB PRN (00:58)
[2019-12-03] MEDS ORDERED: MAGNESIUM HYDROXIDE SUSP 30 ML UDCUP PO PRN (00:58)
[2019-12-03] MEDS ORDERED: MORPHINE SULFATE 10 MG/ML INJ IV PRN ×5 (01:07→11:37)
[2019-12-03] MEDS ORDERED: GUAIFENESIN SYRP 200 MG/10 ML UDC PO PRN (01:07)
[2019-12-03] MEDS ORDERED: ACETAMINOPHEN 325 MG TABLET PO PRN (01:07)
[2019-12-03] MEDS ORDERED: MORPHINE SULFATE 10 MG/ML INJ ONE (01:35)
--- NOTE | 2019-12-03 01:37 | PDOC H&P ---
History of Present Illness Admission Date/PCP: 12/02/19 23:59 CHUNG FOX MD Patient complains of: Dyspnea History of Present Illness: JOSE LUIS ORR is a 69 year old male who presented to the emergency room with a 3-day history of dyspnea. He admits progressively worsening dyspnea becoming severe on the evening of admission. His dyspnea has been accompanied by increased swelling in his bilateral lower extremities and orthopnea. His dyspnea has been associated with a nonproductive cough. His dyspnea is worsened by any activity or exertion. His dyspnea became so severe that he was unable to speak more than 1 or 2 words without gasping for breath prior to coming to the emergency room. He denies other associated or accompanying signs and symptoms. He admits numerous prior similar episodes. He has not identified any additional aggravating or ameliorating factors for his dyspnea. The emergency room he was found to be severely dyspneic with bilateral lower extremity edema, bilateral rales on pulmonary auscultation, a markedly elevated BNP and hyponatremia. He was subsequently admitted hospital for further evaluation and treatment. Past Medical History Cardiac Medical History: Reports: Atrial Fibrillation - Paroxysmal, Congestive Heart Failure, Hypertension Denies: Coronary Artery Disease, DVT, Myocardial Infarction, Hyperlipidema, Peripheral Vascular Disease, Pulmonary Embolism, Heart Murmur Pulmonary Medical History: Reports: Chronic Obstructive Pulmonary Disease (COPD), Pneumonia, Respiratory Failure - Chronic respiratory failure with hypoxia Denies: Asthma, Bronchitis, Sleep Apnea EENT Medical History: Denies: Cataracts, Ears - Hearing aids Neurological Medical History: Denies: Hemorrhagic CVA, Ischemic CVA, Seizures Endocrine Medical History: Denies: Diabetes Mellitus Type 1, Diabetes Mellitus Type 2, Hyperthyroidism, Hypothyroidism Renal/ Medical History: Denies: Chronic Kidney Disease, Nephrolithiasis Malignancy Medical History: Reports: None GI Medical History: Reports: Gastroesophageal Reflux Disease Denies: Cirrhosis, Crohn's Disease, Hepatitis, Hiatal Hernia, Ulcerative Colitis Musculoskeltal Medical History: Reports: Arthritis Denies: Fibromyalgia, Gout Skin Medical History: Denies: Eczema, Psoriasis Psychiatric Medical History: Reports: Alcohol Dependency, Tobacco Dependency Denies: Bipolar Disorder, Depression, Post Traumatic Stress Disorder, Substance Abuse Traumatic Medical History: Reports: None Hematology: Denies: Anemia, Bleeding Tendencies Infectious Medical History: Reports: None Past Surgical History Past Surgical History: Reports: Herniorrhaphy - Abdominal wall hernia repair, Hip Replacement, Orthopedic Surgery - Left hip replacement, right ankle surgery, Tonsillectomy Social History Information Source: Patient Lives with: Spouse/Significant other Smoking Status: Former Smoker Electronic Cigarette use?: No Frequency of Alcohol Use: Heavy - 4 or more beers daily Hx Recreational Drug Use: No Drugs: None Hx Prescription Drug Abuse: No - Advance Directive Resuscitation Status: Full Code Surrogate healthcare decision maker:: Stephany Orr Family History Family History: CAD, CVA, Hypertension, Malignancy. denies: DM Parental Family History Reviewed: Yes Children Family History Reviewed: No Sibling(s) Family History Reviewed.: Yes Medication/Allergy Home Medications: Albuterol Sulfate [Ventolin 0.083% Neb 2.5 mg/3 mL Ampul] 1 vial NEB QIDP PRN 10/18/18 Loratadine [Claritin] 10 mg PO DAILY 10/18/18 Tamsulosin HCl [Flomax 0.4 mg Cap.sr] 0.4 mg PO QAM 10/18/18 Tiotropium [place] [Spiriva Handihaler 5 Cap/Kit (18 Mcg/Cap)] 1 cap IH DAILY 10/18/18 Apixaban [Eliquis 5 mg Tablet] 5 mg PO Q12 04/12/19 Albuterol Sulfate [Proair HFA Inhalation Aerosol 8.5 gm MDI] 2 puff IH QIDP PRN 04/23/19 Cholecalciferol (Vitamin D3) [Vitamin D3 1000 Unit Tablet] 1,000 unit PO QAM 04/23/19 Dofetilide [Tikosyn 500 Mcg Capsule] 250 mcg PO Q12 04/23/19 Furosemide [Lasix 20 mg Tablet] 50 mg PO DAILY 04/23/19 Guaifenesin 400 mg PO TID 04/23/19 Metoprolol Succinate [Toprol Xl 25 mg Tab.sr] 25 mg PO DAILY 04/23/19 Mometasone Furoate [Asmanex] 2 puff IH DAILY 04/23/19 Rabeprazole Sodium [Aciphex] 20 mg PO QAM 04/23/19 Multivitamin with Minerals [One Daily Plus Minerals] 1 tab PO DAILY 11/28/19 Potassium Chloride 7.5 ml PO DAILY 11/28/19 Promethazine HCl [Phenergan 25 mg Tablet] 25 mg PO Q6 11/28/19 Tadalafil 20 mg PO ASDIR PRN 11/28/19 Acetaminophen [Tylenol 325 mg Tablet] 650 mg PO Q4HP PRN tablet 11/30/19 Apixaban [Eliquis 5 mg Tablet] 5 mg PO BID tablet 11/30/19 Docusate Sodium [Colace 100 mg Capsule] 100 mg PO BID capsule 11/30/19 Dofetilide [Tikosyn 500 Mcg Capsule] 500 mcg PO Q12 capsule 11/30/19 Famotidine [Pepcid 20 mg Tablet] 20 mg PO Q12 tablet 11/30/19 Guaifenesin [Robitussin Syrup 200 mg/10 ml Ud Cup] 200 mg PO Q4HP PRN udc 11/30/19 Loratadine [Claritin 10 mg Tablet] 10 mg PO DAILY tablet 11/30/19 Mag Hydrox/Al Hydrox/Simeth [Maalox Plus Susp 30 Udcup] 30 ml PO Q6HP PRN udc 11/30/19 Magnesium Hydroxide [Milk of Magnesia 30 ml Udcup] 30 ml PO HSP PRN udc 11/30/19 Metoprolol Succinate [Toprol Xl 50 mg Tab.sr] 50 mg PO DAILY tab.sr.24h 11/30/19 Tamsulosin HCl [Flomax 0.4 mg Cap.sr] 0.4 mg PO PCSUPPER cap.sr.24h 11/30/19 Allergies/Adverse Reactions: budesonide [From Symbicort] Adverse Reaction (Severe, Verified 07/03/19 12:26) formoterol [From Symbicort] Adverse Reaction (Severe, Verified 07/03/19 12:26) Review of Systems Constitutional: ABSENT: chills, fever(s) Eyes: ABSENT: visual disturbances, other - Eye pain Ears: ABSENT: hearing changes, other - Ear pain Nose, Mouth, and Throat: ABSENT: headache(s), sore throat Cardiovascular: PRESENT: as per HPI, dyspnea on exertion, edema, orthropnea. ABSENT: chest pain, palpitations Respiratory: PRESENT: as per HPI, cough, dyspnea. ABSENT: hemoptysis, sputum Gastrointestinal: ABSENT: abdominal pain, constipation, diarrhea, nausea, vomiting Genitourinary: PRESENT: difficulty urinating - Unable to void in the emergency room required in and out catheterization. ABSENT: dysuria, hematuria Musculoskeletal: PRESENT: other - Chronic polyarthritis. ABSENT: joint swelling Integumentary: ABSENT: pruritus, rash Neurological: ABSENT: confusion, convulsions, focal weakness, memory loss, syncope Psychiatric: ABSENT: anxiety, depression Endocrine: ABSENT: cold intolerance, heat intolerance, polydipsia, polyphagia, polyuria Hematologic/Lymphatic: ABSENT: easy bleeding, easy bruising Allergic/Immunologic: ABSENT: seasonal rhinorrhea Physical Exam Vital Signs: Temp Pulse Resp BP Pulse Ox 98.1 F 108 H 25 H 155/75 H 97 12/02/19 21:33 12/02/19 21:33 12/03/19 00:01 12/03/19 00:01 12/03/19 00:01 Intake & Output 12/01/19 12/02/19 12/03/19 23:59 23:59 23:59 Weight 86.3 kg General appearance: PRESENT: cooperative, other - Moderate respiratory distress: Can only speak in 2-3 word phrases/sentences Head exam: PRESENT: atraumatic, normocephalic Eye exam: PRESENT: conjunctiva pink. ABSENT: conjunctival injection, scleral icterus Ear exam: PRESENT: normal external ear exam. ABSENT: bleeding, drainage Mouth exam: PRESENT: dry mucosa, neck supple Neck exam: PRESENT: JVD - Bilateral at 45 degrees. ABSENT: thyromegaly, tracheal deviation Respiratory exam: PRESENT: decreased breath sounds - Mildly decreased breath sounds throughout all huggins, prolonged expiratory phas - Mildly prolonged expiratory phase throughout all huggins, rales - Fine rales present in both bases, symmetrical, tachypnea, wheezes - Mild expiratory wheezes present thr oughout all huggins Cardiovascular exam: PRESENT: gallop - Faint S4 gallop, RRR. ABSENT: clicks, rubs Pulses: PRESENT: normal carotid pulses, normal radial pulses Vascular exam: PRESENT: normal capillary refill. ABSENT: pallor GI/Abdominal exam: PRESENT: distended - Moderate gaseous distention, normal bowel sounds, soft Rectal exam: PRESENT: deferred Extremities exam: PRESENT: pedal edema - Bilateral, +2 edema - 2+ pretibial pitting edema bilaterally. ABSENT: joint swelling Musculoskeletal exam: ABSENT: deformity, dislocation Neurological exam: PRESENT: alert, oriented to person, oriented to place, oriented to time, oriented to situation, CN II-XII grossly intact. ABSENT: motor sensory deficit Psychiatric exam: PRESENT: anxious, normal mood Skin exam: PRESENT: dry, intact, warm. ABSENT: jaundice, rash, urticaria Results Laboratory Results: 12/02/19 22:20 12/02/19 22:20 12/02/19 12/02/19 12/02/19 22:20 22:20 22:20 WBC 6.1 RBC 2.92 L Hgb 10.6 L Hct 29.9 L MCV 102 H MCH 36.4 H MCHC 35.6 RDW 15.8 H Plt Count 329 Seg Neutrophils % Not Reportable VBG pH 7.40 VBG pCO2 49.7 VBG HCO3 29.8 VBG Base Excess 4.2 Sodium 123.6 L Potassium 3.6 Chloride 83 L Carbon Dioxide 34 H Anion Gap 7 BUN 7 Creatinine 0.82 Est GFR ( Amer) > 60 Glucose 98 Calcium 8.4 Total Bilirubin 1.7 H AST 75 H Alkaline Phosphatase 206 H Total Protein 5.8 L Albumin 3.1 L Urine Color Urine Appearance Urine pH Ur Specific Dawson Urine Protein Urine Glucose (UA) Urine Ketones Urine Blood Urine Nitrite Ur Leukocyte Esterase Urine WBC (Auto) Urine RBC (Auto) 12/02/19 23:09 WBC RBC Hgb Hct MCV MCH MCHC RDW Plt Count Seg Neutrophils % VBG pH VBG pCO2 VBG HCO3 VBG Base Excess Sodium Potassium Chloride Carbon Dioxide Anion Gap BUN Creatinine Est GFR ( Amer) Glucose Calcium Total Bilirubin AST Alkaline Phosphatase Total Protein Albumin Urine Color VAHE Urine Appearance SLIGHTLY-CLOUDY Urine pH 6.0 Ur Specific Dawson 1.010 Urine Protein NEGATIVE Urine Glucose (UA) NEGATIVE Urine Ketones NEGATIVE Urine Blood MODERATE H Urine Nitrite NEGATIVE Ur Leukocyte Esterase SMALL H Urine WBC (Auto) 51 Urine RBC (Auto) 3 12/02/19 12/02/19 22:20 22:20 Creatine Kinase 75 CK-MB (CK-2) 2.28 Troponin I < 0.012 NT-Pro-B Natriuret Pep 2780 H Impressions: Chest X-Ray 12/02/19 21:41 IMPRESSION: No acute disease. Assessment and Plan - Diagnosis (1) Acute on chronic congestive heart failure Qualifiers: Heart failure type: unspecified Qualified Code(s): I50.9 - Heart failure, unspecified Is this a current diagnosis for this admission?: Yes (2) Acute and chronic respiratory failure with hypoxia Is this a current diagnosis for this admission?: Yes (3) Hyponatremia Is this a current diagnosis for this admission?: Yes (4) Urinary tract infection Qualifiers: Urinary tract infection type: site unspecified Hematuria presence: without hematuria Qualified Code(s): N39.0 - Urinary tract infection, site not specified Is this a current diagnosis for this admission?: Yes (5) Acute urinary retention Is this a current diagnosis for this admission?: Yes (6) COPD (chronic obstructive pulmonary disease) Qualifiers: COPD type: unspecified COPD Qualified Code(s): J44.9 - Chronic obstructive pulmonary disease, unspecified Is this a current diagnosis for this admission?: Yes (7) Chronic respiratory failure with hypoxia, on home O2 therapy Is this a current diagnosis for this admission?: Yes (8) GERD (gastroesophageal reflux disease) Qualifiers: Esophagitis presence: without esophagitis Qualified Code(s): K21.9 - Gastro-esophageal reflux disease without esophagitis Is this a current diagnosis for this admission?: Yes (9) Alcohol abuse Is this a current diagnosis for this admission?: Yes - Plan Summary Summary: Patient will be admitted to the medical floor where he will receive routine supportive and symptomatic cares. He will be treated with supplemental oxygen utilizing BiPAP initially. He will receive IV Bumex 1 mg every 6 hours initially. He will receive morphine sulfate 2 mg IV every hour as needed severe dyspnea. Serial cardiac enzymes will be obtained. He received Ativan 1 mg IV every 4 hours as needed for anxiety or restlessness. He will receive a pu lmonary toilet utilizing nebulized Xopenex and Atrovent for treatment of his chronic COPD. He was started on Rocephin by the emergency room physician which will be continued pending urine and blood culture results. He will be continued on his usual home medications, as appropriate, when his medication list has been verified and reconciled. CBCs, metabolic profiles, magnesium levels, BNP's and additional radiographic investigation will be obtained as appropriate. A cardiology consult with Dr. Roman will be obtained. - Time Time Spent with patient: Less than 15 minutes Medications reviewed and adjusted accordingly: Yes Anticipated discharge: Home with Homehealth - Inpatient Certification Based on my medical assessment, after consideration of the patient's comorbidities, presenting symptoms, or acuity I expect that the services needed warrant INPATIENT care.: Yes I certify that my determination is in accordance with my understanding of Medicare's requirements for reasonable and necessary INPATIENT services [42 CFR 412.3e].: Yes Medical Necessity: Significant Comorbidiites Make Outpatient Treatment Too R isky, Need Close Monitoring Due to Risk of Patient Decompensation, Risk of Complication if Not Cared For in Hospital
[2019-12-03] MEDS: NITROGLYCERIN 2% OINTMENT 1 GM PACKET TP SCH ×5 (01:52→23:29)
[2019-12-03] MEDS: BUMETANIDE INJ/PF 1 MG/4 ML SDV IV SCH ×5 (01:53→23:29)
[2019-12-03 02:09] LABS: CREATINE KINASE MB 1.78 ng/mL (<4.55)
[2019-12-03 02:21] LABS: TROPONIN I < 0.012 ng/mL
[2019-12-03] MEDS ORDERED: BUMETANIDE INJ/PF 1 MG/4 ML SDV IV SCH (06:00)
[2019-12-03] MEDS ORDERED: NITROGLYCERIN 2% OINTMENT 1 GM PACKET TP SCH (06:00)
[2019-12-03] MEDS ORDERED: HEPARIN SOD (PORCINE) 5,000 UNIT/ML 1 ML VIAL SUBCUT SCH (06:00)
--- NOTE | 2019-12-03 07:14 | EKG REPORT ---
SEVERITY:- ABNORMAL ECG - SINUS TACHYCARDIA EARLY PRECCORDIAL TRANSITION, NEED TO R/O [facility] [place] : Confirmed by: Dani Gomes MD 03-Dec-2019 07:14:17
[2019-12-03] MEDS: SUCRALFATE 1 GM TABLET PO SCH ×4 (08:11→21:10)
[2019-12-03] MEDS: METOCLOPRAMIDE HCL 10 MG TABLET PO SCH ×4 (08:12→21:11)
[2019-12-03] MEDS: IPRATROPIUM BROMIDE 0.02% NEB 0.5 MG/2.5 ML AMPUL NEB SCH ×2 (08:18→15:51)
[2019-12-03] MEDS: LEVALBUTEROL HCL NEB 1.25 MG/3 ML AMPUL NEB SCH ×2 (08:18→15:51)
[2019-12-03 08:43] LABS: CREATINE KINASE MB 1.29 ng/mL (<4.55)
[2019-12-03 08:50] LABS: TROPONIN I < 0.012 ng/mL
--- NOTE | 2019-12-03 10:29 | PDOC CONSULTATION ---
Consultation Consult Date: 12/03/19 Provider Consulted: INES STANFORD Consult reason:: Edema History of Present Illness Admission Date/PCP: 12/02/19 23:59 CHUNG FOX MD Patient complains of: Abdominal swelling and distention History of Present Illness: JOSE LUIS JIM is a 69 year old male Who is a poor historian. He presents with worsening edema. He claims he drinks only up to 3 beers per day. Does not report any chest pain. He does report some orthopnea which may be related to his ascites. Previous echocardiogram had demonstrated preserved ejection fraction. Study quality was poor. No significant valve disease was mentioned. Other aspects of history are difficult to obtain. Specifically family history was difficult to obtain. I did confirm that the patient drinks but he claims he only drinks up to 3 beers a day before going to bed. Past Medical History Cardiac Medical History: Reports: Atrial Fibrillation, Congestive Heart Failure, Hypertension Denies: Coronary Artery Disease, DVT, Myocardial Infarction, Hyperlipidema, Peripheral Vascular Disease, Pulmonary Embolism, Heart Murmur Pulmonary Medical History: Reports: Chronic Obstructive Pulmonary Disease (COPD), Pneumonia Denies: Asthma, Bronchitis, Respiratory Failure, Sleep Apnea EENT Medical History: Denies: Cataracts, Ears - Hearing aids Neurological Medical History: Denies: Hemorrhagic CVA, Ischemic CVA, Seizures Endocrine Medical History: Denies: Diabetes Mellitus Type 1, Diabetes Mellitus Type 2, Hyperthyroidism, Hypothyroidism Renal/ Medical History: Denies: Chronic Kidney Disease, End Stage Renal Disease, Nephrolithiasis Malignancy Medical History: Reports: None Denies: Lung Cancer GI Medical History: Reports: Gastroesophageal Reflux Disease Denies: Cirrhosis, Crohn's Disease, Hepatitis, Hiatal Hernia, Ulcerative Colitis Musculoskeltal Medical History: Reports: Arthritis Denies: Fibromyalgia, Gout Skin Medical History: Denies: Eczema, Psoriasis Psychiatric Medical History: Reports: Alcohol Dependency, Tobacco Dependency Denies: Bipolar Disorder, Depression, Post Traumatic Stress Disorder, Substance Abuse Traumatic Medical History: Reports: None Hematology: Denies: Anemia, Sickle Cell Disease, Bleeding Tendencies Infectious Medical History: Reports: None Past Surgical History Past Surgical History: Reports: Herniorrhaphy - Abdominal wall hernia, Hip Replacement, Orthopedic Surgery - Righjt ankle surgery, Tonsillectomy, Other - Abdominal hernia repair Denies: Appendectomy, Cholecystectomy, Colostomy, Coronary Artery Bypass Graft, Gastric Bypass Surgery, Pacemaker Social History Lives with: Family Smoking Status: Former Smoker - Currently vapes Electronic Cigarette use?: No Frequency of Alcohol Use: Heavy - 4 or more beers daily Hx Recreational Drug Use: No Drugs: None Hx Prescription Drug Abuse: No - Advance Directive Resuscitation Status: Full Code Family History Family History: CAD, CVA, Hypertension, Malignancy. denies: DM Parental Family History Reviewed: No - Unable to obtain Children Family History Reviewed: NA Sibling(s) Family History Reviewed.: NA Medication/Allergy Home Medications: Albuterol Sulfate [Ventolin 0.083% Neb 2.5 mg/3 mL Ampul] 1 vial NEB RTQIDP PRN 10/18/18 Loratadine [Claritin] 10 mg PO DAILY 10/18/18 Tamsulosin HCl [Flomax 0.4 mg Cap.sr] 0.4 mg PO QAM 10/18/18 Tiotropium [place] [Spiriva Handihaler 5 Cap/Kit (18 Mcg/Cap)] 1 cap IH DAILY 10/18/18 Apixaban [Eliquis 5 mg Tablet] 5 mg PO Q12 04/12/19 Albuterol Sulfate [Proair HFA Inhalation Aerosol 8.5 gm MDI] 2 puff IH QIDP PRN 04/23/19 Cholecalciferol (Vitamin D3) [Vitamin D3 1000 Unit Tablet] 1,000 unit PO QAM 04/23/19 Dofetilide [Tikosyn 500 Mcg Capsule] 250 mcg PO Q12 04/23/19 Furosemide [Lasix 20 mg Tablet] 50 mg PO DAILY 04/23/19 Guaifenesin 400 mg PO TID 04/23/19 Metoprolol Succinate [Toprol Xl 25 mg Tab.sr] 25 mg PO DAILY 04/23/19 Mometasone Furoate [Asmanex] 2 puff IH DAILY 04/23/19 Rabeprazole Sodium [Aciphex] 20 mg PO QAM 04/23/19 Multivitamin with Minerals [One Daily Plus Minerals] 1 tab PO DAILY 11/28/19 Potassium Chloride 7.5 ml PO DAILY 11/28/19 Promethazine HCl [Phenergan 25 mg Tablet] 25 mg PO Q6 11/28/19 Tadalafil 20 mg PO ASDIR PRN 11/28/19 Allergies/Adverse Reactions: budesonide [From Symbicort] Adverse Reaction (Severe, Verified 07/03/19 12:26) formoterol [From Symbicort] Adverse Reaction (Severe, Verified 07/03/19 12:26) Review of Systems ROS unobtainable: Other - Difficult to obtain. Patient unable to stay focused. Cardiovascular: PRESENT: chest pain, edema, orthropnea. ABSENT: as per HPI, dyspnea on exertion, palpitations, other Gastrointestinal: PRESENT: abdominal pain, bloating Neurological: PRESENT: as per HPI Physical Exam Vital Signs: Temp Pulse Resp BP Pulse Ox 98.1 F 111 H 28 H 116/77 90 L 12/03/19 08:00 12/03/19 08:21 12/03/19 08:21 12/03/19 08:00 12/03/19 08:21 Intake & Output 12/02/19 12/03/19 12/04/19 06:59 06:59 06:59 Intake Total 725 Output Total 1200 Balance -475 Weight 88.9 kg General appearance: PRESENT: no acute distress, obese, well-developed, well- nourished, other - Anasarca Eye exam: PRESENT: conjunctiva pale Mouth exam: PRESENT: moist Respiratory exam: PRESENT: symmetrical, unlabored Cardiovascular exam: PRESENT: RRR, +S1, +S2 GI/Abdominal exam: PRESENT: diminished bowel sounds, distended, other - Tensor tense ascites. Spider nevi. Dilated veins Rectal exam: PRESENT: deferred Neurological exam: PRESENT: alert, awake Skin exam: PRESENT: dry, intact Results Laboratory Results: 12/02/19 22:20 12/02/19 22:20 12/02/19 12/02/19 12/02/19 22:20 22:20 22:20 WBC 6.1 RBC 2.92 L Hgb 10.6 L Hct 29.9 L MCV 102 H MCH 36.4 H MCHC 35.6 RDW 15.8 H Plt Count 329 Seg Neutrophils % Not Reportable VBG pH 7.40 VBG pCO2 49.7 VBG HCO3 29.8 VBG Base Excess 4.2 Sodium 123.6 L Potassium 3.6 Chloride 83 L Carbon Dioxide 34 H Anion Gap 7 BUN 7 Creatinine 0.82 Est GFR ( Amer) > 60 Glucose 98 Calcium 8.4 Total Bilirubin 1.7 H AST 75 H Alkaline Phosphatase 206 H Total Protein 5.8 L Albumin 3.1 L Urine Color Urine Appearance Urine pH Ur Specific [place] Urine Protein Urine Glucose (UA) Urine Ketones Urine Blood Urine Nitrite Ur Leukocyte Esterase Urine WBC (Auto) Urine RBC (Auto) 12/02/19 23:09 WBC RBC Hgb Hct MCV MCH MCHC RDW Plt Count Seg Neutrophils % VBG pH VBG pCO2 VBG HCO3 VBG Base Excess Sodium Potassium Chloride Carbon Dioxide Anion Gap BUN Creatinine Est GFR ( Amer) Glucose Calcium Total Bilirubin AST Alkaline Phosphatase Total Protein Albumin Urine Color VAHE Urine Appearance SLIGHTLY-CLOUDY Urine pH 6.0 Ur Specific [place] 1.010 Urine Protein NEGATIVE Urine Glucose (UA) NEGATIVE Urine Ketones NEGATIVE Urine Blood MODERATE H Urine Nitrite NEGATIVE Ur Leukocyte Esterase SMALL H Urine WBC (Auto) 51 Urine RBC (Auto) 3 12/02/19 12/02/19 12/03/19 22:20 22:20 01:27 Creatine Kinase 75 68 CK-MB (CK-2) 2.28 Troponin I < 0.012 NT-Pro-B Natriuret Pep 2780 H 12/03/19 12/03/19 12/03/19 01:27 07:35 07:35 Creatine Kinase 53 L CK-MB (CK-2) 1.78 1.29 Troponin I < 0.012 < 0.012 NT-Pro-B Natriuret Pep Impressions: Chest X-Ray 12/02/19 21:41 IMPRESSION: No acute disease. Assessment & Plan - Diagnosis (1) Anasarca Is this a current diagnosis for this admission?: Yes Plan: Suspect underlying chronic liver disease Previous echocardiogram showed preserved ejection fraction Suspect hypoalbuminemia Hyponatremia on account of severe liver disease Careful diuresis with albumin infusion Aldactone to be considered Have to watch sodium level (2) Hyponatremia Is this a current diagnosis for this admission?: Yes Plan: May be related to underlying liver disease This can be complicated by diuresis
[2019-12-03] MEDS: LORAZEPAM INJ 2 MG/1 ML VIAL IV PRN (11:20)
[2019-12-03] MEDS: DOCUSATE SODIUM 100 MG CAPSULE PO SCH ×2 (11:20→17:59)
[2019-12-03] MEDS: FAMOTIDINE 20 MG TABLET PO SCH ×2 (11:21→21:10)
--- NOTE | 2019-12-03 11:44 | Progress Note ---
Provider Note Provider Note: Brief note as patient was admitted after midnight. Continue the Bumex IV for now and then switch over to Lasix. He does complain of muscle cramps hands and arms. Potassium is 3.6 we will check a magnesium level today BNP is up to 2780 and when he was discharged 5 days ago it was 1450. I am unsure if patient is taking his medications Appreciate cardiology's note. We will continue to diurese patient, I have placed him on scheduled Ativan because of his alcohol and shaking. Patient may need to go to [facility] after discharge, as he failed going home.
[2019-12-03] MEDS ORDERED: LORAZEPAM 1 MG TABLET PO SCH (12:00)
[2019-12-03] MEDS: LORAZEPAM 1 MG TABLET PO SCH ×3 (12:15→23:28)
[2019-12-03 14:13] LABS: CREATINE KINASE MB 1.29 ng/mL (<4.55)
[2019-12-03 14:15] LABS: TROPONIN I < 0.012 ng/mL
[2019-12-03] MEDS: MAG HYDROX/AL HYDROX/SIMETH SUSP 30 ML UDCUP PO PRN (17:55)
[2019-12-03] MEDS: APIXABAN 5 MG TABLET PO SCH (21:10)
[2019-12-03] MEDS: CEFTRIAXONE 1 GM/D5W RTU 1 GM/50 ML RTUPB IV SCH (21:11)
[2019-12-03] MEDS: DOFETILIDE 125 MCG CAPSULE PO SCH (21:12)
[2019-12-03] MEDS ORDERED: DOFETILIDE 500 MCG CAPSULE PO SCH (22:00)
[2019-12-04] MEDS: LEVALBUTEROL HCL NEB 1.25 MG/3 ML AMPUL NEB SCH ×3 (00:25→16:25)
[2019-12-04] MEDS: IPRATROPIUM BROMIDE 0.02% NEB 0.5 MG/2.5 ML AMPUL NEB SCH ×3 (00:25→16:25)
[2019-12-04] MEDS: NITROGLYCERIN 2% OINTMENT 1 GM PACKET TP SCH (05:48)
[2019-12-04] MEDS: BUMETANIDE INJ/PF 1 MG/4 ML SDV IV SCH ×2 (05:48→18:06)
[2019-12-04] MEDS: LORAZEPAM 1 MG TABLET PO SCH (05:49)
[2019-12-04 06:04] LABS: HEMATOCRIT 25.3 % (37.9-51.0); HEMOGLOBIN 9.1 g/dL (13.5-17.0); MEAN CORPUSCULAR HEMOGLOBIN 36.3 pg (27.0-33.4); MEAN CORPUSCULAR VOLUME 101 fl (80-97); PLATELET COUNT 373 10^3/uL (150-450); RED BLOOD COUNT 2.51 10^6/uL (4.35-5.55); RED CELL DISTRIBUTION WIDTH 15.8 % (11.5-14.0); WHITE BLOOD COUNT 6.9 10^3/uL (4.0-10.5)
[2019-12-04 06:21] LABS: ANION GAP 5 (5-19); BLOOD UREA NITROGEN 10 mg/dL (7-20); CARBON DIOXIDE 36 mmol/L (22-30); CHLORIDE 85 mmol/L (98-107); CHOLESTEROL 125.11 mg/dL (0-200); GLUCOSE 110 mg/dL (75-110); POTASSIUM 3.6 mmol/L (3.6-5.0); TRIGLYCERIDES 142 mg/dL (<150)
[2019-12-04 06:33] LABS: DIRECT LDL 77 mg/dL (<100)
[2019-12-04] MEDS: TAMSULOSIN HCL 0.4 MG CAP.SR.24H PO SCH (08:33)
[2019-12-04] MEDS: SUCRALFATE 1 GM TABLET PO SCH ×4 (08:33→21:43)
[2019-12-04] MEDS: METOCLOPRAMIDE HCL 10 MG TABLET PO SCH ×4 (08:33→21:43)
[2019-12-04] MEDS ORDERED: MOMETASONE FUROATE IH SCH (10:00)
[2019-12-04] MEDS ORDERED: (PENDING PHARMACY ID) (Tiotropium Bromide [Spiriva Handihaler 5 Cap/Kit (18 Mcg/Cap)] 1 CA IH SCH (10:00)
[2019-12-04] MEDS: UMECLIDINIUM BROMIDE 62.5 MCG/DOSE IH SCH (10:21)
[2019-12-04] MEDS: METOPROLOL SUCCINATE 25 MG TAB.SR.24H PO SCH (10:22)
[2019-12-04] MEDS: LORATADINE 10 MG TABLET PO SCH (10:22)
[2019-12-04] MEDS: APIXABAN 5 MG TABLET PO SCH ×2 (10:22→21:43)
[2019-12-04] MEDS: DOCUSATE SODIUM 100 MG CAPSULE PO SCH ×2 (10:22→18:06)
[2019-12-04] MEDS: POTASSIUM CHLORIDE 10 MEQ TABLET.ER PO SCH (10:22)
[2019-12-04] MEDS: FAMOTIDINE 20 MG TABLET PO SCH ×2 (10:23→21:43)
[2019-12-04] MEDS: DOFETILIDE 125 MCG CAPSULE PO SCH ×2 (10:23→21:42)
[2019-12-04] MEDS ORDERED: LORAZEPAM INJ 2 MG/1 ML VIAL IV PRN ×2 (10:33→10:38)
[2019-12-04] MEDS: LORAZEPAM INJ 2 MG/1 ML VIAL IV PRN (10:41)
--- NOTE | 2019-12-04 11:00 | PDOC PROGRESS REPORT ---
Subjective Progress Note for:: 12/04/19 Subjective:: Today patient denies any pain or shortness of breath. Noticed some tremors but he states that is due to medications. Patient denies history of alcohol withdrawal or seizures but states that he drinks 3-4 beers a day. States he used to drink liquor but he quit about a month ago. Denies history of cirrhosis. Reason For Visit: ACUTE ON CHRONIC CONGESTIVE HEART FAILURE,ACUTE ON Physical Exam Vital Signs: Temp Pulse Resp BP Pulse Ox 98.2 F 102 H 20 130/72 H 93 12/04/19 07:23 12/04/19 09:07 12/04/19 09:07 12/04/19 07:23 12/04/19 09:07 Intake & Output 12/03/19 12/04/19 12/05/19 06:59 06:59 06:59 Intake Total 725 630 Output Total 1200 700 Balance -475 -70 Weight 88.9 kg 88.6 kg General appearance: PRESENT: no acute distress, cooperative Neck exam: ABSENT: JVD Respiratory exam: PRESENT: symmetrical, unlabored. ABSENT: crackles, tachypnea, wheezes Cardiovascular exam: PRESENT: RRR, +S1, +S2. ABSENT: tachycardia GI/Abdominal exam: PRESENT: distended, firm - But not rigid, organolmegaly - Hepatomegaly, other - Caput medusa. ABSENT: guarding, rebound, rigid, tenderness Extremities exam: PRESENT: +2 edema, other - Tremulous in both upper extremities Neurological exam: PRESENT: alert, awake, oriented to person, oriented to place, oriented to time Psychiatric exam: PRESENT: anxious - Mild. ABSENT: agitated Results Laboratory Results: 12/04/19 05:22 12/04/19 05:22 12/04/19 12/04/19 12/04/19 05:22 05:22 05:22 WBC 6.9 RBC 2.51 L Hgb 9.1 L Hct 25.3 L MCV 101 H MCH 36.3 H MCHC 36.0 RDW 15.8 H Plt Count 373 Sodium 126.0 L Potassium 3.6 Chloride 85 L Carbon Dioxide 36 H Anion Gap 5 BUN 10 Creatinine 0.86 Est GFR ( Amer) > 60 Glucose 110 Calcium 8.0 L Magnesium 1.9 Triglycerides 142 Cholesterol 125.11 LDL Cholesterol Direct 77 VLDL Cholesterol 28.0 HDL Cholesterol 46 Free T3 pg/mL 3.79 12/02/19 23:09 Clean Catch Midstream Urine Culture - Final Klebsiella Oxytoca 12/02/19 12/02/19 12/03/19 22:20 22:20 01:27 Creatine Kinase 75 68 CK-MB (CK-2) 2.28 Troponin I < 0.012 NT-Pro-B Natriuret Pep 2780 H 12/03/19 12/03/19 12/03/19 01:27 07:35 07:35 Creatine Kinase 53 L CK-MB (CK-2) 1.78 1.29 Troponin I < 0.012 < 0.012 NT-Pro-B Natriuret Pep 12/03/19 12/03/19 13:25 13:25 Creatine Kinase 46 L CK-MB (CK-2) 1.29 Troponin I < 0.012 NT-Pro-B Natriuret Pep Impressions: Chest X-Ray 12/02/19 21:41 IMPRESSION: No acute disease. Assessment and Plan - Diagnosis (1) Anasarca Is this a current diagnosis for this admission?: Yes Plan: Likely secondary to chronic liver disease. Echo last year was limited technically but showed normal ejection fraction. Renal function is adequate and no evidence of proteinuria on urinalysis. Cardiology following. Continue diuresis with IV Bumex. Monitor electrolytes closely. Fluid and sodium restriction. (2) Acute respiratory failure Qualifiers: Respiratory failure complication: hypoxia Qualified Code(s): J96.01 - Acute respiratory failure with hypoxia Is this a current diagnosis for this admission?: Yes Plan: Likely due to third spacing from anasarca. Continue to diuresis and attempt to wean oxygen as tolerated. Underlying history of COPD noted. (3) Hyponatremia Is this a current diagnosis for this admission?: Yes Plan: Hypervolemic hyponatremia secondary to chronic liver disease. Expected to continue to improve with diuresis. Continue to monitor BMP. (4) Chronic alcoholic liver disease Is this a current diagnosis for this admission?: Yes Plan: Reviewed prior abdominal imaging which show clear evidence of alcoholic steatohepatitis. However all the clinical findings including caput medusa, hypoalbuminemia, liver enzymes suggest stigmata of chronic liver disease. Check coags. Avoid hepatotoxic meds. Patient counseled on importance of stopping drinking. Continue Bumex. We will add Aldactone. Outpatient follow-up with GI/hepatology. (5) Urinary tract infection Qualifiers: Urinary tract infection type: site unspecified Hematuria presence: without hematuria Qualified Code(s): N39.0 - Urinary tract infection, site not s pecified Is this a current diagnosis for this admission?: Yes Plan: Klebsiella growing on urine culture. Continue ceftriaxone day 3. (6) Alcohol dependence Is this a current diagnosis for this admission?: Yes Plan: Check CIWA every 4 hours. Ativan based on CIWA protocol. Scheduled low-dose Valium to prevent withdrawal. Thiamine and folic acid supplements. (7) Paroxysmal atrial fibrillation Is this a current diagnosis for this admission?: Yes Plan: Continue Toprol-XL, dofetilide and Eliquis. (8) COPD (chronic obstructive pulmonary disease) Qualifiers: COPD type: unspecified COPD Qualified Code(s): J44.9 - Chronic obstructive pulmonary disease, unspecified Is this a current diagnosis for this admission?: Yes Plan: Seems stable at this time. Nebs as needed. (9) Macrocytic anemia Is this a current diagnosis for this admission?: Yes Plan: TSH within normal limits. Check B12 and folic acid. (10) Tobacco dependence Is this a current diagnosis for this admission?: Yes - Time Time Spent with patient: 15-24 minutes
[2019-12-04] MEDS: DIAZEPAM 5 MG TABLET PO SCH ×2 (12:40→21:43)
--- NOTE | 2019-12-04 13:29 | PDOC PROGRESS REPORT ---
Subjective Progress Note for:: 12/04/19 Subjective:: No significant change. No distress. Reason For Visit: ACUTE ON CHRONIC CONGESTIVE HEART FAILURE,ACUTE ON Physical Exam Vital Signs: Temp Pulse Resp BP Pulse Ox 98.2 F 97 18 128/85 H 96 12/04/19 12:46 12/04/19 12:46 12/04/19 12:46 12/04/19 12:46 12/04/19 12:46 Intake & Output 12/03/19 12/04/19 12/05/19 06:59 06:59 06:59 Intake Total 725 630 Output Total 1200 700 Balance -475 -70 Weight 88.9 kg 88.6 kg General appearance: PRESENT: no acute distress, well-developed, well-nourished Head exam: PRESENT: atraumatic, normocephalic Respiratory exam: PRESENT: symmetrical, unlabored Cardiovascular exam: PRESENT: RRR, +S1, +S2 GI/Abdominal exam: PRESENT: distended Rectal exam: PRESENT: deferred Neurological exam: PRESENT: altered Results Laboratory Results: 12/04/19 05:22 12/04/19 05:22 12/04/19 12/04/19 12/04/19 05:22 05:22 05:22 WBC 6.9 RBC 2.51 L Hgb 9.1 L Hct 25.3 L MCV 101 H MCH 36.3 H MCHC 36.0 RDW 15.8 H Plt Count 373 Sodium 126.0 L Potassium 3.6 Chloride 85 L Carbon Dioxide 36 H Anion Gap 5 BUN 10 Creatinine 0.86 Est GFR ( Amer) > 60 Glucose 110 Calcium 8.0 L Magnesium 1.9 Triglycerides 142 Cholesterol 125.11 LDL Cholesterol Direct 77 VLDL Cholesterol 28.0 HDL Cholesterol 46 Free T3 pg/mL 3.79 12/02/19 23:09 Clean Catch Midstream Urine Culture - Final Klebsiella Oxytoca 12/02/19 12/02/19 12/03/19 22:20 22:20 01:27 Creatine Kinase 75 68 CK-MB (CK-2) 2.28 Troponin I < 0.012 NT-Pro-B Natriuret Pep 2780 H 12/03/19 12/03/19 12/03/19 01:27 07:35 07:35 Creatine Kinase 53 L CK-MB (CK-2) 1.78 1.29 Troponin I < 0.012 < 0.012 NT-Pro-B Natriuret Pep 12/03/19 12/03/19 13:25 13:25 Creatine Kinase 46 L CK-MB (CK-2) 1.29 Troponin I < 0.012 NT-Pro-B Natriuret Pep Impressions: Chest X-Ray 12/02/19 21:41 IMPRESSION: No acute disease. Assessment & Plan - Diagnosis (1) Anasarca Is this a current diagnosis for this admission?: Yes Plan: Likely related to underlying chronic hepatic disease. Hypoalbuminemic (2) Hyponatremia Is this a current diagnosis for this admission?: Yes Plan: Probably a reflection of chronic liver disease (3) Atrial fibrillation Qualifiers: Atrial fibrillation type: unspecified Qualified Code(s): I48.91 - Unspecified atrial fibrillation Is this a current diagnosis for this admission?: Yes Plan: Presently in sinus rhythm clinically On systemic anticoagulation with apixaban Rhythm control strategy - Notes Notes: Volume overload status on account of chronic liver disease
[2019-12-04] MEDS: SPIRONOLACTONE 25 MG TABLET PO SCH (14:32)
[2019-12-04] MEDS: THIAMINE HCL 100 MG TABLET PO SCH (14:32)
[2019-12-04] MEDS: CEFTRIAXONE 1 GM/D5W RTU 1 GM/50 ML RTUPB IV SCH (21:43)
[2019-12-05] MEDS: LEVALBUTEROL HCL NEB 1.25 MG/3 ML AMPUL NEB SCH ×3 (00:33→15:49)
[2019-12-05] MEDS: IPRATROPIUM BROMIDE 0.02% NEB 0.5 MG/2.5 ML AMPUL NEB SCH ×3 (00:33→15:49)
[2019-12-05 06:01] LABS: INTERNATIONAL RATION (INR) 1.27
[2019-12-05 06:02] LABS: HEMATOCRIT 27.1 % (37.9-51.0); HEMOGLOBIN 9.8 g/dL (13.5-17.0); MEAN CORPUSCULAR HEMOGLOBIN 36.9 pg (27.0-33.4); MEAN CORPUSCULAR HGB CONC 36.1 g/dL (32.0-36.0); MEAN CORPUSCULAR VOLUME 102 fl (80-97); PARTIAL THROMBOPLASTIN TIME 31.2 SEC (23.5-35.8); PLATELET COUNT 421 10^3/uL (150-450); RED BLOOD COUNT 2.65 10^6/uL (4.35-5.55); RED CELL DISTRIBUTION WIDTH 16.2 % (11.5-14.0); RETICULOCYTE COUNT (AUTO) 4.54 % (0.66-2.85); WHITE BLOOD COUNT 6.3 10^3/uL (4.0-10.5)
[2019-12-05 06:14] LABS: BLOOD UREA NITROGEN 8 mg/dL (7-20); CALCIUM 8.1 mg/dL (8.4-10.2); GLUCOSE 85 mg/dL (75-110)
[2019-12-05 06:49] LABS: CHLORIDE 86 mmol/L (98-107); POTASSIUM 3.7 mmol/L (3.6-5.0)
[2019-12-05 06:56] LABS: ANION GAP 7 (5-19); CARBON DIOXIDE 36 mmol/L (22-30)
--- NOTE | 2019-12-05 06:56 | EKG REPORT ---
SEVERITY:- ABNORMAL ECG - SINUS RHYTHM PROBABLE LEFT ATRIAL ABNORMALITY ABNORMAL T, CONSIDER ISCHEMIA, ANTERIOR LEADS : Confirmed by: Dani Gomes MD 05-Dec-2019 06:55:53
[2019-12-05 07:41] LABS: FOLATE 7.68 ng/mL (>2.76)
[2019-12-05] MEDS: TAMSULOSIN HCL 0.4 MG CAP.SR.24H PO SCH (08:33)
[2019-12-05] MEDS: METOCLOPRAMIDE HCL 10 MG TABLET PO SCH ×4 (08:33→21:10)
[2019-12-05] MEDS: SUCRALFATE 1 GM TABLET PO SCH ×4 (08:33→21:10)
[2019-12-05] MEDS: BUMETANIDE INJ/PF 1 MG/4 ML SDV IV SCH ×2 (09:26→17:51)
[2019-12-05] MEDS: APIXABAN 5 MG TABLET PO SCH ×2 (09:27→21:10)
[2019-12-05] MEDS: FAMOTIDINE 20 MG TABLET PO SCH ×2 (09:27→21:10)
[2019-12-05] MEDS: THIAMINE HCL 100 MG TABLET PO SCH (09:27)
[2019-12-05] MEDS: SPIRONOLACTONE 25 MG TABLET PO SCH (09:28)
[2019-12-05] MEDS: LORATADINE 10 MG TABLET PO SCH (09:28)
[2019-12-05] MEDS: DOCUSATE SODIUM 100 MG CAPSULE PO SCH ×2 (09:28→17:51)
[2019-12-05] MEDS: METOPROLOL SUCCINATE 25 MG TAB.SR.24H PO SCH (09:29)
[2019-12-05] MEDS: DIAZEPAM 5 MG TABLET PO SCH ×2 (09:30→22:22)
[2019-12-05] MEDS: POTASSIUM CHLORIDE 10 MEQ TABLET.ER PO SCH (09:32)
[2019-12-05] MEDS ORDERED: FOLIC ACID 1 MG TABLET PO SCH (10:00)
--- NOTE | 2019-12-05 11:08 | PDOC PROGRESS REPORT ---
Subjective Progress Note for:: 12/05/19 Subjective:: Patient surprised that he had chronic liver disease when told today. I explained to him how drinking 4 cans of beer and drinking liquor frequently in the past could have contributed to this and he seems to have understood. I have stressed to him the importance of alcohol cessation. He currently denies any fever or chills. States his abdomen has been distended for several years. Uncertain that he has ever had a paracentesis. Reason For Visit: ACUTE ON CHRONIC CONGESTIVE HEART FAILURE,ACUTE ON Physical Exam Vital Signs: Temp Pulse Resp BP Pulse Ox 98.6 F 105 H 20 138/74 H 94 12/05/19 07:51 12/05/19 08:11 12/05/19 08:11 12/05/19 07:51 12/05/19 08:11 Intake & Output 12/04/19 12/05/19 12/06/19 06:59 06:59 06:59 Intake Total 630 1190 Output Total 700 1700 Balance -70 -510 Weight 88.6 kg 88.5 kg General appearance: PRESENT: no acute distress, cooperative Neck exam: ABSENT: JVD Respiratory exam: PRESENT: symmetrical, unlabored. ABSENT: tachypnea, wheezes Cardiovascular exam: PRESENT: +S1, +S2, tachycardia. ABSENT: irregular rhythm GI/Abdominal exam: PRESENT: distended, firm - but not rigid, soft. ABSENT: guarding, rebound, rigid, tenderness Neurological exam: PRESENT: alert, awake, oriented to person, oriented to place, oriented to time, oriented to situation Results Laboratory Results: 12/05/19 05:28 12/05/19 05:28 12/05/19 12/05/19 05:28 05:28 WBC 6.3 RBC 2.65 L Hgb 9.8 L Hct 27.1 L MCV 102 H MCH 36.9 H MCHC 36.1 H RDW 16.2 H Plt Count 421 Retic Count (auto) 4.54 H Sodium 129.3 L Potassium 3.7 Chloride 86 L Carbon Dioxide 36 H Anion Gap 7 BUN 8 Creatinine 0.81 Est GFR ( Amer) > 60 Glucose 85 Calcium 8.1 L Magnesium 1.9 Vitamin B12 892.0 Folate 7.68 12/02/19 23:09 Clean Catch Midstream Urine Culture - Final Klebsiella Oxytoca 12/02/19 12/02/1920 22:20 22:20 01:27 Creatine Kinase 75 68 CK-MB (CK-2) 2.28 Troponin I < 0.012 NT-Pro-B Natriuret Pep 2780 H 12/03/19 12/03/19 12/03/19 01:27 07:35 07:35 Creatine Kinase 53 L CK-MB (CK-2) 1.78 1.29 Troponin I < 0.012 < 0.012 NT-Pro-B Natriuret Pep 12/03/19 12/03/19 13:25 13:25 Creatine Kinase 46 L CK-MB (CK-2) 1.29 Troponin I < 0.012 NT-Pro-B Natriuret Pep Impressions: Chest X-Ray 12/02/19 21:41 IMPRESSION: No acute disease. Assessment and Plan - Diagnosis (1) Anasarca Is this a current diagnosis for this admission?: Yes Plan: Likely secondary to chronic liver disease. Echo last year was limited technically but showed normal ejection fraction. Renal function is adequate and no evidence of proteinuria on urinalysis. Cardiology following. Continue diuresis with IV Bumex. Monitor electrolytes closely. Fluid and sodium restriction. (2) Acute respiratory failure Qualifiers: Respiratory failure complication: hypoxia Qualified Code(s): J96.01 - Acute respiratory failure with hypoxia Is this a current diagnosis for this admission?: Yes Plan: Likely due to third spacing from anasarca. Continue to diuresis and attempt to wean oxygen as tolerated. Underlying history of COPD noted. (3) Hyponatremia Is this a current diagnosis for this admission?: Yes Plan: Hypervolemic hyponatremia secondary to chronic liver disease. Expected to continue to improve with diuresis. Continue to monitor BMP. (4) Chronic alcoholic liver disease Is this a current diagnosis for this admission?: Yes Plan: Reviewed prior abdominal imaging which show clear evidence of alcoholic steatohepatitis. However all the clinical findings including caput medusa, hypoalbuminemia, liver enzymes suggest stigmata of chronic liver disease. Check coags. Avoid hepatotoxic meds. Patient counseled on importance of stopping drinking. Continue Bumex and Aldactone. Outpatient follow-up with GI/hepatology. (5) Urinary tract infection Qualifiers: Urinary tract infection type: site unspecified Hematuria presence: without hematuria Qualified Code(s): N39.0 - Urinary tract infection, site not specified Is this a current diagnosis for this admission?: Yes Plan: Klebsiella growing on urine culture. Continue ceftriaxone day 4/5. (6) Alcohol dependence Is this a current diagnosis for this admission?: Yes Plan: Having some alcohol withdrawal. CIWA score has mildly elevated. Check CIWA every 4 hours. Ativan based on CIWA protocol. Scheduled low-dose Valium to prevent withdrawal. Thiamine supplements. (7) Paroxysmal atrial fibrillation Is this a current diagnosis for this admission?: Yes Plan: Continue Toprol-XL, dofetilide and Eliquis. (8) COPD (chronic obstructive pulmonary disease) Qualifiers: COPD type: unspecified COPD Qualified Code(s): J44.9 - Chronic obstructive pulmonary disease, unspecified Is this a current diagnosis for this admission?: Yes (9) Macrocytic anemia Is this a current diagnosis for this admission?: Yes Plan: TSH, B12 and folic acid within normal limits. Chronic anemia. Check iron studies in the morning. (10) Tobacco dependence Is this a current diagnosis for this admission?: Yes - Time Time Spent with patient: 15-24 minutes
[2019-12-05] MEDS: DOFETILIDE 125 MCG CAPSULE PO SCH ×2 (11:10→21:10)
[2019-12-05] MEDS: UMECLIDINIUM BROMIDE 62.5 MCG/DOSE IH SCH (11:11)
[2019-12-05] MEDS: ACETAMINOPHEN 325 MG TABLET PO PRN (18:01)
[2019-12-05] MEDS ORDERED: SPIRONOLACTONE 25 MG TABLET PO ONE (19:30)
[2019-12-05] MEDS: CEFTRIAXONE 1 GM/D5W RTU 1 GM/50 ML RTUPB IV SCH (21:10)
[2019-12-06] MEDS: IPRATROPIUM BROMIDE 0.02% NEB 0.5 MG/2.5 ML AMPUL NEB SCH ×3 (00:55→16:31)
[2019-12-06] MEDS: LEVALBUTEROL HCL NEB 1.25 MG/3 ML AMPUL NEB SCH ×3 (00:55→16:31)
[2019-12-06 06:51] LABS: BLOOD UREA NITROGEN 6 mg/dL (7-20); CALCIUM 8.4 mg/dL (8.4-10.2); GLUCOSE 85 mg/dL (75-110); IRON(TIBC) 47.7 ug/dL (49-181); POTASSIUM 4.1 mmol/L (3.6-5.0)
[2019-12-06 06:56] LABS: CARBON DIOXIDE 37 mmol/L (22-30); CHLORIDE 90 mmol/L (98-107)
[2019-12-06 08:13] LABS: ANION GAP 2 (5-19)
[2019-12-06] MEDS ORDERED: SPIRONOLACTONE 25 MG TABLET PO SCH ×2 (10:00→18:00)
[2019-12-06] MEDS: POTASSIUM CHLORIDE 10 MEQ TABLET.ER PO SCH (10:04)
[2019-12-06] MEDS: LORATADINE 10 MG TABLET PO SCH ×2 (10:05→10:17)
[2019-12-06] MEDS: METOPROLOL SUCCINATE 25 MG TAB.SR.24H PO SCH (10:05)
[2019-12-06] MEDS: FAMOTIDINE 20 MG TABLET PO SCH ×2 (10:05→21:32)
[2019-12-06] MEDS: APIXABAN 5 MG TABLET PO SCH ×2 (10:05→21:32)
[2019-12-06] MEDS: THIAMINE HCL 100 MG TABLET PO SCH (10:06)
[2019-12-06] MEDS: DOCUSATE SODIUM 100 MG CAPSULE PO SCH ×2 (10:06→17:20)
[2019-12-06] MEDS: TAMSULOSIN HCL 0.4 MG CAP.SR.24H PO SCH (10:06)
[2019-12-06] MEDS: DIAZEPAM 5 MG TABLET PO SCH (10:06)
[2019-12-06] MEDS: SUCRALFATE 1 GM TABLET PO SCH ×4 (10:07→21:32)
[2019-12-06] MEDS: DOFETILIDE 125 MCG CAPSULE PO SCH ×2 (10:07→21:31)
[2019-12-06] MEDS: METOCLOPRAMIDE HCL 10 MG TABLET PO SCH ×2 (10:07→17:50)
[2019-12-06] MEDS: BUMETANIDE INJ/PF 1 MG/4 ML SDV IV SCH ×2 (10:07→17:20)
[2019-12-06] MEDS: UMECLIDINIUM BROMIDE 62.5 MCG/DOSE IH SCH (10:08)
--- NOTE | 2019-12-06 11:42 | PDOC PROGRESS REPORT ---
Subjective Progress Note for:: 12/06/19 Subjective:: Patient states his breathing is better today and that his abdomen is not as tense as it was before. Reason For Visit: ACUTE ON CHRONIC CONGESTIVE HEART FAILURE,ACUTE ON Physical Exam Vital Signs: Temp Pulse Resp BP Pulse Ox 98.4 F 112 H 21 H 131/62 H 90 L 12/06/19 08:43 12/06/19 08:43 12/06/19 08:43 12/06/19 08:43 12/06/19 08:43 Intake & Output 12/05/19 12/06/19 12/07/19 06:59 06:59 06:59 Intake Total 1240 750 Output Total 1700 2525 Balance -460 -1775 Weight 88.5 kg 88.5 kg General appearance: PRESENT: no acute distress, cooperative Neck exam: ABSENT: JVD Respiratory exam: PRESENT: clear to auscultation latisha, unlabored. ABSENT: tachypnea, wheezes Cardiovascular exam: PRESENT: RRR, +S1, +S2, tachycardia GI/Abdominal exam: PRESENT: distended, soft. ABSENT: firm, guarding, rebound, rigid, tenderness Extremities exam: PRESENT: other - Tremors in both arms Neurological exam: PRESENT: alert, awake, oriented to person, oriented to place, oriented to time Psychiatric exam: ABSENT: agitated, anxious Focused psych exam: ABSENT: pressured speech Results Laboratory Results: 12/05/19 05:28 12/06/19 05:58 12/06/19 05:58 Sodium 129.2 L Potassium 4.1 Chloride 90 L Carbon Dioxide 37 H Anion Gap 2 L BUN 6 L Creatinine 0.80 Est GFR ( Amer) > 60 Glucose 85 Calcium 8.4 Iron 47.7 L TIBC 180 L % Saturation 27 Ferritin 294.00 12/02/19 12/02/19 12/03/19 22:20 22:20 01:27 Creatine Kinase 75 68 CK-MB (CK-2) 2.28 Troponin I < 0.012 NT-Pro-B Natriuret Pep 2780 H 12/03/19 12/03/19 12/03/19 01:27 07:35 07:35 Creatine Kinase 53 L CK-MB (CK-2) 1.78 1.29 Troponin I < 0.012 < 0.012 NT-Pro-B Natriuret Pep 12/03/19 12/03/19 13:25 13:25 Creatine Kinase 46 L CK-MB (CK-2) 1.29 Troponin I < 0.012 NT-Pro-B Natriuret Pep Impressions: Chest X-Ray 12/02/19 21:41 IMPRESSION: No acute disease. Assessment and Plan - Diagnosis (1) Anasarca Is this a current diagnosis for this admission?: Yes Plan: Likely secondary to chronic liver disease. Echo last year was limited cecelia hnically but showed normal ejection fraction. Renal function is adequate and no evidence of proteinuria on urinalysis. Cardiology following. Continue diuresis with IV Bumex. Monitor electrolytes closely. Fluid and sodium restriction. (2) Acute and chronic respiratory failure with hypoxia Is this a current diagnosis for this admission?: Yes Plan: Patient confirms that he uses 2 L nasal cannula at home for his COPD. With a dequate diuresis, we were able to wean patient back down to 2 L with spo2 >90%. (3) Hyponatremia Is this a current diagnosis for this admission?: Yes Plan: Hypervolemic hyponatremia secondary to chronic liver disease. Improved with diuresis. Continue to monitor BMP. (4) Chronic alcoholic liver disease Is this a current diagnosis for this admission?: Yes Plan: Reviewed prior abdominal imaging which show clear evidence of alcoholic steatohepatitis. However all the clinical findings including caput medusa, hypoalbuminemia, liver enzymes suggest stigmata of chronic liver disease. Patient counseled on importance of alcohol cessation. Continue Bumex and Aldactone. Dose adjusted. Plan to transition to p.o. loop diuretic tomorrow. Outpatient follow-up with GI/hepatology. (5) Urinary tract infection Qualifiers: Urinary tract infection type: site unspecified Hematuria presence: without hematuria Qualified Code(s): N39.0 - Urinary tract infection, site not specified Is this a current diagnosis for this admission?: Yes Plan: Klebsiella growing on urine culture. ceftriaxone day /5. (6) Alcohol dependence Is this a current diagnosis for this admission?: Yes Plan: CIWA scores have improved. I will wean standing valium dose to 2mg. Continue thiamine supplements. Multivitamins. (7) Paroxysmal atrial fibrillation Is this a current diagnosis for this admission?: Yes Plan: Continue Toprol-XL, dofetilide and Eliquis. (8) COPD (chronic obstructive pulmonary disease) Qualifiers: COPD type: unspecified COPD Qualified Code(s): J44.9 - Chronic obstructive pulmonary disease, unspecified Is this a current diagnosis for this admission?: Yes Plan: Mild wheezing noted today so giving her a dose of nebulizer treatment. Nebs as needed. LABA/ICS. (9) Macrocytic anemia Is this a current diagnosis for this admission?: Yes Plan: TSH, B12 and folic acid within normal limits. Iron studies suggestive of anemia of chronic disease. (10) Tobacco dependence Is this a current diagnosis for this admission?: Yes - Plan Summary Summary: Patient will need extensive physical therapy given debility. Physical therapy will continue to work with patient and help determine if patient can be safely discharged home or if consideration for SNF placement will be needed. - Time Time Spent with patient: Less than 15 minutes
--- NOTE | 2019-12-06 13:48 | Progress Note ---
Provider Note Provider Note: Presentation consistent with acute decompensated liver disease. Continue systemic anticoagulation for paroxysmal atrial fibrillation Watch hemoglobin and hematocrit Patient is on a rhythm control strategy with dofetilide 125 mcg twice daily Most recent EKG shows QTC to be within normal limits Avoid QTC prolonging medications Potassium today is over 4 mEq/L and will try to maintain it between 4 to 5 mEq/L Most recent magnesium levels were around 1.9 mg/dL We will have to avoid hypokalemia and hypomagnesemia
[2019-12-06] MEDS: FLUTICASONE/VILANTEROL 200-25 MCG/DOSE IH SCH (13:56)
[2019-12-06] MEDS: MAG HYDROX/AL HYDROX/SIMETH SUSP 30 ML UDCUP PO PRN (15:54)
[2019-12-06] MEDS: DIAZEPAM 2 MG TABLET PO SCH (21:32)
[2019-12-06] MEDS: CEFTRIAXONE 1 GM/D5W RTU 1 GM/50 ML RTUPB IV SCH (21:32)
[2019-12-06] MEDS ORDERED: DIAZEPAM 5 MG TABLET PO SCH (22:00)
[2019-12-07] MEDS: IPRATROPIUM BROMIDE 0.02% NEB 0.5 MG/2.5 ML AMPUL NEB SCH ×3 (01:50→16:39)
[2019-12-07] MEDS: LEVALBUTEROL HCL NEB 1.25 MG/3 ML AMPUL NEB SCH ×3 (01:50→16:39)
[2019-12-07 06:42] LABS: BLOOD UREA NITROGEN 6 mg/dL (7-20); CALCIUM 8.4 mg/dL (8.4-10.2); CARBON DIOXIDE 34 mmol/L (22-30); GLUCOSE 86 mg/dL (75-110); POTASSIUM 4.1 mmol/L (3.6-5.0)
[2019-12-07 06:48] LABS: CHLORIDE 90 mmol/L (98-107)
[2019-12-07 06:52] LABS: ANION GAP 3 (5-19)
[2019-12-07 08:11] LABS: ALBUMIN 2.4 g/dL (3.5-5.0)
[2019-12-07] MEDS: DOFETILIDE 125 MCG CAPSULE PO SCH ×2 (09:06→22:03)
[2019-12-07] MEDS: LORATADINE 10 MG TABLET PO SCH (09:07)
[2019-12-07] MEDS: TAMSULOSIN HCL 0.4 MG CAP.SR.24H PO SCH (09:07)
[2019-12-07] MEDS: THIAMINE HCL 100 MG TABLET PO SCH (09:07)
[2019-12-07] MEDS: FLUTICASONE/VILANTEROL 200-25 MCG/DOSE IH SCH (09:07)
[2019-12-07] MEDS: METOPROLOL SUCCINATE 25 MG TAB.SR.24H PO SCH (09:07)
[2019-12-07] MEDS: FAMOTIDINE 20 MG TABLET PO SCH ×2 (09:07→22:03)
[2019-12-07] MEDS: APIXABAN 5 MG TABLET PO SCH ×2 (09:07→22:03)
[2019-12-07] MEDS: CHOLECALCIFEROL (D3) 1,000 UNIT (25 MCG) TABLET PO SCH (09:07)
[2019-12-07] MEDS: DIAZEPAM 2 MG TABLET PO SCH (09:07)
[2019-12-07] MEDS: UMECLIDINIUM BROMIDE 62.5 MCG/DOSE IH SCH (09:07)
[2019-12-07] MEDS: FUROSEMIDE 40 MG TABLET PO SCH (09:09)
[2019-12-07] MEDS: MULTIVITAMIN TABLET PO SCH (09:10)
[2019-12-07] MEDS: DOCUSATE SODIUM 100 MG CAPSULE PO SCH (09:10)
[2019-12-07] MEDS: SPIRONOLACTONE 25 MG TABLET PO SCH ×2 (09:10→17:33)
--- NOTE | 2019-12-07 12:47 | PDOC PROGRESS REPORT ---
Subjective Progress Note for:: 12/07/19 Subjective:: Patient continues to feel better. He states that his breathing is significantly improved. Eager to work with PT today. Feels that he has gotten closer to baseline at this point. Reason For Visit: ACUTE ON CHRONIC CONGESTIVE HEART FAILURE,ACUTE ON Physical Exam Vital Signs: Temp Pulse Resp BP Pulse Ox 97.8 F 97 18 121/61 94 12/07/19 07:47 12/07/19 08:50 12/07/19 08:50 12/07/19 07:47 12/07/19 08:50 Intake & Output 12/06/19 12/07/19 12/08/19 06:59 06:59 06:59 Intake Total 750 965 Output Total 2525 2150 Balance -1775 -1185 Weight 88.5 kg 82.8 kg General appearance: PRESENT: no acute distress, cooperative Respiratory exam: PRESENT: unlabored. ABSENT: accessory muscle use, retraction GI/Abdominal exam: PRESENT: soft. ABSENT: firm, guarding, hernia, rebound, rigid, tenderness Neurological exam: PRESENT: alert, awake Results Laboratory Results: 12/05/19 05:28 12/07/19 05:51 12/07/19 12/07/19 05:51 05:51 Sodium 127.2 L Potassium 4.1 Chloride 90 L Carbon Dioxide 34 H Anion Gap 3 L BUN 6 L Creatinine 0.83 Est GFR ( Amer) > 60 Glucose 86 Calcium 8.4 Magnesium 1.9 Albumin 2.4 L 12/02/19 12/02/19 12/03/19 22:20 22:20 01:27 Creatine Kinase 75 68 CK-MB (CK-2) 2.28 Troponin I < 0.012 NT-Pro-B Natriuret Pep 2780 H 12/03/19 12/03/19 12/03/19 01:27 07:35 07:35 Creatine Kinase 53 L CK-MB (CK-2) 1.78 1.29 Troponin I < 0.012 < 0.012 NT-Pro-B Natriuret Pep 12/03/19 12/03/19 13:25 13:25 Creatine Kinase 46 L CK-MB (CK-2) 1.29 Troponin I < 0.012 NT-Pro-B Natriuret Pep Impressions: Chest X-Ray 12/02/19 21:41 IMPRESSION: No acute disease. Assessment and Plan - Diagnosis (1) Anasarca Is this a current diagnosis for this admission?: Yes Plan: Likely secondary to chronic liver disease. Echo last year was limited technically but showed normal ejection fraction. Renal function is adequate and no evidence of proteinuria on urinalysis. Diuretics de-escalated to po lasix. Monitor electrolytes closely. Fluid and sodium restriction. (2) Acute and chronic respiratory failure with hypoxia Is this a current diagnosis for this admission?: Yes Plan: Patient confirms that he uses 2 L nasal cannula at home for his COPD. With adequate diuresis, we were able to wean patient back down to 2 L with spo2 >90%. (3) Hyponatremia Is this a current diagnosis for this admission?: Yes Plan: Hypervolemic hyponatremia secondary to chronic liver disease. Sodium is decreased again today but will monitor through today and tomorrow. Continue diuresis. (4) Chronic alcoholic liver disease Is this a current diagnosis for this admission?: Yes Plan: Reviewed prior abdominal imaging which show clear evidence of alcoholic steatohepatitis. However all the clinical findings including caput medusa, hypoalbuminemia, liver enzymes suggest stigmata of chronic liver disease. P atient counseled on importance of alcohol cessation. Aldactone and Lasix. Outpatient follow-up with GI/hepatology. (5) Urinary tract infection Qualifiers: Urinary tract infection type: site unspecified Hematuria presence: without hematuria Qualified Code(s): N39.0 - Urinary tract infection, site not specified Is this a current diagnosis for this admission?: Yes Plan: Klebsiella growing on urine culture. Completed 5 days of ceftriaxone. (6) Alcohol dependence Is this a current diagnosis for this admission?: Yes Plan: Most recent CIWA scores are ranging between 0-1. Seems to be out of withdrawal phase. Will discontinue Valium. Continue thiamine supplements. Multivitamins. (7) Paroxysmal atrial fibrillation Is this a current diagnosis for this admission?: Yes Plan: Continue Toprol-XL, dofetilide and Eliquis. (8) COPD (chronic obstructive pulmonary disease) Qualifiers: COPD type: unspecified COPD Qualified Code(s): J44.9 - Chronic obstructive pulmonary disease, unspecified Is this a current diagnosis for this admission?: Yes Plan: Nebs as needed. LABA/ICS. (9) Macrocytic anemia Is this a current diagnosis for this admission?: Yes Plan: TSH, B12 and folic acid within normal limits. Iron studies suggestive of anemia of chronic disease. (10) Tobacco dependence Is this a current diagnosis for this admission?: Yes - Plan Summary Summary: Physical therapy will continue to work with patient given patient's ability. Anticipating discharge home. - Time Time Spent with patient: Less than 15 minutes Anticipated discharge: Home with Homehealth Within: within 24 hours
[2019-12-07] MEDS ORDERED: MAGNESIUM OXIDE 400 MG TABLET PO ONE (12:49)
--- NOTE | 2019-12-07 12:54 | EKG REPORT ---
SEVERITY:- BORDERLINE ECG - SINUS RHYTHM BORDERLINE T ABNORMALITIES, ANTERIOR LEADS BORDERLINE PROLONGED QT INTERVAL : Confirmed by: Dani Gomes MD 07-Dec-2019 12:53:17
[2019-12-07] MEDS: ACETAMINOPHEN 325 MG TABLET PO PRN (14:46)
[2019-12-07] MEDS: ALBUMIN HUMAN 12.5 GM/50 ML RTUINJ IV SCH ×2 (14:47→14:51)
[2019-12-07 16:16] LABS: ALKALINE PHOSPHATASE 110 U/L (38-126); ANION GAP 7 (5-19); ASPARTATE AMINO TRANSFERASE 40 U/L (17-59); BILIRUBIN,DIRECT 0.2 mg/dL (0.0-0.4); BILIRUBIN,TOTAL 0.8 mg/dL (0.2-1.3); BLOOD UREA NITROGEN 6 mg/dL (7-20); CALCIUM 8.6 mg/dL (8.4-10.2); CARBON DIOXIDE 32 mmol/L (22-30); CHLORIDE 88 mmol/L (98-107); GLUCOSE 93 mg/dL (75-110); TOTAL PROTEIN 5.3 g/dL (6.3-8.2)
[2019-12-07] MEDS: MAG HYDROX/AL HYDROX/SIMETH SUSP 30 ML UDCUP PO PRN (22:03)
[2019-12-08] MEDS: IPRATROPIUM BROMIDE 0.02% NEB 0.5 MG/2.5 ML AMPUL NEB SCH ×2 (00:42→08:37)
[2019-12-08] MEDS: LEVALBUTEROL HCL NEB 1.25 MG/3 ML AMPUL NEB SCH ×2 (00:42→08:37)
[2019-12-08 06:12] LABS: ALBUMIN 2.8 g/dL (3.5-5.0); ALKALINE PHOSPHATASE 115 U/L (38-126); ASPARTATE AMINO TRANSFERASE 39 U/L (17-59); BILIRUBIN,DIRECT 0.2 mg/dL (0.0-0.4); BILIRUBIN,TOTAL 0.9 mg/dL (0.2-1.3); BLOOD UREA NITROGEN 4 mg/dL (7-20); CALCIUM 8.4 mg/dL (8.4-10.2); GLUCOSE 106 mg/dL (75-110); POTASSIUM 4.2 mmol/L (3.6-5.0); TOTAL PROTEIN 5.2 g/dL (6.3-8.2)
[2019-12-08 06:22] LABS: ANION GAP 5 (5-19); CARBON DIOXIDE 32 mmol/L (22-30); CHLORIDE 90 mmol/L (98-107)
[2019-12-08 09:15] VITALS: BP 136/67
[2019-12-08] MEDS: FLUTICASONE/VILANTEROL 200-25 MCG/DOSE IH SCH (09:25)
[2019-12-08] MEDS: UMECLIDINIUM BROMIDE 62.5 MCG/DOSE IH SCH (09:25)
[2019-12-08] MEDS: SPIRONOLACTONE 25 MG TABLET PO SCH (09:26)
[2019-12-08] MEDS: MULTIVITAMIN TABLET PO SCH (09:26)
[2019-12-08] MEDS: METOPROLOL SUCCINATE 25 MG TAB.SR.24H PO SCH (09:26)
[2019-12-08] MEDS: DOCUSATE SODIUM 100 MG CAPSULE PO SCH (09:26)
[2019-12-08] MEDS: CHOLECALCIFEROL (D3) 1,000 UNIT (25 MCG) TABLET PO SCH (09:26)
[2019-12-08] MEDS: APIXABAN 5 MG TABLET PO SCH (09:26)
[2019-12-08] MEDS: TAMSULOSIN HCL 0.4 MG CAP.SR.24H PO SCH (09:26)
[2019-12-08] MEDS: THIAMINE HCL 100 MG TABLET PO SCH (09:26)
[2019-12-08] MEDS: DOFETILIDE 125 MCG CAPSULE PO SCH (09:26)
[2019-12-08] MEDS: FUROSEMIDE 40 MG TABLET PO SCH (09:26)
[2019-12-08] MEDS: LORATADINE 10 MG TABLET PO SCH (09:26)
[2019-12-08] MEDS: FAMOTIDINE 20 MG TABLET PO SCH (09:26)
--- NOTE | 2019-12-08 09:49 | PDOC DISCHARGE SUMMARY ---
Impression - Admit/DC Date/PCP Admission Date/Primary Care Provider: 12/02/19 23:59 CHUNG FOX MD Discharge Date: 12/08/19 - Discharge Diagnosis (1) Anasarca Is this a current diagnosis for this admission?: Yes (2) Acute and chronic respiratory failure with hypoxia Is this a current diagnosis for this admission?: Yes (3) Hyponatremia Is this a current diagnosis for this admission?: Yes (4) Chronic alcoholic liver disease Is this a current diagnosis for this admission?: Yes (5) Urinary tract infection Is this a current diagnosis for this admission?: Yes (6) Alcohol dependence Is this a current diagnosis for this admission?: Yes (7) Paroxysmal atrial fibrillation Is this a current diagnosis for this admission?: Yes (8) COPD (chronic obstructive pulmonary disease) Is this a current diagnosis for this admission?: Yes (9) Macrocytic anemia Is this a current diagnosis for this admission?: Yes (10) Tobacco dependence Is this a current diagnosis for this admission?: Yes - Additional Information Resuscitation Status: Full Code Discharge Diet: Cardiac Discharge Activity: Activity As Tolerated, Balance Activity w/Rest, Weigh Daily Referrals: [facility] [Provider Group] Prescriptions: Spironolactone [Aldactone 25 mg Tablet] 50 mg PO BID 30 Days tablet Docusate Sodium [Colace 100 mg Capsule] 100 mg PO DAILY #30 capsule Furosemide [Lasix 40 mg Tablet] 40 mg PO DAILY #30 tablet Thiamine HCl [Thiamine 100 mg Tablet] 100 mg PO DAILY #30 tablet Home Medications: Albuterol Sulfate [Ventolin 0.083% Neb 2.5 mg/3 mL Ampul] 1 vial NEB RTQIDP PRN 10/18/18 Loratadine [Claritin] 10 mg PO DAILY 10/18/18 Tamsulosin HCl [Flomax 0.4 mg Cap.sr] 0.4 mg PO QAM 10/18/18 Tiotropium [place] [Spiriva Handihaler 5 Cap/Kit (18 Mcg/Cap)] 1 cap IH DAILY 10/18/18 Apixaban [Eliquis 5 mg Tablet] 5 mg PO Q12 04/12/19 Albuterol Sulfate [Proair HFA Inhalation Aerosol 8.5 gm MDI] 2 puff IH QIDP PRN 04/23/19 Cholecalciferol (Vitamin D3) [Vitamin D3 1000 Unit Tablet] 1,000 unit PO QAM 04/23/19 Dofetilide [Tikosyn 500 Mcg Capsule] 250 mcg PO Q12 04/23/19 Metoprolol Succinate [Toprol Xl 25 mg Tab.sr] 25 mg PO DAILY 04/23/19 Mometasone Furoate [Asmanex] 2 puff IH DAILY 04/23/19 Rabeprazole Sodium [Aciphex] 20 mg PO QAM 04/23/19 Multivitamin with Minerals [One Daily Plus Minerals] 1 tab PO DAILY 11/28/19 Tadalafil 20 mg PO ASDIR PRN 11/28/19 Docusate Sodium [Colace 100 mg Capsule] 100 mg PO DAILY #30 capsule 12/08/19 Furosemide [Lasix 40 mg Tablet] 40 mg PO DAILY #30 tablet 12/08/19 Promethazine HCl [Phenergan 25 mg Tablet] 25 mg PO Q6HP PRN #0 12/08/19 Spironolactone [Aldactone 25 mg Tablet] 50 mg PO BID 30 Days tablet 12/08/19 Thiamine HCl [Thiamine 100 mg Tablet] 100 mg PO DAILY #30 tablet 12/08/19 History of Present Illiness History of Present Illness: JOSE LUIS JIM is a 69 year old male who presented to the emergency room with a 3-day history of dyspnea. He admits progressively worsening dyspnea becoming severe on the evening of admission. His dyspnea has been accompanied by increased swelling in his bilateral lower extremities and orthopnea. His dyspnea has been associated with a nonproductive cough. His dyspnea is worsened by any activity or exertion. His dyspnea became so severe that he was unable to speak more than 1 or 2 words without gasping for breath prior to coming to the emergency room. He denies other associated or accompanying signs and symptoms. He admits numerous prior similar episodes. He has not identified any additional aggravating or ameliorating factors for his dyspnea. The emergency room he was found to be severely dyspneic with bilateral lower extremity edema, bilateral rales on pulmonary auscultation, a markedly elevated BNP and hyponatremia. He was subsequently admitted hospital for further evaluation and treatment. Hospital Course Hospital Course: Patient was admitted for evaluation of shortness of breath seemed to be caused by anasarca. Patient's anasarca was thought to be secondary to chronic liver disease and was started on diuretic therapy with IV Bumex. Patient was also treated with nebulizers for COPD. But did not have any major exacerbation requiring steroids. Rest of hospital course as below. (1) Anasarca Is this a current diagnosis for this admission?: Yes Plan: Likely secondary to chronic liver disease. Echo last year was limited technically but showed normal ejection fraction. Cardiology does not feel that patient has CHF. Renal function is adequate and no evidence of proteinuria on urinalysis. Initially diuresed with IV Bumex and then later de-escalated to oral Lasix. Patient diuresed extremely well and his breathing and anasarca has improved significantly. Seems to have dropped 7 kilograms in terms of weight since admission. (2) Acute and chronic respiratory failure with hypoxia Is this a current diagnosis for this admission?: Yes Plan: Initially requiring over 3 L nasal cannula. Patient confirms that he uses 2 L nasal cannula at home for his COPD. With adequate diuresis, we were able to wean patient back down to 2 L with spo2 >90%. (3) Hyponatremia Is this a current diagnosis for this admission?: Yes Plan: Hypervolemic hyponatremia secondary to chronic liver disease. Continue diuresis, fluid and sodium restriction at home. Instructed to have repeat BMP within 2 weeks with primary care provider. (4) Chronic alcoholic liver disease Is this a current diagnosis for this admission?: Yes Plan: Reviewed prior abdominal imaging which show clear evidence of alcoholic steatohepatitis. However all the clinical findings including caput medusa, hypoalbuminemia, liver enzymes suggest stigmata of chronic liver disease. Patient counseled on importance of alcohol cessation and states that he will quit. Aldactone and Lasix. [facility] interventional sale consultant. Patient counseled on necessity of 1500 mg sodium restriction and fluid restriction. (5) Urinary tract infection Qualifiers: Urinary tract infection type: site unspecified Hematuria presence: without hematuria Qualified Code(s): N39.0 - Urinary tract infection, site not specified Is this a current diagnosis for this admission?: Yes Plan: Klebsiella growing on urine culture. Completed 5 days of ceftriaxone. (6) Alcohol dependence Is this a current diagnosis for this admission?: Yes Plan: Initially had withdrawal with elevated CIWA scores and treated with prn Ativan and standing Valium but patient was later weaned off Valium and most recent CIWA scores have been 0. Seems to be out of withdrawal phase. Thiamine supplements. Multivitamins. (7) Paroxysmal atrial fibrillation Is this a current diagnosis for this admission?: Yes Plan: Continue Toprol-XL, dofetilide and Eliquis. (8) COPD (chronic obstructive pulmonary disease) Qualifiers: COPD type: unspecified COPD Qualified Code(s): J44.9 - Chronic obstructive pulmonary disease, unspecified Is this a current diagnosis for this admission?: Yes Plan: Nebs as needed. LABA/ICS. (9) Macrocytic anemia Is this a current diagnosis for this admission?: Yes Plan: TSH, B12 and folic acid within normal limits. Iron studies suggestive of anemia of chronic disease. Physical Exam Vital Signs: Temp Pulse Resp BP Pulse Ox 98.1 F 97 16 136/67 H 90 L 12/08/19 08:00 12/08/19 08:37 12/08/19 08:37 12/08/19 08:00 12/08/19 08:37 Intake & Output 12/07/19 12/08/19 12/09/19 06:59 06:59 06:59 Intake Total 965 1193 Output Total 2150 2400 Balance -1185 -1207 Weight 82.8 kg 80.3 kg General appearance: PRESENT: no acute distress, cooperative Respiratory exam: PRESENT: symmetrical, unlabored, wheezes - Mild. ABSENT: accessory muscle use, retraction, tachypnea Neurological exam: PRESENT: alert, awake, oriented to person, oriented to place, oriented to time, oriented to situation Results Laboratory Results: WBC 6.3 10^3/uL (4.0-10.5) 12/05/19 05:28 RBC 2.65 10^6/uL (4.35-5.55) L 12/05/19 05:28 Hgb 9.8 g/dL (13.5-17.0) L 12/05/19 05:28 Hct 27.1 % (37.9-51.0) L 12/05/19 05:28 MCV 102 fl (80-97) H 12/05/19 05:28 MCH 36.9 pg (27.0-33.4) H 12/05/19 05:28 MCHC 36.1 g/dL (32.0-36.0) H 12/05/19 05:28 RDW 16.2 % (11.5-14.0) H 12/05/19 05:28 Plt Count 421 10^3/uL (150-450) 12/05/19 05:28 Lymph % (Auto) Not Reportable 12/02/19 22:20 [place] % (Auto) Not Reportable 12/02/19 22:20 Eos % (Auto) Not Reportable 12/02/19 22:20 Baso % (Auto) Not Reportable 12/02/19 22:20 Reticulocyte # 0.120 10^6/uL (0.028-0.122) 12/05/19 05:28 Absolute Neuts (auto) Not Reportable 12/02/19 22:20 Absolute Lymphs (auto) Not Reportable 12/02/19 22:20 Absolute Monos (auto) Not Reportable 12/02/19 22:20 Absolute Eos (auto) Not Reportable 12/02/19 22:20 Absolute Basos (auto) Not Reportable 12/02/19 22:20 Total Counted 100 12/02/19 22:20 Seg Neutrophils % Not Reportable 12/02/19 22:20 Seg Neuts % (Manual) 79 % (42-78) H 12/02/19 22:20 Lymphocytes % (Manual) 0 % (13-45) L 12/02/19 22:20 Atypical Lymphs % 1 % (0) 12/02/19 22:20 Monocytes % (Manual) 15 % (3-13) H 12/02/19 22:20 Eosinophils % (Manual) 4 % (0-6) 12/02/19 22:20 Basophils % (Manual) 1 % (0-2) 12/02/19 22:20 Abs Neuts (Manual) 4.8 10^3/uL (1.7-8.2) 12/02/19 22:20 Abs Lymphs (Manual) 0.1 10^3/uL (0.5-4.7) L 12/02/19 22:20 Abs Monocytes (Manual) 0.9 10^3/uL (0.1-1.4) 12/02/19 22:20 Absolute Eos (Manual) 0.2 10^3/uL (0.0-0.6) 12/02/19 22:20 Abs Basophils (Manual) 0.1 10^3/uL (0.0-0.2) 12/02/19 22:20 Toxic Granulation SLIGHT 12/02/19 22:20 Toxic Vacuolation PRESENT 12/02/19 22:20 Platelet Comment ADEQUATE 12/02/19 22:20 Poikilocytosis 1+ 12/02/19 22:20 Anisocytosis 1+ 12/02/19 22:20 Stomatocytes 1+ 12/02/19 22:20 Retic Count (auto) 4.54 % (0.66-2.85) H 12/05/19 05:28 PT 16.0 SEC (11.4-15.4) H 12/05/19 05:28 INR 1.27 12/05/19 05:28 APTT 31.2 SEC (23.5-35.8) 12/05/19 05:28 VBG pH 7.40 (7.30-7.42) 12/02/19 22:20 VBG pCO2 49.7 mmHg (35-63) 12/02/19 22:20 VBG HCO3 29.8 mmol/L (20-32) 12/02/19 22:20 VBG Base Excess 4.2 mmol/L 12/02/19 22:20 Sodium 127.3 mmol/L (137-145) L 12/08/19 05:24 Potassium 4.2 mmol/L (3.6-5.0) 12/08/19 05:24 Chloride 90 mmol/L (98-107) L 12/08/19 05:24 Carbon Dioxide 32 mmol/L (22-30) H 12/08/19 05:24 Anion Gap 5 (5-19) 12/08/19 05:24 BUN 4 mg/dL (7-20) L 12/08/19 05:24 Creatinine 0.74 mg/dL (0.52-1.25) 12/08/19 05:24 Est GFR ( Amer) > 60 (>60) 12/08/19 05:24 Est GFR (MDRD) Non-Af > 60 (>60) 12/08/19 05:24 Glucose 106 mg/dL (75-110) 12/08/19 05:24 Calcium 8.4 mg/dL (8.4-10.2) 12/08/19 05:24 Magnesium 1.9 mg/dL (1.6-2.3) 12/07/19 05:51 Iron 47.7 ug/dL (49-181) L 12/06/19 05:58 TIBC 180 ug/dL (250-450) L 12/06/19 05:58 % Saturation 27 % 12/06/19 05:58 Ferritin 294.00 ng/mL (17.9-464.0) 12/06/19 05:58 Total Bilirubin 0.9 mg/dL (0.2-1.3) 12/08/19 05:24 Direct Bilirubin 0.2 mg/dL (0.0-0.4) 12/08/19 05:24 Neonat Total Bilirubin Not Reportable 12/08/19 05:24 Neonat Direct Bilirubin Not Reportable 12/08/19 05:24 Neonat Indirect Bili Not Reportable 12/08/19 05:24 AST 39 U/L (17-59) 12/08/19 05:24 ALT 23 U/L (<50) 12/08/19 05:24 Alkaline Phosphatase 115 U/L (38-126) 12/08/19 05:24 Creatine Kinase 46 U/L (55-170) L 12/03/19 13:25 CK-MB (CK-2) 1.29 ng/mL (<4.55) 12/03/19 13:25 Troponin I < 0.012 ng/mL 12/03/19 13:25 NT-Pro-B Natriuret Pep 2780 pg/mL (<125) H 12/02/19 22:20 Total Protein 5.2 g/dL (6.3-8.2) L 12/08/19 05:24 Albumin 2.8 g/dL (3.5-5.0) L 12/08/19 05:24 Triglycerides 142 mg/dL (<150) 12/04/19 05:22 Cholesterol 125.11 mg/dL (0-200) 12/04/19 05:22 LDL Cholesterol Direct 77 mg/dL (<100) 12/04/19 05:22 VLDL Cholesterol 28.0 mg/dL (10-31) 12/04/19 05:22 HDL Cholesterol 46 mg/dL (>40) 12/04/19 05:22 Vitamin B12 892.0 pg/mL (239-931) 12/05/19 05:28 Folate 7.68 ng/mL (>2.76) 12/05/19 05:28 Free T3 pg/mL 3.79 pg/mL (2.77-5.27) 12/04/19 05:22 Urine Color VAHE 12/02/19 23:09 Urine Appearance SLIGHTLY-CLOUDY 12/02/19 23:09 Urine pH 6.0 (5.0-9.0) 12/02/19 23:09 Ur Specific [place] 1.010 12/02/19 23:09 Urine Protein NEGATIVE mg/dL (NEGATIVE) 12/02/19 23:09 Urine Glucose (UA) NEGATIVE mg/dL (NEGATIVE) 12/02/19 23:09 Urine Ketones NEGATIVE mg/dL (NEGATIVE) 12/02/19 23:09 Urine Blood MODERATE (NEGATIVE) H 12/02/19 23:09 Urine Nitrite NEGATIVE (NEGATIVE) 12/02/19 23:09 Urine Bilirubin NEGATIVE (NEGATIVE) 12/02/19 23:09 Urine Urobilinogen 4.0 mg/dL (<2.0) H 12/02/19 23:09 Ur Leukocyte Esterase SMALL (NEGATIVE) H 12/02/19 23:09 Urine WBC (Auto) 51 /HPF 12/02/19 23:09 Urine RBC (Auto) 3 /HPF 12/02/19 23:09 Urine Bacteria (Auto) 2+ /HPF 12/02/19 23:09 Urine Mucus (Auto) RARE /LPF 12/02/19 23:09 Urine Ascorbic Acid NEGATIVE (NEGATIVE) 12/02/19 23:09 12/02/19 12/03/19 12/03/19 22:20 01:27 07:35 CK-MB (CK-2) 2.28 1.78 1.29 Troponin I < 0.012 < 0.012 < 0.012 NT-Pro-B Natriuret Pep 2780 H 12/03/19 13:25 CK-MB (CK-2) 1.29 Troponin I < 0.012 NT-Pro-B Natriuret Pep Impressions: Chest X-Ray 12/02/19 21:41 IMPRESSION: No acute disease. Plan Time Spent: Less than 30 Minutes Stroke Is this a Stroke Patient?: No Acute Heart Failure - Is this a Heart Failure Patient?: No
== END 2019-12-08 11:42 | disposition home health service (06) | DRG 432 ==
LOC: ER 21:22 → EH 23:59 → 4S 12-03 01:02
PROVIDERS: ADMIT Emergency Medicine; ATTEND Internal Medicine
PROC: 5A09457 Assistance with Respiratory Ventilation, 24-96 Consecutive Hours, Continuous Positive Airway Pressure (ICD-10-PCS; principal; 2019-12-03)
DX: K70.10 Alcoholic hepatitis without ascites (principal); J96.21 Acute and chronic respiratory failure with hypoxia; F10.239 Alcohol dependence with withdrawal, unspecified; N39.0 Urinary tract infection, site not specified; E87.1 Hypo-osmolality and hyponatremia; K70.30 Alcoholic cirrhosis of liver without ascites; R33.9 Retention of urine, unspecified; D53.9 Nutritional anemia, unspecified; B96.1 Klebsiella pneumoniae [K. pneumoniae] as the cause of diseases classified elsewhere; R60.1 Generalized edema; I11.0 Hypertensive heart disease with heart failure; I50.9 Heart failure, unspecified; J44.9 Chronic obstructive pulmonary disease, unspecified; K21.9 Gastro-esophageal reflux disease without esophagitis; I48.0 Paroxysmal atrial fibrillation; M19.90 Unspecified osteoarthritis, unspecified site; Z96.642 Presence of left artificial hip joint; Z99.81 Dependence on supplemental oxygen; Z87.891 Personal history of nicotine dependence; Z83.3 Family history of diabetes mellitus; Z82.49 Family history of ischemic heart disease and other diseases of the circulatory system; Z82.3 Family history of stroke; Z79.51 Long term (current) use of inhaled steroids; Z79.899 Other long term (current) drug therapy; Z79.01 Long term (current) use of anticoagulants; Z88.8 Allergy status to other drugs, medicaments and biological substances
CPT/HCPCS: 36415; 71045; 80048; 80053; 80061; 81001; 82040; 82550; 82553; 82607; 82728; 82746; 82803; 83540; 83550; 83735; 83880; 84481; 84484; 85025; 85027; 85045; 85610; 85730; 87040; 87070; 87086; 87088; 87186; 93005; 93010; 94640; 94660; 96374; 96375; 99285; J0696; J1644; J1940; J2060; J2270; J2930; J3490; J7620; P9047

== ENCOUNTER 2020-07-16 19:02 | Inpatient (IN) | payer OTHER, MEDICARE ==
--- NOTE | 2020-07-16 19:09 | ER Document Report ---
ED Medical Screen (RME) - General Chief Complaint: Abnormal Lab Results Stated Complaint: ABNORMAL LABS Time Seen by Provider: 07/16/20 19:05 Primary Care Provider: CHUNG FOX MD [Primary Care Provider] - Follow up as needed Notes: HPI: 70-year-old male presenting to the emergency department for evaluation of possible low potassium. Follows at the [facility] normally. Has history of atrial fibrillation for which she is on Eliquis, heart failure, hypertension. Patient had lab work drawn at the [place] yesterday. Patient denies chest pain shortness of breath. Complains of chronic foot pain. PHYSICAL EXAMINATION: Lung sounds are clear to auscultation, irregularly irregularly heartbeat. Answers all questions appropriately. I have greeted and performed a rapid initial assessment of this patient. A comprehensive ED assessment and evaluation of the patient, analysis of test results and completion of medical decision making process will be conducted by an additional ED providers. Please note that clinical decision making for this patient was made during the 2019 pandemic of novel coronavirus which caused a significant strain on the healthcare system including at this particular facility. Criteria for admission discharge and level of care decisions as well as treatment decisions have necessarily changed TRAVEL OUTSIDE OF THE [place] IN LAST 30 DAYS: No - Related Data Allergies/Adverse Reactions: budesonide [From Symbicort] Adverse Reaction (Severe, Verified 07/03/19 12:26) formoterol [From Symbicort] Adverse Reaction (Severe, Verified 07/03/19 12:26) Past Medical History - Past Medical History Cardiac Medical History: Reports: Hx Atrial Fibrillation, Hx Congestive Heart Failure, Hx Hypertension Denies: Hx Coronary Artery Disease, Hx DVT, Hx Heart Attack, Hx Hypercholesterolemia, Hx Peripheral Vascular Disease, Hx Pulmonary Embolism, Hx Heart Murmur Pulmonary Medical History: Reports: Hx COPD, Hx Pneumonia Denies: Hx Asthma, Hx Bronchitis, Hx Respiratory Failure, Hx Sleep Apnea Neurological Medical History: Denies: Hx Cerebrovascular Accident, Hx Seizures Endocrine Medical History: Denies: Hx Diabetes Mellitus Type 1, Hx Diabetes Mellitus Type 2, Hx Hyperthyroidism, Hx Hypothyroidism Renal/ Medical History: Reports: Hx Benign Prostatic Hyperplasia. Denies: Hx End Stage Renal Disease, Hx Kidney Stones, Hx Peritoneal Dialysis Malignancy Medical History: Denies Hx Lung Cancer GI Medical History: Reports: Hx Gastroesophageal Reflux Disease. Denies: Hx Cirrhosis, Hx Crohn's Disease, Hx Hepatitis, Hx Hiatal Hernia, Hx Irritable Bowel, Hx Liver Failure, Hx Pancreatitis, Hx Ulcer, Hx Ulcerative Colitis Musculoskeltal Medical History: Reports Hx Arthritis, Denies Hx Fibromyalgia, Denies Hx Gout, Denies Hx Muscular Dystrophy Skin Medical History: Denies Hx Eczema, Denies Hx Psoriasis Psychiatric Medical History: Denies: Hx Bipolar Disorder, Hx Depression, Hx Post Traumatic Stress Disorder, Hx Schizophrenia Traumatic Medical History: Reports: Hx Fractures - right ankle Infectious Medical History: Denies: Hx Hepatitis Past Surgical History: Reports: Hx Abdominal Surgery - hernia repair, Hx Herniorrhaphy - Abdominal wall hernia, Hx Orthopedic Surgery - Righjt ankle surgery, Hx Tonsillectomy, Other - Abdominal hernia repair. Denies: Hx Appendectomy, Hx Bowel Surgery, Hx Cholecystectomy, Hx Colostomy, Hx Coronary Artery Bypass Graft, Hx Gastric Bypass Surgery, Hx Pacemaker - Immunizations Hx Diphtheria, Pertussis, Tetanus Vaccination: Yes Doctor's Discharge - Discharge Referrals: CHUNG FOX MD [Primary Care Provider] - Follow up as needed
[2020-07-16 21:24] LABS: ABSOLUTE BASOPHILS # (AUTO) 0.1 10^3/uL (0.0-0.2); ABSOLUTE EOSINOPHILS # (AUTO) 0.4 10^3/uL (0.0-0.6); ABSOLUTE LYMPHOCYTES (AUTO) 0.4 10^3/uL (0.5-4.7); ABSOLUTE NEUT (AUTO) 6.7 10^3/uL (1.7-8.2); EOSINOPHILS % (AUTO) 4.4 % (0-6); HEMATOCRIT 33.9 % (37.9-51.0); LYMPHOCYTES % (AUTO) 5.1 % (13-45); MEAN CORPUSCULAR HEMOGLOBIN 33.4 pg (27.0-33.4); MEAN CORPUSCULAR HGB CONC 35.3 g/dL (32.0-36.0); MEAN CORPUSCULAR VOLUME 95 fl (80-97); MONOCYTES % (AUTO) 11.7 % (3-13); PLATELET COUNT 331 10^3/uL (150-450); RED BLOOD COUNT 3.58 10^6/uL (4.35-5.55); RED CELL DISTRIBUTION WIDTH 12.7 % (11.5-14.0); SEGMENTED NEUTROPHILS % (AUTO) 77.8 % (42-78); TOTAL CELLS COUNTED % (AUTO) 100 %; WHITE BLOOD COUNT 8.6 10^3/uL (4.0-10.5)
[2020-07-16 21:33] LABS: PROTHROMBIN TIME 14.4 SEC (11.4-15.4)
[2020-07-16 21:41] LABS: ALBUMIN 3.9 g/dL (3.5-5.0); ALKALINE PHOSPHATASE 90 U/L (38-126); ASPARTATE AMINO TRANSFERASE 28 U/L (17-59); BILIRUBIN,DIRECT 0.1 mg/dL (0.0-0.4); BILIRUBIN,TOTAL 0.4 mg/dL (0.2-1.3); BLOOD UREA NITROGEN 9 mg/dL (7-20); CALCIUM 9.3 mg/dL (8.4-10.2); CARBON DIOXIDE 28 mmol/L (22-30); CHLORIDE 83 mmol/L (98-107); GLUCOSE 93 mg/dL (75-110); POTASSIUM 5.3 mmol/L (3.6-5.0); TOTAL PROTEIN 6.8 g/dL (6.3-8.2)
[2020-07-16 21:47] LABS: ANION GAP 7 (5-19)
--- NOTE | 2020-07-16 21:56 | EKG REPORT ---
SEVERITY:- DEFECTIVE ECG - SINUS TACHYCARDIA BASELINE ARTIFACT.NORMAL BUT DEFECTIVE EKG : Confirmed by: Tiffany Bennett MD 16-Jul-2020 21:56:06
--- NOTE | 2020-07-16 22:14 | ER Document Report ---
Doctor's Note Notes: 07/16/20 22:13 Informed by RN that patient's sodium was 116. No altered mental status. I informed charge nurse Nissa who is expediting patient getting bed and set of vital signs.
[2020-07-16] MEDS ORDERED: NORMAL SALINE 1000 ML 1,000 ML IV ONE (23:11)
--- NOTE | 2020-07-16 23:48 | ER Document Report ---
ED General - General Chief Complaint: Abnormal Lab Results Stated Complaint: ABNORMAL LABS Time Seen by Provider: 07/16/20 19:05 Notes: Patient is a 70-year-old male with a history of congestive heart failure, hyponatremia, COPD, who presents emergency department for low sodium levels, from his primary care provider. Patient denies any altered mental status, confusion, or problems remembering anything. Denies any shortness of breath or difficulty breathing. Denies any abdominal pain, chest pain, or any other symptoms. Patient does report bilateral lower extremity redness pain that has been going on for the past 3 weeks. Patient states that he walks a little, but primarily uses his scooter to get around. TRAVEL OUTSIDE OF THE [place] IN LAST 30 DAYS: No - Related Data Allergies/Adverse Reactions: budesonide [From Symbicort] Adverse Reaction (Severe, Verified 07/03/19 12:26) formoterol [From Symbicort] Adverse Reaction (Severe, Verified 07/03/19 12:26) Home Medications: eliquis, spirrevia, cardiazem, Past Medical History - Social History Smoking Status: Current Every Day Smoker Family History: CAD, CVA, Hypertension, Malignancy. denies: DM - Past Medical History Cardiac Medical History: Reports: Hx Atrial Fibrillation, Hx Congestive Heart Failure, Hx Hypertension Denies: Hx Coronary Artery Disease, Hx DVT, Hx Heart Attack, Hx Hypercholesterolemia, Hx Peripheral Vascular Disease, Hx Pulmonary Embolism, Hx Heart Murmur Pulmonary Medical History: Reports: Hx COPD, Hx Pneumonia Denies: Hx Asthma, Hx Bronchitis, Hx Respiratory Failure, Hx Sleep Apnea Neurological Medical History: Denies: Hx Cerebrovascular Accident, Hx Seizures Endocrine Medical History: Denies: Hx Diabetes Mellitus Type 1, Hx Diabetes Mellitus Type 2, Hx Hyperthyroidism, Hx Hypothyroidism Renal/ Medical History: Reports: Hx Benign Prostatic Hyperplasia. Denies: Hx End Stage Renal Disease, Hx Kidney Stones, Hx Peritoneal Dialysis Malignancy Medical History: Denies Hx Lung Cancer GI Medical History: Reports: Hx Gastroesophageal Reflux Disease. Denies: Hx Cirrhosis, Hx Crohn's Disease, Hx Hepatitis, Hx Hiatal Hernia, Hx Irritable Bowel, Hx Liver Failure, Hx Pancreatitis, Hx Ulcer, Hx Ulcerative Colitis Musculoskeletal Medical History: Reports Hx Arthritis, Denies Hx Fibromyalgia, Denies Hx Gout, Denies Hx Muscular Dystrophy Skin Medical History: Denies Hx Eczema, Denies Hx Psoriasis Psychiatric Medical History: Denies: Hx Bipolar Disorder, Hx Depression, Hx Post Traumatic Stress Disorder, Hx Schizophrenia Traumatic Medical History: Reports: Hx Fractures - right ankle Infectious Medical History: Denies: Hx Hepatitis Past Surgical History: Reports: Hx Abdominal Surgery - hernia repair, Hx Herniorrhaphy - Abdominal wall hernia, Hx Orthopedic Surgery - Righjt ankle surgery, Hx Tonsillectomy, Other - Abdominal hernia repair. Denies: Hx Appendectomy, Hx Bowel Surgery, Hx Cholecystectomy, Hx Colostomy, Hx Coronary Artery Bypass Graft, Hx Gastric Bypass Surgery, Hx Pacemaker - Immunizations Hx Diphtheria, Pertussis, Tetanus Vaccination: Yes Hx Pneumococcal Vaccination: 01/26/13 Review of Systems - Review of Systems Notes: REVIEW OF SYSTEMS: CONSTITUTIONAL : Denies recent illness. Denies recent unintentional weight loss. Denies fever, chills, or sweats. EENT: Denies eye, ear, throat, or mouth pain, discharge, or symptoms. Denies nasal or sinus congestion. CARDIOVASCULAR: Denies chest pain. RESPIRATORY: Denies shortness of breath, cough, congestion, difficulty breathing, or wheezing. GASTROINTESTINAL: Denies nausea, vomiting, and diarrhea. Denies abdominal pain. Denies constipation. GENITOURINARY: Denies difficulty urinating, burning, blood in urine, urgency or frequency. MUSCULOSKELETAL: Denies neck and back pain. See HPI. SKIN: Denies rash, itchiness, or lesions HEMATOLOGIC : Denies easy bruising or bleeding. LYMPHATIC: Denies swollen, painful, enlarged glands. NEUROLOGICAL: Denies no numbness or tingling denies weakness. Denies headache. Denies altered mental status. Denies alteration in speech. PSYCHIATRIC: Denies stress, anxiety, alteration in sleep patterns, or depression. All other systems reviewed and negative. Physical Exam - Vital signs Vitals: Temp Pulse Resp BP Pulse Ox 97.5 F 86 22 H 107/54 L 99 07/16/20 19:11 07/16/20 19:11 07/16/20 19:11 07/16/20 19:11 07/16/20 19:11 - Notes Notes: PHYSICAL EXAMINATION: GENERAL: Appears well, healthy, well-nourished, no acute distress. HEAD: Normocephalic, atraumatic. EYES: PERRL, conjunctiva normal, all extraocular movements intact, sclera nonicteric ENT: Moist mucous membranes. NECK: Supple, no noticeable swelling, redness, rash. Normal range of motion. LUNGS: Equal breath sounds bilaterally and clear to auscultation. No wheezes rales or rhonchi. CARDIOVASCULAR: S1-S2, regular rate, regular rhythm. Radial pulses 2+, normal. ABDOMEN: Normoactive bowel sounds. Soft, nontender, no guarding, no rebound tenderness, and no masses palpated. EXTREMITIES: Normal strength and range of motion, no pitting or edema. No cyanosis. NEUROLOGICAL: Moves all extremities upon command. Strength 5/5 in all extremities. PSYCH: Normal mood, normal affect. SKIN: Warm, dry. Erythema noted to bilateral lower extremities from about mid calf down. This is consistent with cellulitis. Normal skin turgor. Course - Re-evaluation Re-evalutation: 07/17/20 00:06 Hematology is unremarkable, other than a hemoglobin of 12. Patient has a history of anemia. Coagulation studies are unremarkable. Sodium is 117.6. Potassium is 5.3. Dr. Dao is already aware of the sodium level. Ordered a gentle bolus, as the patient does have a history of congestive heart failure and I do not want to overload him too quickly. Bilateral lower extremities are also consistent with cellulitis. We will start the patient on clindamycin. 07/17/20 01:39 Dr. Mejias will admit the patient. - Vital Signs Vital signs: Temp Pulse Resp BP Pulse Ox 98.5 F 86 10 L 104/57 L 98 07/17/20 05:12 07/16/20 19:11 07/17/20 07:00 07/17/20 06:01 07/17/20 07:00 - Laboratory Results Result Diagrams: 07/16/20 21:13 07/17/20 03:42 Laboratory Results Interpreted: 07/16/20 07/16/20 21:13 21:13 RBC 3.58 L Hgb 12.0 L Hct 33.9 L Lymph % (Auto) 5.1 L Absolute Lymphs (auto) 0.4 L Sodium 117.6 L* Potassium 5.3 H Chloride 83 L Critical Laboratory Results Reviewed: Yes Attending or Supervising Physician who Reviewed Labs: REVA DAO - Radiology Results Critical Radiology Results Reviewed: No Critical Results Discharge - Discharge Clinical Impression: Hyponatremia Cellulitis Qualifiers: Site of cellulitis: extremity Site of cellulitis of extremity: lower extremity Laterality: unspecified laterality Qualified Code(s): L03.119 - Cellulitis of unspecified part of limb Condition: Fair Disposition: ADMITTED INPATIENT Admitting Provider: Randell Unit Admitted: [facility]
[2020-07-17] MEDS ORDERED: CLINDAMYCIN 300 MG/D5W RTU 300 MG/50 ML RTUPB IV ONE (00:06)
[2020-07-17] MEDS ORDERED: HYDROCODONE/ACETAMINOPHEN 5-325 MG TABLET PO ONE ×2 (00:58→12:26)
[2020-07-17] MEDS ORDERED: ONDANSETRON HCL INJ/PF 4 MG/2 ML SDV IV PRN (02:26)
[2020-07-17] MEDS ORDERED: IPRATROPIUM/ALBUTEROL 0.5-2.5 MG/3 ML AMPUL NEB PRN ×2 (02:26→03:02)
[2020-07-17] MEDS ORDERED: ACETAMINOPHEN 325 MG TABLET PO PRN (02:26)
--- NOTE | 2020-07-17 02:58 | PDOC H&P ---
History of Present Illness Admission Date/PCP: 07/17/20 01:48 [facility] Patient complains of: Abnormal labs History of Present Illness: JOSE LUIS JIM is a 70 year old male with a history of COPD, hypertension, GERD, A. fib, heart failure and BPH who presents to the ER sent by his primary care doctor after lab done 2 days back showed low sodium level. Patient denies any symptoms right now including nausea, vomiting, diarrhea, dizziness. He states that he has a good appetite and has been compliant with his medication. He denies any history of passing out/loss of consciousness, abnormal body movement, headache, blurring of vision or focal weakness in any part of his extremities. He states that he used to be heavy drinker in the past but has been able to cut down to 1 to 2 cans of beer every day. In addition to this patient also reports that for the past 2 to 3 weeks he has been having severe bilateral burning lower extremity pain with associated reddish discoloration of his lower extremities but denies any fever or chills. Past Medical History Cardiac Medical History: Reports: Atrial Fibrillation, Congestive Heart Failure, Hypertension Denies: Coronary Artery Disease, DVT, Myocardial Infarction, Hyperlipidema, Peripheral Vascular Disease, Pulmonary Embolism, Heart Murmur Pulmonary Medical History: Reports: Chronic Obstructive Pulmonary Disease (COPD), Pneumonia Denies: Asthma, Bronchitis, Respiratory Failure, Sleep Apnea Neurological Medical History: Denies: Seizures Endocrine Medical History: Denies: Diabetes Mellitus Type 1, Diabetes Mellitus Type 2, Hyperthyroidism, Hypothyroidism Renal/ Medical History: Denies: End Stage Renal Disease Malignancy Medical History: Denies: Lung Cancer GI Medical History: Reports: Gastroesophageal Reflux Disease Denies: Cirrhosis, Crohn's Disease, Hepatitis, Hiatal Hernia, Ulcerative Colitis Musculoskeltal Medical History: Reports: Arthritis Denies: Fibromyalgia, Gout Skin Medical History: Denies: Eczema, Psoriasis Psychiatric Medical History: Denies: Bipolar Disorder, Depression, Post Traumatic Stress Disorder Hematology: Denies: Anemia, Sickle Cell Disease, Bleeding Tendencies Past Surgical History Past Surgical History: Reports: Herniorrhaphy - Abdominal wall hernia, Orthopedic Surgery - Righjt ankle surgery, Tonsillectomy, Other - Abdominal hernia repair Denies: Appendectomy, Cholecystectomy, Colostomy, Coronary Artery Bypass Kimi t, Gastric Bypass Surgery, Pacemaker Social History Information Source: Patient Lives with: Family Smoking Status: Current Every Day Smoker Electronic Cigarette use?: Yes Frequency of Alcohol Use: Heavy - 4 or more beers daily Hx Recreational Drug Use: No Drugs: None Hx Prescription Drug Abuse: No - Advance Directive Resuscitation Status: Full Code Family History Family History: CAD, CVA, Hypertension, Malignancy. denies: DM Parental Family History Reviewed: Yes Children Family History Reviewed: Yes Sibling(s) Family History Reviewed.: Yes Medication/Allergy Home Medications: Albuterol Sulfate [Ventolin 0.083% Neb 2.5 mg/3 mL Ampul] 1 vial NEB RTQIDP PRN 10/18/18 Loratadine [Claritin] 10 mg PO DAILY 10/18/18 Tamsulosin HCl [Flomax 0.4 mg Cap.sr] 0.4 mg PO QAM 10/18/18 Tiotropium [place] [Spiriva Handihaler 5 Cap/Kit (18 Mcg/Cap)] 1 cap IH DAILY 10/18/18 Apixaban [Eliquis 5 mg Tablet] 5 mg PO Q12 04/12/19 Albuterol Sulfate [Proair HFA Inhalation Aerosol 8.5 gm MDI] 2 puff IH QIDP PRN 04/23/19 Cholecalciferol (Vitamin D3) [Vitamin D3 1000 Unit Tablet] 1,000 unit PO QAM 04/23/19 Dofetilide [Tikosyn 500 Mcg Capsule] 250 mcg PO Q12 04/23/19 Metoprolol Succinate [Toprol Xl 25 mg Tab.sr] 25 mg PO DAILY 04/23/19 Mometasone Furoate [Asmanex] 2 puff IH DAILY 04/23/19 Rabeprazole Sodium [Aciphex] 20 mg PO QAM 04/23/19 Multivitamin with Minerals [One Daily Plus Minerals] 1 tab PO DAILY 11/28/19 Tadalafil 20 mg PO ASDIR PRN 11/28/19 Docusate Sodium [Colace 100 mg Capsule] 100 mg PO DAILY #30 capsule 12/08/19 Furosemide [Lasix 40 mg Tablet] 40 mg PO DAILY #30 tablet 12/08/19 Promethazine HCl [Phenergan 25 mg Tablet] 25 mg PO Q6HP PRN #0 12/08/19 Spironolactone [Aldactone 25 mg Tablet] 50 mg PO BID 30 Days tablet 12/08/19 Thiamine HCl [Thiamine 100 mg Tablet] 100 mg PO DAILY #30 tablet 12/08/19 Allergies/Adverse Reactions: budesonide [From Symbicort] Adverse Reaction (Severe, Verified 07/03/19 12:26) formoterol [From Symbicort] Adverse Reaction (Severe, Verified 07/03/19 12:26) Review of Systems Constitutional: ABSENT: chills, fever(s), headache(s), weight gain, weight loss Eyes: ABSENT: visual disturbances Ears: ABSENT: hearing changes Nose, Mouth, and Throat: ABSENT: as per HPI, headache(s), mouth pain, sore throat, vertigo, other Cardiovascular: ABSENT: chest pain, dyspnea on exertion, edema, orthropnea, palpitations Respiratory: ABSENT: cough, hemoptysis Gastrointestinal: ABSENT: abdominal pain, constipation, diarrhea, hematemesis, hematochezia, nausea, vomiting Genitourinary: ABSENT: dysuria, hematuria Musculoskeletal: ABSENT: joint swelling Integumentary: PRESENT: as per HPI Neurological: ABSENT: abnormal gait, abnormal speech, confusion, dizziness, focal weakness, syncope Psychiatric: ABSENT: anxiety, depression, homidical ideation, suicidal ideation Endocrine: ABSENT: cold intolerance, heat intolerance, polydipsia, polyuria Physical Exam Vital Signs: Temp Pulse Resp BP Pulse Ox 98.4 F 86 19 118/63 97 07/17/20 01:09 07/16/20 19:11 07/17/20 00:01 07/17/20 00:01 07/17/20 00:01 Intake & Output 07/15/20 07/16/20 07/17/20 06:59 06:59 06:59 Intake Total 1050 Balance 1050 Weight 72.7 kg Additional comments: GENERAL APPEARANCE: Alert and oriented x4, in no acute distress HEENT: Normocephalic and atraumatic. No scleral icterus. Moist oral mucosa NECK: Supple. No lymphadenopathy or tenderness. No carotid bruit. No JVD CHEST: Symmetric. Nontender to palpation. LUNGS: Clear with good air entry bilaterally. No wheezing or crackles HEART: Regular rate and rhythm with normal S1 and S2. No murmurs, gallops, or rubs. ABDOMEN: soft, active bowel sounds, no direct or rebound tenderness. No organomegaly detected. EXTREMITIES: No cyanosis, clubbing, or edema. Lower extremities are hyperemic, tender and has differential warmth MUSCULOSKELETAL: No deformity, atrophy or swelling noted PSYCHIATRIC: Recent and remote memory is intact. Appropriate mood and affect. SKIN: Warm, dry, and well perfused. No lesions or rashes are noted. NEUROLOGIC: No focal sensory or motor deficits are noted. Results Laboratory Results: 07/16/20 21:13 07/16/20 21:13 07/16/20 07/16/20 21:13 21:13 WBC 8.6 RBC 3.58 L Hgb 12.0 L Hct 33.9 L MCV 95 MCH 33.4 MCHC 35.3 RDW 12.7 Plt Count 331 Seg Neutrophils % 77.8 Sodium 117.6 L* Potassium 5.3 H Chloride 83 L Carbon Dioxide 28 Anion Gap 7 BUN 9 Creatinine 0.87 Est GFR ( Amer) > 60 Glucose 93 Calcium 9.3 Magnesium 2.0 Total Bilirubin 0.4 AST 28 Alkaline Phosphatase 90 Total Protein 6.8 Albumin 3.9 Assessment and Plan - Diagnosis (1) Hyponatremia Is this a current diagnosis for this admission?: Yes Plan: Patient had a routine lab exam at his PCP and was found to have severe hyponatremia On this presentation his sodium level is 117 Patient is alert, oriented x4 Has no history of seizure Patient has a recurrent history of hyponatremia Hold Lasix for now Obtain urine sodium, urine osmolality, serum osmolality Cautiously hydrate with NS to avoid overcorrection Monitor BMP (2) Hyperkalemia Is this a current diagnosis for this admission?: Yes Plan: Likely due to patient being on spironolactone Currently is being hydrated EKG shows no peaked T waves Closely monitor electrolytes and correct accordingly (3) Cellulitis Qualifiers: Site of cellulitis: extremity Site of cellulitis of extremity: lower extremity Laterality: unspecified laterality Qualified Code(s): L03.119 - Cellulitis of unspecified part of limb Is this a current diagnosis for this admission?: Yes Plan: Patient has bilateral lower extremity swelling, tenderness and hyperemia Possible causes include cellulitis versus stasis dermatitis, and peripheral neuropathy Has been started on clindamycin Placed him on gabapentin Follow-up with blood cultures (4) Chronic congestive heart failure Is this a current diagnosis for this admission?: Yes Plan: Currently not in acute exacerbation Hold Lasix and spironolactone due to hyponatremia and hyperkalemia respectively On strict I&O's, daily weight, telemetry monitoring (5) BPH (benign prostatic hyperplasia) Qualifiers: Lower urinary tract symptom presence: symptoms present Lower urinary tract symptom detail: urinary retention Qualified Code(s): N40.1 - Benign prostatic hyperplasia with lower urinary tract symptoms; R33.8 - Other retention of urine Is this a current diagnosis for this admission?: Yes Plan: We will continue tamsulosin (6) Alcohol dependence Is this a current diagnosis for this admission?: Yes Plan: Placed him on CIWA protocol Ativan as needed for symptoms of withdrawal (7) Paroxysmal atrial fibrillation Is this a current diagnosis for this admission?: Yes Plan: Currently rate controlled Continue metoprolol and apixaban (8) COPD (chronic obstructive pulmonary disease) Qualifiers: COPD type: unspecified COPD Qualified Code(s): J44.9 - Chronic obstructive pulmonary disease, unspecified Is this a current diagnosis for this admission?: Yes Plan: Placed him on DuoNebs as needed Currently has no signs of exacerbation (9) Hypertension Qualifiers: Hypertension type: essential hypertension Qualified Code(s): I10 - Essential (primary) hypertension Is this a current diagnosis for this admission?: Yes Plan: Left pressure is within acceptable range Hold off antihypertensive medication for now - Time Time Spent with patient: 35 or more minutes Total Critical Time (Minutes): 50 Medications reviewed and adjusted accordingly: Yes Anticipated Discharge Disposition: Home, Self Care Anticipated Discharge Timeframe: within 72 hours - Inpatient Certification Based on my medical assessment, after consideration of the patient's comor bidities, presenting symptoms, or acuity I expect that the services needed warrant INPATIENT care.: Yes I certify that my determination is in accordance with my understanding of Medicare's requirements for reasonable and necessary INPATIENT services [42 CFR 412.3e].: Yes Medical Necessity: Significant Comorbidiites Make Outpatient Treatment Too Risky, Need Close Monitoring Due to Risk of Patient Decompensation, Need For IV Fluids, Need For Continuous Telemetry Monitoring, Need for Nebulizer Therapy and Monitoring of Response, Risk of Complication if Not Cared For in Hospital Post Hospital Care: D/C or Transfer Summary
[2020-07-17] MEDS ORDERED: LORAZEPAM INJ 2 MG/1 ML VIAL IV PRN ×2 (03:03→17:48)
[2020-07-17] MEDS: NORMAL SALINE 1000 ML 1,000 ML IV PRN ×2 (03:20→11:22)
[2020-07-17] MEDS: GABAPENTIN 300 MG CAPSULE PO SCH ×3 (03:24→21:19)
[2020-07-17 04:12] LABS: ANION GAP 6 (5-19); BLOOD UREA NITROGEN 9 mg/dL (7-20); CALCIUM 8.7 mg/dL (8.4-10.2); CARBON DIOXIDE 22 mmol/L (22-30); CHLORIDE 89 mmol/L (98-107); GLUCOSE 92 mg/dL (75-110); POTASSIUM 4.8 mmol/L (3.6-5.0)
[2020-07-17 06:45] LABS: OSMOLALITY,URINE 325 mOsm/kg (300-900)
[2020-07-17 06:50] LABS: URINE SODIUM 18 mmol/L (30-90)
[2020-07-17 10:14] LABS: ANION GAP 8 (5-19); BLOOD UREA NITROGEN 7 mg/dL (7-20); CALCIUM 8.7 mg/dL (8.4-10.2); CARBON DIOXIDE 25 mmol/L (22-30); CHLORIDE 90 mmol/L (98-107); GLUCOSE 92 mg/dL (75-110); POTASSIUM 4.3 mmol/L (3.6-5.0)
[2020-07-17] MEDS: APIXABAN 5 MG TABLET PO SCH ×2 (11:10→18:07)
[2020-07-17] MEDS: METOPROLOL SUCCINATE 25 MG TAB.SR.24H PO SCH (11:15)
[2020-07-17] MEDS: CLINDAMYCIN 600 MG/D5W RTU 600 MG/50 ML RTUPB IV SCH ×2 (11:21→18:08)
[2020-07-17] MEDS: FAMOTIDINE 20 MG TABLET PO SCH ×2 (11:21→21:19)
[2020-07-17] MEDS ORDERED: NORMAL SALINE 1000 ML 1,000 ML IV PRN (12:24)
[2020-07-17 15:31] LABS: ANION GAP 5 (5-19); BLOOD UREA NITROGEN 10 mg/dL (7-20); CALCIUM 8.9 mg/dL (8.4-10.2); CARBON DIOXIDE 28 mmol/L (22-30); CHLORIDE 88 mmol/L (98-107); GLUCOSE 115 mg/dL (75-110); POTASSIUM 4.1 mmol/L (3.6-5.0)
--- NOTE | 2020-07-17 17:56 | PDOC PROGRESS REPORT ---
Subjective Date:: 07/17/20 Subjective:: JOSE LUIS JIM is a 70 year old male with a history of COPD, hypertension, GERD, A. fib, heart failure, and BPH who was admitted 07/17/20 with hyponatremia, hyperkalemia, and BLE cellulitis. He was seen on afternoon rounds. He is found resting in bed, comfortably, on supplemental oxygen via nasal cannula at 2 L/min. He states that he does have home O2 and uses it intermittently when sleeping or feeling short of breath. He reports continued bilateral lower extremity pain. He states the [place] has been helpful but has not entirely relieved his discomfort. He asks for something stronger. Otherwise, he does state he is feeling better and has no new questions or concerns. He denies fever, chills, chest pain, palpitations, dyspnea, orthopnea, abdominal pain, nausea, vomiting, diarrhea. No concerns per nursing. Reason For Visit: SEVERE HYPONATREMIA,HYPERKALEMIA,CELLULITIS Physical Exam Vital Signs: Temp Pulse Resp BP Pulse Ox 97.8 F 83 17 100/56 L 100 07/17/20 16:04 07/17/20 16:04 07/17/20 16:04 07/17/20 16:04 07/17/20 16:04 Intake & Output 07/16/20 07/17/20 07/18/20 06:59 06:59 06:59 Intake Total 1157 1203 Output Total 600 Balance 1157 603 Weight 72.7 kg General appearance: PRESENT: no acute distress, cooperative, well-developed, well-nourished Head exam: PRESENT: atraumatic, normocephalic Eye exam: PRESENT: conjunctiva pink, EOMI, PERRLA. ABSENT: scleral icterus Mouth exam: PRESENT: moist, tongue midline Respiratory exam: PRESENT: clear to auscultation latisha, symmetrical, unlabored, other - supplemental oxygen via NC. ABSENT: rales, rhonchi, wheezes Cardiovascular exam: PRESENT: RRR, +S1, +S2. ABSENT: diastolic murmur, rubs, systolic murmur Pulses: PRESENT: normal dorsalis pedis pul Vascular exam: PRESENT: normal capillary refill Extremities exam: PRESENT: full ROM. ABSENT: calf tenderness, clubbing, pedal edema Neurological exam: PRESENT: alert, awake, oriented to person, oriented to place, oriented to time, oriented to situation, CN II-XII grossly intact. ABSENT: motor sensory deficit Psychiatric exam: PRESENT: appropriate affect, normal mood. ABSENT: homicidal ideation, suicidal ideation Skin exam: PRESENT: dry, erythema - mild bilateral foot and anterior lower [place] erythema and tenderness. Decreased from skin marker outline. edema has resolved., intact, warm. ABSENT: cyanosis, rash Results Laboratory Results: 07/16/20 21:13 07/17/20 14:58 07/16/20 07/16/20 07/17/20 21:13 21:13 03:42 WBC 8.6 RBC 3.58 L Hgb 12.0 L Hct 33.9 L MCV 95 MCH 33.4 MCHC 35.3 RDW 12.7 Plt Count 331 Seg Neutrophils % 77.8 Sodium 117.6 L* 117.1 L* Potassium 5.3 H 4.8 Chloride 83 L 89 L Carbon Dioxide 28 22 Anion Gap 7 6 BUN 9 9 Creatinine 0.87 0.80 Est GFR ( Amer) > 60 > 60 Glucose 93 92 Serum Osmolality Calcium 9.3 8.7 Magnesium 2.0 Total Bilirubin 0.4 AST 28 Alkaline Phosphatase 90 Total Protein 6.8 Albumin 3.9 TSH Urine Osmolality 07/17/20 07/17/20 07/17/20 03:42 03:42 06:06 WBC RBC Hgb Hct MCV MCH MCHC RDW Plt Count Seg Neutrophils % Sodium Potassium Chloride Carbon Dioxide Anion Gap BUN Creatinine Est GFR ( Amer) Glucose Serum Osmolality 252 L Calcium Magnesium Total Bilirubin AST Alkaline Phosphatase Total Protein Albumin TSH 4.12 Urine Osmolality 325 07/17/20 07/17/20 09:44 14:58 WBC RBC Hgb Hct MCV MCH MCHC RDW Plt Count Seg Neutrophils % Sodium 122.5 L 121.1 L Potassium 4.3 4.1 Chloride 90 L 88 L Carbon Dioxide 25 28 Anion Gap 8 5 BUN 7 10 Creatinine 0.77 0.83 Est GFR ( Amer) > 60 > 60 Glucose 92 115 H Serum Osmolality Calcium 8.7 8.9 Magnesium Total Bilirubin AST Alkaline Phosphatase Total Protein Albumin TSH Urine Osmolality Assessment and Plan - Diagnosis (1) Hyponatremia Is this a current diagnosis for this admission?: Yes Plan: Patient had a routine lab exam at his PCP and was found to have severe hyponatremia On this presentation his sodium level is 117 Patient is alert, oriented x4 Has no history of seizure Patient has a recurrent history of hyponatremia Urine sodium, urine osmolality, serum osmolality suggest hypovolemic hyponatremia vs siadh May also be related to continued daily alcohol (beer) intake. Hold Lasix for now Repeat urine sodium, urine osmolality, serum osmolality following IVF Cautiously hydrate with NS to avoid overcorrection Serial BMP (2) Hyperkalemia Is this a current diagnosis for this admission?: Yes Plan: Resolved. Likely due to patient being on spironolactone Currently is being hydrated EKG shows no peaked T waves Follow chemistries. (3) Cellulitis Qualifiers: Site of cellulitis: extremity Site of cellulitis of extremity: lower extremity Laterality: unspecified laterality Qualified Code(s): L03.119 - Cellulitis of unspecified part of limb Is this a current diagnosis for this admission?: Yes Plan: Already w/ improvement. Patient has bilateral lower extremity swelling, tenderness and hyperemia Possible causes include cellulitis versus stasis dermatitis, and peripheral neuropathy Blood cultures pending. Has been started on clindamycin; Day #1 Scheduled gabapentin Analgesics as needed. (4) Chronic congestive heart failure Is this a current diagnosis for this admission?: Yes Plan: Currently not in acute exacerbation Echocardiogram (September 2018) shows LVEF 55 to 60% Hold Lasix and spironolactone due to hyponatremia and hyperkalemia respectively Cardiac diet. On strict I&O's, daily weight, telemetry monitoring (5) Alcohol dependence Qualifiers: Substance use status: uncomplicated Qualified Code(s): F10.20 - Alcohol dependence, uncomplicated Is this a current diagnosis for this admission?: Yes Plan: Placed him on CIWA protocol Ativan as needed for symptoms of withdrawal Folic acid and thiamine supplementation. (6) COPD (chronic obstructive pulmonary disease) Qualifiers: COPD type: unspecified COPD Qualified Code(s): J44.9 - Chronic obstructive pulmonary disease, unspecified Is this a current diagnosis for this admission?: Yes Plan: Currently has no signs of exacerbation Placed him on DuoNebs as needed Supplemental oxygen as needed Encourage pulmonary toilet No indications for antibiotics or steroids. (7) Hypertension Qualifiers: Hypertension type: essential hypertension Qualified Code(s): I10 - Essential (primary) hypertension Is this a current diagnosis for this admission?: Yes Plan: Blood pressure is within acceptable range Hold off antihypertensive medication for now (8) Paroxysmal atrial fibrillation Is this a current diagnosis for this admission?: Yes Plan: Currently rate controlled Continue metoprolol and apixaban (9) BPH (benign prostatic hyperplasia) Qualifiers: Lower urinary tract symptom presence: symptoms present Lower urinary tract symptom detail: urinary retention Qualified Code(s): N40.1 - Benign prostatic hyperplasia with lower urinary tract symptoms; R33.8 - Other retention of urine Is this a current diagnosis for this admission?: Yes Plan: We will continue tamsulosin - Time Time Spent with patient: 35 or more minutes Medications reviewed and adjusted accordingly: Yes Anticipated Discharge Disposition: Home with Home Health Anticipated Discharge Timeframe: within 72 hours
[2020-07-17] MEDS: OXYCODONE HCL IR 5 MG TABLET PO PRN (18:07)
[2020-07-17] MEDS: DOFETILIDE 125 MCG CAPSULE PO SCH (21:18)
[2020-07-17] MEDS ORDERED: DOFETILIDE 500 MCG CAPSULE PO SCH (22:00)
[2020-07-18] MEDS: CLINDAMYCIN 600 MG/D5W RTU 600 MG/50 ML RTUPB IV SCH ×2 (01:07→10:29)
[2020-07-18] MEDS: NORMAL SALINE 1000 ML 1,000 ML IV PRN ×4 (01:08→23:14)
[2020-07-18] MEDS: OXYCODONE HCL IR 5 MG TABLET PO PRN ×3 (01:09→20:10)
[2020-07-18 07:12] LABS: HEMATOCRIT 26.7 % (37.9-51.0); MEAN CORPUSCULAR HEMOGLOBIN 34.1 pg (27.0-33.4); MEAN CORPUSCULAR HGB CONC 35.7 g/dL (32.0-36.0); MEAN CORPUSCULAR VOLUME 96 fl (80-97); PLATELET COUNT 274 10^3/uL (150-450); RED CELL DISTRIBUTION WIDTH 12.7 % (11.5-14.0); WHITE BLOOD COUNT 8.7 10^3/uL (4.0-10.5)
[2020-07-18 07:47] LABS: HEMOGLOBIN 9.5 g/dL (13.5-17.0)
[2020-07-18 07:50] LABS: ABSOLUTE LYMPHOCYTES# (MANUAL) 0.2 10^3/uL (0.5-4.7); ABSOLUTE MONOCYTES # (MANUAL) 1.1 10^3/uL (0.1-1.4); BASOPHILS % (MANUAL) 1 % (0-2); EOSINOPHILS % (MANUAL) 4 % (0-6); LYMPHOCYTES % (MANUAL) 1 % (13-45); MONOCYTES % (MANUAL) 13 % (3-13); SEGMENTED NEUTROPHILS % (MAN) 80 % (42-78); TOTAL CELLS COUNTED 100
[2020-07-18 07:51] LABS: PLATELET COMMENT ADEQUATE; RBC MORPHOLOGY COMMENT NORMO-CYTIC/CHROMIC
[2020-07-18] MEDS ORDERED: RABEPRAZOLE SODIUM 20 MG PO SCH (08:00)
[2020-07-18] MEDS: PANTOPRAZOLE SODIUM 20 MG TABLET.DR PO SCH (08:37)
[2020-07-18] MEDS: TAMSULOSIN HCL 0.4 MG CAP.SR.24H PO SCH (08:37)
[2020-07-18] MEDS ORDERED: (PENDING PHARMACY ID) (Tiotropium Bromide [Spiriva Handihaler 5 Cap/Kit (18 Mcg/Cap)] 5 CA IH SCH (10:00)
[2020-07-18] MEDS: METOPROLOL SUCCINATE 25 MG TAB.SR.24H PO SCH (10:23)
[2020-07-18] MEDS: MOMETASONE FUROATE 220 MCG IH SCH (10:24)
[2020-07-18] MEDS: DOFETILIDE 125 MCG CAPSULE PO SCH ×2 (10:24→21:06)
[2020-07-18] MEDS: FAMOTIDINE 20 MG TABLET PO SCH ×2 (10:24→21:06)
[2020-07-18] MEDS: DOCUSATE SODIUM 100 MG CAPSULE PO SCH (10:25)
[2020-07-18] MEDS: LORATADINE 10 MG TABLET PO SCH (10:25)
[2020-07-18] MEDS: APIXABAN 5 MG TABLET PO SCH ×2 (10:25→17:15)
[2020-07-18] MEDS: UMECLIDINIUM BROMIDE 62.5 MCG/DOSE IH SCH (10:25)
[2020-07-18] MEDS: FOLIC ACID 1 MG TABLET PO SCH (10:29)
[2020-07-18] MEDS: GABAPENTIN 300 MG CAPSULE PO SCH ×2 (10:29→21:06)
[2020-07-18] MEDS: THIAMINE HCL 100 MG TABLET PO SCH (10:29)
[2020-07-18 11:07] LABS: URINE SODIUM 56 mmol/L (30-90)
[2020-07-18 11:57] LABS: OSMOLALITY,URINE 178 mOsm/kg (300-900)
[2020-07-18 13:15] LABS: ANION GAP 6 (5-19); BLOOD UREA NITROGEN 11 mg/dL (7-20); CALCIUM 8.4 mg/dL (8.4-10.2); CARBON DIOXIDE 24 mmol/L (22-30); CHLORIDE 89 mmol/L (98-107); GLUCOSE 97 mg/dL (75-110); POTASSIUM 3.9 mmol/L (3.6-5.0)
[2020-07-18] MEDS: CLINDAMYCIN HCL 150 MG CAPSULE PO SCH ×2 (15:01→21:06)
--- NOTE | 2020-07-18 16:15 | PDOC PROGRESS REPORT ---
Subjective Date:: 07/18/20 Subjective:: JOSE LUIS JIM is a 70 year old male with a history of COPD, hypertension, GERD, A. fib, heart failure, and BPH who was admitted 07/17/20 with hyponatremia, hyperkalemia, and BLE cellulitis. He was seen on morning rounds with his present. He is found resting in bed, comfortably, on his baseline supplemental oxygen via nasal cannula at 2 L/min. He reports continued bilateral lower extremity pain; though this is much improved. Otherwise, he states he is feeling better and has no new questions or concerns. He denies fever, chills, chest pain, palpitations, dyspnea, orthopnea, abdominal pain, nausea, vomiting, diarrhea. Nursing reports that he took all of his on home medications this morning, including furosemide and spironolactone. Reason For Visit: SEVERE HYPONATREMIA,HYPERKALEMIA,CELLULITIS Physical Exam Vital Signs: Temp Pulse Resp BP Pulse Ox 97.8 F 90 20 90/50 L 91 L 07/18/20 11:32 07/18/20 14:00 07/18/20 11:32 07/18/20 11:32 07/18/20 11:32 Intake & Output 07/17/20 07/18/20 07/19/20 06:59 06:59 06:59 Intake Total 1157 3839 1050 Output Total 1650 Balance 1157 2189 1050 Weight 72.7 kg 75.1 kg General appearance: PRESENT: no acute distress, disheveled, well-developed, well-nourished Head exam: PRESENT: atraumatic, normocephalic Eye exam: PRESENT: conjunctiva pink, EOMI, PERRLA. ABSENT: scleral icterus Mouth exam: PRESENT: moist, tongue midline Teeth exam: PRESENT: poor dentation Respiratory exam: PRESENT: clear to auscultation latisha, symmetrical, unlabored, other - Supplemental oxygen 2 L/min. ABSENT: rales, rhonchi, wheezes Cardiovascular exam: PRESENT: RRR. ABSENT: diastolic murmur, rubs, systolic murmur Pulses: PRESENT: normal dorsalis pedis pul Vascular exam: PRESENT: normal capillary refill GI/Abdominal exam: PRESENT: normal bowel sounds, soft. ABSENT: distended, guarding, mass, organolmegaly, rebound, tenderness Rectal exam: PRESENT: deferred Extremities exam: PRESENT: full ROM. ABSENT: calf tenderness, clubbing, pedal edema Neurological exam: PRESENT: alert, awake, oriented to person, oriented to place, oriented to time, oriented to situation, CN II-XII grossly intact. ABSENT: motor sensory deficit Psychiatric exam: PRESENT: appropriate affect, normal mood. ABSENT: homicidal ideation, suicidal ideation Skin exam: PRESENT: dry, intact, warm. ABSENT: cyanosis, erythema - Resolved, rash Results Laboratory Results: 07/18/20 06:04 07/18/20 06:04 07/18/20 07/18/20 07/18/20 06:04 06:04 06:04 WBC 8.7 RBC 2.80 L Hgb 9.5 L D Hct 26.7 L MCV 96 MCH 34.1 H MCHC 35.7 RDW 12.7 Plt Count 274 Seg Neutrophils % Not Reportable Sodium 118.7 L* Potassium 3.9 Chloride 89 L Carbon Dioxide 24 Anion Gap 6 BUN 11 Creatinine 1.01 Est GFR ( Amer) > 60 Glucose 97 Serum Osmolality 254 L Calcium 8.4 Urine Osmolality 07/18/20 10:32 WBC RBC Hgb Hct MCV MCH MCHC RDW Plt Count Seg Neutrophils % Sodium Potassium Chloride Carbon Dioxide Anion Gap BUN Creatinine Est GFR ( Amer) Glucose Serum Osmolality Calcium Urine Osmolality 178 L Assessment and Plan - Diagnosis (1) Hyponatremia Is this a current diagnosis for this admission?: Yes Plan: History of chronic hyponatremia. Na 117.6-> 122.5-> 118.7. Baseline appears to be 127-129 Urine sodium, urine osmolality, serum osmolality suggest hypovolemic hyponatremia vs siadh Based on repeat Urine sodium, urine osmolality, serum osmolality, UpToDate recommends checking TSH, ACTH and cortisol levelts. TSH 4.12 May also be related to continued daily alcohol (beer) intake. Unfortunately, patient took his home furosemide and spironolactone medications today. Continue IV fluids. Sodium chloride 1 g x 1 Serial BMP (2) Hyperkalemia Is this a current diagnosis for this admission?: Yes Plan: Resolved. Likely due to patient being on spironolactone Currently is being hydrated EKG shows no peaked T waves Follow chemistries. (3) Cellulitis Qualifiers: Site of cellulitis: extremity Site of cellulitis of extremity: lower extremity Laterality: unspecified laterality Qualified Code(s): L03.119 - Cellulitis of unspecified part of limb Is this a current diagnosis for this admission?: Yes Plan: Significantly improved; no erythema or edema on exam. Patient does continue to complain of some tenderness. Blood cultures are negative at 24 hours. Transition to oral clindamycin; Day #2 Scheduled gabapentin Analgesics as needed. (4) Chronic congestive heart failure Is this a current diagnosis for this admission?: Yes Plan: Currently not in acute exacerbation Echocardiogram (September 2018) shows LVEF 55 to 60% Hold Lasix and spironolactone due to hyponatremia and hyperkalemia respectively Cardiac diet. On strict I&O's, daily weight, telemetry monitoring (5) Alcohol dependence Qualifiers: Substance use status: uncomplicated Qualified Code(s): F10.20 - Alcohol dependence, uncomplicated Is this a current diagnosis for this admission?: Yes Plan: Placed him on CIWA protocol Ativan as needed for symptoms of withdrawal Folic acid and thiamine supplementation. (6) COPD (chronic obstructive pulmonary disease) Qualifiers: COPD type: unspecified COPD Qualified Code(s): J44.9 - Chronic obstructive pulmonary disease, unspecified Is this a current diagnosis for this admission?: Yes Plan: Currently has no signs of exacerbation Placed him on DuoNebs as needed Supplemental oxygen as needed Encourage pulmonary toilet No indications for antibiotics or steroids. (7) Hypertension Qualifiers: Hypertension type: essential hypertension Qualified Code(s): I10 - Essential (primary) hypertension Is this a current diagnosis for this admission?: Yes Plan: Blood pressure are soft Hold off antihypertensive medication for now (8) Paroxysmal atrial fibrillation Is this a current diagnosis for this admission?: Yes Plan: Currently rate controlled Continue metoprolol and apixaban (9) BPH (benign prostatic hyperplasia) Qualifiers: Lower urinary tract symptom presence: symptoms present Lower urinary tract symptom detail: urinary retention Qualified Code(s): N40.1 - Benign prostatic hyperplasia with lower urinary tract symptoms; R33.8 - Other retention of urine Is this a current diagnosis for this admission?: Yes Plan: We will continue tamsulosin - Time Time Spent with patient: 25-34 minutes Medications reviewed and adjusted accordingly: Yes Anticipated Discharge Disposition: Home, Self Care Anticipated Discharge Timeframe: within 48 hours
[2020-07-18] MEDS ORDERED: SODIUM CHLORIDE 1 GM TABLET PO ONE (17:00)
--- NOTE | 2020-07-18 19:16 | CDI QUERY ---
CDI Query CDI Review: We are seeking further clarification of documentation to reflect the severity of illness of your patient. " Per Progress Notes: Chronic congestive heart failure Is this a current diagnosis for this admission?: Yes Plan: Currently not in acute exacerbation Echocardiogram (September 2018) shows LVEF 55 to 60% Paroxysmal atrial fibrillation Is this a current diagnosis for this admission?: Yes Plan: Currently rate controlled Continue metoprolol and apixaban" Based on your medical judgement, can you further clarify in the Progress Notes and include in the Discharge Summary: Type of heart failure: Systolic Diastolic Combined systolic/diastolic Other (please specify) None of the above / Not applicable Based on your medical judgement, can you further clarify in the Progress Notes and the Discharge Summary if the Atrial Fibrillation can be further specified: Persistent Atrial fibrillation Chronic (Permanent) Atrial fibrillation Other Unable to determine Thank you for your consideration. BLAYNE CliffordN RN Clinical [employer] Physician Advisor
[2020-07-18 22:24] LABS: ANION GAP 5 (5-19); BLOOD UREA NITROGEN 10 mg/dL (7-20); CALCIUM 8.2 mg/dL (8.4-10.2); CARBON DIOXIDE 26 mmol/L (22-30); CHLORIDE 90 mmol/L (98-107); GLUCOSE 113 mg/dL (75-110); POTASSIUM 3.8 mmol/L (3.6-5.0)
[2020-07-19] MEDS: OXYCODONE HCL IR 5 MG TABLET PO PRN ×3 (03:21→17:38)
[2020-07-19] MEDS: CLINDAMYCIN HCL 150 MG CAPSULE PO SCH ×2 (05:22→13:28)
[2020-07-19 06:27] LABS: ANION GAP 8 (5-19); BLOOD UREA NITROGEN 9 mg/dL (7-20); CALCIUM 8.4 mg/dL (8.4-10.2); CARBON DIOXIDE 25 mmol/L (22-30); CHLORIDE 92 mmol/L (98-107); GLUCOSE 105 mg/dL (75-110)
[2020-07-19] MEDS ORDERED: SODIUM CHLORIDE 1 GM TABLET PO SCH (10:00)
[2020-07-19] MEDS: NORMAL SALINE 1000 ML 1,000 ML IV PRN (11:16)
[2020-07-19] MEDS: DOFETILIDE 125 MCG CAPSULE PO SCH (11:20)
[2020-07-19] MEDS: FOLIC ACID 1 MG TABLET PO SCH (11:21)
[2020-07-19] MEDS: GABAPENTIN 300 MG CAPSULE PO SCH (11:21)
[2020-07-19] MEDS: TAMSULOSIN HCL 0.4 MG CAP.SR.24H PO SCH (11:22)
[2020-07-19] MEDS: METOPROLOL SUCCINATE 25 MG TAB.SR.24H PO SCH (11:22)
[2020-07-19] MEDS: LORATADINE 10 MG TABLET PO SCH (11:22)
[2020-07-19] MEDS: THIAMINE HCL 100 MG TABLET PO SCH (11:23)
[2020-07-19] MEDS: PANTOPRAZOLE SODIUM 20 MG TABLET.DR PO SCH (11:23)
[2020-07-19] MEDS: FAMOTIDINE 20 MG TABLET PO SCH (11:23)
[2020-07-19] MEDS: DOCUSATE SODIUM 100 MG CAPSULE PO SCH (11:23)
[2020-07-19] MEDS: APIXABAN 5 MG TABLET PO SCH ×2 (11:24→17:38)
[2020-07-19] MEDS: UMECLIDINIUM BROMIDE 62.5 MCG/DOSE IH SCH (11:25)
[2020-07-19] MEDS: MOMETASONE FUROATE 220 MCG IH SCH (11:29)
[2020-07-19] MEDS ORDERED: COSYNTROPIN INJ 0.25 MG VIAL IV PRN (11:56)
--- NOTE | 2020-07-19 15:50 | PDOC DISCHARGE SUMMARY ---
Impression - Admit/DC Date/PCP Admission Date/Primary Care Provider: 07/17/20 01:[facility] Discharge Date: 07/19/20 - Discharge Diagnosis (1) Hyponatremia Is this a current diagnosis for this admission?: Yes (2) Hyperkalemia Is this a current diagnosis for this admission?: Yes (3) Cellulitis Is this a current diagnosis for this admission?: Yes (4) Chronic congestive heart failure Is this a current diagnosis for this admission?: Yes (5) Alcohol dependence Is this a current diagnosis for this admission?: Yes (6) COPD (chronic obstructive pulmonary disease) Is this a current diagnosis for this admission?: Yes (7) Hypertension Is this a current diagnosis for this admission?: Yes (8) Paroxysmal atrial fibrillation Is this a current diagnosis for this admission?: Yes (9) BPH (benign prostatic hyperplasia) Is this a current diagnosis for this admission?: Yes - Additional Information Resuscitation Status: Full Code Discharge Diet: Cardiac Discharge Activity: Activity As Tolerated, Balance Activity w/Rest Referrals: CHUNG FOX MD [NO LOCAL MD] - Follow up as needed (Follow up within 1 week. sticker in book) Prescriptions: RX: Clindamycin HCl [Cleocin 150 mg Capsule] 450 mg PO Q8 #45 capsule RX: Folic Acid [Folvite 1 mg Tablet] 1 mg PO DAILY #90 tablet RX: Gabapentin [Neurontin 300 mg Capsule] 300 mg PO Q12 #60 capsule RX: Sodium Chloride [Sodium Chloride 1 gm Tablet] 1 gm PO DAILY #30 tablet RX: Thiamine HCl [Thiamine 100 mg Tablet] 100 mg PO DAILY #90 tablet Home Medications: RX: Loratadine [Claritin] 10 mg PO DAILY 10/18/18 RX: Tamsulosin HCl [Flomax 0.4 mg Cap.sr] 0.4 mg PO QAM 10/18/18 RX: Tiotropium [place] [Spiriva Handihaler 5 Cap/Kit (18 Mcg/Cap)] 1 cap IH DAILY 10/18/18 RX: Apixaban [Eliquis 5 mg Tablet] 5 mg PO Q12 04/12/19 RX: Albuterol Sulfate [Proair HFA Inhalation Aerosol 8.5 gm MDI] 2 puff IH QAM 04/23/19 RX: Dofetilide [Tikosyn 500 Mcg Capsule] 250 mcg PO Q12 04/23/19 RX: Metoprolol Succinate [Toprol Xl 25 mg Tab.sr] 25 mg PO DAILY 04/23/19 RX: Rabeprazole Sodium [Aciphex] 20 mg PO QAM 04/23/19 RX: Docusate Sodium [Colace 100 mg Capsule] 100 mg PO DAILY #30 capsule 12/08/19 RX: Guaifenesin 400 mg PO TID 07/17/20 RX: Meloxicam [Mobic] 15 mg PO DAILYP PRN 07/17/20 RX: Mometasone Furoate [Asmanex] 220 mcg IH DAILY 07/17/20 RX: Spironolactone [Aldactone 25 mg Tablet] 100 mg PO DAILY 07/17/20 Fluocinonide/Emollient Base [Fluocinonide-E 0.05% Cream] 1 applic TP DAILY #1 cream..g. 07/19/20 RX: Acetaminophen [Tylenol 325 mg Tablet] 650 mg PO Q4HP PRN tablet 07/19/20 RX: Clindamycin HCl [Cleocin 150 mg Capsule] 450 mg PO Q8 #45 capsule 07/19/20 RX: Folic Acid [Folvite 1 mg Tablet] 1 mg PO DAILY #90 tablet 07/19/20 RX: Furosemide [Lasix 20 mg Tablet] 40 mg PO DAILY #0 07/19/20 RX: Gabapentin [Neurontin 300 mg Capsule] 300 mg PO Q12 #60 capsule 07/19/20 RX: Sodium Chloride [Sodium Chloride 1 gm Tablet] 1 gm PO DAILY #30 tablet 07/19/20 RX: Thiamine HCl [Thiamine 100 mg Tablet] 100 mg PO DAILY #90 tablet 07/19/20 History of Present Illiness History of Present Illness: Per H&P by Dr. Mejias: JOSE LUIS JIM is a 70 year old male with a history of COPD, hypertension, GERD, A. fib, heart failure and BPH who presents to the ER sent by his primary care doctor after lab done 2 days back showed low sodium level. Patient denies any symptoms right now including nausea, vomiting, diarrhea, dizziness. He states that he has a good appetite and has been compliant with his medication. He denies any history of passing out/loss of consciousness, abnormal body movement, headache, blurring of vision or focal weakness in any part of his extremities. He states that he used to be heavy drinker in the past but has been able to cut down to 1 to 2 cans of beer every day. In addition to this patient also reports that for the past 2 to 3 weeks he has been having severe bilateral burning lower extremity pain with associated reddish discoloration of his lower extremities but denies any fever or chills. Hospital Course Hospital Course: (1) Hyponatremia History of chronic hyponatremia. Na 117.6-> 122.5-> 118.7-> 124.8. Baseline appears to be 127-129 Urine sodium, urine osmolality, serum osmolality suggest hypovolemic hyponatremia vs siadh Based on repeat Urine sodium, urine osmolality, serum osmolality, UpToDate recommends checking TSH, ACTH and cortisol levels. TSH 4.12 ACTH is pending. AM cortisol was low at 3.61. Random cortisol 13.40; increased to 21 following IV cosynotropin, ruling out adrenal insufficiency. May also be related to continued daily alcohol (beer) intake. Received IVF. Although plan was to hold furosemide and spironolactone, patient took his own medications at the bedside. Improved with oral sodium chloride; continue at discharge. Recommend repeat chemistry at follow up appointment with PCP. (2) Hyperkalemia Resolved. Currently is being hydrated EKG shows no peaked T waves Corrected w/ IVF. Recommend repeat chemistry at follow up appointment with PCP. (3) Cellulitis BLE, lower extremity and pedal, cellulitis. Blood cultures are negative at 48 hours. Initially placed on IV clindamycin; rapidly improved. Transitioned to oral clindamycin to complete course of therapy. Scheduled gabapentin; patient reports improved discomfort. Rx at discharge. (4) Chronic congestive heart failure Chronic diastolic CHF; not currently in acute exacerbation. Echocardiogram (September 2018) shows LVEF 55 to 60% Held Lasix and spironolactone due to hyponatremia and hyperkalemia respectively Now that electrolytes have corrected, he is discharged home w/ recommendations to resume his prior regimen. Cardiac diet. Daily weights. (5) Alcohol dependence Placed him on CIWA protocol with ativan available if needed. None required this admission. Folic acid and thiamine supplementation provided; recommend he continue this following discharge. (6) COPD (chronic obstructive pulmonary disease) No exacerbation at this time. Supplemental oxygen as needed Encourage pulmonary toilet No indications for antibiotics or steroids. (7) Hypertension Blood pressure are soft, but stable. Continue home medication regimen. (8) Paroxysmal atrial fibrillation PAF; unable to determine if chronic or persistent a. fib. Currently rate controlled Continue metoprolol and apixaban (9) BPH (benign prostatic hyperplasia) Continue tamsulosin Physical Exam Vital Signs: Temp Pulse Resp BP Pulse Ox 97.9 F 90 18 111/59 L 92 07/19/20 11:23 07/19/20 11:23 07/19/20 11:23 07/19/20 11:23 07/19/20 11:23 Intake & Output 07/18/20 07/19/20 07/20/20 06:59 06:59 06:59 Intake Total 3839 5782 1000 Output Total 1650 1925 Balance 2189 3857 1000 Weight 75.1 kg 76.2 kg General appearance: PRESENT: no acute distress, cooperative, disheveled, well- developed, well-nourished Head exam: PRESENT: atraumatic, normocephalic Eye exam: PRESENT: conjunctiva pink, EOMI, PERRLA. ABSENT: scleral icterus Mouth exam: PRESENT: moist, tongue midline Teeth exam: PRESENT: poor dentation Respiratory exam: PRESENT: clear to auscultation latisha, symmetrical, unlabored, other - Baseline oxygen requirement. ABSENT: rales, rhonchi, wheezes Cardiovascular exam: PRESENT: RRR. ABSENT: diastolic murmur, rubs, systolic murmur Pulses: PRESENT: normal dorsalis pedis pul Vascular exam: PRESENT: normal capillary refill GI/Abdominal exam: PRESENT: normal bowel sounds, soft. ABSENT: distended, guarding, mass, organolmegaly, rebound, tenderness Rectal exam: PRESENT: deferred Extremities exam: PRESENT: full ROM. ABSENT: calf tenderness, clubbing, pedal edema Neurological exam: PRESENT: alert, awake, oriented to person, oriented to place, oriented to time, oriented to situation, CN II-XII grossly intact. ABSENT: motor sensory deficit Psychiatric exam: PRESENT: appropriate affect, normal mood. ABSENT: homicidal ideation, suicidal ideation Skin exam: PRESENT: dry, intact, warm. ABSENT: cyanosis, rash Results Laboratory Results: WBC 8.7 10^3/uL (4.0-10.5) 07/18/20 06:04 RBC 2.80 10^6/uL (4.35-5.55) L 07/18/20 06:04 Hgb 9.5 g/dL (13.5-17.0) L D 07/18/20 06:04 Hct 26.7 % (37.9-51.0) L 07/18/20 06:04 MCV 96 fl (80-97) 07/18/20 06:04 MCH 34.1 pg (27.0-33.4) H 07/18/20 06:04 MCHC 35.7 g/dL (32.0-36.0) 07/18/20 06:04 RDW 12.7 % (11.5-14.0) 07/18/20 06:04 Plt Count 274 10^3/uL (150-450) 07/18/20 06:04 Lymph % (Auto) Not Reportable 07/18/20 06:04 [place] % (Auto) Not Reportable 07/18/20 06:04 Eos % (Auto) Not Reportable 07/18/20 06:04 Baso % (Auto) Not Reportable 07/18/20 06:04 Absolute Neuts (auto) Not Reportable 07/18/20 06:04 Absolute Lymphs (auto) Not Reportable 07/18/20 06:04 Absolute Monos (auto) Not Reportable 07/18/20 06:04 Absolute Eos (auto) Not Reportable 07/18/20 06:04 Absolute Basos (auto) Not Reportable 07/18/20 06:04 Total Counted 100 07/18/20 06:04 Seg Neutrophils % Not Reportable 07/18/20 06:04 Seg Neuts % (Manual) 80 % (42-78) H 07/18/20 06:04 Lymphocytes % (Manual) 1 % (13-45) L 07/18/20 06:04 Atypical Lymphs % 1 % (0) 07/18/20 06:04 Monocytes % (Manual) 13 % (3-13) 07/18/20 06:04 Eosinophils % (Manual) 4 % (0-6) 07/18/20 06:04 Basophils % (Manual) 1 % (0-2) 07/18/20 06:04 Abs Neuts (Manual) 7.0 10^3/uL (1.7-8.2) 07/18/20 06:04 Abs Lymphs (Manual) 0.2 10^3/uL (0.5-4.7) L 07/18/20 06:04 Abs Monocytes (Manual) 1.1 10^3/uL (0.1-1.4) 07/18/20 06:04 Absolute Eos (Manual) 0.3 10^3/uL (0.0-0.6) 07/18/20 06:04 Abs Basophils (Manual) 0.1 10^3/uL (0.0-0.2) 07/18/20 06:04 Platelet Comment ADEQUATE 07/18/20 06:04 RBC Morph Comment NORMO-CYTIC/CHROMIC 07/18/20 06:04 PT 14.4 SEC (11.4-15.4) 07/16/20 21:13 INR 1.10 07/16/20 21:13 Sodium 124.8 mmol/L (137-145) L 07/19/20 05:04 Potassium 4.0 mmol/L (3.6-5.0) 07/19/20 05:04 Chloride 92 mmol/L (98-107) L 07/19/20 05:04 Carbon Dioxide 25 mmol/L (22-30) 07/19/20 05:04 Anion Gap 8 (5-19) 07/19/20 05:04 BUN 9 mg/dL (7-20) 07/19/20 05:04 Creatinine 0.77 mg/dL (0.52-1.25) 07/19/20 05:04 Est GFR ( Amer) > 60 (>60) 07/19/20 05:04 Est GFR (MDRD) Non-Af > 60 (>60) 07/19/20 05:04 Glucose 105 mg/dL (75-110) 07/19/20 05:04 Serum Osmolality 254 mOsm/kg (275-301) L 07/18/20 06:04 Calcium 8.4 mg/dL (8.4-10.2) 07/19/20 05:04 Magnesium 2.0 mg/dL (1.6-2.3) 07/16/20 21:13 Total Bilirubin 0.4 mg/dL (0.2-1.3) 07/16/20 21:13 Direct Bilirubin 0.1 mg/dL (0.0-0.4) 07/16/20 21:13 Neonat Total Bilirubin Not Reportable 07/16/20 21:13 Neonat Direct Bilirubin Not Reportable 07/16/20 21:13 Neonat Indirect Bili Not Reportable 07/16/20 21:13 AST 28 U/L (17-59) 07/16/20 21:13 ALT 12 U/L (<50) 07/16/20 21:13 Alkaline Phosphatase 90 U/L (38-126) 07/16/20 21:13 Total Protein 6.8 g/dL (6.3-8.2) 07/16/20 21:13 Albumin 3.9 g/dL (3.5-5.0) 07/16/20 21:13 TSH 4.12 uIU/mL (0.47-4.68) 07/17/20 03:42 Random Cortisol 21.00 ug/dL (None Established) 07/19/20 14:24 Cortisol AM Sample 3.61 ug/dL (4.46-22.7) L 07/19/20 05:04 Urine Osmolality 178 mOsm/kg (300-900) L 07/18/20 10:32 Urine Sodium 56 mmol/L (30-90) 07/18/20 10:32 Plan Plan of Treatment: He is discharged home, in stable condition. He is advised follow-up with his primary care provider within 1 week. Recommend repeat chemistry at follow-up appointment. Take medications as prescribed. Eat a cardiac diet. We daily and report any weight gain greater than 2 pounds to PCP. Return to emergency department, as needed, for concerning symptoms. Time Spent: Greater than 30 Minutes Stroke Is this a Stroke Patient?: No Acute Heart Failure Is this a Heart Failure Patient?: Yes Documentation of LVEF assessment?: Yes LVEF: LVEF Greater Than 40% Anticoagulant Therapy: N/A Discharged on Evidence-Based Beta Blockers: Yes Discharged on ARNI?: No-Document Contraindications Reason(s) not discharged on ARNI: Hyperkalemia Discharged on ARB?: No-document contraindications Reason(s) not Discharged on ARB: Hyperkalemia Discharged on ACEI?: No, document contraindications Reason(s) not Discharged on ACEI: Hyperkalemia For LVEF <35%, discharged on Aldosterone Antagonist?: N/A (LVEF > or = 35%) Follow-up Appointment scheduled within 7 days?: Yes
[2020-07-19 17:35] VITALS: BP 100/56
== END 2020-07-19 18:05 | disposition home or self-care (01) | DRG 641 ==
LOC: ER 19:02 → EH 07-17 01:48 → 5TH 07-17 10:53 → 3S 07-17 16:43
PROVIDERS: ADMIT Student in an Organized Health Care Education/Training Program; ATTEND Registered Nurse
DX: E87.1 Hypo-osmolality and hyponatremia (principal); L03.116 Cellulitis of left lower limb; L03.115 Cellulitis of right lower limb; I50.32 Chronic diastolic (congestive) heart failure; E87.5 Hyperkalemia; J44.9 Chronic obstructive pulmonary disease, unspecified; F17.210 Nicotine dependence, cigarettes, uncomplicated; I11.0 Hypertensive heart disease with heart failure; N40.0 Benign prostatic hyperplasia without lower urinary tract symptoms; F10.20 Alcohol dependence, uncomplicated; I48.0 Paroxysmal atrial fibrillation; K21.9 Gastro-esophageal reflux disease without esophagitis; Z79.02 Long term (current) use of antithrombotics/antiplatelets; Z82.49 Family history of ischemic heart disease and other diseases of the circulatory system; Z88.8 Allergy status to other drugs, medicaments and biological substances
CPT/HCPCS: 36415; 80048; 80053; 82024; 82533; 83735; 83930; 83935; 84300; 84443; 85025; 85610; 87040; 93005; 93010; 96361; 96365; 99285; J0834; J3490; J7030